=== PATIENT | female | born 1970 | race Caucasian/White ===

== ENCOUNTER 2017-11-18 16:05 | Emergency (ER) | payer OTHER, SELFPAY ==
[2017-11-18 17:55] VITALS: BP 116/63; PULSE 78; RESP 20; TEMP 36.9; O2SAT 97; BMI 33.2
--- NOTE | 2017-11-18 18:03 | HMH.EDUTC ---
[facility] [place] Clinical Impression: CLINIC FOLLOW UP, Dental abscess Disposition: Home, Self-Care Condition on Discharge: Good Instructions: DI for Dental Pain Additional Instructions: Take medication as prescribed Alternate Warm and cold compresses on jaw area to help relieve pain and swelling Continued to take Naproxen for pain Call dental office tomorrow and make appointment If swelling worsens or you have any trouble breathing go straight to ER Prescriptions: Penicillin V Potassium 500 mg PO Q6H #28 tab Referrals: Quincy Johnson APRN [Primary Care Provider] - Time of Disposition: 18:28 Medical Decision Making - Medical Records Medical records reviewed: Yes: I reviewed the patient's medical records. Vital Signs: 11/18/17 17:55 Temperature 98.4 F Temperature Source Temporal Artery Scan Pulse Rate [Right Brachial] 78 Respiratory Rate 20 Blood Pressure [Right Arm] 116/63 Blood Pressure Mean [Right Arm] 80 Blood Pressure Source [Right Arm] Automatic Cuff Blood Pressure Position [Right Arm] Sitting 02 Sat by Pulse Oximetry 97 Oxygen Delivery Method Room Air - Bhavin Inquiry Pt receiving controlled substance: No Bhavin was queried for this patient: No [facility] [place] HPI - General Stated complaint: swelling/pain r jaw Mode of Arrival: Ambulatory Source of Information: Patient Description of Symptoms (Recalled from Triage Doc. by RN): PT IS C/O SWELLING IN THE RIGHT SIDE OF HER FACE. PT STATES SHE DOESN'T HAVE ANY PAIN IN HER GUMS OR TEETH THAT WOULD INDICATE AN ABSCESS. PT STATES SHE HAS STARTED A NEW MEDICATION (NAPROXEN), BUT SHE HAS TAKEN IT BEFORE IN THE PAST. HEENT Symptoms (Recalled from RN notes): Yes (RIGHT SIDE OF FACE SWOLLEN) Resp Symptoms (Recalled from RN notes): No Skin Symptoms (Recalled from RN notes): No MS Symptoms (Recalled from RN notes): No Functional Status (Recalled from RN notes): NA - History of Present Illness Provider Complaint: Patient state that she noticed swelling in her right jaw area this morning State that she has several bad teeth and state that they bother her all the time so not sure if that is what is wrong State that as the day went on it looked like the area was getting bigger so she came in to get checked out - Related Data Previous Rx's Medication Instructions Recorded Penicillin V Potassium 500 mg PO Q6H #28 tab 11/18/17 Allergies Allergy/AdvReac Type Severity Reaction Status Date / Time morphine [MORPHINE] Allergy Mild Verified 11/18/17 16:57 - Worker's Comp Is this a Worker's Comp case?: No [facility] History I have reviewed the patient's past medical history: Yes Medical History: Reports:: Cancer (FACE) - *Social History Smoking Status: Current every day smoker Tobacco Type: cigarettes Alcohol Intake: never - Psychiatric History Expresses thoughts of harming self/others: None Suicide Plan Description: No Plan ROS Obtained: Yes All systems reviewed & no additional complaints Physical Exam - General General appearance: alert, in no apparent distress - Expanded ENT Exam Nose exam: Absent: sinus tenderness Teeth exam: Present: dental caries, dental tenderness # (tenderness right back upper gum, multiple caries, multiple old filings) - Respiratory Respiratory exam: Present: normal lung sounds bilaterally. Absent: respiratory distress - Cardiovascular Cardiovascular exam: Present: regular rate, normal rhythm. Absent: JVD - Neurological Exam Neurological exam: Present: alert, oriented X3
== END 2017-11-18 18:43 | disposition home or self-care (01) ==
PROVIDERS: Emergency Provider Nurse Practitioner; PCP Nurse Practitioner Family
DX: K04.7 Periapical abscess without sinus (principal); F17.210 Nicotine dependence, cigarettes, uncomplicated; Z85.828 Personal history of other malignant neoplasm of skin
CPT/HCPCS: 99202

== ENCOUNTER 2017-11-22 19:04 | Emergency (ER) | payer OTHER, SELFPAY ==
--- NOTE | 2017-11-22 19:19 | HMH.EDUTC ---
[facility] [place] Impression: Cellulitis of external cheek, right Disposition: Home, Self-Care Condition on Discharge: Good Additional Instructions: Warm compresses. Discussed with Dr Morales. See dentist Saturday. Return sooner if fever, vomiting, etc. Prescriptions: Sulfamethoxazole/Trimethoprim [Bactrim DS tablet] 1 each PO BID 10 Days #20 tab cephALEXin [Keflex 500mg Cap] 500 mg PO Q6H 10 Days #40 cap Referrals: Won Coronado MD [Primary Care Provider] - Time of Disposition: 19:35 Medical Decision Making - Medical Records Medical records reviewed: Yes: I reviewed the patient's medical records. - Bhavin Inquiry Pt receiving controlled substance: No [facility] [place] - General Stated complaint: right side of face swollen Time Seen by Provider: 11/22/17 19:20 - History of Present Illness Provider Complaint: Right cheek swelling X 4 days. Started on Penicillin 4 days ago but it seems to be getting worse. Has appt with dentist 11/25/17 but doesn't really feel like her teeth are the issue. Has a history of skin cancer on her face and is very worried. No fever. No nausea/vomiting. Onset (ago): day(s) (4) Location: face Relieving factors: none Exacerbating factors: none Associated symptoms: denies other symptoms Treatments prior to arrival: other (Penicillin) - Related Data Home Medications Medication Instructions Recorded Confirmed Penicillin V Potassium 500 mg PO Q6H 11/22/17 11/22/17 Previous Rx's Medication Instructions Recorded Sulfamethoxazole/Trimethoprim 1 each PO BID 10 Days #20 tab 11/22/17 [Bactrim DS tablet] cephALEXin [Keflex 500mg Cap] 500 mg PO Q6H 10 Days #40 cap 11/22/17 Allergies Allergy/AdvReac Type Severity Reaction Status Date / Time morphine [MORPHINE] Allergy Mild Verified 11/18/17 16:57 [facility] History I have reviewed the patient's past medical history: Yes Medical History: Reports:: Cancer (FACE) - *Social History Smoking Status: Current every day smoker Tobacco Type: cigarettes Alcohol Intake: never ROS Obtained: Yes All systems reviewed & no additional complaints - ENT Ears, Nose, Mouth, and Throat: Reports as per HPI Physical Exam - General General appearance: alert, in no apparent distress - Head Head exam: atraumatic, normocephalic, normal inspection - Eye Eye exam: Present: normal appearance, PERRL, EOMI - ENT ENT exam: Present: normal exam, normal oropharynx, mucous membranes moist, TM's normal bilaterally, normal external ear exam - Expanded ENT Exam Nose exam: Present: sinus tenderness, other (induration of right cheek with tenderness; no drainage) - Neck Neck exam: Present: normal inspection, full ROM, trachea midline. Absent: meningismus, lymphadenopathy - Chest Chest inspection: Present: normal inspection, symmetric chest wall rise. Absent: tenderness - Respiratory Respiratory exam: Present: normal lung sounds bilaterally. Absent: respiratory distress - Cardiovascular Cardiovascular exam: Present: regular rate, normal rhythm. Absent: JVD - Abdominal Exam Abdominal exam: Present: soft, normal bowel sounds. Absent: distention, tenderness, guarding - Extremities Exam Extremities exam: Present: normal inspection, full ROM, normal capillary refill. Absent: calf tenderness - Back Exam Back exam: Present: normal inspection. Absent: tenderness - Neurological Exam Neurological exam: Present: alert, oriented X3 - Psychiatric Psychiatric exam: Present: normal affect, normal mood - Skin Skin exam: Present: warm, dry, intact, normal color - Lymphatic Lymphatic Findings: no adenopathy
[2017-11-22 19:20] VITALS: BP 137/68; PULSE 99; RESP 20; TEMP 36.6; O2SAT 99; BMI 33.2
--- NOTE | 2017-11-22 19:34 | ED_ITS ---
[facility] [place] Clinical Impression: Cellulitis of external cheek, right Disposition: Home, Self-Care Condition on Discharge: Good Additional Instructions: Warm compresses. Discussed with Dr Morales. See dentist Saturday. Return sooner if fever, vomiting, etc. Prescriptions: Sulfamethoxazole/Trimethoprim [Bactrim DS tablet] 1 each PO BID 10 Days #20 tab cephALEXin [Keflex 500mg Cap] 500 mg PO Q6H 10 Days #40 cap Referrals: Won Coronado MD [Primary Care Provider] - Time of Disposition: 19:35 Medical Decision Making - Medical Records Medical records reviewed: Yes: I reviewed the patient's medical records. - Bhavin Inquiry Pt receiving controlled substance: No [facility] [place]PI - General Stated complaint: right side of face swollen Time Seen by Provider: 11/22/17 19:20 - History of Present Illness Provider Complaint: Right cheek swelling X 4 days. Started on Penicillin 4 days ago but it seems to be getting worse. Has appt with dentist 11/25/17 but doesn't really feel like her teeth are the issue. Has a history of skin cancer on her face and is very worried. No fever. No nausea/vomiting. Onset (ago): day(s) (4) Location: face Relieving factors: none Exacerbating factors: none Associated symptoms: denies other symptoms Treatments prior to arrival: other (Penicillin) - Related Data Home Medications Medication Instructions Recorded Confirmed Penicillin V Potassium 500 mg PO Q6H 11/22/17 11/22/17 Previous Rx's Medication Instructions Recorded Sulfamethoxazole/Trimethoprim 1 each PO BID 10 Days #20 tab 11/22/17 [Bactrim DS tablet] cephALEXin [Keflex 500mg Cap] 500 mg PO Q6H 10 Days #40 cap 11/22/17 Allergies Allergy/AdvReac Type Severity Reaction Status Date / Time morphine [MORPHINE] Allergy Mild Verified 11/18/17 16:57 [facility] History I have reviewed the patient's past medical history: Yes Medical History: Reports:: Cancer (FACE) - *Social History Smoking Status: Current every day smoker Tobacco Type: cigarettes Alcohol Intake: never ROS Obtained: Yes All systems reviewed & no additional complaints - ENT Ears, Nose, Mouth, and Throat: Reports as per HPI Physical Exam - General General appearance: alert, in no apparent distress - Head Head exam: atraumatic, normocephalic, normal inspection - Eye Eye exam: Present: normal appearance, PERRL, EOMI - ENT ENT exam: Present: normal exam, normal oropharynx, mucous membranes moist, TM's normal bilaterally, normal external ear exam - Expanded ENT Exam Nose exam: Present: sinus tenderness, other (induration of right cheek with tenderness; no drainage) - Neck Neck exam: Present: normal inspection, full ROM, trachea midline. Absent: meningismus, lymphadenopathy - Chest Chest inspection: Present: normal inspection, symmetric chest wall rise. Absent : tenderness - Respiratory Respiratory exam: Present: normal lung sounds bilaterally. Absent: respiratory distress - Cardiovascular Cardiovascular exam: Present: regular rate, normal rhythm. Absent: JVD - Abdominal Exam Abdominal exam: Present: soft, normal bowel sounds. Absent: distention, tenderness, guarding - Extremities Exam Extremities exam: Present: normal inspection, full ROM, normal capillary refill. Absent: calf tenderness - Back Exam Back exam: Present: normal inspection. Absent: tenderness - Neurologic
== END 2017-11-22 19:45 | disposition home or self-care (01) ==
PROVIDERS: Emergency Provider Physician Assistant; PCP Emergency Medicine
DX: L03.211 Cellulitis of face (principal); F17.210 Nicotine dependence, cigarettes, uncomplicated; Z85.828 Personal history of other malignant neoplasm of skin
CPT/HCPCS: 99202

== ENCOUNTER → 2017-12-30 16:05 | Outpatient (REF) | payer OTHER, SELFPAY | LOC: LAB 16:05 | PROVIDERS: Visit Provider Nurse Practitioner Family | DX: R07.89 Other chest pain (principal); M54.5 Low back pain | CPT/HCPCS: 83880; 87086 ==

== ENCOUNTER → 2018-01-09 09:20 | Outpatient (CLI) | payer OTHER, SELFPAY ==
--- NOTE | 2018-01-09 09:20 | MM_ITS ---
MM Dig screening mamm BI w/CAD CAD Screening COMPARISON: Digital mammograms 04/11/2015 and 07/24/2017 INDICATION: There is a history of breast cancer patient's mother diagnosed after menopause and patient's 2 sisters diagnosed before menopause TECHNIQUE: Standard CC and MLO images were obtained. R2 CAD reviewed. FINDINGS: Scattered fibroglandular densities are seen throughout both breasts and the findings are bilateral and symmetrical. There is a mole marker left breast. There is no suspicious lesion and no suspicious microcalcifications. IMPRESSION: Fibrofatty parenchyma with no suspicious lesion seen recommend yearly follow-up BI-RADS Category: 2 Benign Finding(s) RECOMMENDED FOLLOW-UP: 1YR - 1 YEAR FOLLOW-UP (A letter has been sent to the patient regarding results of the study.)
== END ==
PROVIDERS: PCP Nurse Practitioner Family; Visit Provider Nurse Practitioner Family
DX: Z12.31 Encounter for screening mammogram for malignant neoplasm of breast (principal)
CPT/HCPCS: 77067

== ENCOUNTER → 2018-05-28 10:57 | Outpatient (CLI) | payer OTHER, SELFPAY ==
[2018-05-28 11:36] LABS: Blood Urea Nitrogen 14 mg/dL (7-18); Calcium 8.6 mg/dL (8.5-10.1); Carbon Dioxide 30 mmol/L (21.0-32.0); Chloride 105 mmol/L (98-107); Creatinine,Serum 0.76 mg/dL (0.55-1.02); Estimated Glomerular Filt Rate 81 ml/min (>60); GFR (African American) 98 ML/MIN (>60); Glucose 86 mg/dL (74-106); Sodium 143 mmol/L (136-145)
== END ==
PROVIDERS: Visit Provider Internal Medicine
DX: R60.9 Edema, unspecified (principal); I51.9 Heart disease, unspecified
CPT/HCPCS: 36415; 80048

== ENCOUNTER → 2018-07-01 12:45 | Outpatient (CLI) | payer OTHER, SELFPAY ==
[2018-07-01 13:24] LABS: Alanine Aminotransferase 22 U/L (12-78); Alkaline Phosphatase 68 U/L (46-116); Aspartate Amino Transferase 14 U/L (15-37); Bilirubin,Direct 0.1 mg/dL (0.0-0.2); Bilirubin,Indirect 0.4 mg/dL (0.0-0.9); Bilirubin,Total 0.5 mg/dL (0.2-1.0); Chol/HDL Ratio 3.9 (1-3.5); Cholesterol 263 mg/dL (140-200); HDL Cholesterol 68 mg/dL (29-89); LDL Cholesterol 176 mg/dL (0-130); Total Protein,Serum 7.5 gm/dL (6.4-8.2); Triglycerides 95 mg/dL (30-200); VLDL Cholesterol 19 mg/dL (0-40)
== END ==
PROVIDERS: PCP Emergency Medicine; Visit Provider Nurse Practitioner Family
DX: I50.30 Unspecified diastolic (congestive) heart failure (principal); R42 Dizziness and giddiness; R06.02 Shortness of breath; R60.1 Generalized edema
CPT/HCPCS: 36415; 80061; 80076

== ENCOUNTER → 2018-07-31 14:17 | Outpatient (CLI) | payer OTHER, SELFPAY ==
--- NOTE | 2018-07-31 14:18 | US_ITS ---
US thyroid HISTORY: Follow-up thyroid nodules, thyroid enlargement ITS.REASON: thyromegly ORDERING PHYSICIAN: Meir Díaz MD PATIENT AGE: 47 years Comparison: None FINDINGS: The right lobe is 4.3 x 1.6 x 2.4 cm. There is a 4 mm hypoechoic nodule in the upper pole, 2 mm hypoechoic nodule in the midpole. The left lobe is 4.4 x 1.5 x 2.5 cm. A 4 mm hypoechoic nodules present in the mid polar region on the left. There is a 6 mm hypoechoic nodule in the mid polar region posteriorly. This does have some low level echoes and was not readily apparent on the previous exam. A 4 mm cystic nodule present in the lower pole with a small internal septation. An additional 6 mm hypoechoic nodule is present in the lower pole appears solid. This nodule is not readily demonstrated on the previous exam. The isthmus is slightly thickened on the right. IMPRESSION: Bilateral thyroid enlargement with bilateral thyroid nodules which are low level of suspicion for malignancy. At least 2 nodules are new on the left. Consider 6 month follow-up to confirm stability of these nodules.
[2018-07-31 18:28] LABS: Free T4 (Free Thyroxine) 1.15 ng/dl (0.76-1.46); Thyroid Stimulating Hormone 1.35 uIU/ml (0.358-3.740)
== END ==
PROVIDERS: PCP Emergency Medicine; Visit Provider Otolaryngology
DX: E01.0 Iodine-deficiency related diffuse (endemic) goiter (principal); J34.2 Deviated nasal septum
CPT/HCPCS: 36415; 76536; 84439; 84443

== ENCOUNTER → 2018-08-01 09:43 | Outpatient (CLI) | payer OTHER, SELFPAY ==
[2018-08-01 10:54] VITALS: PULSE 62
== END ==
PROVIDERS: PCP Emergency Medicine; Visit Provider Internal Medicine
DX: R06.00 Dyspnea, unspecified (principal); I27.20 Pulmonary hypertension, unspecified; F17.200 Nicotine dependence, unspecified, uncomplicated
CPT/HCPCS: 94060; 94640; 94726; 94729

== ENCOUNTER → 2018-08-04 10:57 | Outpatient (CLI) | payer OTHER, SELFPAY | PROVIDERS: PCP Nurse Practitioner Family; Visit Provider Nurse Practitioner Family | DX: Z12.31 Encounter for screening mammogram for malignant neoplasm of breast (principal) ==

== ENCOUNTER → 2018-08-22 12:16 | Outpatient (CLI) | payer OTHER, SELFPAY | PROVIDERS: Visit Provider Nurse Practitioner Family | DX: N23 Unspecified renal colic (principal); R39.89 Other symptoms and signs involving the genitourinary system | CPT/HCPCS: 87086 ==

== ENCOUNTER → 2018-09-16 12:49 | Outpatient (CLI) | payer OTHER, SELFPAY ==
--- NOTE | 2018-09-16 12:50 | XR_ITS ---
XR chest 2V HISTORY: ITS.REASON: dyspnea ORDERING PHYSICIAN: Kaye Herman PATIENT AGE: 47 years COMPARISON: 08/05/2017 FINDINGS: The cardiomediastinal silhouette and pulmonary vascularity are within normal limits. The lungs are clear without infiltrates, suspicious nodules, or pleural effusions. No acute bony abnormalities. Degenerative changes are present in the thoracic spine. A calcified granulomas present in the right CPA angle IMPRESSION: No change with no acute finding
== END ==
PROVIDERS: PCP Emergency Medicine; Visit Provider Urology
DX: R06.02 Shortness of breath (principal); E66.9 Obesity, unspecified; E78.5 Hyperlipidemia, unspecified; F17.200 Nicotine dependence, unspecified, uncomplicated; G47.33 Obstructive sleep apnea (adult) (pediatric); I27.20 Pulmonary hypertension, unspecified; I50.9 Heart failure, unspecified; I51.9 Heart disease, unspecified; Z72.0 Tobacco use
CPT/HCPCS: 71046

== ENCOUNTER → 2018-11-03 09:02 | Outpatient (CLI) | payer OTHER, SELFPAY ==
[2018-11-03 10:34] LABS: Alanine Aminotransferase 29 U/L (12-78); Albumin Level 3.6 gm/dL (3.4-5.0); Alkaline Phosphatase 81 U/L (46-116); Aspartate Amino Transferase 21 U/L (15-37); Bilirubin,Direct 0.1 mg/dL (0.0-0.2); Bilirubin,Indirect 0.4 mg/dL (0.0-0.9); Bilirubin,Total 0.5 mg/dL (0.2-1.0); Chol/HDL Ratio 2.8 (1-3.5); Cholesterol 142 mg/dL (140-200); HDL Cholesterol 51 mg/dL (29-89); LDL Cholesterol 75 mg/dL (0-130); Total Protein,Serum 6.7 gm/dL (6.4-8.2); Triglycerides 81 mg/dL (30-200); VLDL Cholesterol 16 mg/dL (0-40)
== END ==
PROVIDERS: Visit Provider Urology
DX: R06.02 Shortness of breath (principal); I50.9 Heart failure, unspecified; I27.20 Pulmonary hypertension, unspecified; E66.9 Obesity, unspecified; F17.200 Nicotine dependence, unspecified, uncomplicated; G47.33 Obstructive sleep apnea (adult) (pediatric); I51.9 Heart disease, unspecified; Z72.0 Tobacco use
CPT/HCPCS: 36415; 80061; 80076

== ENCOUNTER → 2018-11-18 12:48 | Outpatient (POV) | payer OTHER, SELFPAY | PROVIDERS: Visit Provider Internal Medicine | DX: Z00.00 Encounter for general adult medical examination without abnormal findings (principal) ==

== ENCOUNTER → 2019-02-20 15:09 | Outpatient (CLI) | payer OTHER, SELFPAY ==
--- NOTE | 2019-02-20 15:13 | MM_ITS ---
MM Dig screening mamm BI w/CAD CAD Screening COMPARISON: Digital mammograms with CAD 01/09/2018 and 07/26/2017 INDICATION: There is a history of breast cancer in patient's mother after menopause and 2 sisters before menopause. TECHNIQUE: Standard CC and MLO images were obtained. R2 CAD reviewed. FINDINGS: The breasts are composed primarily of fat with minimal scattered fibro glandular densities throughout each breast. There is a mole marker right breast. There is no suspicious lesion and there are no suspicious microcalcifications. IMPRESSION: Fibrofatty parenchyma with no suspicious lesion seen BI-RADS Category: 2 Benign Finding(s) RECOMMENDED FOLLOW-UP: 1YR - 1 YEAR FOLLOW-UP (A letter has been sent to the patient regarding results of the study.)
== END ==
PROVIDERS: PCP Nurse Practitioner Family; Visit Provider Nurse Practitioner Family
DX: Z12.31 Encounter for screening mammogram for malignant neoplasm of breast (principal)
CPT/HCPCS: 77067

== ENCOUNTER → 2019-03-06 14:19 | Outpatient (CLI) | payer OTHER, SELFPAY ==
--- NOTE | 2019-03-06 14:21 | US_ITS ---
US thyroid HISTORY: ITS.REASON: thyroid nodule ORDERING PHYSICIAN: Meir Díaz MD PATIENT AGE: 48 years Comparison: None FINDINGS: The right lobe is 4.5 x 2.2 x 1.4 cm. 3 mm hypoechoic nodule upper pole unchanged 2 mm cyst lower pole unchanged. The left lobe is 4.6 x 1.5 x 2.5 cm. 2 mm hypoechoic nodule upper pole, 4 mm cyst mid polar region, 5 mm septated cyst lower pole, 6 mm isoechoic nodule lower pole unchanged. There was a 5 mm hypoechoic nodule in the mid polar region on the previous exam not demonstrated on today's study. No new suspicious nodules evident. IMPRESSION: Mildly enlarged thyroid gland with bilateral stable nodules
== END ==
PROVIDERS: PCP Nurse Practitioner Family; Visit Provider Otolaryngology
DX: E01.0 Iodine-deficiency related diffuse (endemic) goiter (principal); E04.9 Nontoxic goiter, unspecified
CPT/HCPCS: 76536

== ENCOUNTER 2019-03-30 22:32 | Observation (INO) | payer OTHER, SELFPAY ==
[2019-03-30 22:33] VITALS: BP 96/47; PULSE 64; RESP 18; TEMP 36.6; O2SAT 94; BMI 34.3
--- NOTE | 2019-03-30 22:38 | XR_ITS ---
XR chest portable HISTORY: ITS.REASON: near syncope ORDERING PHYSICIAN: Won Coronado MD PATIENT AGE: 48 years COMPARISON: None FINDINGS: The cardiomediastinal silhouette and pulmonary vascularity are within normal limits. The lungs are clear without infiltrates, suspicious nodules, or pleural effusions. No acute bony abnormalities. IMPRESSION: Negative chest, no acute finding
[2019-03-30 22:52] LABS: Basophils # 0.1 K/mm3 (0-0.2); Basophils % 0.6 % (0.1-2.0); Eosinophils # 0.2 K/mm3 (0.0-0.4); Eosinophils % 2.2 % (0.1-12.0); Hematocrit 38.5 % (37.0-47.0); Hemoglobin 13.2 g/dL (12.2-16.2); Lymphocytes # 4.7 K/mm3 (0.7-4.5); Lymphocytes % 43.1 % (10-50); Mean Corpuscular HGB Conc 34.3 g/dL (31.8-35.4); Mean Corpuscular Hemoglobin 30.8 pg (27.0-31.2); Mean Corpuscular Volume 89.8 fl (81-99); Mean Platelet Volume 7.5 fl (7.4-10.4); Monocytes # 0.6 K/mm3 (0.1-1.0); Neutrophils # 5.3 K/mm3 (1.8-7.8); Neutrophils % 49.1 % (37.0-80.0); Platelet Count 228 K/mm3 (142-424); Red Blood Count 4.29 M/mm3 (4.20-5.40); Red Cell Distribution Width 13.9 % (11.5-17.5); White Blood Count 10.9 K/mm3 (4.8-10.8)
[2019-03-30 23:02] VITALS: BP 109/74; BP 114/75; BP 99/62; PULSE 62; PULSE 69; PULSE 71
[2019-03-30 23:02] LABS: Alanine Aminotransferase 30 U/L (12-78); Albumin Level 3.7 gm/dL (3.4-5.0); Albumin/Globulin Ratio 1.1 (1.1-1.8); Alkaline Phosphatase 87 U/L (46-116); Amylase 34 U/L (25-115); Anion Gap 14.1 mEq/L (5-15); Aspartate Amino Transferase 21 U/L (15-37); Bilirubin,Total 0.5 mg/dL (0.2-1.0); Blood Urea Nitrogen 15 mg/dL (7-18); Calcium 8.6 mg/dL (8.5-10.1); Carbon Dioxide 26 mmol/L (21.0-32.0); Chloride 101 mmol/L (98-107); Creatinine Clearance Estimated 104 mL/min (50-200); Creatinine,Serum 0.99 mg/dL (0.55-1.02); Estimated Glomerular Filt Rate 59 ml/min (>60); GFR (African American) 72 ML/MIN (>60); Globulin 3.4 gm/dl (1.3-3.2); Glucose 101 mg/dL (74-106); Potassium 3.1 mmoL/L (3.5-5.1); Sodium 138 mmol/L (136-145); Total Protein,Serum 7.1 gm/dL (6.4-8.2); Troponin I < 0.02 ng/ml (0.00-0.06)
[2019-03-30 23:31] LABS: Lipase 152 u/L (73-393)
--- NOTE | 2019-03-31 00:13 | HMH.EDCP ---
ED Disposition Clinical Impression: Tobacco use, Hypokalemia, JOSE (obstructive sleep apnea), Multiple thyroid nodules Chest pain Qualifiers: Chest pain type: precordial pain Qualified Code(s): R07.2 - Precordial pain Obesity Qualifiers: Obesity type: due to excess calories Obesity classification: adult class 1 (BMI 30 - 34.9) Serious obesity comorbidity presence: with serious comorbidity Body mass index: BMI 34.0-34.9 Qualified Code(s): E66.09 - Other obesity due to excess calories; Z68.34 - Body mass index (BMI) 34.0-34.9, adult HTN (hypertension) Qualifiers: Hypertension type: unspecified Qualified Code(s): I10 - Essential (primary) hypertension HLD (hyperlipidemia) Qualifiers: Hyperlipidemia type: unspecified Qualified Code(s): E78.5 - Hyperlipidemia, unspecified Disposition: Admitted as Observation Condition on Discharge: Good Instructions: DI for Syncope in Adults (Fainting), DI for Syncope in Children (Fainting) Referrals: Provider,Referral, [Primary Care Provider] - - Critical Care Critical Care Time: No Attestation: On 03/30/19, the high probability of a clinically significant, sudden or life threatening deterioration of the following system(s) required my full and direct attention, intervention and personal management. The time I documented below is in addition to time spent performing reported procedures but includes the following listed in this critical care notation. Medical Decision Making - Medical Records Medical records reviewed: Yes: I reviewed the patient's medical records. - Bhavin Inquiry Pt receiving controlled substance: No Vital Signs: 03/30/19 22:33 03/30/19 23:02 Temperature 98 F Temperature Source Oral Pulse Rate [Orthostatic Lying Right Radial] 62 Pulse Rate [Orthostatic Sitting Right Radial] 69 Pulse Rate [Orthostatic Standing Right Radial] 71 Pulse Rate [Right Radial] 64 Respiratory Rate 18 Blood Pressure [Orthostatic Lying Right Arm] 99/62 L Blood Pressure [Orthostatic Sitting Right Arm] 109/74 L Blood Pressure [Orthostatic Standing Right Arm] 114/75 Blood Pressure [Right Arm] 96/47 L Blood Pressure Mean [Right Arm] 63 02 Sat by Pulse Oximetry 94 L - Lab Data Lab results reviewed: Yes: I reviewed the patient's lab results. Lab Results 03/30/19 22:45: WBC 10.9 H, RBC 4.29, Hgb 13.2, Hct 38.5, MCV 89.8, MCH 30.8, MCHC 34.3, RDW 13.9, Plt Count 228, MPV 7.5, Neut % (Auto) 49.1, Lymph % (Auto) 43.1, Kimble % (Auto) 5.0, Eos % (Auto) 2.2, Baso % (Auto) 0.6, Neut # (Auto) 5.3, Lymph # (Auto) 4.7 H, Kimble # (Auto) 0.6, Eos # (Auto) 0.2, Baso # (Auto) 0.1 03/30/19 22:45: Sodium 138, Potassium 3.1 L, Chloride 101, Carbon Dioxide 26, Anion Gap 14.1, BUN 15, Creatinine 0.99, Estimated Creat Clear 104, Estimated GFR 59, Est GFR ( Amer) 72, Glucose 101, Calcium 8.6, Total Bilirubin 0.5, AST 21, ALT 30, Alkaline Phosphatase 87, Troponin I < 0.02, Total Protein 7.1, Albumin 3.7, Globulin 3.4 H, Albumin/Globulin Ratio 1.1, Amylase 34 03/30/19 22:45: Lipase 152 Result diagrams: 03/30/19 22:45 03/30/19 22:45 Orders (Tests/Meds): ED MEDICATIONS Generic Name Dose Route Start Last Admin Trade Name Freq PRN Reason Stop Dose Admin Sodium Chloride 1,000 mls @ 999 mls/hr 03/30/19 22:45 03/30/19 22:53 Sod Chlor 0.9% 1000ml Bag IV 03/30/19 23:45 999 mls/hr .[id number] [place] Administration Discontinued Medications Generic Name Dose Route Start Last Admin Trade Name Freq PRN Reason Stop Dose Admin Aspirin 243 mg 03/30/19 22:39 03/30/19 22:53 Aspirin 325mg Tablet PO 03/30/19 22:40 243 mg ONCE ONE Administration Ondansetron HCl 4 mg 03/30/19 22:53 03/30/19 22:54 Zofran 4mg/2ml Vial IV 03/30/19 22:54 4 mg ONCE ONE Administration ORDERS Category Date Time Status XR chest portable Stat Exams 03/30/19 22:38 Taken - Radiology Data #1 Image(s): Chest Image Reviewed: Yes I reviewed the patient's radiology im
[2019-03-31 00:16] VITALS: BP 101/66; PULSE 69; RESP 18; O2SAT 95
--- NOTE | 2019-03-31 00:16 | ED_ITS ---
ED Disposition Clinical Impression: Tobacco use, Hypokalemia, JOSE (obstructive sleep apnea), Multiple thyroid nodules Chest pain Qualifiers: Chest pain type: precordial pain Qualified Code(s): R07.2 - Precordial pain Obesity Qualifiers: Obesity type: due to excess calories Obesity classification: adult class 1 (BMI 30 - 34.9) Serious obesity comorbidity presence: with serious comorbidity Body mass index: BMI 34.0-34.9 Qualified Code(s): E66.09 - Other obesity due to excess calories; Z68.34 - Body mass index (BMI) 34.0-34.9, adult HTN (hypertension) Qualifiers: Hypertension type: unspecified Qualified Code(s): I10 - Essential (primary) hypertension HLD (hyperlipidemia) Qualifiers: Hyperlipidemia type: unspecified Qualified Code(s): E78.5 - Hyperlipidemia, unspecified Disposition: Admitted as Observation Condition on Discharge: Good Instructions: DI for Syncope in Adults (Fainting), DI for Syncope in Children (Fainting) Referrals: Provider,Referral, [Primary Care Provider] - - Critical Care Critical Care Time: No Attestation: On 03/30/19, the high probability of a clinically significant, sudden or life threatening deterioration of the following system(s) required my full and direct attention, intervention and personal management. The time I documented below is in addition to time spent performing reported procedures but includes the following listed in this critical care notation. Medical Decision Making - Medical Records Medical records reviewed: Yes: I reviewed the patient's medical records. - Bhavin Inquiry Pt receiving controlled substance: No Vital Signs: 03/30/19 22:33 03/30/19 23:02 Temperature 98 F Temperature Source Oral Pulse Rate [Orthostatic Lying Right Radial] 62 Pulse Rate [Orthostatic Sitting Right Radial] 69 Pulse Rate [Orthostatic Standing Right Radial] 71 Pulse Rate [Right Radial] 64 Respiratory Rate 18 Blood Pressure [Orthostatic Lying Right Arm] 99/62 L Blood Pressure [Orthostatic Sitting Right Arm] 109/74 L Blood Pressure [Orthostatic Standing Right Arm] 114/75 Blood Pressure [Right Arm] 96/47 L Blood Pressure Mean [Right Arm] 63 02 Sat by Pulse Oximetry 94 L - Lab Data Lab results reviewed: Yes: I reviewed the patient's lab results. Lab Results 03/30/19 22:45: WBC 10.9 H, RBC 4.29, Hgb 13.2, Hct 38.5, MCV 89.8, MCH 30.8, MCHC 34.3, RDW 13.9, Plt Count 228, MPV 7.5, Neut % (Auto) 49.1, Lymph % (Auto) 43.1, Owen % (Auto) 5.0, Eos % (Auto) 2.2, Baso % (Auto) 0.6, Neut # (Auto) 5.3, Lymph # (Auto) 4.7 H, Owen # (Auto) 0.6, Eos # (Auto) 0.2, Baso # (Auto) 0.1 03/30/19 22:45: Sodium 138, Potassium 3.1 L, Chloride 101, Carbon Dioxide 26, Anion Gap 14.1, BUN 15, Creatinine 0.99, Estimated Creat Clear 104, Estimated GFR 59, Est GFR ( Amer) 72, Glucose 101, Calcium 8.6, Total Bilirubin 0.5, AST 21, ALT 30, Alkaline Phosphatase 87, Troponin I < 0.02, Total Protein 7.1, Albumin 3.7, Globulin 3.4 H, Albumin/Globulin Ratio 1.1, Amylase 34 03/30/19 22:45: Lipase 152 Result diagrams: 03/30/19 22:45 03/30/19 22:45 Orders (Tests/Meds): ED MEDICATIONS Generic Name Dose Route Start Last Admin Trade Name Freq PRN Reason Stop Dose Admin Sodium Chloride 1,000 mls @ 999 m
--- NOTE | 2019-03-31 00:18 | PC.NURSE ---
dr li admitting patient to his service for chest pain observation.
[2019-03-31 00:41] VITALS: BP 101/66; PULSE 64; RESP 15; TEMP 36.7; O2SAT 97
[2019-03-31 00:56] VITALS: BP 139/97; PULSE 61; RESP 18; TEMP 36.6; O2SAT 99; BMI 35.0
[2019-03-31 01:44] VITALS: PULSE 70
[2019-03-31 03:55] LABS: Troponin I < 0.02 ng/ml (0.00-0.06)
[2019-03-31 04:00] VITALS: BP 123/71; PULSE 60; PULSE 66; RESP 18; TEMP 36.6; O2SAT 95
--- NOTE | 2019-03-31 04:36 | PC.NURSE ---
PT NEW ADMIT THIS SHIFT. AT [facility]. NSR ON TELEMETRY. NO COMPLAINTS OF CHEST PAIN OR N/V.
[2019-03-31 06:05] LABS: Basophils % 0.3 % (0.1-2.0); Eosinophils # 0.2 K/mm3 (0.0-0.4); Eosinophils % 1.9 % (0.1-12.0); Hematocrit 38.2 % (37.0-47.0); Hemoglobin 12.9 g/dL (12.2-16.2); Lymphocytes # 3.5 K/mm3 (0.7-4.5); Lymphocytes % 36.4 % (10-50); Mean Corpuscular HGB Conc 33.7 g/dL (31.8-35.4); Mean Corpuscular Hemoglobin 30.8 pg (27.0-31.2); Mean Corpuscular Volume 91.4 fl (81-99); Mean Platelet Volume 7.6 fl (7.4-10.4); Monocytes # 0.4 K/mm3 (0.1-1.0); Monocytes % 4.1 % (1.7-9.3); Neutrophils # 5.6 K/mm3 (1.8-7.8); Neutrophils % 57.3 % (37.0-80.0); Platelet Count 234 K/mm3 (142-424); Red Blood Count 4.18 M/mm3 (4.20-5.40); White Blood Count 9.7 K/mm3 (4.8-10.8)
[2019-03-31 06:21] LABS: Anion Gap 10.9 mEq/L (5-15); Blood Urea Nitrogen 12 mg/dL (7-18); Calcium 8.4 mg/dL (8.5-10.1); Carbon Dioxide 29 mmol/L (21.0-32.0); Chloride 107 mmol/L (98-107); Chol/HDL Ratio 2.9 (1-3.5); Cholesterol 141 mg/dL (140-200); Creatinine Clearance Estimated 128 mL/min (50-200); Creatinine,Serum 0.82 mg/dL (0.55-1.02); Estimated Glomerular Filt Rate 74 ml/min (>60); GFR (African American) 89 ML/MIN (>60); Glucose 94 mg/dL (74-106); HDL Cholesterol 48 mg/dL (29-89); LDL Cholesterol 81 mg/dL (0-130); Magnesium 2.4 mg/dL (1.4-2.2); Potassium 3.9 mmoL/L (3.5-5.1); Sodium 143 mmol/L (136-145); Triglycerides 58 mg/dL (30-200); Troponin I < 0.02 ng/ml (0.00-0.06); VLDL Cholesterol 12 mg/dL (0-40)
--- NOTE | 2019-03-31 07:11 | P.CONPHA_ITS ---
[facility] [place] Pharmacy VTE Monitoring - Patient Demographics Admission date: 03/31/19 Report Date: 03/31/19 Time: 07:11 Allergies/Adverse Reactions: Patient Allergies morphine [MORPHINE] Allergy (Mild, Verified 03/30/19 22:38) Height: 1.68 m Weight: 98.571 kg Patient Problems: Current Active Problems (Updated 03/31/19 @ 00:27 by Won Coronado MD) Obesity (Acute) Chest pain (Acute) Hypokalemia (Acute) Multiple thyroid nodules (Acute) Tobacco use (Chronic) HLD (hyperlipidemia) (Chronic) HTN (hypertension) (Chronic) JOSE (obstructive sleep apnea) (Chronic) - VTE Risk Labs: VTE Related Lab Results Hgb 12.9 g/dL (12.2-16.2) 03/31/19 05:45 Hct 38.2 % (37.0-47.0) 03/31/19 05:45 Plt Count 234 K/mm3 (142-424) 03/31/19 05:45 BUN 12 mg/dL (7-18) 03/31/19 05:45 Creatinine 0.82 mg/dL (0.55-1.02) 03/31/19 05:45 Estimated Creat Clear 128 mL/min (50-200) 03/31/19 05:45 Was VTE Risk Assessment Performed: Yes VTE Score: 5 VTE Risk Level: Low Risk - Prophylaxis VTE Prophylaxis Ordered?: Yes Types of VTE Prophylaxis: TEDS Knee High Location of Applied Device: Bilateral Lower Extremeties - VTE Diagnosis Confirmed Treatment or plan recommended: Continue Current Treatment
[2019-03-31 08:00] VITALS: BP 95/60; PULSE 60; PULSE 62; RESP 18; TEMP 36.5; O2SAT 95
--- NOTE | 2019-03-31 08:00 | CA_ITS ---
PROCEDURE: 2-D M-mode and color Doppler study INDICATIONS FOR THE TEST: Chest pain X COPDX Heart Murmur Tobacco SmokingX Palpitations Fatigue Syncope Edema HypertensionXDiabetes Mellitus Rheumatic Fever SOB JAY ObesityXHyperlipidemiaX Family History HD Additional History CHF PATIENT INFORMATION HEIGHT:66 WEIGHT:213 GENDER: Female B/P:99/62 2-D/M-MODE INTERPRETATION: 2-D MEASUREMENTS OBSERVED VALUES IN CMS Right Ventricular Dimension (RVDd) 2.0 Interventricular Septum (Thickness)(IVsd) .7 Left Ventricular Internal Dimensions(LVIDd) 5.6 Left Ventricular Posterior Wall (Thickness)(LVPWd) .7 Aortic Root 3.3 Aortic Cusp Separation 1.8 Left Atrial Dimensions (LAD) 3.5 2D 1. Left atrium is mildly enlarged, left ventricle is normal size, there is no concentric left ventricular hypertrophy, visually estimated ejection fraction 55% with no regional wall motion abnormality. 2. The right atrium and right ventricle are normal size and contractility. 3. The aortic, mitral and tricuspid valvular grossly normal. 4. The pulmonic valve is poorly visualized. 5. No significant pericardial effusion DOPPLER INTERROGATION: Doppler interrogation of the aortic, mitral and tricuspid valvular presence of mild mitral and tricuspid regurgitation, tricuspid regurgitation jet velocity is inadequate for calculation of the right ventricular systolic pressure, diastolic parameters are within normal range. CONCLUSION: 1. Mildly enlarged left atrium, normal left ventricular size, visually estimated ejection fraction 55% with no regional wall motion abnormality. Diastolic parameters are within normal range. 2. Mild mitral and tricuspid regurgitation 3. No significant pericardial effusion noted.
--- NOTE | 2019-03-31 09:25 | HMH.PHAINT ---
MEDICATION RECONCILIATION COMPLETED ON PATIENT USING EXTERNAL FILL HISTORY FROM PHARMACY. -ABIOLA FLORIAN, KIMBERLYD
--- NOTE | 2019-03-31 09:33 | HMH.CNCARD ---
History of Present Illness Consult date: 03/31/19 Requesting physician: Won Coronado Consult reason: chest pain Chief complaint: chest pain, near syncope Additional Medical History:: 1. Continued tobacco use A. COPD 2. Hypertensive heart disease A. History of diastolic congestive heart failure 3. Normal coronary arteries by cardiac catheterization August 2017 4. Hyperlipidemia History of present illness: 48-year-old white female with history of normal coronary arteries by cardiac catheterization late 2016 with evidence of diastolic dysfunction presented to the emergency department for what sounds to be near syncope. Patient had been out yesterday morning placing flags on [employer] . After being home a couple hours and hydrating she went with her to the hospital for his IV infusion therapy. While her was having his IV inserted, the patient developed discomfort in her head that she describes as proceeding through her body. She began to feel as if she was going to pass out and at the same time noticed that her hearing was diminished. She was taken to the ER for further evaluation. She did vomit in route to the ER. Blood pressure in the ER was noted to be 96/47. Patient was started on IV fluids. She denies any further discomfort or symptoms overnight. She does admit to dietary indiscretion and regulating her diuretics based on her salt intake. Cardiac enzymes are returned normal x3. Echocardiogram this a.m. shows preserved ejection fraction with no significant valvular heart disease. EKG is sinus with no acute changes. Cardiology consulted for evaluation recommendations. [facility] History Medical History: Reports:: Cancer (skin), Congestive Heart Failure, Chronic Obstructive Pulmonary Disease (COPD), Hyperlipidemia, Hypertension, Lung Disease Denies:: Diabetes Mellitus Type 1, Diabetes Mellitus Type 2, Internal Pacemaker, MRSA, Seizures *Have you ever received a pneumonia vaccine?: Yes *Have you received a flu vaccine this season?: Yes Other Medical History: Reports: Thyroid Disease, Other. Denies: Blood Transfusion Reaction Other Surgeries: Yes: Cardiac Catheterization, Colonoscopy (POLYPS REMOVED), Hysterectomy-Total, Skin Cancer Excision, Tubal Ligation. No: Coronary Stent, Pacemaker Amputation: No Fractures: No - *Social History Educational Level: Attended High School Smoking Status: Current every day smoker Tobacco Type: cigarettes # Packs/Day (cigarettes): 1 Alcohol Intake: never Alcohol Intake Frequency:: holidays/special occasions only Substance Use Type: denies use *Occupational Status:: unemployed Housing: house Household Members: spouse *Travel in the last 8 weeks: None - Psychiatric History Expresses thoughts of harming self/others: None Suicide Plan Description: No Plan Family Hx:: Coronary Artery Disease, Diabetes, Kidney Disease, Stroke Meds Home Medications Medication Instructions Recorded Confirmed Type aspirin 81 mg tablet,delayed 81 mg PO DAILY tab 12/31/17 03/30/19 History release furosemide 40 mg tablet 40 mg PO QAM #90 tab 07/17/18 03/30/19 Rx bisoprolol fumarate 5 mg tablet 2.5 mg PO DAILY #90 tab 09/16/18 03/30/19 Rx Montelukast Sodium [Montelukast 10 mg PO HS 10/14/18 03/31/19 History 10mg Tab] albuterol sulfate HFA 90 1 puff INHALATION Q6H PRN #6.7 g 01/04/19 03/30/19 Rx mcg/actuation aerosol inhaler umeclidinium 62.5 mcg-vilanterol 1 puff INHALATION Q24H 02/17/19 03/31/19 History 25 mcg/actuation powdr for inhalation Atorvastatin Calcium [Atorvastatin 20 mg PO DAILY 03/30/19 03/31/19 History 20mg Tab] Cetirizine HCl 10 mg PO DAILY 03/30/19 03/30/19 History Nystatin [Nystatin Susp 500,000 5 ml PO QID 03/30/19 03/30/19 History Units/5mL Udc] Ropinirole HCl 1 - 2 mg PO HS 03/30/19 03/31/19 History Spironolactone 25 mg PO DAILY 03/31/19 03/31/19 History raNITIdine HCl [Ranitidine HCl] 150 mg PO BID 03/31/19 03/31/19 History Allerg
--- NOTE | 2019-03-31 09:37 | P.CONS_ITS ---
History of Present Illness Consult date: 03/31/19 Requesting physician: Won Coronado Consult reason: chest pain Chief complaint: chest pain, near syncope Additional Medical History:: 1. Continued tobacco use A. COPD 2. Hypertensive heart disease A. History of diastolic congestive heart failure 3. Normal coronary arteries by cardiac catheterization August 2017 4. Hyperlipidemia History of present illness: 48-year-old white female with history of normal coronary arteries by cardiac catheterization late 2016 with evidence of diastolic dysfunction presented to the emergency department for what sounds to be near syncope. Patient had been out yesterday morning placing flags on [employer] . After being home a couple hours and hydrating she went with her to the hospital for his IV infusion therapy. While her was having his IV inserted, the patient developed discomfort in her head that she describes as proceeding through her body. She began to feel as if she was going to pass out and at the same time noticed that her hearing was diminished. She was taken to the ER for further evaluation. She did vomit in route to the ER. Blood pressure in the ER was noted to be 96/47. Patient was started on IV fluids. She denies any further discomfort or symptoms overnight. She does admit to dietary indiscretion and regulating her diuretics based on her salt intake. Cardiac enzymes are returned normal x3. Echocardiogram this a.m. shows preserved ejection fraction with no significant valvular heart disease. EKG is sinus with no acute changes. Cardiology consulted for evaluation recommendations. [facility] History Medical History: Reports:: Cancer (skin), Congestive Heart Failure, Chronic Obstructive Pulmonary Disease (COPD), Hyperlipidemia, Hypertension, Lung Disease Denies:: Diabetes Mellitus Type 1, Diabetes Mellitus Type 2, Internal Pacemaker, MRSA, Seizures *Have you ever received a pneumonia vaccine?: Yes *Have you received a flu vaccine this season?: Yes Other Medical History: Reports: Thyroid Disease, Other. Denies: Blood Transfusion Reaction Other Surgeries: Yes: Cardiac Catheterization, Colonoscopy (POLYPS REMOVED), Hysterectomy-Total, Skin Cancer Excision, Tubal Ligation. No: Coronary Stent, Pacemaker Amputation: No Fractures: No - *Social History Educational Level: Attended High School Smoking Status: Current every day smoker Tobacco Type: cigarettes # Packs/Day (cigarettes): 1 Alcohol Intake: never Alcohol Intake Frequency:: holidays/special occasions only Substance Use Type: denies use *Occupational Status:: unemployed Housing: house Household Members: spouse *Travel in the last 8 weeks: None - Psychiatric History Expresses thoughts of harming self/others: None Suicide Plan Description: No Plan Family Hx:: Coronary Artery Disease, Diabetes, Kidney Disease, Stroke Meds Home Medications Medication Instructions Recorded Confirmed Type aspirin 81 mg tablet,delayed 81 mg PO DAILY tab 12/31/17 03/30/19 History release furosemide 40 mg tablet 40 mg PO QAM #90 tab 07/17/18 03/30/19 Rx bisoprolol fumarate 5 mg tablet 2.5 mg PO DAILY #90 tab 09/16/18 03/30/19 Rx Montelukast Sodium [Montelukast 10 mg PO HS 10/14/18 03/31/19 History 10mg Tab] albuterol sulfate HFA 90 1 puff INHALATION Q6H PRN #6.7 g 01/04/19 03/30/19 Rx mcg/actuation aerosol inhaler umeclidinium 62.5 mcg-vilanterol 1 puff INHALATION Q24H 02/17/19 03/31/19 History 25 mcg/actuation powdr for inhalation
--- NOTE | 2019-03-31 10:04 | HMH.HPDC ---
General - General Admission date:: 03/31/19 Discharge date: 03/31/19 *Admission Date: 03/31/19 *Chief complaint: Near Syncope, Chest tightness *History of present illness: 48-year-old white female with history of normal coronary arteries by cardiac catheterization late 2016 with evidence of diastolic dysfunction presented to the emergency department for what sounds to be near syncope. Patient had been out yesterday morning placing flags on . After being home a couple hours and hydrating she went with her to the hospital for his IV infusion therapy. While her was having his IV inserted, the patient developed discomfort in her head that she describes as proceeding through her body. She began to feel as if she was going to pass out and at the same time noticed that her hearing was diminished. She was taken to the ER for further evaluation. She did vomit in route to the ER. Blood pressure in the ER was noted to be 96/47. Patient was started on IV fluids. She denies any further discomfort or symptoms overnight. She does admit to dietary indiscretion and regulating her diuretics based on her salt intake. Cardiac enzymes are returned normal x3. Echocardiogram this a.m. shows preserved ejection fraction with no significant valvular heart disease. EKG is sinus with no acute changes. (Per Fab Massey). [facility] History I have reviewed the patient's past medical history: Yes Medical History: Reports:: Cancer (skin), Congestive Heart Failure, Chronic Obstructive Pulmonary Disease (COPD), Hyperlipidemia, Hypertension, Lung Disease Denies:: Diabetes Mellitus Type 1, Diabetes Mellitus Type 2, Internal Pacemaker, MRSA, Seizures *Have you ever received a pneumonia vaccine?: Yes *Have you received a flu vaccine this season?: Yes Other Medical History: Reports: Thyroid Disease, Other. Denies: Blood Transfusion Reaction Other Surgeries: Yes: Cardiac Catheterization, Colonoscopy (POLYPS REMOVED), Hysterectomy-Total, Skin Cancer Excision, Tubal Ligation. No: Coronary Stent, Pacemaker Amputation: No Fractures: No - *Social History Educational Level: Attended High School Smoking Status: Current every day smoker Tobacco Type: cigarettes # Packs/Day (cigarettes): 1 Alcohol Intake: never Alcohol Intake Frequency:: holidays/special occasions only Substance Use Type: denies use *Occupational Status:: unemployed Housing: house Household Members: spouse *Travel in the last 8 weeks: None - Psychiatric History Expresses thoughts of harming self/others: None Suicide Plan Description: No Plan Family Hx:: Coronary Artery Disease, Diabetes, Kidney Disease, Stroke Review of Systems - Review of Systems Review of systems:: pertinent systems reviewed and negative unless documented below - Constitutional Denies body ache(s) - Eyes Denies blurry vision - *Cardiovascular Reports excessive sweating - *Respiratory Denies chest congestion, Denies cough - *Gastrointestinal Denies abdominal pain - *Musculoskeletal Denies joint pain - *Neurologic Reports fainting, Denies seizure-like activity - Endocrine Denies cold intolerance - Hematologic/Lymphatic Denies easy bleeding, Denies easy bruising - Allergic/Immunologic Denies throat swelling, Denies tongue swelling Exam Vital signs and Labs for Last 24 Hours: Temp Pulse Resp BP Pulse Ox 97.7 F 62 18 95/60 L 95 03/31/19 08:00 03/31/19 08:00 03/31/19 08:00 03/31/19 08:00 03/31/19 08:00 Laboratory Results - last 24 hr 03/30/19 22:45: WBC 10.9 H, RBC 4.29, Hgb 13.2, Hct 38.5, MCV 89.8, MCH 30.8, MCHC 34.3, RDW 13.9, Plt Count 228, MPV 7.5, Neut % (Auto) 49.1, Lymph % (Auto) 43.1, [place] % (Auto) 5.0, Eos % (Auto) 2.2, Baso % (Auto) 0.6, Neut # (Auto) 5.3, Lymph # (Auto) 4.7 H, [place] # (Auto) 0.6, Eos # (Auto) 0.2, Baso # (Auto) 0.1 03/30/19 22:45: Sodium 138, Potassium 3.1 L, Chloride 101, Carbon Dioxide 26, Anion Gap 14.1, BUN 15, Creatinine 0.99,
--- NOTE | 2019-03-31 10:45 | HMH.PHAINT ---
DISCHARGE COUNSELING COMPLETED ON PATIENT. PATIENT IS TO CONTINUE ALL CURRENT HOME MEDICATIONS. NO NEW PRESCRIPTIONS WERE GIVEN. PATIENT HAD NO QUESTIONS AT THIS TIME. -ABIOLA FLORIAN, KIMBERLYD
[2019-06-12 10:23] LABS: POC Glucose,Bedside 112 (70-110)
== END 2019-03-31 11:00 | disposition home or self-care (01) ==
LOC: ER 22:51 → 2ND 03-31 00:26
PROVIDERS: Admitting Provider Emergency Medicine; Emergency Provider Emergency Medicine; Visit Provider Emergency Medicine
DX: I50.31 Acute diastolic (congestive) heart failure (principal); E78.5 Hyperlipidemia, unspecified; I10 Essential (primary) hypertension; F17.200 Nicotine dependence, unspecified, uncomplicated; E78.00 Pure hypercholesterolemia, unspecified; Z82.49 Family history of ischemic heart disease and other diseases of the circulatory system; Z79.82 Long term (current) use of aspirin; Z79.899 Other long term (current) drug therapy; Z88.5 Allergy status to narcotic agent; Z68.35 Body mass index [BMI] 35.0-35.9, adult; R55 Syncope and collapse; R07.2 Precordial pain; R53.1 Weakness; R61 Generalized hyperhidrosis; R11.10 Vomiting, unspecified; E87.6 Hypokalemia; G47.33 Obstructive sleep apnea (adult) (pediatric); E04.2 Nontoxic multinodular goiter
CPT/HCPCS: 36415; 71045; 80048; 80053; 80061; 82150; 82962; 83690; 83735; 84484; 85025; 93005; 93306; 96365; 96375; 99284; G0378; J2405

== ENCOUNTER → 2019-06-17 18:56 | Outpatient (CLI) | payer OTHER, SELFPAY | PROVIDERS: Visit Provider Nurse Practitioner Family | DX: R10.9 Unspecified abdominal pain (principal) | CPT/HCPCS: 87086 ==

== ENCOUNTER → 2019-07-16 16:54 | Outpatient (CLI) | payer OTHER, SELFPAY ==
--- NOTE | 2019-07-16 16:59 | XR_ITS ---
PROCEDURE: XR HIP LT 2-3V W/PELVIS CLINICAL INDICATION: pain Left hip pain COMPARISON: No exams were available for comparison FINDINGS: No fracture or dislocation is evident. No significant degenerative change. No lytic or blastic change. Unremarkable soft tissues. IMPRESSION: No acute findings. Dictated by: Melvin Ac MD 07/16/2019 17:15 Electronically signed by Melvin Ac MD in [place] 07/16/2019 17:15
--- NOTE | 2019-07-16 16:59 | XR_ITS ---
PROCEDURE: XR LUMBAR SPINE 2-3V CLINICAL INDICATION: pain Low back pain COMPARISON: LS5 LUMBAR SPINE 5 VIEWS from 08/05/2017 CT ABDOMEN PELVIS WO CON from 06/24/2019 FINDINGS: Normal alignment. Degenerative disc disease is present at T12-L1 L1-L2 L2-L3 and L3-L4 with anterior osteophytes most prominent at L1-L2. Mild facet arthritic changes are present at L5-S1 and there is generalized vascular calcification. There is a small opacity noted in the right pelvic region measuring 2-3 mm and could be due to phleboliths or distal ureteral stone. Previous CT scan of 06/24/2019 shows a small phleboliths in this region. There is mild sclerosis of the right SI joint inferiorly IMPRESSION: Degenerative changes lumbar spine as described above Dictated by: Melvin Ac MD 07/16/2019 17:17 Electronically signed by Melvin Ac MD in [place] 07/16/2019 17:17
== END ==
PROVIDERS: PCP Nurse Practitioner Family; Visit Provider Nurse Practitioner Family
DX: M54.9 Dorsalgia, unspecified (principal); M25.552 Pain in left hip
CPT/HCPCS: 72100; 73502

== ENCOUNTER → 2019-10-05 14:11 | Outpatient (CLI) | payer OTHER, SELFPAY ==
--- NOTE | 2019-10-05 14:26 | MR_ITS ---
PROCEDURE: MR LUMBAR SPINE WO CON CLINICAL INDICATION: LUMBAR DDD Low back pain with numbness and tingling down left leg, low back pain left hip pain COMPARISON: XR LUMBAR SPINE 2-3V from 07/16/2019 TECHNIQUE: Standard multiplanar multiecho sequences are performed without contrast. 3-D MIP and myelographic images are also rendered and reviewed FINDINGS: The spinal cord ends at the L1 level. There is mild kyphosis of the lower thoracic and upper lumbar spine. There is multilevel degenerative disc disease. T11-T12, T12-L1, L1-L2 shows degenerative disc disease with irregularity of the endplates consistent with Scheuermann's disease. Minimal bulging disc at L1-L2. L2-L3: Mild degenerative disc disease with minimal bulging disc L3-L4: Minimal bulging disc along with mild facet ligamentum hypertrophy with mild left-sided foraminal narrowing. L4-5: Minimal bulging disc with mild facet ligamentum hypertrophy with moderate to severe left-sided foraminal narrowing. L5-S1: Mild facet ligamentum hypertrophy. No disc herniation or canal stenosis. IMPRESSION: 1. There is multilevel degenerative disc disease. T11-T12, T12-L1, L1-L2 shows degenerative disc disease with irregularity of the endplates consistent with Scheuermann's disease. Minimal bulging disc at L1-L2. 2. L2-L3: Mild degenerative disc disease with minimal bulging disc 3. L3-L4: Minimal bulging disc along with mild facet ligamentum hypertrophy with mild left-sided foraminal narrowing. 4. L4-5: Minimal bulging disc with mild facet ligamentum hypertrophy with moderate to severe left-sided foraminal narrowing. 5. L5-S1: Mild facet ligamentum hypertrophy. 6. No disc herniation or canal stenosis. Dictated by: Melvin Ac MD 10/06/2019 14:30 Electronically signed by Melvin Ac MD in [place] 10/06/2019 14:30
== END ==
PROVIDERS: PCP Nurse Practitioner Family; Visit Provider Orthopaedic Surgery Adult Reconstructive Orthopaedic Surgery
DX: M51.36 Other intervertebral disc degeneration, lumbar region (principal)
CPT/HCPCS: 72148; 76376

== ENCOUNTER → 2020-03-29 10:41 | Outpatient (CLI) | payer MEDICAID, SELFPAY ==
--- NOTE | 2020-03-29 10:46 | XR_ITS ---
PROCEDURE: XR CHEST 2V CLINICAL HISTORY: tob abuse COMPARISON: CXR CHEST(2 VIEWS-NOT PORTABLE) from 09/14/2016 CXR CHEST(2 VIEWS-NOT PORTABLE) from 08/05/2017 CXR2V XR chest 2V from 09/16/2018 FINDINGS: The cardiomediastinal silhouette and pulmonary vascularity are within normal limits. The lungs are clear without infiltrates, suspicious nodules, or pleural effusions. No acute bony abnormalities. IMPRESSION: No acute findings. Dictated by: Dr. Jovany Villalobos MD 03/29/2020 11:[address] Jovany Villalobos MD in [place] 03/29/2020 11:01
== END ==
PROVIDERS: PCP Nurse Practitioner Family; Visit Provider Nurse Practitioner Family
DX: R07.9 Chest pain, unspecified (principal); R06.02 Shortness of breath; I10 Essential (primary) hypertension; I27.20 Pulmonary hypertension, unspecified; E78.5 Hyperlipidemia, unspecified; F17.200 Nicotine dependence, unspecified, uncomplicated; G47.33 Obstructive sleep apnea (adult) (pediatric); Z99.89 Dependence on other enabling machines and devices
CPT/HCPCS: 71046

== ENCOUNTER 2020-05-14 11:32 | Emergency (ER) | payer MEDICAID, SELFPAY ==
[2020-05-14 11:35] VITALS: BP 140/85; PULSE 73; RESP 16; TEMP 36.9; O2SAT 98; BMI 33.2
--- NOTE | 2020-05-14 11:41 | HMH.EDGENADL ---
ED Disposition Clinical Impression: Dental infection Disposition: Home, Self-Care Condition on Discharge: Good Instructions: DI for Tooth Abscess Additional Instructions: Additional instructions for DENTAL PROBLEMS: See a dentist as soon as possible for further evaluation. Return immediately if you have an uncontrollable fever greater than 102 degrees, difficulty breathing or shortness of breath, persistent vomiting, or inability to swallow. Prescriptions: cephALEXin [Keflex 500mg Cap] 500 mg PO QID #40 cap Transmission Status: Pending to [id number] Referrals: Quincy Johnson APRN [Primary Care Provider] - - Critical Care Critical Care Time: No Attestation: On , the high probability of a clinically significant, sudden or life threatening deterioration of the following system(s) required my full and direct attention, intervention and personal management. The time I documented below is in addition to time spent performing reported procedures but includes the following listed in this critical care notation. Medical Decision Making - Bhavin Inquiry Pt receiving controlled substance: No Vital Signs: 05/14/20 11:35 Temperature 98.5 F Temperature Source Oral Pulse Rate [Right] 73 Respiratory Rate 16 Blood Pressure [Right Arm] 140/85 Blood Pressure Mean [Right Arm] 103 Blood Pressure Source [Right Arm] Automatic Cuff Blood Pressure Position [Right Arm] Sitting 02 Sat by Pulse Oximetry 98 Oxygen Delivery Method Room Air General Adult HPI - General Stated complaint: SHAIKH on lt, face swollen ,diarrhea Time Seen by Provider: 05/14/20 11:45 - History of Present Illness HPI narrative: States she woke up with swelling of the right side of her face this morning. She has no pain at rest but has tenderness of her right cheek and 1 of her right maxillary teeth. Denies fever. She has had left-sided headaches for about a week, but those went away this morning when her swelling started. Denies sinus symptoms. States that she has had a dental abscess before. She has been treated with Keflex, which worked well and she requests that medication. - Related Data Home Medications Medication Instructions Recorded Confirmed aspirin 81 mg tablet,delayed 81 mg PO DAILY tab 12/31/17 03/29/20 release Montelukast Sodium [Montelukast 10 mg PO HS 10/14/18 03/29/20 10mg Tab] umeclidinium 62.5 mcg-vilanterol 1 puff INHALATION Q24H 02/17/19 03/29/20 25 mcg/actuation powdr for inhalation Previous Rx's Medication Instructions Recorded albuterol sulfate 90 mcg/actuation 1 puff INHALATION Q6H PRN #6.7 g 01/04/19 aerosol inhaler furosemide 40 mg tablet 40 mg PO QAM #90 tab 07/31/19 ropinirole 1 mg tablet 1 - 2 mg PO HS PRN #60 tab 08/13/19 bisoprolol fumarate 5 mg tablet 2.5 mg PO DAILY #90 tab 09/25/19 spironolactone 25 mg tablet 25 mg PO DAILY #90 tab 11/23/19 EQ LORATADINE 10MG TAB See Rx Instructions .ROUTE 02/04/20 .COMPLEX #90 each atorvastatin 20 mg tablet See Rx Instructions .ROUTE 03/08/20 .COMPLEX #90 tablet cephALEXin [Keflex 500mg Cap] 500 mg PO QID #40 cap 05/14/20 Allergies Allergy/AdvReac Type Severity Reaction Status Date / Time morphine [MORPHINE] Allergy Mild Verified 03/29/20 10:[address] [facility] History - Hepatitis A Screen Attestation statement:: This patient has been screened for Hepatitis A risk factors. I have reviewed the patient's past medical history: Yes Medical History: Reports:: Cancer, Congestive Heart Failure, Chronic Obstructive Pulmonary Disease (COPD), Hyperlipidemia, Hypertension, Lung Disease Denies:: Diabetes Mellitus Type 1, Diabetes Mellitus Type 2, Internal Pacemaker, MRSA, Seizures Other Medical History: Reports: Thyroid Disease, Other. Denies: Blood Transfusion Reaction Other Surgeries: Yes: Cardiac Catheterization, Colonoscopy (POLYPS REMOVED), Hysterectomy-Total, Skin Cancer Excision, Tubal Ligation, Other (polyps from colon). No: Coronary Sten
[2020-05-14 12:24] VITALS: BP 142/80; PULSE 74; RESP 16; TEMP 36.9; O2SAT 98
== END 2020-05-14 12:25 | disposition home or self-care (01) ==
PROVIDERS: Emergency Provider Emergency Medicine; PCP Nurse Practitioner Family
DX: K04.7 Periapical abscess without sinus (principal); J44.9 Chronic obstructive pulmonary disease, unspecified; E78.5 Hyperlipidemia, unspecified; I10 Essential (primary) hypertension; F17.210 Nicotine dependence, cigarettes, uncomplicated; Z79.899 Other long term (current) drug therapy
CPT/HCPCS: 96372; 99281

== ENCOUNTER 2020-05-15 22:19 | Emergency (ER) | payer MEDICAID, SELFPAY ==
[2020-05-15 22:19] VITALS: BP 128/67; PULSE 85; RESP 16; TEMP 37.1; O2SAT 99; BMI 33.2
[2020-05-15 22:30] VITALS: BP 132/69; PULSE 88; RESP 17; O2SAT 99
--- NOTE | 2020-05-15 22:53 | ECG_ITS ---
APPROVED REPORT Exam: Resting ECG HR:78 bpm ECG Measurements Heart Rate 78 AXES SC 132 P 67 QRSd 90 QRS 67 QT 376 T -6 QTc 428 <Conclusion> Normal sinus rhythm NDST-T Changes Abnormal ECG Electronically signed by : Arnaldo Taylor, 05/16/2020 12:26:58
--- NOTE | 2020-05-15 22:54 | HMH.EDCP ---
ED Disposition Clinical Impression: Chest pain at rest, Dental infection Disposition: Home, Self-Care Condition on Discharge: Good Instructions: DI for Chest Pain Additional Instructions: return if any problems and see card today Referrals: Quincy Johnson APRN [Primary Care Provider] - - Critical Care Critical Care Time: No Attestation: On 05/15/20, the high probability of a clinically significant, sudden or life threatening deterioration of the following system(s) required my full and direct attention, intervention and personal management. The time I documented below is in addition to time spent performing reported procedures but includes the following listed in this critical care notation. Medical Decision Making - Medical Records Medical records reviewed: Yes: I reviewed the patient's medical records. - Bhavin Inquiry Pt receiving controlled substance: No Vital Signs: 05/15/20 22:19 05/15/20 22:30 05/15/20 23:00 Temperature 98.7 F Temperature Source Oral Pulse Rate [Left Radial] 85 88 88 Respiratory Rate 16 17 17 Blood Pressure [Right Arm] 128/67 132/69 131/70 Blood Pressure Mean [Right Arm] 87 90 90 Blood Pressure Source [Right Arm] Automatic Cuff Automatic Cuff Automatic Cuff Blood Pressure Position [Right Arm] Sitting Supine Supine 02 Sat by Pulse Oximetry 99 99 99 Oxygen Delivery Method Room Air Room Air Room Air 05/15/20 23:30 05/16/20 00:00 05/16/20 00:30 Temperature Temperature Source Pulse Rate [Left Radial] 84 88 80 Respiratory Rate 17 16 18 Blood Pressure [Right Arm] 121/66 125/63 131/64 Blood Pressure Mean [Right Arm] 84 83 86 Blood Pressure Source [Right Arm] Automatic Cuff Automatic Cuff Automatic Cuff Blood Pressure Position [Right Arm] Supine Supine Supine 02 Sat by Pulse Oximetry 99 99 99 Oxygen Delivery Method Room Air Room Air Room Air 05/16/20 01:30 05/16/20 02:00 Temperature Temperature Source Pulse Rate [Left Radial] 64 66 Respiratory Rate 16 16 Blood Pressure [Right Arm] 114/80 128/86 Blood Pressure Mean [Right Arm] 91 100 Blood Pressure Source [Right Arm] Automatic Cuff Automatic Cuff Blood Pressure Position [Right Arm] 02 Sat by Pulse Oximetry 95 96 Oxygen Delivery Method Room Air Room Air - Lab Data Lab results reviewed: Yes: I reviewed the patient's lab results. Lab Results 05/15/20 22:50: WBC 12.3 H, RBC 4.78, Hgb 15.4, Hct 44.0, MCV 91.9, MCH 32.2 H, MCHC 35.0, RDW 13.9, Plt Count 216, MPV 8.6, Neut % (Auto) 57.9, Lymph % (Auto) 35.4, Lynn % (Auto) 4.7, Eos % (Auto) 1.6, Baso % (Auto) 0.4, Neut # (Auto) 7.1, Lymph # (Auto) 4.4, Lynn # (Auto) 0.6, Eos # (Auto) 0.2, Baso # (Auto) 0.1, ESR 20 05/15/20 22:50: Sodium 136, Potassium 3.9, Chloride 99, Carbon Dioxide 30, Anion Gap 10.9, BUN 10, Creatinine 0.70, Estimated Creat Clear 140, Estimated GFR 88, Est GFR ( Amer) 107, Glucose 103 H, Calcium 9.4, Total Bilirubin 0.6, AST 30, ALT 20, Alkaline Phosphatase 95, Troponin I < 0.01, C-Reactive Protein 16.6 H, Total Protein 7.7, Albumin 4.6, Globulin 3.1, Albumin/Globulin Ratio 1.5 05/15/20 22:50: Lactate 1.7 05/16/20 02:05: Troponin I < 0.01 Result diagrams: 05/15/20 22:50 05/15/20 22:50 Orders (Tests/Meds): ED MEDICATIONS Generic Name Dose Route Start Last Admin Trade Name Freq PRN Reason Stop Dose Admin Sodium Chloride 1,000 mls @ 999 mls/hr 05/15/20 23:00 05/15/20 23:08 Sod Chlor 0.9% 1000ml Bag IV 05/16/20 00:00 999 mls/hr .Q1H1M [place] Administration Discontinued Medications Generic Name Dose Route Start Last Admin Trade Name Freq PRN Reason Stop Dose Admin Acetaminophen/Codeine Phosphate 1 ozzy 05/16/20 02:10 05/16/20 02:13 Acetaminophen W/Codeine #3 Take Home Pack (6) PO 05/16/20 02:11 1 ozzy ONCE ONE Administration Aspirin 324 mg 05/15/20 23:00 05/15/20 23:08 Aspirin 81mg Chewable Tablet PO 05/15/20 23:01 324 mg ONCE ONE Administration Ketorolac Tromethamine 30 mg 05/15/20 22:58 0
[2020-05-15 23:00] VITALS: BP 131/70; PULSE 88; RESP 17; O2SAT 99
[2020-05-15 23:02] LABS: Basophils # 0.1 K/mm3 (0-0.2); Basophils % 0.4 % (0.1-2.0); Eosinophils # 0.2 K/mm3 (0.0-0.4); Eosinophils % 1.6 % (0.1-12.0); Hemoglobin 15.4 g/dL (12.2-16.2); Lymphocytes # 4.4 K/mm3 (0.7-4.5); Lymphocytes % 35.4 % (10-50); Mean Corpuscular Hemoglobin 32.2 pg (27.0-31.2); Mean Corpuscular Volume 91.9 fl (81-99); Mean Platelet Volume 8.6 fl (7.4-10.4); Monocytes # 0.6 K/mm3 (0.1-1.0); Monocytes % 4.7 % (1.7-9.3); Neutrophils # 7.1 K/mm3 (1.8-7.8); Neutrophils % 57.9 % (37.0-80.0); Platelet Count 216 K/mm3 (142-424); Red Blood Count 4.78 M/mm3 (4.20-5.40); Red Cell Distribution Width 13.9 % (11.5-17.5); White Blood Count 12.3 K/mm3 (4.8-10.8)
[2020-05-15 23:09] LABS: Chloride 99 mmol/L (98-107)
[2020-05-15 23:10] LABS: Potassium 3.9 mmoL/L (3.5-5.1); Sodium 136 mmol/L (136-145)
[2020-05-15 23:12] LABS: Alanine Aminotransferase 20 U/L (12-78); Alkaline Phosphatase 95 U/L (38-126); Aspartate Amino Transferase 30 U/L (14-36); Bilirubin,Total 0.6 mg/dl (0.2-1.3); Blood Urea Nitrogen 10 mg/dl (7-17); Creatinine Clearance Estimated 140 mL/min (50-200); Estimated Glomerular Filt Rate 88 ml/min (>60); GFR (African American) 107 ML/MIN (>60); Lactic Acid 1.7 mmol/L (0.7-2.1)
[2020-05-15 23:13] LABS: Albumin Level 4.6 g/dl (3.5-5.0); Albumin/Globulin Ratio 1.5 (1.1-1.8); Anion Gap 10.9 mEq/L (5-15); Calcium 9.4 mg/dl (8.4-10.2); Carbon Dioxide 30 mmol/L (22.0-30.0); Globulin 3.1 g/dL (1.3-3.2); Glucose 103 mg/dl (74-100); Total Protein,Serum 7.7 g/dl (6.3-8.2)
[2020-05-15 23:18] LABS: C-Reactive Protein 16.6 mg/L (0-4)
[2020-05-15 23:24] LABS: Erythrocyte Sedimentation Rate 20 mm/hr (0-30)
[2020-05-15 23:27] LABS: Troponin I < 0.01 ng/ml (0.00-0.034)
[2020-05-15 23:30] VITALS: BP 121/66; PULSE 84; RESP 17; O2SAT 99
[2020-05-16] VITALS: BP 125/63; PULSE 88; RESP 16; O2SAT 99
--- NOTE | 2020-05-16 00:20 | CT_ITS ---
PROCEDURE: CT HEAD/BRAIN WO CON CLINICAL INDICATION: headaches COMPARISON: HDWO CT HEAD W/O CONTRAST from 01/25/2014 TECHNIQUE: Axial images obtained. All CT scans at the facility use one or more dose reduction, viz: automated exposure control, ma/kV adjustment per patient size (including targeted exams where dose is matched to indication, i.e. head), or iterative reconstruction technique. FINDINGS: No midline shift, mass effect, intracranial hemorrhage, hydrocephalus, or extra-axial fluid collection is evident. The calvarium has an unremarkable appearance. No mastoid effusion. No sinus air-fluid level. IMPRESSION: No acute intracranial finding Dictated by: Melvin Ac MD 05/16/2020 07:57 Electronically signed by Melvin Ac MD in [place] 05/16/2020 07:57
--- NOTE | 2020-05-16 00:20 | XR_ITS ---
PROCEDURE: XR CHEST 2V CLINICAL HISTORY: chest pain COMPARISON: CXR CHEST(2 VIEWS-NOT PORTABLE) from 08/05/2017 CXR2V XR chest 2V from 09/16/2018 XR CHEST 2V from 03/29/2020 FINDINGS: The cardiomediastinal silhouette and pulmonary vascularity are within normal limits. The lungs are clear without infiltrates, suspicious nodules, or pleural effusions. No acute bony abnormalities. IMPRESSION: No acute findings. Dictated by: Melvin Ac MD 05/16/2020 07:32 Electronically signed by Melvin Ac MD in [facility] 05/16/2020 07:32
[2020-05-16 00:30] VITALS: BP 131/64; PULSE 80; RESP 18; O2SAT 99
--- NOTE | 2020-05-16 00:50 | CT_ITS ---
PROCEDURE: CT CERVICAL SPINE WO CON CLINICAL INDICATION: NECK PAIN Bilateral neck pain COMPARISON: No exams were available for comparison TECHNIQUE: Axial images obtained with sagittal and coronal reformats. All CT scans at the facility use one or more dose reduction, viz: automated exposure control, ma/kV adjustment per patient size (including targeted exams where dose is matched to indication, i.e. head), or iterative reconstruction technique. Axial spiral CT scanning performed of the cervical spine beginning at the base of the skull and continuing to the upper T-spine. 3-D multiplanar reconstruction with 3-D manipulation of volumetric data set in image rendering was completed by the radiologist and/or technologist with the supervision of the radiologist on independent workstation. FINDINGS: There is straightening/reversal of the normal lordosis which may be due to patient positioning or muscle spasm.. No fracture or dislocation. No lytic or blastic change. C5-C6: Degenerative disc disease. There is questionable left paracentral disc protrusion which may be better evaluated with MRI. C6-C7: Mild degenerative disc disease Mildly enlarged thyroid gland with scattered small cervical lymph nodes. IMPRESSION: Cervical spondylosis. Possible left paracentral disc protrusion C5-C6 which may be better evaluated with MRI No acute fracture Dictated by: Melivn Ac MD 05/16/2020 08:00 Electronically signed by Melvin Ac MD in [place] 05/16/2020 08:00
--- NOTE | 2020-05-16 01:19 | PC.NURSE ---
pt back from RAD. RAD stated pt refused facial bone CT
[2020-05-16 01:30] VITALS: BP 114/80; PULSE 64; RESP 16; O2SAT 95
[2020-05-16 02:00] VITALS: BP 128/86; PULSE 66; RESP 16; O2SAT 96
[2020-05-16 02:34] LABS: Troponin I < 0.01 ng/ml (0.00-0.034)
[2020-05-16 02:50] VITALS: BP 122/87; PULSE 66; RESP 16; TEMP 36.7; O2SAT 95
== END 2020-05-16 02:54 | disposition home or self-care (01) ==
PROVIDERS: Emergency Provider Emergency Medicine; PCP Nurse Practitioner Family
DX: R07.9 Chest pain, unspecified (principal); K04.7 Periapical abscess without sinus; J44.9 Chronic obstructive pulmonary disease, unspecified; E78.5 Hyperlipidemia, unspecified; I10 Essential (primary) hypertension; F17.210 Nicotine dependence, cigarettes, uncomplicated; Z88.5 Allergy status to narcotic agent; Z90.79 Acquired absence of other genital organ(s)
CPT/HCPCS: 70450; 71046; 72125; 80053; 83605; 84484; 85025; 85651; 86140; 87040; 93005; 96365; 96375; 99284

== ENCOUNTER → 2020-05-24 07:17 | Outpatient (CLI) | payer MEDICAID, SELFPAY ==
--- NOTE | 2020-05-24 | CA_ITS ---
APPROVED REPORT Exam: Exercise Treadmill Technologist: Alana Forbes Ht: 5 ft 6 in Wt: 208 lbs BSA: 2.03 m2 HR: 77 bpm BP: 124/84 mmHg Indications: Chest pain Medical History Medications: Furosemide (LASIX),,,,, Aspirin,,,,, Cephalexin,,,,, Atorvastatin,,,,, Ropinirole,,,,, BisOPROLOL,,,,, SpirOnolactone,,,,, Stress Test Details Test: Timothy HR Resting HR: 79 bpm Max Heart Rate (APMHR): 169 bpm Max HR Achieved: 129 bpm Target HR (85% APMHR): 143 bpm % of APMHR: 76 Recovery HR: 80 bpm BP Resting BP: 124.0/84.0 mmHg Max BP: 156.0/84.0 mmHg Recovery BP: 131.0/81.0 mmHg ECG Clinical Exercise duration: 06:00 min Highest Stage Achieved: Exercise capacity: 7.0 METs Stress ECG Conclusion Resting ECG: Normal sinus rhythm, ST-T abnormalities inferiorly and laterally, NS IVCD Patient exercised 6:00 on Timothy Protocol. Test stopped due to shortness of air, fatigue. Symptoms: No chest pain. Arrhythmias/Ectopy: None ST-T Changes: Exaggeration of baseline ST-T abnormalities. Conclusion: Non-diagnostic GXT due to baseline EKG abnormalities. Blunted heart rate response, on beta mango. Myoview images reported separately. Test Summary REST . . . . . . . Sitting REST . . . . . . . Standing REST 06:15 0.0 0.0 79 . 124/ 84 . . Stage 1 01:00 10.0 1.7 94 . . . . Stage 1 02:00 10.0 1.7 103 . . . . Stage 1 03:00 10.0 1.7 107 . 156/ 84 . . Stage 2 01:00 12.0 2.5 115 . . . . Stage 2 . . . . . . . Myoview Injected Stage 2 02:00 12.0 2.5 121 . . . . Stage 2 03:00 12.0 2.5 129 . . . Stop exercise at 06:00 RECOVERY 01:00 0.0 0.0 115 . 120/ 70 . . RECOVERY 02:00 0.0 0.0 100 . 120/ 70 . . RECOVERY 03:00 0.0 0.0 87 . 135/ 80 . . RECOVERY 04:00 0.0 0.0 86 . 130/ 80 . . RECOVERY 05:00 0.0 0.0 80 . 130/ 80 . . RECOVERY 05:34 0.0 0.0 82 . 131/ 81 . . Electronically signed by : Levi Henao, 05/24/2020 20:36:28
--- NOTE | 2020-05-24 07:17 | NM_ITS ---
APPROVED REPORT Exam: Nuclear Stress Test Indication: chest pain..short of breath Patient Location: Outpatient Stress Tech: Alana Forbes [place] Tech:RIK Encarnacion RT(R)(N) Ht: 5 ft 6 in Wt: 208 lbs Bra Size: 40 d HR: 77 bpm BP: 124/84 mmHg BSA: 2.03 m2 BMI: 33.5 History: chest pain..short of breath Procedure: Patient exercised on Timothy protocol 6 minutes and sec, resting heart rate 77 bpm, resting blood pressure 124/84 mmHg, with exercise maximum heart rate achived was 129 bpm which is 76 % of the maximum predicted heart rate and blood pressure was 156/84 mmHg. Patient has Adequate exercise capacity, achieved 7.0 METs of workload on treadmill, the blood pressure response to exercise was Adequate. Electrocardiogram Resting electrocardiogram showed sinus rhythm nonspecific ST-T changes, with exercise there is less than 1.[address] segment depression noted from the baseline EKG, patient did not achieve the target heart rate, the EKG portion of the exercise Myoview is nondiagnostic due to baseline abnormal EKG and patient not achieving the target heart rate. Cardiac Stress and Resting SPECT Images: Cardiac Stress and Resting SPECT images were obtained using technetium 99m Myoview 31.5 mCi stress and 10.48 mCi at rest. Gated SPECT with analysis of segmental wall motion and calculation of ejection fraction also done. Cardiac stress and resting SPECT images show mild fixed defect in the anteroseptal area which is likely secondary to soft tissue attenuation, no reversible ischemia seen. Computer derived ejection fraction is over 65% with no regional wall motion abnormality, right ventricle is normal size and contractility. Conclusion: 1. The EKG portion of the exercise Myoview is nondiagnostic due to baseline abnormal EKG and patient not achieving the target heart rate. Patient has adequate exercise capacity achieved 7 mets of workload on treadmill, the blood pressure response to exercise was adequate. 2. No scintigraphic evidence of reversible ischemia seen at this level of exercise, computer derived ejection fraction is over 65% with no regional wall motion abnormality, right ventricle is normal size and contractility. Electronically signed by : Levi Henao, 05/24/2020 20:39:06
--- NOTE | 2020-05-24 07:20 | CA_ITS ---
APPROVED REPORT EXAM: Comprehensive 2D, Doppler, and color-flow Echocardiogram Slitter And Rewinder: Tayrn Galicia RVT Ht: 5 ft 6 in Wt: 208lbs BSA: 2.03 BP: 124/76 mmHg Indications: CP,CHF,COPD,SMOKER,SOA,OBESITY,HLD,HTN,DM 2D Dimensions LVOT 1.88 cm (M/F) 1.5-2.5 M-Mode Dimensions RVDd 3.25 cm (0.9-2.6) LVDd 4.05 cm (3.5-5.7) LVDs 2.68 cm (3.5-5.7) IVSd 1.17 cm (0.6-1.1) PWd 0.57 cm (0.6-1.1) EF (Teich) 63.20% FS 33.80% EDV (Teich) 72.10 mL ESV (Teich) 26.50 mL LV Diastology E/A Ratio 1.37 Mitral Valve MV A Velocity 54.00 (40-130 cm/s) Left Ventricle Left atrium is normal size, left ventricle is normal size, there is no concentric left ventricular hypertrophy, visually estimated ejection fraction 55% with no regional wall motion abnormality, diastolic parameters are within normal range. Right Ventricle Right atrium and right ventricle are normal size and contractility. Aortic Valve Aortic valve is grossly normal, there is no aortic stenosis or aortic insufficiency. Mitral Valve Mitral valve is grossly normal, there is no mitral regurgitation. Tricuspid Valve Tricuspid valve grossly normal, there is no tricuspid regurgitation. Pulmonic Valve Pulmonic valve is minimally thickened and fibrosed. There is no pulmonic stenosis. Great Vessels Aortic root is normal size. Pericardium No significant pericardial effusion noted. Conclusion 1. Normal left ventricular size, preserved left ventricular systolic function, visually estimated ejection fraction 55% with no regional wall motion abnormality, diastolic parameters are within normal range. 2. No significant pericardial effusion noted. Electronically signed by : Levi Henao, 05/24/2020 19:51:43
--- NOTE | 2020-05-24 10:52 | HMH.ITSHM ---
Current Home Medications as stated by this patient Maura Thorne or pharmaceutical sales representative. [] ropinirole bisprolol spironolactone atorvastain asa
== END ==
PROVIDERS: PCP Emergency Medicine; Visit Provider Urology
DX: R07.9 Chest pain, unspecified (principal); R06.00 Dyspnea, unspecified; E78.5 Hyperlipidemia, unspecified; F17.200 Nicotine dependence, unspecified, uncomplicated; G47.33 Obstructive sleep apnea (adult) (pediatric); I10 Essential (primary) hypertension; I27.20 Pulmonary hypertension, unspecified; Z99.89 Dependence on other enabling machines and devices
CPT/HCPCS: 78452; 93017; 93306; A9502

== ENCOUNTER → 2020-07-13 07:49 | Outpatient (CLI) | payer MEDICAID, SELFPAY ==
--- NOTE | 2020-07-13 07:55 | US_ITS ---
PROCEDURE: US ABDOMEN LIMITED CLINICAL INDICATION: ABD PAIN COMPARISON: CT CT ABDOMEN PELVIS WO CON from 06/24/2019 FINDINGS: PANCREAS: Unremarkable. No obvious mass or abnormal fluid collection. No ductal dilatation LIVER: Is a 1 cm cystic area in the left hepatic lobe of the liver. The liver is otherwise unremarkable. This may correspond to a hypodensity that was seen on a previous CT scan of 06/24/2019 RIGHT KIDNEY: Unremarkable. Normal size and echogenicity. No hydronephrosis GALLBLADDER: There is a nonshadowing echogenic focus in the gallbladder posteriorly which could be due to small polyp. No gallbladder wall thickening or pericholecystic fluid is evident. There is some sludge noted in the gallbladder. Common bile duct is normal at 3 mm. IMPRESSION: 1. Small Paddock cyst. 2. Suspect small gallbladder polyp with a small amount of sludge. No shadowing stones apparent Dictated by: Melvin Ac MD 07/13/2020 17:54 Melvin Ac MD in [place] 07/13/2020 17:54
== END ==
PROVIDERS: PCP Emergency Medicine; Visit Provider Nurse Practitioner Family
DX: R10.9 Unspecified abdominal pain (principal)
CPT/HCPCS: 76705

== ENCOUNTER → 2020-07-30 08:50 | Outpatient (CLI) | payer MEDICAID, SELFPAY ==
[2020-07-30 09:04] LABS: Basophils # 0.1 K/mm3 (0-0.2); Basophils % 0.6 % (0.1-2.0); Eosinophils # 0.3 K/mm3 (0.0-0.4); Eosinophils % 2.4 % (0.1-12.0); Hematocrit 44.5 % (37.0-47.0); Lymphocytes # 4.3 K/mm3 (0.7-4.5); Lymphocytes % 35.4 % (10-50); Mean Corpuscular HGB Conc 33.8 g/dL (31.8-35.4); Mean Corpuscular Volume 91.8 fl (81-99); Mean Platelet Volume 8.5 fl (7.4-10.4); Monocytes # 0.5 K/mm3 (0.1-1.0); Monocytes % 3.7 % (1.7-9.3); Neutrophils # 7.1 K/mm3 (1.8-7.8); Platelet Count 207 K/mm3 (142-424); Red Blood Count 4.84 M/mm3 (4.20-5.40); Red Cell Distribution Width 13.7 % (11.5-17.5); White Blood Count 12.3 K/mm3 (4.8-10.8)
[2020-07-30 09:43] LABS: Chloride 101 mmol/L (98-107); Potassium 4.8 mmoL/L (3.5-5.1); Sodium 140 mmol/L (136-145)
[2020-07-30 09:46] LABS: Alanine Aminotransferase 13 U/L (12-78); Albumin Level 4.2 g/dl (3.5-5.0); Albumin/Globulin Ratio 1.6 (1.1-1.8); Alkaline Phosphatase 77 U/L (38-126); Anion Gap 10.8 mEq/L (5-15); Aspartate Amino Transferase 23 U/L (14-36); Bilirubin,Total 0.7 mg/dl (0.2-1.3); Blood Urea Nitrogen 16 mg/dl (7-17); Carbon Dioxide 33 mmol/L (22.0-30.0); Estimated Glomerular Filt Rate 76 ml/min (>60); GFR (African American) 92 ML/MIN (>60); Globulin 2.6 g/dL (1.3-3.2); Total Protein,Serum 6.8 g/dl (6.3-8.2)
[2020-07-30 09:47] LABS: Calcium 9.8 mg/dl (8.4-10.2); Glucose 91 mg/dl (74-100)
[2020-07-30 10:24] LABS: Coronavirus 19 IgG Antibody Negative (Negative); Coronavirus 19 IgM Antibody Negative (Negative)
== END ==
PROVIDERS: Visit Provider Surgery
DX: Z01.89 Encounter for other specified special examinations (principal); K82.9 Disease of gallbladder, unspecified
CPT/HCPCS: 36415; 80053; 85025; 86328

== ENCOUNTER 2020-08-01 06:07 | Day surgery (SDC) | payer MEDICAID, SELFPAY ==
[2020-07-28 10:19] VITALS: BMI 33.2
[2020-08-01] VITALS (12 sets, daily range): BP systolic 94–124; BP diastolic 59–87; PULSE 51–63; RESP 14–20; TEMP 36.2–43; O2SAT 94–97
--- NOTE | 2020-08-01 08:12 | HMH.OPNOTE ---
Date of procedure: 08/01/20 Pre-op Diagnosis:: Gallbladder disease Post-op Diagnosis:: Same Procedure performed:: Laparoscopic cholecystectomy Surgeon:: Jose Elias Max MD MEDICAL DELIVERY TECHNICIAN:: Marvin Chowdhury Anesthesia: GETA Estimated blood loss (mL): 15 Clinical Note:: Patient is a 49-year-old female from [facility] whom I have seen in the past for colonoscopy. She is referred by Quincy Johnson for gallbladder. She has been having some atypical chest pain and has been evaluated by cardiology without cardiac etiology noted. She states that this is been ongoing for quite a while . Apparently she has had symptoms for at least 1 year. Due to the severity of the attacks she had been seen in the emergency department on more than one occasion. She describes severe sharp epigastric and chest pain. She also has had some pains and discomfort in the right upper quadrant that she describes like something busted . She does describe some GI symptoms with bloating belching and pain. This seems to be worse after certain foods such as tacos and spicy foods. She underwent gallbladder ultrasound which reveals biliary sludge and findings consistent with polyp. Operative findings:: She has some omental adhesions. Gallbladder was somewhat distended and thickened. There were no obvious gallstones. Operative note:: Patient was taken to the operating room. She was given preoperative intravenous antibiotics. In the operating room she was placed in a supine position. General anesthesia was induced via endotracheal tube. Abdomen was prepped and draped in the standard surgical fashion. Subumbilical skin incision was made and while performing abdominal wall lift Veress needle was inserted. CO2 pneumoperitoneum was achieved to 15 mmHg. 11 mm optical trocar was inserted at the umbilicus. She was positioned in reverse Trendelenburg left side down. 11 mm trocar was inserted in the epigastrium. There were some omental adhesions to the anterior abdominal wall in the right upper quadrant and these were taken down using SUSAN ultrasonic harmonic lotus. A couple 5 mm trochars were inserted in the right upper abdomen. Gallbladder was identified and grasped retracted anteriorly and superiorly over the dome of the liver. There were some omental adhesions to the liver which were taken down using SUSAN ultrasonic robotic lotus. Infundibulum/Wise's pouch of the gallbladder was retracted anterior laterally. Blunt dissection was carried out at the neck of the gallbladder bluntly incising the visceral peritoneum. Dissection was carried out isolating the cystic duct and cystic artery. Cystic duct was multiply clipped and sharply divided. Cystic artery was coagulated with SUSAN ultrasonic harmonic lotus and divided. Gallbladder was dissected free from the liver in a retrograde fashion using SUSAN ultrasonic harmonic lotus. Gallbladder was placed within an Endo Catch retrieval device and removed from the peritoneal cavity via the umbilical trocar site. Limited spot use of electrocautery was used on the liver and gallbladder fossa for assurance of hemostasis. Limited irrigation was performed. There appeared to be good hemostasis. Trochars were removed and CO2 pneumoperitoneum was evacuated. Fascia at the umbilicus was closed with a 0 Vicryl suture. Local anesthetic was infiltrated into all trocar sites. Skin incisions were closed with 4-0 Monocryl in a subcuticular fashion. Steri-Strips and dressings were applied. Condition: stable Disposition: PACU Specimens:: Gallbladder and contents Complications:: None immediately apparent
--- NOTE | 2020-08-01 08:25 | HMH.ANESCL ---
[facility] Anesthesia Checklist - Patient Identification Patient Identification: Arm Band, Verbal (Name & ) - Structural Data Admitted From: Home Planned Operative Procedure/s: Laparoscopic cholecystectomy Consent for Planned Operative Procedure(s) Verified: Yes Verified Documents: Surgical Consent, History and Physical - NPO Status Verified Time NPO: 23:30 - Chart Verification Results Verified: CBC, BMP - Additional verifications Anesthesia Reactions: No Hx Blood Transfusions: No Blood Transfusion Reaction: No - Airway Assessment C-Spine Mobility Assessed: Yes TMJ Mobility Assessed: Yes Dentition: Partials (Poor dentition noted) - Neurological Assessment Level of Consciousness: Awake, Alert, Appropriate, Follows Commands Hx Seizures: No Numbness or tingling in extremities: No - Anesthesia Plan Anesthesia Risk discussed: Yes Anesthesia Plan: Verified ASA Class: III Anesthesia Type: General [facility] History I have reviewed the patient's past medical history: Yes Medical History: Reports:: Congestive Heart Failure, Chronic Obstructive Pulmonary Disease (COPD), Hyperlipidemia, Hypertension, Lung Disease Denies:: Cancer, Diabetes Mellitus Type 1, Diabetes Mellitus Type 2, Internal Pacemaker, MRSA, Seizures *Have you ever received a pneumonia vaccine?: Yes *Have you received a flu vaccine this season?: Yes Other Medical History: Reports: Thyroid Disease (Goiter), Other. Denies: Blood Transfusion Reaction Comment:: obesity Anesthesia experience/problems:: No prior complications Other Surgeries: Yes: Cardiac Catheterization, Colonoscopy, Hysterectomy-Total, Skin Cancer Excision, Tubal Ligation, Other (polyps from colon). No: Coronary Stent, Pacemaker Amputation: No Fractures: No - *Social History Last grade of school completed: High school graduate Smoking Status: Current every day smoker Tobacco Type: cigarettes # Packs/Day (cigarettes): 2 Alcohol Intake: never Alcohol Intake Frequency:: holidays/special occasions only Substance Use Type: denies use *Occupational Status:: disabled Housing: house Household Members: spouse *Travel in the last 8 weeks: None Family Hx:: Coronary Artery Disease, Diabetes, Kidney Disease, Stroke
--- NOTE | 2020-08-01 08:27 | HMH.ANESI ---
[facility] Anesthesia Record Part I Intake, IV Amount: 900 Estimated blood loss (mL): 20 Urine output (mL): 0 (NM) Blood Products used (#): none Blood Pressure: 123/87 SaO2: 97 Pulse Rate: 61 Respiratory Rate: 14 Temperature: 97.8 F Patient is:: Awake, Drowsy, Nasal O2, Stable Stable to PACU at:: 08:20
--- NOTE | 2020-08-01 08:56 | PC.NURSE ---
0848-detailed report called to Ruddy,RN 0850-pt transported to post op via stretcher, vss, pt stable
--- NOTE | 2020-08-02 07:19 | HMH.ANESII ---
[facility] Anesthesia Record Part II Discharge Time: 08:50 Destination: Surgical Day Care (OP Surgery) PACU nurse assessment reviewed?: Yes Patient Condition:: Good Anesthesia Complications:: None Swallowing reflex intact?: Yes Cyanosis?: No Blood Pressure: 107/68 Pulse Rate: 58 Temperature: 97.7 F Mental Status: Alert & Oriented Pain level:: 0 Nausea and/or vomitting:: None Intake, IV Amount: 0 (Normovolemic)
[2020-08-02 07:21] VITALS: BP 107/68; PULSE 58; TEMP 36.5
== END 2020-08-01 10:00 | disposition home or self-care (01) ==
LOC: OR 06:08
PROVIDERS: PCP Nurse Practitioner Family; Visit Provider Surgery
PROC: 0FT44ZZ Resection of Gallbladder, Percutaneous Endoscopic Approach (ICD-10-PCS; CPT 47562; principal; 2020-08-01 07:30)
DX: K81.1 Chronic cholecystitis; K82.8 Other specified diseases of gallbladder; Z79.82 Long term (current) use of aspirin; Z79.899 Other long term (current) drug therapy; J44.9 Chronic obstructive pulmonary disease, unspecified; I11.0 Hypertensive heart disease with heart failure; I50.9 Heart failure, unspecified; E78.5 Hyperlipidemia, unspecified; E07.9 Disorder of thyroid, unspecified; Z72.0 Tobacco use; Z82.3 Family history of stroke; Z84.1 Family history of disorders of kidney and ureter
CPT/HCPCS: 47562; 96374; J2405

== ENCOUNTER 2020-08-02 22:35 | Emergency (ER) | payer MEDICAID, SELFPAY ==
[2020-08-02 22:37] VITALS: BP 143/89; PULSE 80; RESP 16; TEMP 36.9; O2SAT 98; BMI 32.8
--- NOTE | 2020-08-02 22:50 | CT_ITS ---
PROCEDURE: CT ABDOMEN PELVIS W CON CLINICAL INDICATION: abd pain after surgery Periumbilical pain following gallbladder surgery. COMPARISON: CT CT ABDOMEN PELVIS WO CON from 06/24/2019 TECHNIQUE: IV Contrast: 75ML OPTIRAY 350 Oral Contrast None Axial images obtained with sagittal and coronal reformats. All CT scans at the facility use one or more dose reduction, viz: automated exposure control, ma/kV adjustment per patient size (including targeted exams where dose is matched to indication, i.e. head), or iterative reconstruction technique. FINDINGS: LOWER THORAX: There are mild atelectatic changes in the lung bases. ABDOMEN & PELVIS: There are scattered multiple hypodense lesions of the liver the largest in the left hepatic lobe segment 4 measuring 10 mm. These may be due to cyst. There are post cholecystectomy changes with some minimal stranding of the fat in the gallbladder fossa. No evidence of biloma. Postsurgical changes anterior abdominal wall. There is some stranding of the fat at the umbilical region within the anterior abdominal wall consistent with postsurgical change small amount of subcutaneous gas noted in the right upper quadrant extending to the rectus.. The spleen, adrenal glands, pancreas, and kidneys have an unremarkable appearance. Unremarkable appendix. Post cholecystectomy changes. No intestinal obstruction or free air. No acute bony findings. There are degenerative changes in the lumbar spine. No abdominal wall abscess or hematoma. IMPRESSION: Postsurgical changes. No acute finding. Dictated by: Melvin Ac MD 08/03/2020 06:24 Melvin Ac MD in [place] 08/03/2020 06:24
[2020-08-02 23:01] LABS: Basophils # 0.1 K/mm3 (0-0.2); Basophils % 0.7 % (0.1-2.0); Eosinophils # 0.2 K/mm3 (0.0-0.4); Eosinophils % 1.6 % (0.1-12.0); Hematocrit 45.1 % (37.0-47.0); Hemoglobin 14.8 g/dL (12.2-16.2); Lymphocytes # 4.7 K/mm3 (0.7-4.5); Lymphocytes % 39.2 % (10-50); Mean Corpuscular HGB Conc 32.7 g/dL (31.8-35.4); Mean Corpuscular Hemoglobin 30.5 pg (27.0-31.2); Mean Corpuscular Volume 93.3 fl (81-99); Mean Platelet Volume 8.2 fl (7.4-10.4); Monocytes # 0.5 K/mm3 (0.1-1.0); Monocytes % 3.7 % (1.7-9.3); Neutrophils # 6.6 K/mm3 (1.8-7.8); Neutrophils % 54.7 % (37.0-80.0); Platelet Count 231 K/mm3 (142-424); Red Blood Count 4.84 M/mm3 (4.20-5.40); Red Cell Distribution Width 13.4 % (11.5-17.5); White Blood Count 12.1 K/mm3 (4.8-10.8)
[2020-08-02 23:05] LABS: Chloride 99 mmol/L (98-107); Potassium 3.6 mmoL/L (3.5-5.1); Sodium 140 mmol/L (136-145)
[2020-08-02 23:07] LABS: Amylase 58 U/L (30-110)
[2020-08-02 23:08] LABS: Alanine Aminotransferase 22 U/L (12-78); Albumin Level 4.4 g/dl (3.5-5.0); Albumin/Globulin Ratio 1.5 (1.1-1.8); Alkaline Phosphatase 79 U/L (38-126); Anion Gap 12.6 mEq/L (5-15); Aspartate Amino Transferase 32 U/L (14-36); Bilirubin,Total 0.5 mg/dl (0.2-1.3); Blood Urea Nitrogen 12 mg/dl (7-17); Calcium 9.4 mg/dl (8.4-10.2); Carbon Dioxide 32 mmol/L (22.0-30.0); Creatinine Clearance Estimated 121 mL/min (50-200); Estimated Glomerular Filt Rate 76 ml/min (>60); GFR (African American) 92 ML/MIN (>60); Globulin 2.9 g/dL (1.3-3.2); Glucose 126 mg/dl (74-100); Lipase 86 U/L (23-300); Total Protein,Serum 7.3 g/dl (6.3-8.2)
--- NOTE | 2020-08-03 00:21 | HMH.EDNVD ---
ED Disposition Clinical Impression: Vasovagal near syncope Disposition: Home, Self-Care Condition on Discharge: Good Instructions: DI for Abdominal Pain-Adult Additional Instructions: fluids and see surg for follow up Referrals: Quincy Johnson APRN [Primary Care Provider] - - Critical Care Critical Care Time: No Attestation: On 08/02/20, the high probability of a clinically significant, sudden or life threatening deterioration of the following system(s) required my full and direct attention, intervention and personal management. The time I documented below is in addition to time spent performing reported procedures but includes the following listed in this critical care notation. Medical Decision Making - Medical Records Medical records reviewed: Yes: I reviewed the patient's medical records. - Bhavin Inquiry Pt receiving controlled substance: No Vital Signs: 08/02/20 22:37 Temperature 98.5 F Temperature Source Oral Pulse Rate [Left] 80 Respiratory Rate 16 Blood Pressure [Right Arm] 143/89 H Blood Pressure Mean [Right Arm] 107 Blood Pressure Source [Right Arm] Automatic Cuff Blood Pressure Position [Right Arm] Sitting 02 Sat by Pulse Oximetry 98 Oxygen Delivery Method Room Air - Lab Data Lab results reviewed: Yes: I reviewed the patient's lab results. Lab Results 08/02/20 22:50: WBC 12.1 H, RBC 4.84, Hgb 14.8, Hct 45.1, MCV 93.3, MCH 30.5, MCHC 32.7, RDW 13.4, Plt Count 231, MPV 8.2, Neut % (Auto) 54.7, Lymph % (Auto) 39.2, [place] % (Auto) 3.7, Eos % (Auto) 1.6, Baso % (Auto) 0.7, Neut # (Auto) 6.6, Lymph # (Auto) 4.7 H, [place] # (Auto) 0.5, Eos # (Auto) 0.2, Baso # (Auto) 0.1 08/02/20 22:50: Sodium 140, Potassium 3.6, Chloride 99, Carbon Dioxide 32 H, Anion Gap 12.6, BUN 12, Creatinine 0.80, Estimated Creat Clear 121, Estimated GFR 76, Est GFR ( Amer) 92, Glucose 126 H, Calcium 9.4, Total Bilirubin 0.5, AST 32, ALT 22, Alkaline Phosphatase 79, Total Protein 7.3, Albumin 4.4, Globulin 2.9, Albumin/Globulin Ratio 1.5, Amylase 58, Lipase 86 Result diagrams: 08/02/20 22:50 08/02/20 22:50 Orders (Tests/Meds): ED MEDICATIONS Generic Name Dose Route Start Last Admin Trade Name Freq PRN Reason Stop Dose Admin Sodium Chloride 1,000 mls @ 999 mls/hr 08/02/20 23:00 08/02/20 22:53 Sod Chlor 0.9% 1000ml Bag IV 08/03/20 00:00 999 mls/hr .Q1H1M [place] Administration Discontinued Medications Generic Name Dose Route Start Last Admin Trade Name Freq PRN Reason Stop Dose Admin Ioversol 75 ml 08/02/20 23:45 08/02/20 23:46 Rad-Optiray 350 100ml Vial IV 08/02/20 23:46 75 ml ONCE ONE Administration Protocol Ketorolac Tromethamine 30 mg 08/02/20 23:40 08/02/20 23:42 Toradol 30mg/Ml Vial IV 08/02/20 23:41 30 mg ONCE ONE Administration Sodium Chloride 10 ml 08/02/20 23:45 08/02/20 23:46 Rad-Saline Flush 10ml Syringe IV 08/02/20 23:46 10 ml ONCE ONE Administration ORDERS Category Date Time Status CT abdomen pelvis w con Stat Cat Scan 08/02/20 22:50 Taken Nausea/Vomiting/Diarrhea HPI - General Chief complaint: Weakness Stated complaint: Gallbladdle surg 927 feels like she is going top Time Seen by Provider: 08/02/20 23:10 Mode of Arrival: Ambulatory Source of Information: Patient, Spouse, Medical Record Limitations: No Limitations Description of Symptoms (Recalled from ER Triage Doc. by RN): Pt had her GB removed yesterday by Dr. Max, no issues with the surgery and felt ok. This evening she started feeling weak and described feeling like she was going to pass out and pain in her lower abd. Umbilical area is covered with bandage and is soaked with bloody drainge, - History of Present Illness HPI Narrative: recent gb surg and feels faint but no palpitations or chest pain MD complaint: nausea, abdominal pain Onset (ago): hour(s) Associated Abdominal Pain: Yes Location of pain: periumbilical Severity: moderate Quality: sharp
[2020-08-03 00:28] VITALS: BP 100/69; PULSE 87; RESP 16; TEMP 36.6; O2SAT 98
== END 2020-08-03 00:30 | disposition home or self-care (01) ==
PROVIDERS: Emergency Provider Emergency Medicine; PCP Nurse Practitioner Family
DX: R55 Syncope and collapse (principal); K91.5 Postcholecystectomy syndrome; I10 Essential (primary) hypertension; E78.5 Hyperlipidemia, unspecified; E03.9 Hypothyroidism, unspecified; J44.9 Chronic obstructive pulmonary disease, unspecified; Z88.5 Allergy status to narcotic agent; F17.210 Nicotine dependence, cigarettes, uncomplicated; Z90.49 Acquired absence of other specified parts of digestive tract
CPT/HCPCS: 74177; 80053; 82150; 83690; 85025; 96365; 96375; 99282; Q9967

== ENCOUNTER 2020-10-25 22:39 | Emergency (ER) | payer SELFPAY ==
[2020-10-25 22:41] VITALS: BP 141/78; PULSE 83; RESP 17; TEMP 36.4; O2SAT 99; BMI 30.7
[2020-10-25 23:02] LABS: Microscopic, Urine URINE MICROSCOPIC (MICROSCOPIC)
[2020-10-25 23:05] LABS: Basophils # 0.1 K/mm3 (0-0.2); Basophils % 0.8 % (0.1-2.0); Eosinophils # 0.2 K/mm3 (0.0-0.4); Eosinophils % 1.6 % (0.1-12.0); Hematocrit 45.7 % (37.0-47.0); Hemoglobin 15.3 g/dL (12.2-16.2); Lymphocytes # 3.9 K/mm3 (0.7-4.5); Lymphocytes % 31.7 % (10-50); Mean Corpuscular HGB Conc 33.6 g/dL (31.8-35.4); Mean Corpuscular Hemoglobin 31.2 pg (27.0-31.2); Mean Platelet Volume 8.6 fl (7.4-10.4); Monocytes # 0.4 K/mm3 (0.1-1.0); Monocytes % 3.4 % (1.7-9.3); Neutrophils # 7.8 K/mm3 (1.8-7.8); Neutrophils % 62.6 % (37.0-80.0); Platelet Count 218 K/mm3 (142-424); Red Blood Count 4.91 M/mm3 (4.20-5.40); Red Cell Distribution Width 14.1 % (11.5-17.5); White Blood Count 12.5 K/mm3 (4.8-10.8)
[2020-10-25 23:06] LABS: Appearance,Urine CLEAR (Clear); Bilirubin,Urine Negative (Negative); Blood, Urine 1+ (Negative); Color,Urine YELLOW (Yellow); Glucose,Urine (UA) Negative (Negative); Ketones,Urine Negative (Negative); Leukocyte Esterase,Urine Negative (Negative); Nitrate,Urine Negative (Negative); PH,Urine 5.5 (5.0-8.5); Protein,Urine Negative (Negative); Urobilinogen,Urine 0.2 EU/dl (0.2)
[2020-10-25 23:07] LABS: Chloride 98 mmol/L (98-107); Potassium 3.7 mmoL/L (3.5-5.1); Sodium 139 mmol/L (136-145)
[2020-10-25 23:09] LABS: Amylase 56 U/L (30-110); Blood Urea Nitrogen 13 mg/dl (7-17); Creatinine Clearance Estimated 99 mL/min (50-200); Estimated Glomerular Filt Rate 66 ml/min (>60); GFR (African American) 80 ML/MIN (>60)
[2020-10-25 23:10] VITALS: BP 127/78; PULSE 66; RESP 15; O2SAT 98
[2020-10-25 23:10] LABS: Alanine Aminotransferase 23 U/L (12-78); Albumin Level 4.6 g/dl (3.5-5.0); Alkaline Phosphatase 95 U/L (38-126); Anion Gap 12.7 mEq/L (5-15); Aspartate Amino Transferase 35 U/L (14-36); Bilirubin,Direct 0.1 mg/dl (0.0-0.4); Bilirubin,Indirect 0.4 mg/dL (0.0-0.9); Bilirubin,Total 0.5 mg/dl (0.2-1.3); Bilirubin,Unconjugated 0.4 mg/dL (0.0-1.1); Calcium 9.9 mg/dl (8.4-10.2); Carbon Dioxide 32 mmol/L (22.0-30.0); Glucose 125 mg/dl (74-100); Lipase 112 U/L (23-300)
[2020-10-25 23:24] LABS: Bacteria,Urine 1+ /lpf; WBC,Urine Occasional #/hpf (0-3)
--- NOTE | 2020-10-25 23:46 | HMH.EDNVD ---
ED Disposition Clinical Impression: Renal colic on right side Disposition: Home, Self-Care Condition on Discharge: Good Instructions: DI for Kidney Stones Additional Instructions: fluids and see pcp if needed Referrals: Quincy Johnson APRN [Primary Care Provider] - - Critical Care Critical Care Time: No Attestation: On 10/25/20, the high probability of a clinically significant, sudden or life threatening deterioration of the following system(s) required my full and direct attention, intervention and personal management. The time I documented below is in addition to time spent performing reported procedures but includes the following listed in this critical care notation. Medical Decision Making - Medical Records Medical records reviewed: Yes: I reviewed the patient's medical records. - Bhavin Inquiry Pt receiving controlled substance: No Vital Signs: 10/25/20 22:41 10/25/20 23:10 10/26/20 00:00 Temperature 97.5 F L Temperature Source Oral Pulse Rate [Right Brachial] 83 66 62 Respiratory Rate 17 15 16 Blood Pressure [Right Arm] 141/78 H 127/78 124/73 Blood Pressure Mean [Right Arm] 99 94 90 Blood Pressure Source [Right Arm] Automatic Cuff Automatic Cuff Automatic Cuff Blood Pressure Position [Right Arm] Sitting Sitting Sitting 02 Sat by Pulse Oximetry 99 98 99 Oxygen Delivery Method Room Air Room Air Room Air - Lab Data Lab results reviewed: Yes: I reviewed the patient's lab results. Lab Results 10/25/20 22:45: WBC 12.5 H, RBC 4.91, Hgb 15.3, Hct 45.7, MCV 93.0, MCH 31.2, MCHC 33.6, RDW 14.1, Plt Count 218, MPV 8.6, Neut % (Auto) 62.6, Lymph % (Auto) 31.7, [place] % (Auto) 3.4, Eos % (Auto) 1.6, Baso % (Auto) 0.8, Neut # (Auto) 7.8, Lymph # (Auto) 3.9, [place] # (Auto) 0.4, Eos # (Auto) 0.2, Baso # (Auto) 0.1 10/25/20 22:45: Sodium 139, Potassium 3.7, Chloride 98, Carbon Dioxide 32 H, Anion Gap 12.7, BUN 13, Creatinine 0.90, Estimated Creat Clear 99, Estimated GFR 66, Est GFR ( Amer) 80, Glucose 125 H, Calcium 9.9, Total Bilirubin 0.5, Direct Bilirubin 0.1, Conjugated Bilirubin 0.0, Indirect Bilirubin 0.4, Unconjugated Bilirubin 0.4, AST 35, ALT 23, Alkaline Phosphatase 95, Total Protein 8.0, Albumin 4.6, Amylase 56, Lipase 112 10/25/20 22:50: Urine Color Yellow, Urine Appearance Clear, Urine pH 5.5, Ur Specific Ava 1.010, Urine Protein Negative, Urine Glucose (UA) Negative, Urine Ketones Negative, Urine Blood 1+, Urine Nitrate Negative, Urine Bilirubin Negative, Urine Urobilinogen 0.2, Ur Leukocyte Esterase Negative, Urine RBC 3-5, Urine WBC Occasional, Ur Squamous Epith Cells 5-10, Urine Bacteria 1+ Result diagrams: 10/25/20 22:45 10/25/20 22:45 Orders (Tests/Meds): ED MEDICATIONS Generic Name Dose Route Start Last Admin Trade Name Freq PRN Reason Stop Dose Admin Sodium Chloride 1,000 mls @ 999 mls/hr 10/25/20 23:00 10/25/20 23:14 Sod Chlor 0.9% 1000ml Bag IV 10/26/20 00:00 999 mls/hr .Q1H1M [place] Administration Discontinued Medications Generic Name Dose Route Start Last Admin Trade Name Freq PRN Reason Stop Dose Admin Iopamidol 75 ml 10/26/20 01:39 10/26/20 01:41 Iopamidol-370 (76%);100ml Bottle IV 10/26/20 01:40 75 ml ONCE ONE Administration Ketorolac Tromethamine 30 mg 10/25/20 22:51 10/25/20 23:13 Ketorolac 30mg/Ml Vial IV 10/25/20 22:52 30 mg ONCE ONE Administration Sodium Chloride 10 ml 10/26/20 01:39 10/26/20 01:41 Sodium Chloride 0.9% 10ml Syr (Rad Only) IV 10/26/20 01:40 10 ml ONCE ONE Administration ORDERS Category Date Time Status CT abdomen pelvis w con Stat Cat Scan 10/26/20 00:01 Taken - CT Data CT Scan: Abdomen, Pelvis Time Received: 01:[address] Reviewed: Yes: I have viewed the radiologist's interpretation Preliminary Findings: Abnormal (small stone) Nausea/Vomiting/Diarrhea HPI - General Chief complaint: Abdominal Pain Stated complaint: right sided abdominal pain Time Seen by Provider: 10/25/20 2
[2020-10-26] VITALS: BP 124/73; PULSE 62; RESP 16; O2SAT 99
--- NOTE | 2020-10-26 00:01 | CT_ITS ---
PROCEDURE: CT ABDOMEN PELVIS W CON CLINICAL INDICATION: rlq pain Right lower quadrant pain COMPARISON: CT CT ABDOMEN PELVIS W CON from 08/02/2020 TECHNIQUE: IV Contrast: 75ML Isovue 370 Oral Contrast None Axial images obtained with sagittal and coronal reformats. All CT scans at the facility use one or more dose reduction, viz: automated exposure control, ma/kV adjustment per patient size (including targeted exams where dose is matched to indication, i.e. head), or iterative reconstruction technique. FINDINGS: LOWER THORAX: No acute finding ABDOMEN & PELVIS: There are multiple hepatic hypodensities not significantly changed.. There has been a prior cholecystectomy. The spleen, adrenal glands, and pancreas have an unremarkable appearance. There is a punctate 2 mm stone in the upper pole of the right kidney.. Ache calcific density is present near the right UVJ. However, this is felt to be due to phleboliths and was present on 08/02/2020exam exam.. There is however an additional 3 mm hyperattenuating focus at the UVJ suspicious for a small stone . There is minimal dilatation of the right renal collecting system and ureter. No evidence of appendicitis. There has been a prior hysterectomy. No intestinal obstruction or free air. Degenerative changes are present in the lower thoracic and lumbar spine. There is mild sclerosis of the SI joints on both sides. IMPRESSION: 1. Mild prominence of the right renal collecting system and ureter with suspected 3 mm stone at the UVJ. 2 mm stone upper pole right kidney 2. Other nonacute findings as described above. Dictated by: Melvin Ac MD 10/26/2020 06:42 Melvin Ac MD in [facility] 10/26/2020 06:42
--- NOTE | 2020-10-26 00:27 | PC.NURSE ---
pt to RAD
--- NOTE | 2020-10-26 00:54 | PC.NURSE ---
pt back from CT
[2020-10-26 01:00] VITALS: BP 149/83; PULSE 60; RESP 16; O2SAT 99
[2020-10-26 01:30] VITALS: BP 146/91; PULSE 60; RESP 15; O2SAT 96
[2020-10-26 01:55] VITALS: BP 156/96; PULSE 59; RESP 15; TEMP 36.6; O2SAT 97
== END 2020-10-26 02:19 | disposition home or self-care (01) ==
PROVIDERS: Emergency Provider Emergency Medicine; PCP Nurse Practitioner Family
DX: N23 Unspecified renal colic (principal); E78.5 Hyperlipidemia, unspecified; J44.9 Chronic obstructive pulmonary disease, unspecified; I10 Essential (primary) hypertension; Z88.5 Allergy status to narcotic agent; Z79.899 Other long term (current) drug therapy; F17.210 Nicotine dependence, cigarettes, uncomplicated
CPT/HCPCS: 74177; 80048; 80076; 81001; 82150; 83690; 85025; 96365; 96375; 99284; Q9967

== ENCOUNTER → 2021-01-18 15:38 | Outpatient (CLI) | payer SELFPAY | PROVIDERS: PCP Nurse Practitioner Family; Visit Provider Nurse Practitioner Family | DX: Z20.822 Contact with and (suspected) exposure to COVID-19 (principal) | CPT/HCPCS: U0003 ==

== ENCOUNTER 2021-02-05 20:03 | Observation (INO) | payer SELFPAY ==
[2021-02-05] VITALS (8 sets, daily range): BP systolic 99–125; BP diastolic 62–74; PULSE 65–75; RESP 14–18; TEMP 36.7; O2SAT 95–98; BMI 31.3; BMI 31.0
--- NOTE | 2021-02-05 20:17 | XR_ITS ---
PROCEDURE: XR CHEST 2V CLINICAL HISTORY: chest pain COMPARISON: CR CXR2V XR chest 2V from 09/16/2018 CR XR CHEST 2V from 03/29/2020 CR XR CHEST 2V from 05/16/2020 FINDINGS: The cardiomediastinal silhouette and pulmonary vascularity are within normal limits. The lungs are clear without infiltrates, suspicious nodules, or pleural effusions. Degenerative changes thoracolumbar junction IMPRESSION: No acute findings. Dictated by: Melvin Ac MD 02/06/2021 04:53 Melvin Ac MD in [facility] 02/06/2021 04:53
--- NOTE | 2021-02-05 20:17 | CT_ITS ---
PROCEDURE: CT ABDOMEN PELVIS W CON CLINICAL INDICATION: Epigastric pain Epigastric pain with nausea COMPARISON: CT CT ABDOMEN PELVIS W CON from 10/26/2020 TECHNIQUE: IV Contrast: 75ML Isovue 370 Oral Contrast None Axial images obtained with sagittal and coronal reformats. All CT scans at the facility use one or more dose reduction, viz: automated exposure control, ma/kV adjustment per patient size (including targeted exams where dose is matched to indication, i.e. head), or iterative reconstruction technique. FINDINGS: LOWER THORAX: No acute finding ABDOMEN & PELVIS: There are numerous small hypodense hepatic lesions which may be due to hepatic cysts. Some are too small to categorize. There has been a prior cholecystectomy. There is mild biliary ectasia which may be due to the prior cholecystectomy. The spleen, adrenal glands, pancreas, and kidneys have an unremarkable appearance. No intestinal obstruction or free air. Mild wall thickening of the distal duodenum and proximal jejunal loops. Scattered colonic diverticula without evidence of diverticulitis. Mild thickening noted of the descending colon. No evidence of appendicitis. Prior hysterectomy. Mild degenerative changes lumbar spine. There is a small calcific density in the right pelvic region which appears to be medial to the ureterovesical junction consistent with a phleboliths similar compared to 10/26/2020. IMPRESSION: 1. Multiple hypodensities of the liver which may be due to hepatic cysts. Some are too small to categorize. 2. Mild wall thickening of the distal duodenum and jejunum which could be due to nondistention or enteritis. 3. Colonic diverticulosis but no evidence of diverticulitis. Dictated by: Melvin Ac MD 02/06/2021 06:20 Melvin Ac MD in [facility] 02/06/2021 06:20
--- NOTE | 2021-02-05 20:17 | ECG_ITS ---
APPROVED REPORT Exam: Resting ECG HR:74 bpm ECG Measurements Heart Rate 74 AXES RI 130 P 60 QRSd 90 QRS 48 QT 412 T 32 QTc 457 Conclusion Normal sinus rhythm Nonspecific ST abnormality Abnormal ECG Electronically signed by : Kehinde Garcia, 02/07/2021 15:12:53
[2021-02-05 20:31] LABS: Basophils # 0.1 K/mm3 (0-0.2); Basophils % 0.4 % (0.1-2.0); Eosinophils # 0.1 K/mm3 (0.0-0.4); Hematocrit 41.7 % (37.0-47.0); Hemoglobin 13.6 g/dL (12.2-16.2); Lymphocytes # 4.2 K/mm3 (0.7-4.5); Mean Corpuscular HGB Conc 32.6 g/dL (31.8-35.4); Mean Corpuscular Hemoglobin 30.1 pg (27.0-31.2); Mean Corpuscular Volume 92.3 fl (81-99); Mean Platelet Volume 7.7 fl (7.4-10.4); Monocytes # 0.5 K/mm3 (0.1-1.0); Monocytes % 3.5 % (1.7-9.3); Neutrophils % 62.2 % (37.0-80.0); Platelet Count 230 K/mm3 (142-424); Red Blood Count 4.52 M/mm3 (4.20-5.40); Red Cell Distribution Width 13.2 % (11.5-17.5); White Blood Count 12.8 K/mm3 (4.8-10.8)
[2021-02-05 20:40] LABS: Alanine Aminotransferase 24 U/L (12-78); Albumin Level 4.2 g/dl (3.5-5.0); Alkaline Phosphatase 86 U/L (38-126); Amylase 41 U/L (30-110); Anion Gap 9.4 mEq/L (5-15); Aspartate Amino Transferase 31 U/L (14-36); Bilirubin,Indirect 0.6 mg/dL (0.0-0.9); Bilirubin,Total 0.6 mg/dl (0.2-1.3); Bilirubin,Unconjugated 0.6 mg/dL (0.0-1.1); Blood Urea Nitrogen 16 mg/dl (7-17); Calcium 8.8 mg/dl (8.4-10.2); Carbon Dioxide 28 mmol/L (22.0-30.0); Chloride 103 mmol/L (98-107); Creatinine Clearance Estimated 108 mL/min (50-200); Estimated Glomerular Filt Rate 66 ml/min (>60); GFR (African American) 80 ML/MIN (>60); Glucose 134 mg/dl (74-100); Lipase 67 U/L (23-300); Potassium 3.4 mmoL/L (3.5-5.1); Sodium 137 mmol/L (136-145); Total Protein,Serum 6.8 g/dl (6.3-8.2)
[2021-02-05 20:52] LABS: C-Reactive Protein 4.6 mg/L (0-4)
[2021-02-05 20:57] LABS: Procalcitonin 0.035 ng/mL (0.0-2.0)
[2021-02-05 21:01] LABS: Erythrocyte Sedimentation Rate 19 mm/hr (0-30)
[2021-02-05 21:01] LABS: Adenovirus,PCR Not Detected (NotDetected); Bordetella Pertussis Not Detected (NotDetected); Chlamydophila Pneumoniae, PCR Not Detected (NotDetected); Coronavirus 19, PCR Not Detected (NotDetected); Coronavirus 229E Not Detected (NotDetected); Coronavirus NL63 Not Detected (NotDetected); Coronavirus OC43 Not Detected (NotDetected); Coronovirus HKU1,PCR Not Detected (NotDetected); Human Metapneumovirus Not Detected (NotDetected); Influenza A, PCR Not Detected (NotDetected); Influenza AH1, 2009 Not Detected (NotDetected); Influenza AH1, PCR Not Detected (NotDetected); Influenza AH3,PCR Not Detected (NotDetected); Influenza B, PCR Not Detected (NotDetected); Mycoplasma Pneumoniae, PCR Not Detected (NotDetected); Parainfluenza 1, PCR Not Detected (NotDetected); Parainfluenza 2, PCR Not Detected (NotDetected); Parainfluenza 3, PCR Not Detected (NotDetected); Parainfluenza 4, PCR Not Detected (NotDetected); Respiratory Syncytial Virus Not Detected (NotDetected); Rhinovirus/Enterovirus Not Detected (NotDetected)
[2021-02-05 21:04] LABS: Troponin I < 0.01 ng/ml (0.00-0.034)
--- NOTE | 2021-02-05 21:08 | HMH.EDCP ---
ED Disposition Clinical Impression: Chest pain at rest, Tobacco dependence Obesity Qualifiers: Obesity type: due to excess calories Obesity classification: adult class 1 (BMI 30 - 34.9) Serious obesity comorbidity presence: with serious comorbidity Body mass index: BMI 30.0-30.9 Qualified Code(s): E66.09 - Other obesity due to excess calories; Z68.30 - Body mass index [BMI]30.0-30.9, adult Disposition: Admitted as Observation Condition on Discharge: Good - Critical Care Critical Care Time: No Attestation: On 02/05/21, the high probability of a clinically significant, sudden or life threatening deterioration of the following system(s) required my full and direct attention, intervention and personal management. The time I documented below is in addition to time spent performing reported procedures but includes the following listed in this critical care notation. Medical Decision Making - Medical Records Medical records reviewed: Yes: I reviewed the patient's medical records. - Bhavin Inquiry Pt receiving controlled substance: No Vital Signs: 02/05/21 20:05 Temperature 98.1 F Temperature Source Oral Pulse Rate [Right] 70 Respiratory Rate 18 Blood Pressure [Right Arm] 124/74 Blood Pressure Mean [Right Arm] 90 Blood Pressure Source [Right Arm] Automatic Cuff Blood Pressure Position [Right Arm] Supine 02 Sat by Pulse Oximetry 98 Oxygen Delivery Method Room Air - Lab Data Lab results reviewed: Yes: I reviewed the patient's lab results. Lab Results 02/05/21 20:00: WBC 12.8 H, RBC 4.52, Hgb 13.6, Hct 41.7, MCV 92.3, MCH 30.1, MCHC 32.6, RDW 13.2, Plt Count 230, MPV 7.7, Neut % (Auto) 62.2, Lymph % (Auto) 33.0, [place] % (Auto) 3.5, Eos % (Auto) 1.0, Baso % (Auto) 0.4, Neut # (Auto) 8.0 H, Lymph # (Auto) 4.2, [place] # (Auto) 0.5, Eos # (Auto) 0.1, Baso # (Auto) 0.1, ESR 19 02/05/21 20:00: Sodium 137, Potassium 3.4 L, Chloride 103, Carbon Dioxide 28, Anion Gap 9.4, BUN 16, Creatinine 0.90, Estimated Creat Clear 108, Estimated GFR 66, Est GFR ( Amer) 80, Glucose 134 H, Calcium 8.8, Total Bilirubin 0.6, Direct Bilirubin 0.0, Conjugated Bilirubin 0.0, Indirect Bilirubin 0.6, Unconjugated Bilirubin 0.6, AST 31, ALT 24, Alkaline Phosphatase 86, Troponin I < 0.01, C-Reactive Protein 4.6 H, Total Protein 6.8, Albumin 4.2, Amylase 41, Lipase 67, Procalcitonin 0.035 02/05/21 20:55: Chlamy pneumoniae PCR Not detected, Adenovirus (PCR) Not detected, B. pertussis DNA (PCR) Not detected, Coronavirus OC43 (PCR) Not detected, Coronavirus HKU1 (PCR) Not detected, Coronavirus 229E (PCR) Not detected, SARS-CoV-2 (PCR) Not detected, Coronavirus NL63 (PCR) Not detected, Human Metapneumovir PCR Not detected, Influenza A (H1) PCR Not detected, Influ A (H1N1/09) PCR Not detected, Influenza A (H3) PCR Not detected, Influenza Type A (PCR) Not detected, Influenza Type B (PCR) Not detected, M. pneumoniae (PCR) Not detected, Parainfluenza 1 (PCR) Not detected, Parainfluenza 2 (PCR) Not detected, Parainfluenza 3 (PCR) Not detected, Parainfluenza 4 (PCR) Not detected, RSV (PCR) Not detected, Entero/Rhino (PCR) Not detected Result diagrams: 02/05/21 20:00 02/05/21 20:00 Orders (Tests/Meds): ED MEDICATIONS Generic Name Dose Route Start Last Admin Trade Name Freq PRN Reason Stop Dose Admin Sodium Chloride 1,000 mls @ 999 mls/hr 02/05/21 20:30 02/05/21 20:32 Sod Chlor 0.9% 1000ml Bag IV 02/05/21 21:30 999 mls/hr .Q1H1M [place] Administration Iopamidol 75 ml 02/05/21 21:47 02/05/21 21:48 Iopamidol-370 (76%);100ml Bottle IV 02/05/21 21:48 75 ml ONCE ONE Administration Sodium Chloride 8 ml 02/05/21 20:33 Sodium Chloride 0.9% 10ml Vial IV 03/07/21 20:32 NEEDED PRN dilute pepcid Sodium Chloride 10 ml 02/05/21 21:47 02/05/21 21:47 Sodium Chloride 0.9% 10ml Syr (Rad Only) IV 02/05/21 21:48 10 ml ONCE ONE Administration Discontinued Medications Generic Name Dose Route Start Last Admin Trade Name
[2021-02-05 23:07] LABS: NT Pro Brain Natriuretic Pep. 235 pg/mL (0-125)
[2021-02-05 23:14] LABS: T4 (Thyroxine) 9.6 ug/dl (5.53-11.0)
--- NOTE | 2021-02-05 23:21 | PC.NURSE ---
patient up to floor via wheelchair.
[2021-02-05 23:28] LABS: Thyroid Stimulating Hormone 1.73 uIU/mL (0.465-4.68)
[2021-02-05 23:52] LABS: Troponin I < 0.01 ng/ml (0.00-0.034)
[2021-02-06] VITALS: BP 107/68; PULSE 61; RESP 20; TEMP 36.6; O2SAT 99
[2021-02-06 03:09] LABS: Troponin I < 0.01 ng/ml (0.00-0.034)
[2021-02-06 04:00] VITALS: BP 103/62; PULSE 61; RESP 16; TEMP 36.5; O2SAT 93; BMI 31.0
--- NOTE | 2021-02-06 05:32 | PC.NURSE ---
pt is AxOx4, has not had any complaints of SOA or chest pain, remains on room air, lungs CTA, telemetry has shown SB to NSR, has ambulated to independently,
--- NOTE | 2021-02-06 07:18 | HMH.PHAVTE ---
[facility] Pharmacy VTE Monitoring - Patient Demographics Admission date: 02/05/21 Report Date: 02/06/21 Time: 07:18 Allergies/Adverse Reactions: Patient Allergies morphine [MORPHINE] Adverse Reaction (Mild, Verified 02/05/21 23:27) Height: 1.73 m Weight: 92.986 kg Patient Problems: Current Active Problems Chest pain at rest (Acute) Obesity (Acute) Tobacco dependence (Chronic) - VTE Risk Labs: VTE Related Lab Results Hgb 13.6 g/dL (12.2-16.2) 02/05/21 20:00 Hct 41.7 % (37.0-47.0) 02/05/21 20:00 Plt Count 230 K/mm3 (142-424) 02/05/21 20:00 BUN 16 mg/dl (7-17) 02/05/21 20:00 Creatinine 0.90 mg/dl (0.52-1.04) 02/05/21 20:00 Estimated Creat Clear 108 mL/min (50-200) 02/05/21 20:00 VTE Score: 7 VTE Risk Level: Moderate Risk - Prophylaxis VTE Prophylaxis Ordered?: Yes Types of VTE Prophylaxis: TEDS Knee High Location of Applied Device: Bilateral Lower Extremeties
[2021-02-06 07:58] VITALS: BP 102/56; PULSE 53; RESP 18; TEMP 36.6; O2SAT 99
[2021-02-06 08:00] VITALS: PULSE 53; PULSE 60; RESP 18; O2SAT 99
[2021-02-06 08:20] LABS: Basophils # 0.1 K/mm3 (0-0.2); Basophils % 0.6 % (0.1-2.0); Eosinophils # 0.2 K/mm3 (0.0-0.4); Eosinophils % 1.8 % (0.1-12.0); Hematocrit 36.9 % (37.0-47.0); Lymphocytes # 4.4 K/mm3 (0.7-4.5); Lymphocytes % 48.3 % (10-50); Mean Corpuscular HGB Conc 32.6 g/dL (31.8-35.4); Mean Corpuscular Hemoglobin 30.5 pg (27.0-31.2); Mean Corpuscular Volume 93.5 fl (81-99); Mean Platelet Volume 7.9 fl (7.4-10.4); Monocytes # 0.4 K/mm3 (0.1-1.0); Monocytes % 4.1 % (1.7-9.3); Neutrophils # 4.1 K/mm3 (1.8-7.8); Neutrophils % 45.2 % (37.0-80.0); Platelet Count 211 K/mm3 (142-424); Red Blood Count 3.95 M/mm3 (4.20-5.40); Red Cell Distribution Width 13.3 % (11.5-17.5); White Blood Count 9.2 K/mm3 (4.8-10.8)
[2021-02-06 08:23] LABS: Chloride 108 mmol/L (98-107); Potassium 3.6 mmoL/L (3.5-5.1); Sodium 140 mmol/L (136-145)
[2021-02-06 08:26] LABS: Anion Gap 3.6 mEq/L (5-15); Blood Urea Nitrogen 17 mg/dl (7-17); Calcium 8.4 mg/dl (8.4-10.2); Carbon Dioxide 32 mmol/L (22.0-30.0); Creatinine Clearance Estimated 138 mL/min (50-200); Estimated Glomerular Filt Rate 88 ml/min (>60); GFR (African American) 106 ML/MIN (>60); Glucose 86 mg/dl (74-100)
--- NOTE | 2021-02-06 09:16 | HMH.PHAINT ---
MEDICATION RECONCILIATION COMPLETED USING EXTERNAL FILL HISTORY, HOME PHARMACY, AND PATIENT
--- NOTE | 2021-02-06 09:24 | SW/DCPLANNER ---
Addendum entered by Eden Kelly 02/06/21 10:35: Lakia Priest has stated that patient is a self pay and not a candidate for Medicaid. Original Note: I have spoke with Alexia Priest regarding Self Pay status at this time.
--- NOTE | 2021-02-06 10:38 | HMH.CNCARD ---
History of Present Illness Consult date: 02/06/21 Requesting physician: Won Coronado Consult reason: chest pain Chief complaint: chest pain History of present illness: This is a 50-year-old white female who presented to the emergency department with complaints of chest pain. The patient states that she has been having epigastric burning and pressure in her chest. She states that this radiated to her neck and jaw. The patient states that the pain was a 5 out of 10 in intensity. She states that this was occurring intermittently. She states that her chest pain and pressure has now resolved. She states that this is associated with shortness of breath and nausea. The patient states that she had been doing well and had her gallbladder out about 2 months ago. She denies any fever, chills, vomiting, diarrhea, PND or orthopnea. She has ruled out for an [place]. She has a history of normal coronary arteries in 2017 with a recent stress test in 2019 which showed no ischemia. [facility] History I have reviewed the patient's past medical history: Yes Medical History: Reports:: Cancer, Congestive Heart Failure, Chronic Obstructive Pulmonary Disease (COPD), Hyperlipidemia, Hypertension, Lung Disease Denies:: Diabetes Mellitus Type 1, Diabetes Mellitus Type 2, Internal Pacemaker, MRSA, Seizures *Have you ever received a pneumonia vaccine?: Yes *Have you received a flu vaccine this season?: No Other Medical History: Reports: Arthritis, Sinus Problems, Thyroid Disease, Other. Denies: Blood Transfusion Reaction Other Surgeries: Yes: Cardiac Catheterization, Cholecystectomy, Colonoscopy, Hysterectomy-Total, Skin Cancer Excision, Tubal Ligation, Other (polyps from colon). No: Coronary Stent, Pacemaker Amputation: No Fractures: No - *Social History Smoking Status: Current every day smoker Tobacco Type: cigarettes # Packs/Day (cigarettes): 1 Alcohol Intake: never Alcohol Intake Frequency:: holidays/special occasions only Substance Use Type: denies use *Occupational Status:: unemployed Housing: house Household Members: spouse *Travel in the last 8 weeks: None Family Hx:: Cancer, Coronary Artery Disease, Heart Attack, Hypertension Meds Home Medications Medication Instructions Recorded Confirmed Type aspirin 81 mg tablet,delayed 81 mg PO DAILY tab 12/31/17 02/06/21 History release furosemide 40 mg tablet 40 mg PO BID #180 tab 08/02/20 02/05/21 Rx bisoprolol fumarate 5 mg tablet 2.5 mg PO DAILY #90 tab 10/05/20 02/05/21 Rx spironolactone 25 mg tablet 25 mg PO DAILY #90 tab 12/05/20 02/05/21 Rx Atorvastatin Calcium [Lipitor 20mg 20 mg PO HS 02/06/21 02/06/21 History Tab] Montelukast Sodium 10 mg PO DAILY 02/06/21 02/06/21 History Ropinirole HCl 1 - 2 tab PO HS PRN 02/06/21 02/06/21 History Allergies Allergy/AdvReac Type Severity Reaction Status Date / Time morphine [MORPHINE] AdvReac Mild Verified 02/05/21 23:27 Exam Vital signs and Labs for Last 24 Hours: Temp Pulse Resp BP Pulse Ox 97.8 F 53 L 18 102/56 L 99 02/06/21 07:58 02/06/21 08:00 02/06/21 08:00 02/06/21 07:58 02/06/21 08:00 Laboratory Results - last 24 hr 02/05/21 20:00: WBC 12.8 H, RBC 4.52, Hgb 13.6, Hct 41.7, MCV 92.3, MCH 30.1, MCHC 32.6, RDW 13.2, Plt Count 230, MPV 7.7, Neut % (Auto) 62.2, Lymph % (Auto) 33.0, [place] % (Auto) 3.5, Eos % (Auto) 1.0, Baso % (Auto) 0.4, Neut # (Auto) 8.0 H, Lymph # (Auto) 4.2, [place] # (Auto) 0.5, Eos # (Auto) 0.1, Baso # (Auto) 0.1, ESR 19 02/05/21 20:00: Sodium 137, Potassium 3.4 L, Chloride 103, Carbon Dioxide 28, Anion Gap 9.4, BUN 16, Creatinine 0.90, Estimated Creat Clear 108, Estimated GFR 66, Est GFR ( Amer) 80, Glucose 134 H, Calcium 8.8, Total Bilirubin 0.6, Direct Bilirubin 0.0, Conjugated Bilirubin 0.0, Indirect Bilirubin 0.6, Unconjugated Bilirubin 0.6, AST 31, ALT 24, Alkaline Phosphatase 86, Troponin I < 0.01, C-Reactive Protein 4.6 H, Total Protein 6.8, Albumin 4.2, Amylase 41, Lipase 67, Procalcitonin 0.03
[2021-02-06 12:00] VITALS: PULSE 70
--- NOTE | 2021-02-06 12:25 | HMH.HPDC ---
General - General Admission date:: 02/05/21 Discharge date: 02/06/21 *Admission Date: 02/05/21 *Chief complaint: chest pain *History of present illness: this patient presented to the ed with chest pain- states she started having epigastric pain last night with burning in her throat, continues to hurt tonight progressive chest pain with rad to neck over the last week with hx of tob use and prev heart dis MD complaint: chest pain indicative of cardiac Onset (ago): day(s) Duration: intermittent Activity at onset: during rest Pain location: substernal, epigastric Severity: moderate Quality: aching Pain radiation: jaw/teeth Risk Factors for CAD: Hypertension, Family Hx of CAD, Smoking Treatments prior to or on arrival for Cardiac Chest Pain: none pt was admitted for cardiac eval at this time [facility] History I have reviewed the patient's past medical history: Yes Medical History: Reports:: Cancer, Congestive Heart Failure, Chronic Obstructive Pulmonary Disease (COPD), Hyperlipidemia, Hypertension, Lung Disease Denies:: Diabetes Mellitus Type 1, Diabetes Mellitus Type 2, Internal Pacemaker, MRSA, Seizures *Have you ever received a pneumonia vaccine?: Yes *Have you received a flu vaccine this season?: No Other Medical History: Reports: Arthritis, Sinus Problems, Thyroid Disease, Other. Denies: Blood Transfusion Reaction Other Surgeries: Yes: Cardiac Catheterization, Cholecystectomy, Colonoscopy, Hysterectomy-Total, Skin Cancer Excision, Tubal Ligation, Other (polyps from colon). No: Coronary Stent, Pacemaker Amputation: No Fractures: No - *Social History Smoking Status: Current every day smoker Tobacco Type: cigarettes # Packs/Day (cigarettes): 1 Alcohol Intake: never Alcohol Intake Frequency:: holidays/special occasions only Substance Use Type: denies use *Occupational Status:: unemployed Housing: house Household Members: spouse *Travel in the last 8 weeks: None Family Hx:: Cancer, Coronary Artery Disease, Heart Attack, Hypertension Review of Systems - Review of Systems Review of systems:: pertinent systems reviewed and negative unless documented below - Constitutional Denies fever(s) - Eyes Denies change in vision - ENT Denies sore throat - *Cardiovascular Reports chest pain, Reports radiating jaw, neck or arm pain, Denies shortness of breath - *Respiratory Denies cough - *Gastrointestinal Denies abdominal pain, Denies heartburn - *Genitourinary Denies blood in urine - *Musculoskeletal Denies joint pain - Integumentary/Breasts Denies rash - *Neurologic Denies seizure-like activity, Denies localized weakness, Denies seizure-like activity - Psychiatric Denies confusion, Denies depression Exam Vital signs and Labs for Last 24 Hours: Temp Pulse Resp BP Pulse Ox 97.8 F 53 L 18 102/56 L 99 02/06/21 07:58 02/06/21 08:00 02/06/21 08:00 02/06/21 07:58 02/06/21 08:00 Laboratory Results - last 24 hr 02/05/21 20:00: WBC 12.8 H, RBC 4.52, Hgb 13.6, Hct 41.7, MCV 92.3, MCH 30.1, MCHC 32.6, RDW 13.2, Plt Count 230, MPV 7.7, Neut % (Auto) 62.2, Lymph % (Auto) 33.0, [place] % (Auto) 3.5, Eos % (Auto) 1.0, Baso % (Auto) 0.4, Neut # (Auto) 8.0 H, Lymph # (Auto) 4.2, [place] # (Auto) 0.5, Eos # (Auto) 0.1, Baso # (Auto) 0.1, ESR 19 02/05/21 20:00: Sodium 137, Potassium 3.4 L, Chloride 103, Carbon Dioxide 28, Anion Gap 9.4, BUN 16, Creatinine 0.90, Estimated Creat Clear 108, Estimated GFR 66, Est GFR ( Amer) 80, Glucose 134 H, Calcium 8.8, Total Bilirubin 0.6, Direct Bilirubin 0.0, Conjugated Bilirubin 0.0, Indirect Bilirubin 0.6, Unconjugated Bilirubin 0.6, AST 31, ALT 24, Alkaline Phosphatase 86, Troponin I < 0.01, C-Reactive Protein 4.6 H, Total Protein 6.8, Albumin 4.2, Amylase 41, Lipase 67, Procalcitonin 0.035 02/05/21 20:00: NT-Pro-B Natriuret Pep 235 H, TSH 1.73, Thyroxine (T4) 9.6 02/05/21 20:55: Chlamy pneumoniae PCR Not detected, Adenovirus (PCR) Not detected, B. pertussis DNA (PCR) Not dete
== END 2021-02-06 13:10 | disposition home or self-care (01) ==
LOC: ER 20:44 → 2ND 22:15
PROVIDERS: Admitting Provider Emergency Medicine; Emergency Provider Emergency Medicine; PCP Nurse Practitioner Family; Visit Provider Emergency Medicine
DX: R07.9 Chest pain, unspecified (principal); F17.210 Nicotine dependence, cigarettes, uncomplicated; M19.90 Unspecified osteoarthritis, unspecified site; Z85.828 Personal history of other malignant neoplasm of skin; Z90.49 Acquired absence of other specified parts of digestive tract; Z71.6 Tobacco abuse counseling; K21.9 Gastro-esophageal reflux disease without esophagitis; G47.33 Obstructive sleep apnea (adult) (pediatric); E66.9 Obesity, unspecified; Z68.31 Body mass index [BMI] 31.0-31.9, adult; Z79.82 Long term (current) use of aspirin; E78.2 Mixed hyperlipidemia; Z88.5 Allergy status to narcotic agent; Z86.010 Personal history of colon polyps; Z79.899 Other long term (current) drug therapy; I50.9 Heart failure, unspecified; J44.9 Chronic obstructive pulmonary disease, unspecified; I11.0 Hypertensive heart disease with heart failure; Z82.49 Family history of ischemic heart disease and other diseases of the circulatory system
CPT/HCPCS: 36415; 71046; 74177; 80048; 80076; 82150; 83690; 83880; 84145; 84436; 84443; 84484; 85025; 85651; 86140; 87581; 87633; 87798; 93005; 93306; 96375; 99284; G0378; J2405; Q9967

== ENCOUNTER → 2021-03-16 16:30 | Outpatient (CLI) | payer OTHER, SELFPAY ==
[2021-03-16 17:09] LABS: Hemoglobin A1C 5.5 % (4.0-6.0)
== END ==
PROVIDERS: Visit Provider Nurse Practitioner Family
DX: R73.09 Other abnormal glucose (principal)
CPT/HCPCS: 83036

== ENCOUNTER → 2021-04-26 11:02 | Outpatient (CLI) | payer OTHER, SELFPAY ==
--- NOTE | 2021-04-26 11:06 | XR_ITS ---
PROCEDURE: XR CHEST 2V CLINICAL HISTORY: rib pain COMPARISON: CR XR CHEST 2V from 03/29/2020 CR XR CHEST 2V from 05/16/2020 CR XR CHEST 2V from 02/05/2021 FINDINGS: The cardiomediastinal silhouette and pulmonary vascularity are within normal limits. The lungs are clear without infiltrates, suspicious nodules, or pleural effusions. No acute bony abnormalities. IMPRESSION: No acute findings. Dictated by: Dr. Jovany Villalobos MD 04/26/2021 11:53 Dr. Jovany Villalobos MD in [facility] 04/26/2021 11:53
== END ==
PROVIDERS: PCP Nurse Practitioner Family; Visit Provider Nurse Practitioner Family
DX: R07.9 Chest pain, unspecified (principal)
CPT/HCPCS: 71046

== ENCOUNTER → 2021-05-02 15:14 | Outpatient (CLI) | payer OTHER, SELFPAY ==
--- NOTE | 2021-05-02 15:14 | MM_ITS ---
PROCEDURE INFORMATION: Exam: MG Screening 3D Mammography Exam date and time: 05/02/2021 3:14 PM Age: 50 years old Clinical indication: Encounter for screening mammogram for malignant neoplasm of breast TECHNIQUE: Imaging protocol: Screening tomosynthesis and 2D mammography including computer-aided detection (CAD) when performed. COMPARISON: 1. MG SCBI MM Dig screening mamm BI w/CAD 02/20/2019 3:29 PM 2. MG SCBI MM Dig screening mamm BI w/CAD 01/09/2018 9:30 AM FINDINGS: MAMMOGRAPHY: Breast composition: The breast tissue is composed of scattered areas of fibroglandular density. Mass: None. Architectural distortion: None. Calcifications: No suspicious calcifications. Asymmetric density: None. Skin thickening: None. Axillary adenopathy: None. IMPRESSION: No mammographic evidence of malignancy. Annual screening is recommended unless otherwise clinically indicated. ASSESSMENT: BI-RADS Category 1: Negative
== END ==
PROVIDERS: PCP Nurse Practitioner Family; Visit Provider Nurse Practitioner Family
DX: Z12.31 Encounter for screening mammogram for malignant neoplasm of breast (principal)
CPT/HCPCS: 77063; 77067

== ENCOUNTER → 2021-05-08 13:35 | Outpatient (CLI) | payer OTHER, SELFPAY ==
[2021-05-08 14:26] LABS: Blood Urea Nitrogen 17 mg/dl (7-17); Estimated Glomerular Filt Rate 75 ml/min (>60); GFR (African American) 91 ML/MIN (>60)
== END ==
PROVIDERS: Visit Provider Surgery
DX: Z01.818 Encounter for other preprocedural examination (principal)
CPT/HCPCS: 36415; 82565; 84520

== ENCOUNTER → 2021-06-07 09:32 | Outpatient (CLI) | payer OTHER, SELFPAY ==
--- NOTE | 2021-06-07 09:32 | FL_ITS ---
PROCEDURE: FL BARIUM SWALLOW CLINICAL INDICATION: dysphagia COMPARISON: No exams were available for comparison FINDINGS: Fluoroscopy time: 1.05 minutes. No mass, polypoid filling defect, or mucosal abnormality is evident. There is a small sliding hiatal hernia with Valsalva maneuver. No reflux was demonstrated. IMPRESSION: Small sliding hiatal hernia otherwise negative barium swallow Dictated by: Melvin Ac MD 06/07/2021 10:39 Melvin Ac MD in [facility] 06/07/2021 10:39
== END ==
PROVIDERS: PCP Nurse Practitioner Family; Visit Provider Otolaryngology
DX: R13.10 Dysphagia, unspecified (principal)
CPT/HCPCS: 74220

== ENCOUNTER → 2021-06-13 10:19 | Outpatient (CLI) | payer OTHER, SELFPAY ==
--- NOTE | 2021-06-13 10:19 | CT_ITS ---
PROCEDURE: CT ABDOMEN PELVIS WO/W CON CLINICAL INDICATION: Left lower quad Right lower quadrant pain COMPARISON: CT CT ABDOMEN PELVIS W CON from 02/05/2021 TECHNIQUE: IV Contrast: 75ML Isovue 370 Oral Contrast 450ml Redicat Axial images obtained with sagittal and coronal reformats. All CT scans at the facility use one or more dose reduction, viz: automated exposure control, ma/kV adjustment per patient size (including targeted exams where dose is matched to indication, i.e. head), or iterative reconstruction technique. FINDINGS: LOWER THORAX: No acute finding ABDOMEN & PELVIS: There are numerous hypodensities of the liver consistent with hepatic cysts. These do not appear significantly changed. There has been a prior cholecystectomy with minimal ectasia of the biliary tree not significantly changed. The adrenal glands, spleen, pancreas, and kidneys have an unremarkable appearance. Unremarkable appearing appendix. There are few colonic diverticula some of which are filled with hyperdense material possibly from prior imaging study. No evidence of diverticulitis. There has been a prior hysterectomy. No pelvic mass or abnormal fluid collection. Urinary bladder wall is mildly thickened but may be due to nondistention. Mild degenerative changes lumbar spine. IMPRESSION: No change with no acute finding. Dictated by: Melvin Ac MD 06/14/2021 10:05 Melvin cA MD in [facility] 06/14/2021 10:05
== END ==
PROVIDERS: PCP Nurse Practitioner Family; Visit Provider Surgery
DX: R10.32 Left lower quadrant pain (principal)
CPT/HCPCS: 74178; Q9967

== ENCOUNTER → 2021-06-16 14:12 | Outpatient (CLI) | payer OTHER, SELFPAY | PROVIDERS: Visit Provider Nurse Practitioner Family | DX: S71.101A Unspecified open wound, right thigh, initial encounter (principal); A49.02 Methicillin resistant Staphylococcus aureus infection, unspecified site | CPT/HCPCS: 87070; 87077; 87186; 87205 ==

== ENCOUNTER → 2021-06-19 14:24 | Outpatient (CLI) | payer OTHER, SELFPAY ==
[2021-06-19 16:59] LABS: Coronavirus 19 IgG Antibody Positive (Negative); Coronavirus 19 IgM Antibody Negative (Negative)
== END ==
PROVIDERS: Visit Provider Surgery
DX: Z01.812 Encounter for preprocedural laboratory examination (principal); Z20.822 Contact with and (suspected) exposure to COVID-19; U07.1 COVID-19
CPT/HCPCS: 86328

== ENCOUNTER → 2021-06-20 15:24 | Outpatient (CLI) | payer OTHER, SELFPAY ==
[2021-06-20 15:27] LABS: Coronavirus 19, PCR Not Detected (NotDetected); Influenza A, PCR Not Detected (NotDetected); Influenza B, PCR Not Detected (NotDetected)
== END ==
PROVIDERS: Visit Provider Surgery
DX: Z20.822 Contact with and (suspected) exposure to COVID-19 (principal)
CPT/HCPCS: U0003

== ENCOUNTER 2021-06-21 08:30 | Day surgery (SDC) | payer OTHER, SELFPAY ==
[2021-06-20 08:40] VITALS: BMI 31.1
[2021-06-21 09:00] VITALS: BP 106/64; PULSE 55; RESP 16; TEMP 36.2; O2SAT 95
[2021-06-21 09:29] VITALS: O2SAT 95
--- NOTE | 2021-06-21 10:07 | P.PCN_ITS ---
- Procedure: Date: 06/21/21 Patient Date of :: 1970 Procedure Performed:: Total colonoscopy with polypectomy by biopsy Indications:: Patient presents for follow-up colonoscopy. She is a 50-year-old female from [place]. Primary care provider is Quincy Johnson. I had performed colonoscopy on her on 02/25/2018 to investigate left lower quadrant pain. At that time she had had a CT scan done through the emergency department which revealed possible diverticulitis. She was found to have 3 tubular adenomas and a sessile serrated adenoma at the splenic flexure which was removed and marked with Donna ink. Given this polypoid lesion at the splenic flexure I did a follow-up colonoscopy on 10/14/2018 which revealed multiple hyperplastic polyps but she had a tubular adenoma and I recommended a 3-year follow-up colonoscopy. She did have chronic diverticulosis with angulation of the rectosigmoid and floppiness and tortuosity of the sigmoid colon. She did have a cholecystectomy which I performed on 08/01/2020. I had first seen her in the office for this about 1 month ago and she described pain for the last several months in the left lower quadrant mostly and the left flank. She described discharge from the rectum. Due to the symptomatology of flank pain and discharge from the rectum I had obtained a CT scan to evaluate for potential colitis and diverticulitis as well as to assess the kidneys. This was quite difficult to obtain from her insurance company. Ultimately she underwent CT scan. This reveals no kidney pathology. She does have multiple hepatic cysts which are unchanged. There is no acute colonic pathology such as diverticulitis or colitis. Patient does describe at this time bilateral flank pain. It does seem to be somewhat improved with bowel movement. Performing Provider:: Jose Elias Max MD Referring Provider:: Quincy Johnson Sedation:: MAC sedation Procedure:: Patient was taken to endoscopy procedure room. She was positioned in lateral decubitus position. Adequate intravenous sedation was achieved. Variable stiffness Olympus colonoscope was inserted via the anus. Was advanced to the cecum. Colonic preparation was good. Ileocecal valve and appendiceal orifice were clearly identified. Colonoscope was withdrawn through the colon with careful surveillance. The area of previous Donna ink tattooing was noted at the splenic flexure. There was no evidence of any polyp. She did have some left- sided diverticulosis. There were rectosigmoid region there were several hyperplastic appearing polyps. Majority of these were biopsied with cold biopsy forceps. Retroflexion within the rectum revealed no evidence of any pathologic internal hemorrhoids. Colonoscope was withdrawn. Findings:: Diverticulosis Diminutive hyperplastic appearing rectosigmoid polyps Recommendations:: Likely would recommend repeat colonoscopy 3 years given the prior history of numerous adenomatous polyps. However, likely no adenomatous polyps on this colonoscopy. Potentially some of her symptomatology may be due to chronic diverticulosis. May benefit from fiber supplementation. Complications:: None immediately apparent Estimated blood obtained (mL): 1
[2021-06-21 10:08] VITALS: BP 85/51; PULSE 67; RESP 16; TEMP 36.5; O2SAT 94
[2021-06-21 10:18] VITALS: BP 111/72; PULSE 62; RESP 16; TEMP 36.5; O2SAT 99
--- NOTE | 2021-06-21 10:25 | P.PN_ITS ---
[facility] Anesthesia Checklist - Patient Identification Patient Identification: Arm Band - Structural Data Admitted From: Home Planned Operative Procedure/s: colonoscopy Consent for Planned Operative Procedure(s) Verified: Yes Verified Documents: History and Physical - Chart Verification Results Verified: CBC, BMP - Additional verifications Patient : No Anesthesia Reactions: No Hx Blood Transfusions: No Blood Transfusion Reaction: No Cephalosporin Allergy: No Previous Colonoscopy: Yes - Cardiovascular Assessment Heart Sounds: S1 & S2 Pulse Strength: Baseline Pulse Rhythm: Regular Peripheral Edema: No - Airway Assessment C-Spine Mobility Assessed: Yes TMJ Mobility Assessed: Yes Dentition: Partials - Neurological Assessment Level of Consciousness: Awake, Alert, Appropriate Hx Seizures: No Numbness or tingling in extremities: No - Anesthesia Plan Anesthesia Risk discussed: Yes Anesthesia Plan: Verified ASA Class: III Anesthesia Type: MAC [facility] History I have reviewed the patient's past medical history: Yes Medical History: Reports:: Cancer (skin), Congestive Heart Failure, Chronic Obstructive Pulmonary Disease (COPD), Hyperlipidemia, Hypertension, Lung Disease Denies:: Diabetes Mellitus Type 1, Diabetes Mellitus Type 2, Internal Pacemaker, MRSA, Seizures *Have you ever received a pneumonia vaccine?: No *Have you received a flu vaccine this season?: No Other Medical History: Reports: Arthritis, Sinus Problems, Thyroid Disease, Other. Denies: Blood Transfusion Reaction Anesthesia experience/problems:: none Other Surgeries: Yes: Cardiac Catheterization, Cholecystectomy, Colonoscopy, Hy sterectomy-Total, Skin Cancer Excision, Tubal Ligation, Other. No: Coronary Stent, Pacemaker Amputation: No Fractures: No - *Social History Last grade of school completed: 9th or 10th Smoking Status: Current every day smoker Tobacco Type: cigarettes # Packs/Day (cigarettes): 1 Alcohol Intake: never Alcohol Intake Frequency:: holidays/special occasions only Substance Use Type: denies use *Occupational Status:: unemployed Housing: house Household Members: spouse *Travel in the last 8 weeks: None Family Hx:: Cancer, Coronary Artery Disease, Heart Attack, Hypertension
[2021-06-21 10:38] VITALS: BP 115/78; PULSE 63; RESP 18; TEMP 36.5; O2SAT 96
== END 2021-06-21 10:38 | disposition home or self-care (01) ==
LOC: OUTP 08:32
PROVIDERS: PCP Nurse Practitioner Family; Visit Provider Surgery
PROC: 0DJD8ZZ Inspection of Lower Intestinal Tract, Via Natural or Artificial Opening Endoscopic (ICD-10-PCS; CPT 45380; principal; 2021-06-21 09:30)
DX: Z12.11 Encounter for screening for malignant neoplasm of colon (principal); Z86.010 Personal history of colon polyps; Z87.19 Personal history of other diseases of the digestive system; K63.5 Polyp of colon; K57.30 Diverticulosis of large intestine without perforation or abscess without bleeding; E78.5 Hyperlipidemia, unspecified; J44.9 Chronic obstructive pulmonary disease, unspecified; J98.4 Other disorders of lung; I11.0 Hypertensive heart disease with heart failure; I50.9 Heart failure, unspecified; Z85.828 Personal history of other malignant neoplasm of skin; M19.90 Unspecified osteoarthritis, unspecified site
CPT/HCPCS: 45380; J2704

== ENCOUNTER 2021-08-30 13:40 | Emergency (ER) | payer OTHER, SELFPAY ==
[2021-08-30 13:42] VITALS: BP 114/86; PULSE 92; RESP 18; TEMP 36.8; O2SAT 98; BMI 29.9
--- NOTE | 2021-08-30 13:45 | HMH.EDGENADL ---
ED Disposition Clinical Impression: Colitis Disposition: Home, Self-Care Condition on Discharge: Good Additional Instructions: Medications as directed. [place], soft diet. Maintain follow-up with PCP. Return to emergency part for fever, blood in your stool, severe pain, abdominal bloating. Referrals: Quincy Johnson APRN [Primary Care Provider] - 3 days Time of Disposition: 17:44 - Critical Care Critical Care Time: No Attestation: On , the high probability of a clinically significant, sudden or life threatening deterioration of the following system(s) required my full and direct attention, intervention and personal management. The time I documented below is in addition to time spent performing reported procedures but includes the following listed in this critical care notation. Medical Decision Making - Medical Records Medical records reviewed: Yes: I reviewed the patient's medical records. - Bhavin Inquiry Pt receiving controlled substance: No Vital Signs: 08/30/21 13:42 08/30/21 16:35 08/30/21 17:00 Temperature 98.2 F Temperature Source Oral Pulse Rate 71 69 Pulse Rate [Right Radial] 92 H Respiratory Rate 18 20 18 Blood Pressure 124/66 108/72 L Blood Pressure [Right Arm] 114/86 Blood Pressure Mean 101 84 Blood Pressure Mean [Right Arm] 95 Blood Pressure Source [Right Arm] Automatic Cuff Blood Pressure Position [Right Arm] Sitting 02 Sat by Pulse Oximetry 98 98 97 Oxygen Delivery Method Room Air - Lab Data Lab results reviewed: Yes: I reviewed the patient's lab results. Lab Results 08/30/21 13:55: Urine Color Yellow, Urine Appearance Sl cloudy, Urine pH 6.0, Ur Specific [place] 1.020, Urine Protein Negative, Urine Glucose (UA) Negative, Urine Ketones Negative, Urine Blood Trace-i, Urine Nitrate Negative, Urine Bilirubin Negative, Urine Urobilinogen 0.2, Ur Leukocyte Esterase Negative, Urine RBC Occasional, Urine WBC None, Ur Squamous Epith Cells Occasional, Urine Bacteria None 08/30/21 14:25: WBC 14.5 H, RBC 4.89, Hgb 15.2, Hct 46.5, MCV 95.1, MCH 31.2, MCHC 32.8, RDW 13.7, Plt Count 245, MPV 8.6, Neut % (Auto) 74.7, Lymph % (Auto) 20.2, [place] % (Auto) 3.3, Eos % (Auto) 1.0, Baso % (Auto) 0.8, Neut # (Auto) 10.8 H, Lymph # (Auto) 2.9, [place] # (Auto) 0.5, Eos # (Auto) 0.1, Baso # (Auto) 0.1 08/30/21 14:25: Sodium 143, Potassium 3.6, Chloride 99, Carbon Dioxide 31 H, Anion Gap 16.6 H, BUN 15, Creatinine 0.70, Estimated Creat Clear 137, Estimated GFR 88, Est GFR ( Amer) 106, Glucose 117 H, Calcium 9.3, Total Bilirubin 0.7, AST 32, ALT 22, Alkaline Phosphatase 85, Total Protein 7.6, Albumin 4.4, Globulin 3.2, Albumin/Globulin Ratio 1.4, Lipase 73 Result diagrams: 08/30/21 14:25 08/30/21 14:25 Orders (Tests/Meds): ED MEDICATIONS Discontinued Medications Generic Name Dose Route Start Last Admin Trade Name Freq PRN Reason Stop Dose Admin Iopamidol 75 ml 08/30/21 16:33 08/30/21 16:34 Iopamidol-370 (76%);100ml Bottle IV 08/30/21 16:34 75 ml ONCE ONE Administration Sodium Chloride 10 ml 08/30/21 16:33 08/30/21 16:34 Sodium Chloride 0.9% 10ml Syr (Rad Only) IV 08/30/21 16:34 10 ml ONCE ONE Administration - CT Data CT Scan: Abdomen, Pelvis Time Received: 17:30 Preliminary Findings: Abnormal Findings Narrative: Colitis through the descending colon and into the transverse. No other acute findings appreciated. Medical Decision Narrative: 50yo F evaluated for abdominal pain. Patient no acute distress on initial evaluation. She has some abdominal tenderness with no distention appreciated. Patient's vital signs are unremarkable. Her physical exam is unremarkable otherwise. Laboratory studies reveal a white count of 14.5. Otherwise her laboratory studies are nonactionable. Patient sent for CT of the abdomen and pelvis. Imaging concerning for possible colitis. Given her white count is only 14 and she otherwise appears well, I doubt this is bacterial
[2021-08-30 14:48] LABS: Microscopic, Urine URINE MICROSCOPIC (MICROSCOPIC)
[2021-08-30 14:50] LABS: Appearance,Urine SL CLOUDY (Clear); Bilirubin,Urine Negative (Negative); Blood, Urine TRACE-I (Negative); Color,Urine YELLOW (Yellow); Glucose,Urine (UA) Negative (Negative); Ketones,Urine Negative (Negative); Leukocyte Esterase,Urine Negative (Negative); Nitrate,Urine Negative (Negative); Protein,Urine Negative (Negative); Urobilinogen,Urine 0.2 EU/dl (0.2)
[2021-08-30 14:54] LABS: Basophils # 0.1 K/mm3 (0-0.2); Basophils % 0.8 % (0.1-2.0); Eosinophils # 0.1 K/mm3 (0.0-0.4); Hematocrit 46.5 % (37.0-47.0); Hemoglobin 15.2 g/dL (12.2-16.2); Lymphocytes # 2.9 K/mm3 (0.7-4.5); Lymphocytes % 20.2 % (10-50); Mean Corpuscular HGB Conc 32.8 g/dL (31.8-35.4); Mean Corpuscular Hemoglobin 31.2 pg (27.0-31.2); Mean Corpuscular Volume 95.1 fl (81-99); Mean Platelet Volume 8.6 fl (7.4-10.4); Monocytes # 0.5 K/mm3 (0.1-1.0); Monocytes % 3.3 % (1.7-9.3); Neutrophils # 10.8 K/mm3 (1.8-7.8); Neutrophils % 74.7 % (37.0-80.0); Platelet Count 245 K/mm3 (142-424); Red Blood Count 4.89 M/mm3 (4.20-5.40); Red Cell Distribution Width 13.7 % (11.5-17.5); White Blood Count 14.5 K/mm3 (4.8-10.8)
[2021-08-30 14:55] LABS: Alanine Aminotransferase 22 U/L (12-78); Albumin Level 4.4 g/dl (3.5-5.0); Albumin/Globulin Ratio 1.4 (1.1-1.8); Alkaline Phosphatase 85 U/L (38-126); Anion Gap 16.6 mEq/L (5-15); Aspartate Amino Transferase 32 U/L (14-36); Bilirubin,Total 0.7 mg/dl (0.2-1.3); Blood Urea Nitrogen 15 mg/dl (7-17); Calcium 9.3 mg/dl (8.4-10.2); Carbon Dioxide 31 mmol/L (22.0-30.0); Chloride 99 mmol/L (98-107); Creatinine Clearance Estimated 137 mL/min (50-200); Estimated Glomerular Filt Rate 88 ml/min (>60); GFR (African American) 106 ML/MIN (>60); Globulin 3.2 g/dL (1.3-3.2); Glucose 117 mg/dl (74-100); Lipase 73 U/L (23-300); Potassium 3.6 mmoL/L (3.5-5.1); Sodium 143 mmol/L (136-145); Total Protein,Serum 7.6 g/dl (6.3-8.2)
[2021-08-30 15:18] LABS: RBC,Urine Occasional #/hpf (0-3); Squamous Epithelial Cell,Urine Occasional #/hpf (0-5)
--- NOTE | 2021-08-30 15:48 | CT_ITS ---
PROCEDURE INFORMATION: Exam: CT Abdomen And Pelvis With Contrast Exam date and time: 08/30/2021 3:48 PM Age: 50 years old Clinical indication: Generalized; Patient HX: PT C/O diffuse abdominal pain; Additional info: Diffuse pain TECHNIQUE: Imaging protocol: Computed tomography of the abdomen and pelvis with contrast. Radiation optimization: All CT scans at this facility use at least one of these dose optimization techniques: automated exposure control; mA and/or kV adjustment per patient size (includes targeted exams where dose is matched to clinical indication); or iterative reconstruction. Contrast material: ISOVUE; Contrast volume: 75 ml; Contrast route: IV; COMPARISON: CT ABDOMEN PELVIS WO/W CON 06/13/2021 10:35 AM FINDINGS: Lungs: Ground-glass opacity in the posterior lower lungs has the appearance of dependent atelectasis, unchanged compared with the prior exam. No focal consolidation. No acute pulmonary findings as visualized. Liver: No hepatomegaly. Large number of tiny hepatic cystic appearing lesions again noted, largest in the medial segment of the left lobe of approximately 1.4 cm with HU density of 8 series 3, image 26. Multiple subcentimeter lesions are too small to accurately characterize. No suspicious appearing lesions. Gallbladder and bile ducts: Cholecystectomy clips. Biliary tree remains within normal limits post cholecystectomy. No calcified stones. Pancreas: The pancreas is normal. Spleen: The spleen is normal. Adrenal glands: The adrenal glands are normal. Kidneys and ureters: The kidneys are normal. The ureters are normal. Stomach and bowel: The descending and upper sigmoid colon are empty and contracted with a diffusely mildly thickened appearance, a change compared with 06/13/2021, raising the possibility of colitis. No pericolic fluid is seen. Minimal diverticulosis coli, with no focal findings of acute diverticulitis.There is no evidence of intestinal perforation or obstruction. Minimally thickened appearance of the gastric antrum is chronic compared with the prior exam and likely due to gastric contraction. No acute findings in the stomach. Appendix: A normal appendix is identified. Intraperitoneal space: There is no free intraperitoneal air. There is no significant free intraperitoneal fluid. Vasculature: There is no aortic aneurysm.The vasculature demonstrates scattered mild atherosclerotic calcification. No portal venous gas. Lymph nodes: No significantly enlarged lymph nodes by short axis criteria. Urinary bladder: Thickened appearance of the urinary bladder wall is likely artifact from hypo distension, bladder is nearly empty. No calcified stones. Reproductive: Post hysterectomy. No acute findings, as visualized. Bones/joints: Multiple chronic anterior wedge compression deformities in the lower thoracic and upper lumbar spine, unchanged. Prominent multilevel degenerative disc disease and spondylosis. No acute appearing fractures. Bilateral sacroiliitis. Soft tissues: There are no soft tissue masses or fluid collections. IMPRESSION: 1. Findings suspicious for colitis involving the descending and upper sigmoid colon. 2. Minimal diverticulosis coli, no focal findings of acute diverticulitis. 3. Additional nonemergency and chronic findings as above, including chronic hepatic cystic lesions, cholecystectomy, prominent spinal degenerative changes, atherosclerotic disease, hysterectomy.
[2021-08-30 16:35] VITALS: BP 124/66; PULSE 71; RESP 20; O2SAT 98
[2021-08-30 17:00] VITALS: BP 108/72; PULSE 69; RESP 18; O2SAT 97
[2021-08-30 18:00] VITALS: BP 118/76; PULSE 70; RESP 16; TEMP 36.8; O2SAT 98
== END 2021-08-30 18:00 | disposition home or self-care (01) ==
PROVIDERS: Emergency Provider Family Medicine; PCP Nurse Practitioner Family
DX: K52.9 Noninfective gastroenteritis and colitis, unspecified (principal); E78.5 Hyperlipidemia, unspecified; I10 Essential (primary) hypertension; J44.9 Chronic obstructive pulmonary disease, unspecified; F17.210 Nicotine dependence, cigarettes, uncomplicated; Z88.5 Allergy status to narcotic agent; Z79.899 Other long term (current) drug therapy
CPT/HCPCS: 74177; 80053; 81001; 83690; 85025; 99283; Q9967

== ENCOUNTER 2021-09-23 14:41 | Emergency (ER) | payer OTHER, SELFPAY ==
[2021-09-23 14:43] VITALS: BP 111/69; PULSE 78; RESP 20; TEMP 38.8; O2SAT 98; BMI 29.5
--- NOTE | 2021-09-23 15:09 | XR_ITS ---
PROCEDURE INFORMATION: Exam: XR Chest Exam date and time: 09/23/2021 3:09 PM Age: 51 years old Clinical indication: Chest pressure and chest wall pain; Additional info: Chest pain TECHNIQUE: Imaging protocol: XR of the chest. Views: 1 view. COMPARISON: CR XR CHEST 2V 04/26/2021 11:15 AM FINDINGS: Lungs: Unremarkable. No consolidation. Pleural spaces: Unremarkable. No pleural effusion. No pneumothorax. Heart/Mediastinum: Unremarkable. No cardiomegaly. Bones/joints: Unremarkable. IMPRESSION: No acute findings.
--- NOTE | 2021-09-23 15:11 | ECG_ITS ---
APPROVED REPORT Exam: Resting ECG HR:87 bpm ECG Measurements Heart Rate 87 AXES HI 134 P 52 QRSd 86 QRS 46 QT 346 T -7 QTc 416 Conclusion Normal sinus rhythm Nonspecific ST and T wave abnormality Abnormal ECG Electronically signed by : Kehinde Garcia MD 09/24/2021 15:35:53
[2021-09-23 15:30] VITALS: BP 114/72; PULSE 87; RESP 18; O2SAT 94
--- NOTE | 2021-09-23 15:40 | HMH.EDGENADL ---
ED Disposition Clinical Impression: Colitis Abdominal pain Qualifiers: Abdominal location: left lower quadrant Qualified Code(s): R10.32 - Left lower quadrant pain Disposition: Home, Self-Care Condition on Discharge: Good Referrals: Quincy Johnson APRN [Primary Care Provider] - - Critical Care Critical Care Time: No Attestation: On 09/23/21, the high probability of a clinically significant, sudden or life threatening deterioration of the following system(s) required my full and direct attention, intervention and personal management. The time I documented below is in addition to time spent performing reported procedures but includes the following listed in this critical care notation. Medical Decision Making - Medical Records Medical records reviewed: Yes: I reviewed the patient's medical records. - Bhavin Inquiry Pt receiving controlled substance: No Vital Signs: 09/23/21 14:43 09/23/21 15:30 09/23/21 16:00 Temperature 101.9 F H Temperature Source Oral Pulse Rate 87 87 Pulse Rate [Radial] 78 Respiratory Rate 20 18 18 Blood Pressure 114/72 99/67 L Blood Pressure [Right Arm] 111/69 Blood Pressure Mean [Right Arm] 83 Blood Pressure Position [Right Arm] Sitting 02 Sat by Pulse Oximetry 98 94 L 98 Oxygen Delivery Method Room Air 09/23/21 16:30 09/23/21 17:00 Temperature Temperature Source Pulse Rate 81 81 Pulse Rate [Radial] Respiratory Rate 18 18 Blood Pressure 95/64 L 107/72 L Blood Pressure [Right Arm] Blood Pressure Mean [Right Arm] Blood Pressure Position [Right Arm] 02 Sat by Pulse Oximetry 98 94 L Oxygen Delivery Method - Lab Data Lab Results 09/23/21 15:35: SARS-CoV-2 (PCR) Not detected, Influenza A Untype (PCR) Not detected, Influenza Type B (PCR) Not detected 09/23/21 15:55: WBC 20.5 H*, RBC 4.73, Hgb 15.0, Hct 43.1, MCV 91.1, MCH 31.6 H, MCHC 34.7, RDW 13.9, Plt Count 229, MPV 8.8, Neut % (Auto) 89.6 H, Lymph % (Auto) 5.8 L, Sebastian % (Auto) 3.7, Eos % (Auto) 0.5, Baso % (Auto) 0.4, Neut # (Auto) 18.4 H, Lymph # (Auto) 1.2, Sebastian # (Auto) 0.8, Eos # (Auto) 0.1, Baso # (Auto) 0.1, Total Counted 100, Neutrophils % (Manual) 83 H, Band Neutrophils % 6.0, Lymphocytes % (Manual) 7 L, Monocytes % (Manual) 2, Eosinophils % (Manual) 2, Platelet Estimate Normal, RBC Morphology Normal 09/23/21 15:55: Sodium 134 L, Potassium 3.4 L, Chloride 98, Carbon Dioxide 32 H, Anion Gap 7.4, BUN 13, Creatinine 0.70, Estimated Creat Clear 133, Estimated GFR 88, Est GFR ( Amer) 106, Glucose 97, Calcium 8.8, Total Bilirubin 0.8, Direct Bilirubin 0.1, Conjugated Bilirubin 0.0, Indirect Bilirubin 0.7, Unconjugated Bilirubin 0.6, AST 37 H, ALT 28, Alkaline Phosphatase 65, Troponin I < 0.01, Total Protein 6.8, Albumin 4.1 09/23/21 15:55: Lactate 0.8 09/23/21 17:30: Urine Color Yellow, Urine Appearance Clear, Urine pH 7.0, Ur Specific [place] 1.010, Urine Protein Negative, Urine Glucose (UA) Negative, Urine Ketones Trace, Urine Blood 2+, Urine Nitrate Negative, Urine Bilirubin Negative, Urine Urobilinogen 0.2, Ur Leukocyte Esterase Negative, Urine RBC 3-5, Urine WBC 5-10, Ur Squamous Epith Cells 3-5, Urine Bacteria 1+ 09/23/21 18:25: Troponin I < 0.01 Result diagrams: 09/23/21 15:55 09/23/21 15:55 Orders (Tests/Meds): ED MEDICATIONS Discontinued Medications Generic Name Dose Route Start Last Admin Trade Name Freq PRN Reason Stop Dose Admin Acetaminophen 650 mg 09/23/21 16:16 09/23/21 16:35 Acetaminophen 325mg Tab PO 09/23/21 16:17 650 mg ONCE ONE Administration Iopamidol 70 ml 09/23/21 18:21 09/23/21 18:22 Iopamidol-370 (76%);100ml Bottle IV 09/23/21 18:22 70 ml ONCE ONE Administration Sodium Chloride 10 ml 09/23/21 18:21 09/23/21 18:22 Sodium Chloride 0.9% 10ml Syr (Rad Only) IV 09/23/21 18:22 10 ml ONCE ONE Administration ORDERS Category Date Time Status Troponin I Q3H Lab 09/23/21 21:15 Ordered Blood Culture Stat Micro 09/23
[2021-09-23 16:00] VITALS: BP 99/67; PULSE 87; RESP 18; O2SAT 98
[2021-09-23 16:07] LABS: Coronavirus 19, PCR Not Detected (NotDetected); Influenza A, PCR Not Detected (NotDetected); Influenza B, PCR Not Detected (NotDetected)
[2021-09-23 16:10] LABS: Basophils # 0.1 K/mm3 (0-0.2); Basophils % 0.4 % (0.1-2.0); Eosinophils # 0.1 K/mm3 (0.0-0.4); Eosinophils % 0.5 % (0.1-12.0); Hematocrit 43.1 % (37.0-47.0); Lymphocytes # 1.2 K/mm3 (0.7-4.5); Lymphocytes % 5.8 % (10-50); Mean Corpuscular HGB Conc 34.7 g/dL (31.8-35.4); Mean Corpuscular Hemoglobin 31.6 pg (27.0-31.2); Mean Corpuscular Volume 91.1 fl (81-99); Mean Platelet Volume 8.8 fl (7.4-10.4); Monocytes # 0.8 K/mm3 (0.1-1.0); Monocytes % 3.7 % (1.7-9.3); Neutrophils # 18.4 K/mm3 (1.8-7.8); Neutrophils % 89.6 % (37.0-80.0); Platelet Count 229 K/mm3 (142-424); Red Blood Count 4.73 M/mm3 (4.20-5.40); Red Cell Distribution Width 13.9 % (11.5-17.5); White Blood Count 20.5 K/mm3 (4.8-10.8)
[2021-09-23 16:30] VITALS: BP 95/64; PULSE 81; RESP 18; O2SAT 98
[2021-09-23 17:00] VITALS: BP 107/72; PULSE 81; RESP 18; O2SAT 94
[2021-09-23 17:05] LABS: Alanine Aminotransferase 28 U/L (12-78); Albumin Level 4.1 g/dl (3.5-5.0); Alkaline Phosphatase 65 U/L (38-126); Anion Gap 7.4 mEq/L (5-15); Aspartate Amino Transferase 37 U/L (14-36); Bilirubin,Direct 0.1 mg/dl (0.0-0.4); Bilirubin,Indirect 0.7 mg/dL (0.0-0.9); Bilirubin,Total 0.8 mg/dl (0.2-1.3); Bilirubin,Unconjugated 0.6 mg/dL (0.0-1.1); Blood Urea Nitrogen 13 mg/dl (7-17); Calcium 8.8 mg/dl (8.4-10.2); Carbon Dioxide 32 mmol/L (22.0-30.0); Chloride 98 mmol/L (98-107); Creatinine Clearance Estimated 133 mL/min (50-200); Estimated Glomerular Filt Rate 88 ml/min (>60); GFR (African American) 106 ML/MIN (>60); Glucose 97 mg/dl (74-100); Lactic Acid 0.8 mmol/L (0.7-2.1); Potassium 3.4 mmoL/L (3.5-5.1); Sodium 134 mmol/L (136-145); Total Protein,Serum 6.8 g/dl (6.3-8.2)
[2021-09-23 17:08] LABS: MANUAL DIFFERENTIAL MANUAL DIFFERENTIAL (MANUAL DIFF)
[2021-09-23 17:20] LABS: Troponin I < 0.01 ng/ml (0.00-0.034)
--- NOTE | 2021-09-23 17:45 | CT_ITS ---
PROCEDURE INFORMATION: Exam: CT Abdomen And Pelvis With Contrast Exam date and time: 09/23/2021 5:45 PM Age: 51 years old Clinical indication: Abdominal pain; Generalized; Prior surgery; Surgery date: 6+ months; Surgery type: Gb, tubal, hysterectomy; Additional info: Abdominal pain, recent colitis, fever, llq pain TECHNIQUE: Imaging protocol: Computed tomography of the abdomen and pelvis with contrast. Radiation optimization: All CT scans at this facility use at least one of these dose optimization techniques: automated exposure control; mA and/or kV adjustment per patient size (includes targeted exams where dose is matched to clinical indication); or iterative reconstruction. Contrast material: ISOVUE; Contrast volume: 70 ml; Contrast route: IV; COMPARISON: CT ABDOMEN PELVIS W CON 08/30/2021 4:27 PM FINDINGS: Liver: Small liver cysts. Gallbladder and bile ducts: Cholecystectomy. Pancreas: Normal. No ductal dilation. Spleen: Normal. No splenomegaly. Adrenal glands: Normal. No mass. Kidneys and ureters: Normal. No hydronephrosis. Stomach and bowel: Mild wall thickening seen in the distal descending colon and throughout the sigmoid colon there is very faint inflammatory fat stranding adjacent to the proximal sigmoid colon. Diverticulosis. Appendix: No evidence of appendicitis. Intraperitoneal space: Unremarkable. No free air. No significant fluid collection. Vasculature: Unremarkable. No abdominal aortic aneurysm. Lymph nodes: Unremarkable. No enlarged lymph nodes. Urinary bladder: Unremarkable as visualized. Reproductive: Hysterectomy. Bones/joints: Unremarkable. No acute fracture. Soft tissues: Unremarkable. IMPRESSION: 1. Findings consistent with mild colitis involving the distal descending colon and sigmoid colon. 2. Diverticulosis. 3. Other incidental/nonacute findings as described.
[2021-09-23 17:47] LABS: Microscopic, Urine URINE MICROSCOPIC (MICROSCOPIC)
[2021-09-23 17:50] LABS: Appearance,Urine CLEAR (Clear); Bilirubin,Urine Negative (Negative); Blood, Urine 2+ (Negative); Color,Urine YELLOW (Yellow); Glucose,Urine (UA) Negative (Negative); Ketones,Urine TRACE (Negative); Leukocyte Esterase,Urine Negative (Negative); Nitrate,Urine Negative (Negative); Protein,Urine Negative (Negative); Urobilinogen,Urine 0.2 EU/dl (0.2)
[2021-09-23 17:54] LABS: Eosinophils % 2 % (0-3); Lymphocytes % 7 % (10-50); Monocytes % 2 % (2-9); Neutrophils % 83 % (42-76); Platelet Estimate Normal; RBC Morphology Normal; Total Cells Counted 100
[2021-09-23 17:59] LABS: Bacteria,Urine 1+ /lpf
[2021-09-23 18:52] LABS: Troponin I < 0.01 ng/ml (0.00-0.034)
[2021-09-23 19:04] VITALS: BP 109/76; PULSE 85; RESP 18; TEMP 36.9; O2SAT 99
== END 2021-09-23 19:23 | disposition home or self-care (01) ==
PROVIDERS: Emergency Provider Student in an Organized Health Care Education/Training Program; PCP Nurse Practitioner Family
DX: K52.9 Noninfective gastroenteritis and colitis, unspecified (principal); R10.32 Left lower quadrant pain; F17.210 Nicotine dependence, cigarettes, uncomplicated
CPT/HCPCS: 36415; 71045; 74177; 80048; 80076; 81001; 83605; 84484; 85007; 85025; 87040; 93005; 99283; C9803; Q9967; U0003; U0005

== ENCOUNTER → 2021-09-27 08:00 | Outpatient (CLI) | payer OTHER, SELFPAY ==
[2021-09-27 08:14] LABS: Basophils # 0.1 K/mm3 (0-0.2); Basophils % 0.8 % (0.1-2.0); Eosinophils # 0.2 K/mm3 (0.0-0.4); Eosinophils % 2.4 % (0.1-12.0); Hemoglobin 14.2 g/dL (12.2-16.2); Lymphocytes # 3.7 K/mm3 (0.7-4.5); Lymphocytes % 38.1 % (10-50); Mean Corpuscular HGB Conc 34.6 g/dL (31.8-35.4); Mean Corpuscular Hemoglobin 31.5 pg (27.0-31.2); Mean Platelet Volume 8.4 fl (7.4-10.4); Monocytes # 0.3 K/mm3 (0.1-1.0); Monocytes % 3.5 % (1.7-9.3); Neutrophils # 5.3 K/mm3 (1.8-7.8); Neutrophils % 55.1 % (37.0-80.0); Platelet Count 265 K/mm3 (142-424); Red Cell Distribution Width 13.7 % (11.5-17.5); White Blood Count 9.6 K/mm3 (4.8-10.8)
[2021-09-27 08:25] LABS: C-Reactive Protein 26.2 mg/L (0-4)
[2021-09-27 08:57] LABS: Erythrocyte Sedimentation Rate 46 mm/hr (0-30)
== END ==
PROVIDERS: Visit Provider Emergency Medicine
DX: D72.829 Elevated white blood cell count, unspecified (principal); K52.9 Noninfective gastroenteritis and colitis, unspecified; R10.9 Unspecified abdominal pain
CPT/HCPCS: 36415; 85025; 85651; 86140

== ENCOUNTER 2022-07-15 10:06 | Emergency (ER) | payer OTHER, SELFPAY ==
[2022-07-15 10:17] VITALS: BP 128/84; PULSE 74; RESP 18; TEMP 36.5; O2SAT 99; BMI 28.5
[2022-07-15 10:30] VITALS: BP 113/76; PULSE 71; O2SAT 99
--- NOTE | 2022-07-15 10:41 | HMH.EDGENADL ---
Discharge Plan Disposition Patient Disposition: Home, Self-Care Condition: Good Prescriptions Prescriptions: New penicillin V potassium 500 mg tablet 500 mg PO Q12H Qty: 20 0RF ibuprofen 600 mg tablet 600 mg PO Q8H PRN (Reason: pain) Qty: 14 0RF Orajel 3X Mouth Sores 20-0.1-0.15 % gel 1 ea mucous membrane TID Qty: 5.1 0RF No Action aspirin 81 mg tablet,delayed release (DR/EC) 81 mg PO DAILY metronidazole 500 mg tablet 500 mg PO Q8H 10 Days Qty: 30 0RF levofloxacin 500 mg tablet 500 mg PO DAILY 10 Days Qty: 10 0RF clindamycin HCl 300 mg capsule 300 mg PO TID 7 Days Qty: 21 0RF spironolactone 25 mg tablet 25 mg PO DAILY Qty: 90 3RF furosemide 40 mg tablet 40 mg PO DAILY Qty: 60 5RF bisoprolol fumarate 5 mg tablet 2.5 mg PO DAILY Qty: 90 5RF montelukast 10 mg tablet See Rx Instructions .ROUTE .COMPLEX Qty: 30 0RF Dose Instruction: TAKE 1 TABLET BY MOUTH ONCE DAILY FOR ALLERGIES Rx Instructions: TAKE 1 TABLET BY MOUTH ONCE DAILY FOR ALLERGIES patient needs an appt before anymore refills atorvastatin 20 mg tablet See Rx Instructions .ROUTE .COMPLEX Qty: 90 0RF Dose Instruction: TAKE 1 TABLET BY MOUTH ONCE DAILY FOR CHOLESTEROL Rx Instructions: TAKE 1 TABLET BY MOUTH ONCE DAILY FOR CHOLESTEROL pantoprazole 40 MG tablet,delayed release (DR/EC) See Rx Instructions .Route .COMPLEX Rx Instructions: Take 1 tablet by mouth once daily Referrals Follow up/Referrals: Won Coronado MD [Primary Care Provider] - See instructions Activity Restrictions/Add. Instructions Additional Instructions/Restrictions: You have been evaluated for face swelling, likely due to a dental infection. Please take penicillin twice daily as prescribed. Take ibuprofen for pain. Orajel topical. It is very important that you follow-up with a dentist, one option is Dr. Manzanares.Scooby Jay D.M.D. today at . Return to the emergency department at once for any new or worsening symptoms, pain, fever, difficulty swallowing, difficulty breathing or other concerns. Clinical Impressions Clinical Impression: Dental abscess, Dental caries Instructions Patient Instructions: Tooth Decay, Tooth Abscess, DI for Dental Pain Discharge ED Provider: Lucretia Aranda Adult HPI General Chief complaint: Skin/Abscess/Foreign Body Stated complaint: facial swelling Time Seen by Provider: 07/15/22 10:25 Mode of Arrival: Ambulatory Source of Information: Patient Limitations: No Limitations Description of Symptoms (Recalled from ER Triage Doc. by RN): pt to ed c/o right facial swelling. pt states she had an ear ache x2 nights ago and it developed into right facial pain and swelling today. pt denies any recent facial trauma. pt denies fever. pt reports it is tender to the touch. History of Present Illness HPI narrative: 51-year-old female presenting to the emergency department with face swelling, dental pain. Symptom started yesterday morning when she woke up. She had a dull, aching pain located in the upper gumline on the right. Noticed pain near the angle of the jaw. Today when she woke up there was significant swelling of the right cheek. Has pain with opening her mouth. No signs of illness like fevers, chills, nausea, vomiting. No recent antibiotic use. She has tried Orajel. No other medications. She has had partial dental extractions, but still has remaining teeth. Unfortunately, does not have dental insurance and does not follow with a dentist Related Data Home Medications Medication Instructions Recorded Confirmed aspirin 81 mg tablet,delayed 81 mg PO DAILY [facility] 12/31/17 09/27/21 release pantoprazole 40 mg tablet,delayed See Rx Instructions .Route 06/20/21 09/27/21 release .COMPLEX GERD Previous Rx's Medication Instructions Recorded clindamycin HCl 300 mg capsule 300 mg PO TID 7 days #21 caps
[2022-07-15 11:00] VITALS: BP 109/70; PULSE 71; RESP 18; O2SAT 98
[2022-07-15 11:16] VITALS: BP 112/74; PULSE 89; RESP 18; TEMP 36.5; O2SAT 97
== END 2022-07-15 11:18 | disposition home or self-care (01) ==
PROVIDERS: Emergency Provider Emergency Medicine; PCP Emergency Medicine
DX: K04.7 Periapical abscess without sinus (principal); K02.9 Dental caries, unspecified
CPT/HCPCS: 99283

== ENCOUNTER 2022-07-24 21:23 | Emergency (ER) | payer OTHER, SELFPAY ==
[2022-07-24 23:13] VITALS: BP 00/0; PULSE 0; RESP 0; TEMP -17.7; TEMP 0
== END 2022-07-24 23:15 | disposition left against medical advice (07) ==
PROVIDERS: Emergency Provider Emergency Medicine; PCP Nurse Practitioner Family
DX: Z53.21 Procedure and treatment not carried out due to patient leaving prior to being seen by health care provider (principal)

== ENCOUNTER → 2022-08-20 08:37 | Outpatient (CLI) | payer OTHER, SELFPAY ==
--- NOTE | 2022-08-20 08:45 | US_ITS ---
FINAL REPORT CLINICAL HISTORY: RIGHT UPPER QUADRANT PAIN FINDINGS: Sonographic images of the abdomen were obtained. There are several less than 1 cm hepatic cysts. The gallbladder has been removed. There is no evidence of biliary ductal dilatation. The common hepatic duct measures 5 mm, which is within normal limits. Limited images of the pancreas are unremarkable. The spleen size is normal. The right kidney measures 9.9 cm in length. The left kidney measures 9.9 cm in length. There is normal renal echogenicity. There is no evidence of hydronephrosis. The aorta has an unremarkable appearance. Limited images of the inferior vena cava are unremarkable. IMPRESSION: Several subcentimeter hepatic cysts. Absent gallbladder. Reviewed, Interpreted and Dictated by Jose Elias Jimenez III, MD Transcribed by Jayson Kingsley Authenticated and [facility]
--- NOTE | 2022-08-20 09:42 | MM_ITS ---
PROCEDURE INFORMATION: Exam: MG Bilateral Screening 3D Mammography Exam date and time: 08/20/2022 9:56 AM Age: 51 years old Clinical indication: Screening examination. Her mother had breast cancer at age 70, 3 sisters in their 50s and 60s, and a maternal aunt. TECHNIQUE: Imaging protocol: Bilateral Screening tomosynthesis and 2D mammography including computer-aided detection (CAD) when performed. COMPARISON: 1. MG MM DIG SCREENING MAMM BI W/CAD 05/02/2021 3:18 PM 2. MG SCBI MM Dig screening mamm BI w/CAD 02/20/2019 3:29 PM 3. MG SCBI MM Dig screening mamm BI w/CAD 01/09/2018 9:30 AM 4. MG DMSB DIG MAMM-SCREEN REFUGIO W/CAD 07/26/2017 8:26 AM FINDINGS: MAMMOGRAPHY: Breast composition: There are scattered areas of fibroglandular density. Mass: None. Architectural distortion: None. Calcifications: No suspicious calcifications. Asymmetric density: None. Skin thickening: None. Axillary adenopathy: None. IMPRESSION: No mammographic evidence of malignancy. Annual screening is recommended unless otherwise clinically indicated. ASSESSMENT: BI-RADS Category 1: Negative
== END ==
PROVIDERS: PCP Nurse Practitioner Family; Visit Provider Nurse Practitioner Family
DX: R10.11 Right upper quadrant pain (principal); Z12.31 Encounter for screening mammogram for malignant neoplasm of breast
CPT/HCPCS: 76700; 77063; 77067

== ENCOUNTER → 2022-11-19 08:40 | Outpatient (CLI) | payer OTHER, SELFPAY ==
--- NOTE | 2022-11-19 08:44 | FL_ITS ---
FINAL REPORT CLINICAL HISTORY: reflux, ft 50s FINDINGS: ESOPHAGRAM HISTORY: Dysphagia, reflux, possible hiatal hernia. TECHNIQUE: Patient ingested thick and thin barium contrast. Effervescent crystals were also administered. Spot films were obtained. FINDINGS: The esophagus demonstrates a very small hiatal hernia. There is no gastroesophageal reflux demonstrated. No mucosal defects are seen. There is mild esophageal dysmotility. No changes of esophagitis are evident. 13 mm Barium tablet passes easily through the esophagus and into the stomach. A total of 25 images were saved. Fluoroscopy time: 50 seconds IMPRESSION: Very small hiatal hernia. No gastroesophageal reflux demonstrated. Mild esophageal dysmotility. Reviewed, Interpreted and Dictated by Luz Keller MD Transcribed by Monica Cornejo PA-C Authenticated and [facility]
== END ==
PROVIDERS: PCP Nurse Practitioner Family; Visit Provider Nurse Practitioner Family
DX: K21.9 Gastro-esophageal reflux disease without esophagitis (principal)
CPT/HCPCS: 74220

== ENCOUNTER → 2022-11-26 15:12 | Outpatient (CLI) | payer OTHER, SELFPAY ==
--- NOTE | 2022-11-26 | CA_ITS ---
APPROVED REPORT EXAM: Comprehensive 2D, Doppler, and color-flow Echocardiogram [employer]: Lexy Caldwell CRT Ht: 5 ft 6 in Wt: 174lbs BSA: 1.88 BP: 117/69 mmHg Indications: Shortness of Breath, Palpitations, Hyperlipidemia, Hypertension/HDD 2D Dimensions LVOT 1.90 cm (M/F) 1.5-2.5 LA Volume 40.50 mL LA Volume Index 21.00 mL/m2 (M/F) 16-34 M-Mode Dimensions RVDd 2.35 cm (0.9-2.6) LA Diam 3.49 cm (1.9-4.0) LVDd 4.46 cm (3.5-5.7) Ao Diam 3.26 cm (2.0-3.7) LVDs 3.14 cm (3.5-5.7) IVSd 1.04 cm (0.6-1.1) PWd 0.63 cm (0.6-1.1) EF (Teich) 56.80% FS 29.60% EDV (Teich) 90.50 mL TAPSE 2.22 (<1.7) ESV (Teich) 39.10 mL LV Diastology MED E' 11.10 (< 7 cm/sec) MED A' 13.70 cm/s LAT E' 7.30 (<10 cm/sec) LAT A' 12.90 cm/s Aortic Valve AI PHT 405.00 ms AO Peak GR. 5.10 mmHg Pulmonary Valve PV Peak Velocity 103.00 (50-150 cm/s) Tricuspid Valve TR P. Velocity 272.00 cm/s RAP Estimate 10.00 mmHg RVSP 39.50 mmHg Left Ventricle Left atrium normal size left ventricle is normal size, estimated ejection fraction 55% with no regional wall motion abnormality. Diastolic parameters are within normal range. Right Ventricle Right atrium and right ventricle are normal size and contractility. Aortic Valve Aortic valve is grossly normal there is no aortic stenosis or aortic insufficiency. Mitral Valve Mitral valve grossly normal, there is trace mitral regurgitation. Tricuspid Valve Tricuspid grossly normal, there is trace tricuspid regurgitation, tricuspid regurgitation jet velocity is inadequate for calculation of the right ventricular systolic pressure. Pulmonic Valve Pulmonic valve is poorly visualized. Great Vessels Aortic root is normal size. Inferior vena cava is normal size with normal inspiratory collapse. Pericardium No significant pericardial effusion noted. Conclusion 1. Normal left ventricular size preserved left ventricular systolic function, estimated ejection fraction 55% with no regional wall motion abnormality, diastolic parameters are within normal range. 2. Trace mitral and tricuspid regurgitation. 3. No significant pericardial effusion. 4. Inferior vena cava is normal size with normal inspiratory collapse. Electronically signed by : Levi Henao MD 11/27/2022 05:36:34
== END ==
LOC: RT 15:13
PROVIDERS: PCP Nurse Practitioner Family; Visit Provider Physician Assistant
DX: R06.09 Other forms of dyspnea (principal); I27.20 Pulmonary hypertension, unspecified; I51.9 Heart disease, unspecified; I10 Essential (primary) hypertension; E78.2 Mixed hyperlipidemia; Z72.0 Tobacco use
CPT/HCPCS: 93306

== ENCOUNTER → 2022-12-27 14:23 | Outpatient (CLI) | payer OTHER, SELFPAY ==
[2022-12-27 15:44] LABS: Chloride 104 mmol/L (98-107)
[2022-12-27 15:45] LABS: Sodium 141 mmol/L (136-145)
[2022-12-27 15:47] LABS: Alanine Aminotransferase 17 U/L (12-78); Aspartate Amino Transferase 28 U/L (14-36); Bilirubin,Total 0.6 mg/dl (0.2-1.3); Blood Urea Nitrogen 16 mg/dl (7-17); Estimated Glomerular Filt Rate 75 ml/min (>60); GFR (African American) 90 ML/MIN (>60)
[2022-12-27 15:48] LABS: Albumin Level 4.4 g/dl (3.5-5.0); Albumin/Globulin Ratio 1.6 (1.1-1.8); Alkaline Phosphatase 93 U/L (38-126); Calcium 9.1 mg/dl (8.4-10.2); Carbon Dioxide 31 mmol/L (22.0-30.0); Globulin 2.8 g/dL (1.3-3.2); Glucose 91 mg/dl (74-100); Total Protein,Serum 7.2 g/dl (6.3-8.2)
[2022-12-29 11:18] LABS: AFP, Tumor Marker <1.8 ng/mL (0.0-9.2)
== END ==
LOC: LAB 14:23
PROVIDERS: PCP Nurse Practitioner Family; Visit Provider Nurse Practitioner Family
DX: K76.89 Other specified diseases of liver (principal); D49.0 Neoplasm of unspecified behavior of digestive system; E78.5 Hyperlipidemia, unspecified
CPT/HCPCS: 36415; 80053; 82105

== ENCOUNTER → 2023-03-26 07:59 | Outpatient (CLI) | payer OTHER, SELFPAY ==
--- NOTE | 2023-03-26 08:04 | US_ITS ---
FINAL REPORT CLINICAL HISTORY: LIVER CYST ABDOMINAL PAIN FINDINGS: RIGHT UPPER QUADRANT ULTRASOUND Sonographic images of the right upper quadrant were obtained. The pancreas is partially obscured. There are several small hepatic cysts measuring up to 10 mm. The gallbladder is surgically absent. The common duct is normal measuring 4 mm. Limited images of the right kidney are normal. IMPRESSION: Hepatic cysts. Reviewed, Interpreted and Dictated by Jose Elias Jimenez III, MD Transcribed by Peggy Murrell Authenticated and [facility]
== END ==
LOC: RAD 08:00
PROVIDERS: PCP Nurse Practitioner Family; Visit Provider Nurse Practitioner Family
DX: R10.13 Epigastric pain (principal); K76.89 Other specified diseases of liver; K30 Functional dyspepsia; R14.2 Eructation
CPT/HCPCS: 76705

== ENCOUNTER → 2023-06-06 14:06 | Outpatient (CLI) | payer OTHER, SELFPAY | LOC: RT 14:08 | PROVIDERS: PCP Nurse Practitioner Family; Visit Provider Nurse Practitioner | DX: R00.2 Palpitations (principal) | CPT/HCPCS: 93270 ==

== ENCOUNTER → 2023-06-21 15:06 | Outpatient (CLI) | payer OTHER, SELFPAY ==
[2023-06-21 16:08] LABS: Basophils % 0.4 % (0.1-2.0); Eosinophils # 0.1 K/mm3 (0.0-0.4); Eosinophils % 1.4 % (0.1-12.0); Hematocrit 43.8 % (37.0-47.0); Hemoglobin 14.3 g/dL (12.2-16.2); Lymphocytes # 3.9 K/mm3 (0.7-4.5); Lymphocytes % 38.6 % (10-50); Mean Corpuscular HGB Conc 32.6 g/dL (31.8-35.4); Mean Corpuscular Hemoglobin 30.9 pg (27.0-31.2); Mean Corpuscular Volume 94.7 fl (81-99); Mean Platelet Volume 8.1 fl (7.4-10.4); Monocytes # 0.3 K/mm3 (0.1-1.0); Monocytes % 2.6 % (1.7-9.3); Neutrophils # 5.7 K/mm3 (1.8-7.8); Neutrophils % 57.1 % (37.0-80.0); Platelet Count 211 K/mm3 (142-424); Red Blood Count 4.63 M/mm3 (4.20-5.40); Red Cell Distribution Width 13.4 % (11.5-17.5)
[2023-06-21 16:55] LABS: Alanine Aminotransferase 30 U/L (12-78); Albumin Level 4.4 g/dl (3.5-5.0); Albumin/Globulin Ratio 1.7 (1.1-1.8); Alkaline Phosphatase 85 U/L (38-126); Anion Gap 10.8 mEq/L (5-15); Aspartate Amino Transferase 30 U/L (14-36); Bilirubin,Total 0.5 mg/dl (0.2-1.3); Blood Urea Nitrogen 22 mg/dl (7-17); Carbon Dioxide 31 mmol/L (22.0-30.0); Chloride 99 mmol/L (98-107); Estimated Glomerular Filt Rate 65 ml/min (>60); GFR (African American) 79 ML/MIN (>60); Globulin 2.6 g/dL (1.3-3.2); Glucose 82 mg/dl (74-100); Potassium 3.8 mmoL/L (3.5-5.1); Sodium 137 mmol/L (136-145)
== END ==
LOC: LAB 15:06
PROVIDERS: PCP Nurse Practitioner Family; Visit Provider Nurse Practitioner Family
DX: R10.9 Unspecified abdominal pain (principal)
CPT/HCPCS: 36415; 80053; 85025

== ENCOUNTER 2024-08-27 13:33 | Outpatient (CLI) | payer MEDICAID, SELFPAY ==
[2024-08-27 14:12] LABS: Basophils # 0.1 K/mm3 (0-0.2); Basophils % 0.9 % (0.1-2.0); Eosinophils # 0.2 K/mm3 (0.0-0.4); Eosinophils % 1.6 % (0.1-12.0); Hematocrit 43.8 % (37.0-47.0); Hemoglobin 14.8 g/dL (12.2-16.2); Lymphocytes # 4.1 K/mm3 (0.7-4.5); Lymphocytes % 41.4 % (10-50); Mean Corpuscular HGB Conc 33.9 g/dL (31.8-35.4); Mean Corpuscular Hemoglobin 30.9 pg (27.0-31.2); Mean Corpuscular Volume 91.3 fl (81-99); Monocytes # 0.4 K/mm3 (0.1-1.0); Monocytes % 4.1 % (1.7-9.3); Neutrophils # 5.2 K/mm3 (1.8-7.8); Platelet Count 248 K/mm3 (142-424); Red Cell Distribution Width 14.2 % (11.5-17.5)
[2024-08-27 14:34] LABS: Alanine Aminotransferase 16 U/L (12-78); Albumin Level 4.3 g/dl (3.5-5.0); Albumin/Globulin Ratio 1.7 (1.1-1.8); Alkaline Phosphatase 67 U/L (38-126); Anion Gap 7.9 mEq/L (5-15); Aspartate Amino Transferase 25 U/L (14-36); Bilirubin,Total 0.7 mg/dl (0.2-1.3); Blood Urea Nitrogen 19 mg/dl (7-17); Calcium 9.4 mg/dl (8.4-10.2); Carbon Dioxide 30 mmol/L (22.0-30.0); Chloride 105 mmol/L (98-107); Cholesterol 221 mg/dl (140-200); Estimated Glomerular Filt Rate 87 ml/min (>60); GFR (African American) 105 ML/MIN (>60); Globulin 2.6 g/dL (1.3-3.2); Glucose 83 mg/dl (74-100); HDL Cholesterol 74 mg/dl (40-60); Potassium 3.9 mmoL/L (3.5-5.1); Sodium 139 mmol/L (136-145); Total Protein,Serum 6.9 g/dl (6.3-8.2); Triglycerides 87 mg/dl (30-150); VLDL Cholesterol 17 mg/dL (0-40)
--- NOTE | 2024-08-27 14:38 | US_ITS ---
PROCEDURE INFORMATION: Exam: US Soft Tissue Head and Neck, TI-RADS Exam date and time: 08/27/2024 2:34 PM Age: 53 years old Clinical indication: Condition or disease; Other: Nodules; Additional info: Disorder of thyroid TECHNIQUE: Imaging protocol: Real-time ultrasound scan of the neck with image documentation. Exam focused on the thyroid. Total images: 57 COMPARISON: THY US thyroid 03/06/2019 2:12 PM FINDINGS: Right thyroid lobe: Right lobe measures 4.8 x 1.7 x 2.5 cm. Left thyroid lobe: Left lobe measures 5.1 x 1.5 x 2.4 cm. Cystic lesions present within the left lobe. Isthmus: Isthmus measures 3 mm. Thyroid nodule 1 Size: 1.2 x 0.9 x 1.0 cm Thyroid nodule 1 Location: Lower pole left lobe Thyroid nodule 1 Composition: Mixed solid and cystic Thyroid nodule 1 Echogenicity: Hypoechoic Thyroid nodule 1 Shape: Wider than tall Thyroid nodule 1 Margins: Smoothly marginated. Thyroid nodule 1 Echogenic foci: No echogenic foci Thyroid nodule 1 Points: 3 Thyroid nodule 2 Size: 4 x 2 x 4 mm Thyroid nodule 2 Location: Lower pole right lobe Thyroid nodule 2 Composition: Mixed solid and cystic Thyroid nodule 2 Echogenicity: Hypoechoic Thyroid nodule 2 Shape: Wider than tall Thyroid nodule 2 Margins: Smoothly marginated. Thyroid nodule 2 Echogenic foci: No echogenic foci Thyroid nodule 2 Points: 3 Thyroid nodule 3 Size: 3 x 3 x 4 mm Thyroid nodule 3 Location: Upper pole right lobe Thyroid nodule 3 Composition: Mixed solid and cystic Thyroid nodule 3 Echogenicity: Hypoechoic Thyroid nodule 3 Shape: Wider than tall Thyroid nodule 3 Margins: Smoothly marginated. Thyroid nodule 3 Echogenic foci: No echogenic foci Thyroid nodule 3 Points: 3 Lymph nodes: No enlarged nodes. IMPRESSION: 1. Nodule 1: TI-RADS category TR3, Mildly Suspicious. No fine needle aspiration or follow-up ultrasound is recommended. (Reference: Audreysler) 2. Nodule 2: TI-RADS category TR3, Mildly Suspicious. No fine needle aspiration or follow-up ultrasound is recommended. (Reference: Tessler) 3. Nodule 3: TI-RADS category TR3, Mildly Suspicious. No fine needle aspiration or follow-up ultrasound is recommended. (Reference: Aurdeysler) REFERENCES: Shun FN, Jyoti MOORE, Nick EG et al. ACR Thyroid Imaging, Reporting and Data System (TI-RADS): White Paper of the ACR TI-RADS Committee. J Am Rigo Radiol. 2017; 14: 587-595.
[2024-08-27 14:45] LABS: Direct LDL Cholesterol 126.06 mg/dL (100-129)
[2024-08-27 14:52] LABS: Free T4 (Free Thyroxine) 1.23 ng/dl (0.78-2.19)
== END 2024-08-27 23:59 | disposition home or self-care (01) ==
LOC: RAD 13:34
PROVIDERS: PCP Nurse Practitioner Family; Visit Provider Nurse Practitioner Family
DX: E07.9 Disorder of thyroid, unspecified (principal); E78.00 Pure hypercholesterolemia, unspecified; I11.9 Hypertensive heart disease without heart failure
CPT/HCPCS: 36415; 76536; 80050; 80053; 80061; 84439; 84443; 85025

== ENCOUNTER 2025-01-08 21:53 | Emergency (ER) | payer MEDICAID, SELFPAY ==
[2025-01-08 23:50] VITALS: BP 138/89; PULSE 81; RESP 20; TEMP 37.1; O2SAT 95; BMI 70.4
--- NOTE | 2025-01-08 23:51 | XR_ITS ---
PROCEDURE INFORMATION: Exam: XR Chest Exam date and time: 01/08/2025 11:47 PM Age: 54 years old Clinical indication: Cough; Additional info: Productive cough TECHNIQUE: Imaging protocol: Radiologic exam of the chest. Views: 2 views. COMPARISON: CR XR CHEST PORTABLE 09/23/2021 3:20 PM FINDINGS: Lungs: Unremarkable. No consolidation. Pleural spaces: Unremarkable. No pleural effusion. No pneumothorax. Heart/Mediastinum: Unremarkable. No cardiomegaly. Bones/joints: Unremarkable. IMPRESSION: No acute findings.
--- NOTE | 2025-01-08 23:51 | HMH.EDGENADL ---
Discharge Plan Disposition Patient Disposition: Home, Self-Care Prescriptions Prescriptions: New azithromycin 250 mg tablet See Rx Instructions .ROUTE .COMPLEX Qty: 4 0RF Rx Instructions: For 250 mg dose pack: take 500 mg today (day 1), then 250 mg for 4 days (days 2-5) amoxicillin-pot clavulanate 875-125 mg tablet 1 tab PO BID 7 Days Qty: 14 0RF No Action aspirin 81 mg tablet,delayed release (DR/EC) 81 mg PO DAILY escitalopram oxalate 10 mg tablet 10 mg PO DAILY Patient Comments: TAKE 1 TABLET BY MOUTH ONCE DAILY omeprazole 40 mg capsule,delayed release(DR/EC) 40 mg PO DAILY Qty: 30 2RF famotidine 20 mg tablet 40 mg PO DAILY Qty: 30 2RF atorvastatin 20 mg tablet See Rx Instructions .ROUTE .COMPLEX Qty: 90 0RF Dose Instruction: TAKE 1 TABLET BY MOUTH ONCE DAILY FOR CHOLESTEROL Rx Instructions: TAKE 1 TABLET BY MOUTH ONCE DAILY FOR CHOLESTEROL spironolactone 25 mg tablet 25 mg PO DAILY Qty: 90 3RF bisoprolol fumarate 5 mg tablet See Rx Instructions .ROUTE .COMPLEX Qty: 90 3RF Dose Instruction: Take 1 tablet by mouth once daily Rx Instructions: Take 1 tablet by mouth once daily furosemide 40 mg tablet See Rx Instructions .ROUTE .COMPLEX Qty: 90 3RF Dose Instruction: Take 1 tablet by mouth once daily Rx Instructions: Take 1 tablet by mouth once daily Referrals Follow up/Referrals: Quincy Johnson APRN [Primary Care Provider] - See instructions Activity Restrictions/Add. Instructions Additional Instructions/Restrictions: Please follow-up with your primary care provider. Please return to the emergency department if you develop any new or worsening symptoms or become concerned for your health. Please take antibiotics as prescribed for treatment of pneumonia. Clinical Impressions Clinical Impression: Pneumonia Print Language Print Language: Bhutanese Discharge ED Provider: Michael Bradley General Adult HPI General Chief complaint: Upper Respiratory Infection Stated complaint: cough, weak Time Seen by Provider: 01/08/25 23:45 History of Present Illness HPI narrative: 54-year-old female, history of smoking, GERD, hypertension hyperlipidemia presents for productive cough. She reports she is little bit more short of breath than normal as well. Denies chest pain. Productive cough is been present for the last 2 days. Denies fever at home. Related Data Home Medications ?Medication ?Instructions ?Recorded ?Confirmed aspirin 81 mg tablet,delayed 81 mg PO DAILY [facility] 12/31/17 01/08/25 release escitalopram oxalate 10 mg tablet 10 mg PO DAILY 09/02/24 01/08/25 Previous Rx's ?Medication ?Instructions ?Recorded atorvastatin 20 mg tablet See Rx Instructions .Route 06/13/22 .COMPLEX #90 tabs spironolactone 25 mg tablet 25 mg PO DAILY Fluid #90 tabs 07/10/23 bisoprolol fumarate 5 mg tablet See Rx Instructions .Route 06/25/24 .COMPLEX #90 tabs famotidine 20 mg tablet 40 mg (2 x 20 mg) PO DAILY #30 tabs 09/02/24 omeprazole 40 mg capsule,delayed 40 mg PO DAILY #30 caps 09/02/24 release furosemide 40 mg tablet See Rx Instructions .Route 09/28/24 .COMPLEX #90 tabs amoxicillin 875 mg-potassium 1 tab PO BID 7 days #14 tabs 01/09/25 clavulanate 125 mg tablet azithromycin 250 mg tablet See Rx Instructions PO .COMPLEX #4 01/09/25 tabs Allergies Allergy/AdvReac Type Severity Reaction Status Date / Time morphine (MORPHINE) AdvReac Mild Verified 09/23/24 11:05 [facility] Disclaimer: The information contained in this section may have been updated after the patient was seen, as this information can be updated by other users. Medical History (Updated 01/09/25 @ 00:49 by Michael Bradley MD) Skin lesion of face Multiple thyroid nodules Dysphagia HLD (hyperlipidemia) HTN (hypertension) RLS (restless legs syndrome) Edema Social History Smoking Status: Current every day smoker tobacco type: cigarettes packs per day: 1 second hand exposure: Yes alcohol intake: never counseling provided: none substance use type: denies use current occupational status: unemployed Travel in the last 8 weeks: None household members: spouse housing: house current occupational exposures/hazards: No caffeine: Yes Do you have a cough?: Yes Do you have any weakness?: Yes Other Medical History Have you received the Flu Vaccine for this season: No Have you received the Pneumonia Vaccine: No ROS Obtained: Yes All systems reviewed & no additional complaints except as documented Physical Exam General General appearance: alert and in no apparent distress Head Head exam: atraumatic and normocephalic Eye Eye exam: Present normal appearance, PERRL and EOMI ENT ENT exam: Present normal oropharynx and normal external ear exam Neck Neck exam: Present normal inspection and full ROM Chest Chest inspection: Present normal inspection and symmetric chest wall rise; Absent tenderness Respiratory Respiratory exam: Absent normal lung sounds bilaterally (Subtle crackles in the right lower lobe) or respiratory distress Cardiovascular Cardiovascular exam: Present regular rate and normal rhythm Abdominal Exam Abdominal exam: Present soft; Absent distention, tenderness or guarding Extremities Exam Extremities exam: Present normal inspection; Absent edema or joint swelling Back Exam Back exam: Present normal inspection; Absent tenderness Neurological Exam Neurological exam: Present alert and oriented X3; Absent motor sensory deficit Psychiatric Psychiatric exam: Present normal affect and normal mood Skin Skin exam: Present warm, dry and normal color Lymphatic Lymphatic Findings: no adenopathy Medical Decision Making Medical Records Medical records reviewed: Yes I reviewed the patient's medical records. Screening: Per USPSTF and CDC recommendations, given the prevalence of disease in our region, it is our hospital?s policy to screen for HIV and viral Hepatitis for all patients aged 18 and over and those with ongoing risk factors. Bhavin Inquiry Pt receiving controlled substance: No Bhavin was queried for this patient: No Vital Signs: 01/08/25 23:50 01/09/25 00:00 01/09/25 00:30 Temperature 98.8 F Temperature Source Oral Pulse Rate 83 74 Pulse Rate [Right Brachial] 81 Respiratory Rate 20 Blood Pressure 143/95 H 138/88 Blood Pressure [Right Arm] 138/89 Blood Pressure Mean [Right Arm] 105 Blood Pressure Source Blood Pressure Source [Right Arm] Automatic Cuff Blood Pressure Position Blood Pressure Position [Right Arm] Sitting 02 Sat by Pulse Oximetry 95 95 96 Oxygen Delivery Method Room Air 01/09/25 01:17 Temperature 98.2 F Temperature Source Oral Pulse Rate 74 Pulse Rate [Right Brachial] Respiratory Rate 20 Blood Pressure 122/90 Blood Pressure [Right Arm] Blood Pressure Mean [Right Arm] Blood Pressure Source Automatic Cuff Blood Pressure Source [Right Arm] Blood Pressure Position Sitting Blood Pressure Position [Right Arm] 02 Sat by Pulse Oximetry Oxygen Delivery Method Room Air Lab Data Lab results reviewed: Yes I reviewed the patient's lab results. Lab Results 01/08/25 23:51: SARS-CoV-2 (PCR) Not detected, Influenza A Untype (PCR) Not detected, Influenza Type B (PCR) Not detected Orders (Tests/Meds): ED MEDICATIONS Discontinued Medications Generic Name Dose Route Start Last Admin Trade Name Marilee PRN Reason Stop Dose Admin Amoxicillin/Clavulanate Potassium 1 each 01/09/25 01:09 01/09/25 01:15 Amoxicillin/Clavulanate Potassium 875/125mg Tablet PO 01/09/25 01:10 1 each ONCE ONE Administration Azithromycin 500 mg 01/09/25 01:09 01/09/25 01:15 Azithromycin 250mg Tablet PO 01/09/25 01:10 500 mg ONCE ONE Administration ORDERS Category Date Time Status CXR 2 view (NOT portable) [XR chest 2V] Stat Exams 01/08/25 23:51 Completed Rapid PCR Covid and Flu A/B Stat Lab 01/08/25 23:51 Completed Medical Decision Narrative: 54-year-old female with history of smoking hypertension hyperlipidemia sleep apnea tobacco use presents for productive cough for the last couple of days. History was obtained via interactive discussion with patient. On arrival, patient is [afebrile, hemodynamically stable, satting appropriately, alert, oriented x4, GCS 15], moving all extremities spontaneously. Full physical exam performed and significant for subtle crackles in the right lower lobe Differential includes but is not limited to viral/bacterial pneumonia, URI. Workup initiated including chest x-ray COVID flu swab. On re-evaluation, patient [remains afebrile, HD stable.] Laboratory workup independently interpreted by me and significant for negative COVID flu swab. Imaging independently interpreted by me and significant for subtle opacity in the right middle lobe. This coincides with the crackles noted on auscultation. See radiology read for full review of final results. Blood work and CT imaging was considered, but deemed unnecessary due to history and exam. Given patient history, exam and workup, patient's presentation most likely represents pneumonia. Augmentin and azithromycin were given for empiric coverage of community-acquired pneumonia. Patient was discharged in stable condition with return precautions and prescription. Procedures Risk/Benefits of Procedure(s) Were Explained: Yes Critical Care Critical Care Time Critical Care Time: No
--- NOTE | 2025-01-08 23:53 | PC.NURSE ---
Pt awake alert and oriented skin pink warm and dry Resp full and easy Speech clear and appropriate. Family at bedside
[2025-01-08 23:56] LABS: Coronavirus 19, PCR Not Detected (NotDetected); Influenza A, PCR Not Detected (NotDetected); Influenza B, PCR Not Detected (NotDetected)
[2025-01-09] VITALS: BP 143/95; PULSE 83; O2SAT 95
[2025-01-09 00:30] VITALS: BP 138/88; PULSE 74; O2SAT 96
[2025-01-09] MEDS: AZITHROMYCIN 250MG TABLET 500 MG PO (01:15)
[2025-01-09] MEDS: AMOXICILLIN/CLAVULANATE POTASSIUM 875/125MG TABLET 1 EACH PO (01:15)
[2025-01-09 01:17] VITALS: BP 122/90; PULSE 74; RESP 20; TEMP 36.8; O2SAT 96
== END 2025-01-09 01:21 | disposition home or self-care (01) ==
PROVIDERS: Emergency Provider Emergency Medicine; PCP Nurse Practitioner Family
DX: J18.9 Pneumonia, unspecified organism (principal)
CPT/HCPCS: 71046; 87636; 99284

== ENCOUNTER 2025-03-30 15:19 | Emergency (ER) | payer MEDICAID, SELFPAY ==
--- NOTE | 2025-03-30 16:26 | ED_ITS ---
Discharge Plan Disposition Patient Disposition: Home, Self-Care Condition: Good Prescriptions Prescriptions: New sulfamethoxazole-trimethoprim [Bactrim DS] 800-160 mg tablet 1 tab PO BID 14 Days Qty: 28 0RF No Action aspirin 81 mg tablet,delayed release (DR/EC) 81 mg PO DAILY escitalopram oxalate 10 mg tablet 10 mg PO DAILY Patient Comments: TAKE 1 TABLET BY MOUTH ONCE DAILY omeprazole 40 mg capsule,delayed release(DR/EC) 40 mg PO DAILY Qty: 30 2RF famotidine 20 mg tablet 40 mg PO DAILY Qty: 30 2RF atorvastatin 20 mg tablet See Rx Instructions .ROUTE .COMPLEX Qty: 90 0RF Dose Instruction: TAKE 1 TABLET BY MOUTH ONCE DAILY FOR CHOLESTEROL Rx Instructions: TAKE 1 TABLET BY MOUTH ONCE DAILY FOR CHOLESTEROL spironolactone 25 mg tablet 25 mg PO DAILY Qty: 90 3RF bisoprolol fumarate 5 mg tablet See Rx Instructions .ROUTE .COMPLEX Qty: 90 3RF Dose Instruction: Take 1 tablet by mouth once daily Rx Instructions: Take 1 tablet by mouth once daily furosemide 40 mg tablet See Rx Instructions .ROUTE .COMPLEX Qty: 90 3RF Dose Instruction: Take 1 tablet by mouth once daily Rx Instructions: Take 1 tablet by mouth once daily azithromycin 250 mg tablet See Rx Instructions .ROUTE .COMPLEX Qty: 4 0RF Rx Instructions: For 250 mg dose pack: take 500 mg today (day 1), then 250 mg for 4 days (days 2-5) amoxicillin-pot clavulanate 875-125 mg tablet 1 tab PO BID 7 Days Qty: 14 0RF Referrals Follow up/Referrals: Quincy Johnson APRN [Primary Care Provider] - See instructions Activity Restrictions/Add. Instructions Additional Instructions/Restrictions: You were evaluated in the emergency department today. Please pickling solution maker your prescription for Bactrim and take as prescribed. Follow-up close with your primary care provider over the next 48 hours for reassessment. You do not have an abscess currently, be you could develop once it is important to keep close follow-up to monitor this. Return to the emergency department for new or worsening symptoms, such as high fevers despite antibiotics, nausea and vomiting, or other concerns. Take Tylenol and ibuprofen as needed for pain. Clinical Impressions Clinical Impression: Cellulitis of groin, right, UTI (urinary tract infection) Stand Alone Forms Stand Alone Forms: Work/School Release Instructions Patient Instructions: DI for Cellulitis -- Adult Print Language Print Language: Mosotho Discharge ED Provider: Dacia Ceja General Adult HPI General Chief complaint: Skin/Abscess/Foreign Body Stated complaint: Has rash/something on upper legs, tb walking Time Seen by Provider: 03/30/25 16:11 History of Present Illness HPI narrative: This patient is a 54-year-old female with a history of hypertension, hyperlipidemia, tobacco dependence, JOSE, GERD, and diastolic dysfunction presenting to the emergency department for evaluation with concern for right groin/labial pain and swelling. She notes it started out about a week ago as a pimple but has progressively worsened since then. She notes that she now has a much larger area of redness, pain, and swelling and feels like the pain is radiating up into her abdomen and down her right leg. She notes it hurts when she walks. She also notes subjective fevers and chills as well as nausea. No vomiting, changes in bowel movements, or other concerns. She denies ever experiencing anything like this in the past. Related Data Home Medications ?Medication ?Instructions ?Recorded ?Confirmed aspirin 81 mg tablet,delayed 81 mg PO DAILY [facility] 12/31/17 01/08/25 release escitalopram oxalate 10 mg tablet 10 mg PO DAILY 09/02/24 01/08/25 Previous Rx's ?Medication ?Instructions ?Recorded atorvastatin 20 mg tablet See Rx Instructions .Route 06/13/22 .COMPLEX #90 tabs spironolactone 25 mg tablet 25 mg PO DAILY Fluid #90 tabs 07/10/23 bisoprolol fumarate 5 mg tablet See Rx Instructions .Route 06/25/24 .COMPLEX #90 tabs famotidine 20 mg tablet 40 mg (2 x 20 mg) PO DAILY #30 tabs 09/02/24 omeprazole 40 mg capsule,delayed 40 mg PO DAILY #30 caps 09/02/24 release furosemide 40 mg tablet See Rx Instructions .Route 09/28/24 .COMPLEX #90 tabs amoxicillin 875 mg-potassium 1 tab PO BID 7 days #14 tabs 01/09/25 clavulanate 125 mg tablet azithromycin 250 mg tablet See Rx Instructions PO .COMPLEX #4 01/09/25 tabs sulfamethoxazole 800 1 tab PO BID 14 days #28 tabs 03/30/25 mg-trimethoprim 160 mg tablet (Bactrim DS) Allergies Allergy/AdvReac Type Severity Reaction Status Date / Time morphine (MORPHINE) AdvReac Mild Verified 09/23/24 11:05 [facility] Disclaimer: The information contained in this section may have been updated after the patient was seen, as this information can be updated by other users. Medical History Skin lesion of face Multiple thyroid nodules Dysphagia HLD (hyperlipidemia) HTN (hypertension) RLS (restless legs syndrome) Edema Social History Smoking Status: Never smoker second hand exposure: Yes alcohol intake: never counseling provided: none substance use type: denies use current occupational status: unemployed Travel in the last 8 weeks?: None household members: spouse housing: house current occupational exposures/hazards: No caffeine: Yes Have you lived/traveled outside [place] in past 30 days?: No Contact w/someone who lives/traveled outside [place] past 30 days?: No Exposure to someone with infectious disease in past 14 days?: No Do you have a fever (greater than 100.4 F or 38 C)?: No Have you tested positive for COVID-19?: No Exposed to someone with COVID-19 in past 14 days?: No Do you have a sore throat?: No Do you have a cough?: No Do you have any weakness?: No Do you have any diarrhea?: No Are you experiencing any unusual bleeding?: No Do you have any muscle aches/pain?: No Do you have any abdominal pain?: No Are you experiencing loss of taste or smell?: No Other Medical History Have you received the Flu Vaccine for this season: No Have you received the Pneumonia Vaccine: No ROS Obtained: Yes All systems reviewed & no additional complaints except as documented Physical Exam General General appearance: alert and in no apparent distress Head Head exam: atraumatic and normocephalic Eye Eye exam: Present normal appearance, PERRL and EOMI ENT ENT exam: Present normal exam, normal oropharynx, mucous membranes moist and normal external ear exam Neck Neck exam: Present normal inspection, full ROM and trachea midline; Absent tenderness Chest Chest inspection: Present normal inspection and symmetric chest wall rise; Absent tenderness Respiratory Respiratory exam: Present normal lung sounds bilaterally; Absent respiratory distress, wheezes, stridor or accessory muscle use Cardiovascular Cardiovascular exam: Present regular rate and normal rhythm Abdominal Exam Abdominal exam: Present soft; Absent distention, tenderness or guarding Expanded Exam Female Image: 2 1. Redness, warmth, induration, tenderness to palpation that extends up into the lower abdomen Extremities Exam Extremities exam: Present normal inspection, full ROM and normal capillary refill; Absent tenderness or edema Back Exam Back exam: Present normal inspection and full ROM; Absent tenderness Neurological Exam Neurological exam: Present alert, oriented X3, CN II-XII intact and normal gait; Absent motor sensory deficit Psychiatric Psychiatric exam: Present normal affect and normal mood Skin Skin exam: Present warm and dry Medical Decision Making Medical Records Medical records reviewed: Yes I reviewed the patient's medical records. Screening: Per USPSTF and CDC recommendations, given the prevalence of disease in our region, it is our hospital?s policy to screen for HIV and viral Hepatitis for all patients aged 18 and over and those with ongoing risk factors. Bhavin Inquiry Pt receiving controlled substance: No Vital Signs: 03/30/25 16:30 03/30/25 16:30 03/30/25 18:44 Temperature 98.6 F Temperature Source Oral Pulse Rate 95 H 93 H Pulse Rate [Left Radial] 88 Respiratory Rate 17 Blood Pressure 129/86 136/88 Blood Pressure [Right Arm] 129/86 Blood Pressure Mean [Right Arm] 100 Blood Pressure Source [Right Arm] Automatic Cuff Blood Pressure Position [Right Arm] Sitting 02 Sat by Pulse Oximetry 95 98 97 Oxygen Delivery Method Room Air Nasal Cannula Room Air Oxygen Flow Rate (LPM) 2 03/30/25 18:55 Temperature 98.2 F Temperature Source Pulse Rate 80 Pulse Rate [Left Radial] Respiratory Rate 20 Blood Pressure 150/79 H Blood Pressure [Right Arm] Blood Pressure Mean [Right Arm] Blood Pressure Source [Right Arm] Blood Pressure Position [Right Arm] 02 Sat by Pulse Oximetry Oxygen Delivery Method Room Air Oxygen Flow Rate (LPM) Lab Data Lab results reviewed: Yes I reviewed the patient's lab results. Lab Results 03/30/25 16:45: WBC 15.5 H, RBC 4.45, Hgb 13.4, Hct 39.9, MCV 89.7, MCH 30.1, MCHC 33.6, RDW 13.7, Plt Count 185, MPV 10.1, Neut % (Auto) 79.4, Lymph % (Auto) 14.6, [place] % (Auto) 5.1, Eos % (Auto) 0.3, Baso % (Auto) 0.2, Neut # (Auto) 12.4 H, Lymph # (Auto) 2.3, [place] # (Auto) 0.8, Eos # (Auto) 0.0, Baso # (Auto) 0.0, E SR 32 H, Sodium 137, Potassium 3.4 L, Chloride 102, Carbon Dioxide 30, Anion Gap 8.4, BUN 9, Creatinine 0.80, Estimated Creat Clear 118, Estimated GFR 74, Est GFR ( Amer) 90, Glucose 94, Calcium 8.7, Total Bilirubin 0.8, AST 25, ALT 16, Alkaline Phosphatase 64, C-Reactive Protein 105.3 H, Total Protein 6.9, Albumin 4.0, Globulin 2.9, Albumin/Globulin Ratio 1.4 03/30/25 17:38: Urine Color Yellow, Urine Appearance Clear, Urine pH 6.0, Ur Specific [place] <= 1.005, Urine Protein Negative, Urine Glucose (UA) Negative, Urine Ketones Trace, Urine Blood 1+ A, Urine Nitrate Negative, Urine Bilirubin Negative, Urine Urobilinogen 0.2, Ur Leukocyte Esterase Negative, Urine RBC Occasional, Urine WBC 3-5, Ur Squamous Epith Cells 3-5, Urine Bacteria 3+, Urine Mucus 1+ 03/30/25 17:41: Lactate 1.1 03/30/25 16:45 03/30/25 16:45 Orders (Tests/Meds): ED MEDICATIONS Discontinued Medications Generic Name Dose Route Start Last Admin Trade Name Freq PRN Reason Stop Dose Admin Acetaminophen 1,000 mg 03/30/25 16:25 03/30/25 16:47 Acetaminophen 500mg Tab PO 03/30/25 16:26 1,000 mg ONCE ONE Administration Lactated Ringer's 1,000 mls @ 999 mls/hr 03/30/25 16:25 03/30/25 16:47 Lactated Ringer's 1000 Ml Bag IV 03/30/25 17:25 999 mls/hr .Q1H1M ONE Administration Iopamidol 75 ml 03/30/25 17:30 03/30/25 17:31 Iopamidol-370 (76%);100ml Bottle IV 03/30/25 17:31 75 ml ONCE ONE Administration Ketorolac Tromethamine 15 mg 03/30/25 16:25 03/30/25 16:47 Ketorolac 30mg/Ml Vial IV 03/30/25 16:26 15 mg ONCE ONE Administration Ondansetron HCl 4 mg 03/30/25 16:25 03/30/25 16:47 Ondansetron 4mg/2ml Vial IV 03/30/25 16:26 4 mg ONCE ONE Administration Sodium Chloride 10 ml 03/30/25 17:30 03/30/25 17:31 Sodium Chloride 0.9% 10ml Syr (Rad Only) IV 04/29/25 17:29 10 ml NEEDED PRN Administration Maintain IV Site Trimethoprim/Sulfamethoxazole 1 each 03/30/25 18:35 03/30/25 18:42 Sulfa/Trimethoprim 1 Tablet PO 03/30/25 18:36 1 each ONCE ONE Administration ORDERS Category Date Time Status CT abdomen pelvis w con Routine Cat Scan 03/30/25 17:09 Completed CRP [C-Reactive Protein] Stat Lab 03/30/25 16:45 Completed Complete Blood Count Auto Diff Stat Lab 03/30/25 16:45 Completed Comprehensive Metabolic Panel Stat Lab 03/30/25 16:45 Completed ESR [Erythrocyte Sedimentation Rate] Stat Lab 03/30/25 16:45 Completed Lactic Acid Stat Lab 03/30/25 17:41 Completed UA [Urinalysis and Microscopic] Stat Lab 03/30/25 17:38 Completed Blood Culture Stat Micro 03/30/25 16:50 Received Urine Culture Stat Micro 03/30/25 17:38 Received Medical Decision Narrative: In summary, this patient is a 54-year-old female presenting to the Emergency Department for evaluation of right groin pain, redness, swelling. Differential diagnoses considered include but are not limited to Mario's gangrene, cellulitis, abscess, sepsis. Ruling out the most morbid conditions drove assessment. It should be noted patient's history includes hypertension, hyperlipidemia, tobacco dependence which may or may not be at goal therapy. This complicates all aspects of care by increasing patient's risk for morbidity. On exam, the patient is lying in bed in no acute distress. She is nontoxic- appearing with reassuring vitals, afebrile. She has redness, warmth, tenderness to palpation and induration to the right groin that extends up into her abdomen. I do not feel any palpable crepitus. Workup included CBC, CMP, ESR, CRP, lactic acid, blood cultures, urinalysis, urine culture, and CT abdomen pelvis with IV contrast. She was given a bolus of IV fluids as well as IV Toradol, oral Tylenol, IV Zofran for symptomatic improvement. I independently interpreted CT scan prior to the radiologist read and noted cellulitis of the right groin with lymphadenopathy.. I do not see any large abscess or deep extension. Please see their read for final interpretation. Labs were obtained that demonstrated leukocytosis and elevated inflammatory markers. She also states she may have a urinary tract infection.. Labs are otherwise reassuring. Patient is afebrile, nontachycardic, nontachypneic, nontoxic-appearing. I doubt sepsis at this time, blood cultures were sent and are pending to be on the safe side. Given that there is no abscess to drain on CT scan, I feel that we can trial discharge home with oral antibiotics to treat cellulitis. After shared decision-making with the patient, she is in agreement with this. She was given dose of Bactrim here and discharged with prescription for Bactrim Patient was given very strict return precautions and instructions for very close outpatient follow-up to make sure that she does not develop an abscess or worsening of clinical condition. She expressed understanding and agreement. Critical Care Critical Care Time Critical Care Time: No
[2025-03-30 16:30] VITALS: BP 129/86; PULSE 88; PULSE 95; RESP 17; TEMP 37; O2SAT 95; O2SAT 98; BMI 33.9
[2025-03-30] MEDS: LACTATED RINGERS 1000ML 1,000 ML 999 ML IV (16:47)
[2025-03-30] MEDS: KETOROLAC 30MG/ML VIAL 15 MG IV (16:47)
[2025-03-30] MEDS: ONDANSETRON 4MG/2ML VIAL 4 MG IV (16:47)
[2025-03-30] MEDS: ACETAMINOPHEN 500MG TAB 1000 MG PO (16:47)
[2025-03-30 17:01] LABS: Basophils % 0.2 % (0.1-2.0); Eosinophils % 0.3 % (0.1-12.0); Hematocrit 39.9 % (37.0-47.0); Hemoglobin 13.4 g/dL (12.2-16.2); Immature Granulocytes # 0.06 10^3uL; Immature Granulocytes % 0.4 %; Lymphocytes # 2.3 K/mm3 (0.7-4.5); Lymphocytes % 14.6 % (10-50); Mean Corpuscular HGB Conc 33.6 g/dL (31.8-35.4); Mean Corpuscular Hemoglobin 30.1 pg (27.0-31.2); Mean Corpuscular Volume 89.7 fl (81-99); Mean Platelet Volume 10.1 fl (7.4-10.4); Monocytes # 0.8 K/mm3 (0.1-1.0); Monocytes % 5.1 % (1.7-9.3); Neutrophils # 12.4 K/mm3 (1.8-7.8); Neutrophils % 79.4 % (37.0-80.0); Nucleated Red Blood Cells # 0 10^3/uL; Nucleated Red Blood Cells % 0 %; Platelet Count 185 K/mm3 (142-424); Red Blood Count 4.45 M/mm3 (4.20-5.40); Red Cell Distribution Width 13.7 % (11.5-17.5); White Blood Count 15.5 K/mm3 (4.8-10.8)
--- NOTE | 2025-03-30 17:09 | CT_ITS ---
PROCEDURE INFORMATION: Exam: CT Abdomen And Pelvis With Contrast Exam date and time: 03/30/2025 5:29 PM Age: 54 years old Clinical indication: Mass, lump, or swelling; Other: RT groin, labia pain and swelling; Additional info: R groin/labial pain/swelling/induration, infxn TECHNIQUE: Imaging protocol: Computed tomography of the abdomen and pelvis with contrast. Radiation optimization: All CT scans at this facility use at least one of these dose optimization techniques: automated exposure control; mA and/or kV adjustment per patient size (includes targeted exams where dose is matched to clinical indication); or iterative reconstruction. Contrast material: ISOVUE; Contrast volume: 75 ml; Contrast route: IV; COMPARISON: CT ABDOMEN PELVIS W CON 23/09/2021 18:08 FINDINGS: Lungs: Mild scarring and atelectasis in the lower lungs. Liver: Low attenuation hepatic lesions measuring up to 1.9 cm in diameter are incompletely characterized, but are likely cysts. No followup imaging is recommended. Gallbladder and biliary ducts: Gallbladder is absent. Pancreas: Normal. No ductal dilation. Spleen: Normal. No splenomegaly. Adrenal glands: Normal. No mass. Kidneys and ureters: Normal. No hydronephrosis. Stomach and bowel: Mild sigmoid diverticulosis without diverticulitis. Appendix: Unremarkable appendix. Intraperitoneal space: Unremarkable. No free air. No significant fluid collection. Vasculature: The arteries demonstrate moderate atherosclerotic disease. Lymph nodes: Unremarkable. No enlarged lymph nodes. Urinary bladder: Unremarkable as visualized. Reproductive: There is a 10 mm cystic structure in the left ovary, unchanged. No follow-up imaging is warranted. Bones/joints: Unremarkable. No acute fracture. Soft tissues: Edema in the right side of mons pubis and in the right inguinal soft tissues with mildly enlarged lymph nodes. Other findings: Stigmata of old granulomatous disease. IMPRESSION: Edema in the right side of mons pubis and in the right inguinal soft tissues with mildly enlarged lymph nodes. Cellulitis would be most likely. There is no abscess or intraperitoneal component.
[2025-03-30 17:11] LABS: Alanine Aminotransferase 16 U/L (12-78); Albumin/Globulin Ratio 1.4 (1.1-1.8); Alkaline Phosphatase 64 U/L (38-126); Anion Gap 8.4 mEq/L (5-15); Aspartate Amino Transferase 25 U/L (14-36); Bilirubin,Total 0.8 mg/dl (0.2-1.3); Blood Urea Nitrogen 9 mg/dl (7-17); Calcium 8.7 mg/dl (8.4-10.2); Carbon Dioxide 30 mmol/L (22.0-30.0); Chloride 102 mmol/L (98-107); Creatinine Clearance Estimated 118 mL/min (50-200); Estimated Glomerular Filt Rate 74 ml/min (>60); GFR (African American) 90 ML/MIN (>60); Globulin 2.9 g/dL (1.3-3.2); Glucose 94 mg/dl (74-100); Potassium 3.4 mmoL/L (3.5-5.1); Sodium 137 mmol/L (136-145); Total Protein,Serum 6.9 g/dl (6.3-8.2)
[2025-03-30 17:16] LABS: C-Reactive Protein 105.3 mg/L (0-4)
[2025-03-30] MEDS: SODIUM CHLORIDE 0.9% 10ML SYR (RAD ONLY) 10 ML IV (17:31)
[2025-03-30] MEDS: IOPAMIDOL-370 (76%);100ML BOTTLE 75 ML IV (17:31)
[2025-03-30 17:44] LABS: Microscopic, Urine URINE MICROSCOPIC (MICROSCOPIC)
[2025-03-30 17:47] LABS: Appearance,Urine CLEAR (Clear); Bilirubin,Urine Negative (Negative); Blood, Urine 1+ (Negative); Color,Urine YELLOW (Yellow); Glucose,Urine (UA) Negative (Negative); Ketones,Urine TRACE (Negative); Leukocyte Esterase,Urine Negative (Negative); Nitrate,Urine Negative (Negative); Protein,Urine Negative (Negative); Specific Gravity, Urine <= 1.005 (1.005-1.030); Urobilinogen,Urine 0.2 EU/dl (0.2)
[2025-03-30 18:12] LABS: Lactic Acid 1.1 mmol/L (0.7-2.1)
--- NOTE | 2025-03-30 18:25 | PC.NURSE ---
pt to ct scan with radiology interventional physician
[2025-03-30 18:33] LABS: Bacteria,Urine 3+ /lpf; Mucus,Urine 1+ /lpf; RBC,Urine Occasional #/hpf (0-3)
[2025-03-30] MEDS: SULFA/TRIMETHOPRIM 1 TABLET 1 EACH PO (18:42)
[2025-03-30 18:44] VITALS: BP 136/88; PULSE 93; O2SAT 97
[2025-03-30 18:55] VITALS: BP 150/79; PULSE 80; RESP 20; TEMP 36.8; O2SAT 98
[2025-03-30 19:04] LABS: Erythrocyte Sedimentation Rate 32 mm/hr (0-30)
--- NOTE | 2025-04-17 08:58 | PC.NURSE ---
Wound culture results reviwed by Dr. Ramirez. No new results received.
== END 2025-03-30 18:57 | disposition home or self-care (01) ==
PROVIDERS: Emergency Provider Emergency Medicine; PCP Nurse Practitioner Family
DX: L03.314 Cellulitis of groin (principal); N39.0 Urinary tract infection, site not specified
CPT/HCPCS: 74177; 80053; 81001; 83605; 85025; 85651; 86140; 87040; 87086; 96361; 96374; 96375; 99284; J1885; J2405; J7120; Q9967

== ENCOUNTER 2025-04-02 21:29 | Inpatient (IN) | payer MEDICAID, SELFPAY ==
[2025-04-02 21:38] VITALS: BP 132/102; PULSE 109; RESP 16; TEMP 37.3; O2SAT 100; BMI 34.3
--- NOTE | 2025-04-02 21:48 | CT_ITS ---
PROCEDURE INFORMATION: Exam: CT Abdomen And Pelvis With Contrast Exam date and time: 04/02/2025 10:04 PM Age: 54 years old Clinical indication: Other: Mons/r labial cellulitis, R/O abscess, worsened TECHNIQUE: Imaging protocol: Computed tomography of the abdomen and pelvis with contrast. Radiation optimization: All CT scans at this facility use at least one of these dose optimization techniques: automated exposure control; mA and/or kV adjustment per patient size (includes targeted exams where dose is matched to clinical indication); or iterative reconstruction. Contrast material: ISOVUE; Contrast volume: 75 ml; Contrast route: IV; COMPARISON: CT ABDOMEN PELVIS W CON 03/30/2025 5:29 PM FINDINGS: Lungs: Lung bases are clear. Liver: Multiple hepatic cysts redemonstrated.Fatty liver changes. Liver otherwise unremarkable. Gallbladder and biliary ducts: Status post cholecystectomy. No evident bile duct dilatation allowing for prior cholecystectomy. Pancreas: Normal. No ductal dilation. Spleen: Normal. No splenomegaly. Adrenal glands: Normal. No mass. Kidneys and ureters: Normal. No hydronephrosis. Stomach and bowel: Unremarkable. No obstruction. No mucosal thickening. Appendix: Appendix is normal. No evidence of appendicitis. Intraperitoneal space: Unremarkable. No free air. No significant fluid collection. Vasculature: Unremarkable. No abdominal aortic aneurysm. Lymph nodes: Enlarged right inguinal lymph nodes are noted with interval worsening. Urinary bladder: Unremarkable as visualized. Reproductive: Hysterectomy. Bones/joints: Unremarkable. No acute fracture. Soft tissues: Severe soft tissue edema and stranding in the right mons pubis extending into the right inguinal region compatible with cellulitis with interval worsening. Interval development of an elongated loculated fluid collection also extending from the mons pubis towards the right inguinal region. This collection measures 8.5 cm in length as measured on coronal image 22 and 2.5 x 2.5 cm in AP and transverse dimension measured on axial image 113 and may reflect developing abscess. IMPRESSION: 1. Right mons pubis and inguinal region cellulitis. Associated developing loculated fluid collection measuring 8.5 x 2.5 x 2.5 cm which may reflect developing abscess. 2. Right inguinal adenopathy with interval worsening.
--- NOTE | 2025-04-02 21:55 | ED_ITS ---
Discharge Plan Disposition Patient Disposition: Admitted Condition: Fair Clinical Impressions Clinical Impression: Abscess or cellulitis of groin, Sepsis Discharge ED Provider: Dacia Ceja General Adult HPI General Chief complaint: Skin/Abscess/Foreign Body Stated complaint: swollen absess spreading to back Time Seen by Provider: 04/02/25 21:42 Mode of Arrival: Ambulatory Source of Information: Patient Description of Symptoms (Recalled from ER Triage Doc. by RN): Patient here previously; states spot on vagina looks worse. It is not draining, but feels like redness is spreading and that it feels hard under it. On bactrim. History of Present Illness HPI narrative: This patient is a 54-year-old female with a history of hypertension, hyperlipidemia, pulmonary hypertension, tobacco dependence, diastolic dysfunction, JOSE, tobacco use presenting to the emergency department for evaluation of concern for worsening redness, warmth, pain, and swelling to her right groin. Patient was seen here 03/30/2025 by myself, and on medical record review we obtained labs and CT scan that were concerning for cellulitis of the right groin but no obvious abscess and no concern for necrotizing soft tissue infection. She was discharged home on Bactrim, which she states she has been taking, but the swelling has continued to worsen. She also notes subjective fevers at home as well as chills. No other concerns or complaints noted, such as chest pain, shortness of breath, or other concerns. Related Data Home Medications ?Medication ?Instructions ?Recorded ?Confirmed aspirin 81 mg tablet,delayed 81 mg PO DAILY HEART HEAL TH 12/31/17 01/08/25 release escitalopram oxalate 10 mg tablet 10 mg PO DAILY 09/0201/08/25 Previous Rx's ?Medication ?Instructions ?Recorded atorvastatin 20 mg tablet See Rx Instructions .Route 0 06/13/22 .COMPLEX #90 tabs spironolactone 25 mg tablet 25 mg PO DAILY Fluid #90 t abs 07/10/23 bisoprolol fumarate 5 mg tablet See Rx Instructions .R oute 06/25/24 .COMPLEX #90 tabs famotidine 20 mg tablet 40 mg (2 x 20 mg) PO DAILY # 30 tabs 09/02/24 omeprazole 40 mg capsule,delayed 40 mg PO DAILY #30 ca ps 09/02/24 release furosemide 40 mg tablet See Rx Instructions .Route 1 1/25/24 .COMPLEX #90 tabs amoxicillin 875 mg-potassium 1 tab PO BID 7 days #14 t abs 01/09/25 clavulanate 125 mg tablet azithromycin 250 mg tablet See Rx Instructions PO .COM PLEX #4 01/09/25 tabs sulfamethoxazole 800 1 tab PO BID 14 days #28 tab s 03/30/25 mg-trimethoprim 160 mg tablet (Bactrim DS) Allergies Allergy/AdvReac Type Severity Reaction Status Date / Time morphine (MORPHINE) AdvReac Mild Verified 09/23/24 11:05 [facility] Disclaimer: The information contained in this section may have been updated after the patient was seen, as this information can be updated by other users. Medical History Skin lesion of face Multiple thyroid nodules Dysphagia HLD (hyperlipidemia) HTN (hypertension) RLS (restless legs syndrome) Edema Social History Smoking Status: Current some day smoker tobacco type: cigarettes packs per day: 1 second hand exposure: Yes alcohol intake: never counseling provided: none substance use type: denies use current occupational status: unemployed Travel in the last 8 weeks?: None household members: spouse housing: house current occupational exposures/hazards: No caffeine: Yes Have you lived/traveled outside [place] in past 30 days?: No Contact w/someone who lives/traveled outside [place] past 30 days?: No Exposure to someone with infectious disease in past 14 days?: No Do you have a fever (greater than 100.4 F or 38 C)?: No Have you tested positive for COVID-19?: No Exposed to someone with COVID-19 in past 14 days?: No Do you have a sore throat?: No Do you have a cough?: No Do you have any weakness?: No Do you have any diarrhea?: No Are you experiencing any unusual bleeding?: No Do you have any muscle aches/pain?: No Do you have any abdominal pain?: No Are you experiencing loss of taste or smell?: No Other Medical History Have you received the Flu Vaccine for this season: No Have you received the Pneumonia Vaccine: No ROS Obtained: Yes All systems reviewed & no additional complaints except as documented Physical Exam General General appearance: alert and in no apparent distress Head Head exam: atraumatic and normocephalic Eye Eye exam: Present normal appearance, PERRL and EOMI ENT ENT exam: Present normal exam, normal oropharynx, mucous membranes moist and normal external ear exam Neck Neck exam: Present normal inspection, full ROM and trachea midline; Absent tenderness Chest Chest inspection: Present normal inspection and symmetric chest wall rise; Absent tenderness Respiratory Respiratory exam: Present normal lung sounds bilaterally; Absent respiratory distress, wheezes, stridor or accessory muscle use Cardiovascular Cardiovascular exam: Present regular rate and normal rhythm Abdominal Exam Abdominal exam: Present soft; Absent distention, tenderness or guarding Expanded Exam Female Image: 2 1. Significantly worsened redness, warmth, swelling, tenderness, and induration 2. Central area of purulence that is not open or draining Extremities Exam Extremities exam: Present normal inspection, full ROM and normal capillary refill; Absent tenderness or edema Back Exam Back exam: Present normal inspection and full ROM; Absent tenderness Neurological Exam Neurological exam: Present alert, oriented X3, CN II-XII intact and normal gait; Absent motor sensory deficit Psychiatric Psychiatric exam: Present normal affect and normal mood Skin Skin exam: Present warm and dry Medical Decision Making Medical Records Medical records reviewed: Yes I reviewed the patient's medical records. Screening: Per USPSTF and CDC recommendations, given the prevalence of disease in our region, it is our hospital?s policy to screen for HIV and viral Hepatitis for all patients aged 18 and over and those with ongoing risk factors. Bhavin Inquiry Pt receiving controlled substance: No Vital Signs: 04/02/25 21:38 04/02/25 22:30 04/02/25 23:00 Temperature 99.2 F Temperature Source Oral Pulse Rate 91 H 87 Pulse Rate [Right Radial] 109 H Respiratory Rate 16 Blood Pressure 110/73 120/69 Blood Pressure [Right Arm] 132/102 H Blood Pressure Mean [Right Arm] 112 Blood Pressure Source [Right Arm] Automatic Cuff Blood Pressure Position [Right Arm] Supine 02 Sat by Pulse Oximetry 100 96 98 Oxygen Delivery Method Room Air 04/02/25 23:15 04/02/25 23:30 04/03/25 00:00 Temperature Temperature Source Pulse Rate 86 79 75 Pulse Rate [Right Radial] Respiratory Rate Blood Pressure 112/73 110/65 Blood Pressure [Right Arm] Blood Pressure Mean [Right Arm] Blood Pressure Source [Right Arm] Blood Pressure Position [Right Arm] 02 Sat by Pulse Oximetry 97 97 97 Oxygen Delivery Method Lab Data Lab results reviewed: Yes I reviewed the patient's lab results. Lab Results 04/02/25 20:56: WBC 13.8 H, RBC 4.16 L, Hgb 12.5, Hct 36.5 L, MCV 87.7, MCH 30.0, MCHC 34.2, RDW 13.4, Plt Count 235 D, MPV 10.0, Neut % (Auto) 75.8, Lymph % (Auto) 15.5, [place] % (Auto) 7.3, Eos % (Auto) 0.7, Baso % (Auto) 0.2, Neut # (Auto) 10.4 H, Lymph # (Auto) 2.1, [place] # (Auto) 1.0, Eos # (Auto) 0.1, Baso # (Auto) 0.0, ESR 65 H, PT 10.6, INR 0.95, Sodium 131 L, Potassium 3.5, Chloride 102, Carbon Dioxide 25, Anion Gap 7.5, BUN 10, Creatinine 0.80, Estimated Creat Clear 120, Estimated GFR 74, Est GFR ( Amer) 90, Glucose 110 H, Lactate 1.0, Calcium 8.5, Total Bilirubin 0.4, AST 29, ALT 19, Alkaline Phosphatase 79, C-Reactive Protein 96.8 H, Total Protein 6.7, Albumin 3.7, Globulin 3.0, Albumin/Globulin Ratio 1.2 04/02/25 20:56 04/02/25 20:56 Orders (Tests/Meds): ED MEDICATIONS Generic Name Dose Route Start Last Admin Trade Name Freq PRN Reason Stop Dose Admin Vancomycin HCl 2,000 mg/ 250 mls @ 125 mls/hr 04/02/25 22:45 04/02/25 23:18 Sodium Chloride IV 04/03/25 00:44 125 mls/hr ONCE ONE Administration Miscellaneous 1 each 04/02/25 22:45 04/02/25 22:48 Vancomycin Consult Request NOTAPPLIC 05/02/25 22:44 1 each [facility] Administration Discontinued Medications Generic Name Dose Route Start Last Admin Trade Name Freq PRN Reason Stop Dose Admin Acetaminophen 1,000 mg 04/02/25 21:50 04/02/25 22:04 Acetaminophen 500mg Tab PO 04/02/25 21:51 1,000 mg ONCE ONE Administration Lactated Ringer's 1,000 mls @ 999 mls/hr 04/02/25 21:52 04/02/25 22:04 Lactated Ringer's 1000 Ml Bag IV 04/02/25 22:52 999 mls/hr .Q1H1M ONE Administration Ceftriaxone Sodium 2 gm/ 100 mls @ 200 mls/hr 04/02/25 22:37 04/02/25 22:43 Sodium Chloride IV 04/02/25 23:06 200 mls/hr ONCE ONE Administration Iopamidol 75 ml 04/02/25 22:07 04/02/25 22:08 Iopamidol-370 (76%);100ml Bottle IV 04/02/25 22:08 75 ml ONCE ONE Administration Ketorolac Tromethamine 15 mg 04/02/25 23:28 04/02/25 23:30 Ketorolac 30mg/Ml Vial IV 04/02/25 23:29 15 mg ONCE ONE Administration Lidocaine/Epinephrine 20 ml 04/02/25 22:36 04/02/25 22:43 Lidocaine 1% W/Epi 1:100,000 20ml Vial IJ 04/02/25 22:37 20 ml ONCE ONE Administration Lidocaine/Prilocaine 5 gm 04/02/25 22:12 04/02/25 22:31 Lidocaine/Prilocaine 5gm Tube TP 04/02/25 22:13 5 gm ONCE ONE Administration Morphine Sulfate 4 mg 04/02/25 22:36 04/02/25 22:48 Morphine 4mg/Ml Syringe IV 04/02/25 22:37 4 mg ONCE ONE Administration Ondansetron HCl 4 mg 04/02/25 22:36 04/02/25 22:43 Ondansetron 4mg/2ml Vial IV 04/02/25 22:37 4 mg ONCE ONE Administration Sodium Chloride 10 ml 04/02/25 22:07 04/02/25 22:08 Sodium Chloride 0.9% 10ml Syr (Rad Only) IV 04/02/25 22:08 10 ml ONCE ONE Administration ORDERS Category Date Time Status CT abdomen pelvis w con Stat Cat Scan 04/02/25 21:48 Completed POCUS Point of Care (ER Only) Stat Exams 04/02/25 22:38 Completed CRP [C-Reactive Protein] Stat Lab 04/02/25 20:56 Completed Complete Blood Count Auto Diff Stat Lab 04/02/25 20:56 Completed Comprehensive Metabolic Panel Stat Lab 04/02/25 20:56 Completed ESR [Erythrocyte Sedimentation Rate] Stat Lab 04/02/25 20:56 Completed INR [Prothrombin Time INR] Stat Lab 04/02/25 20:56 Completed Lactic Acid Stat Lab 04/02/25 20:56 Completed Blood Culture Stat Micro 04/02/25 21:00 Received Wound Culture and Gram Stain Stat Micro 04/02/25 22:36 Ordered Medical Decision Narrative: In summary, this patient is a 54-year-old female presenting to the Emergency Department for evaluation of redness, warmth, swelling, and tenderness of the right groin that has worsened since being evaluated here 03/30/2025 and discharged on oral antibiotics.. Differential diagnoses considered include but are not limited to cellulitis, abscess, necrotizing soft tissue infection, sepsis. Ruling out the most morbid conditions drove assessment. It should be noted patient's history includes hypertension, hyperlipidemia, CHF, tobacco abuse, pulmonary hypertension which may or may not be at goal therapy. This complicates all aspects of care by increasing patient's risk for morbidity. I reviewed patient's past medical records and noted evaluation here 03/30/2025 as detailed in HPI and CT scan that was concerning for cellulitis within the adenopathy but no obvious abscess or concerns for NSTI at that time. She was discharged home on oral Bactrim. On exam, the patient has significant worsening in her redness, warmth, swelling, and induration to the right labia/mons. It looks much worse than when I saw her 3 days ago despite her taking antibiotics at home. She also has tachycardia and tachypnea with a temp of 99.2. Workup included CBC, CMP, ESR, CRP, lactic acid, blood cultures, CT abdomen and pelvis with IV contrast. She was given a bolus of IV fluids as well as oral Tylenol for symptomatic improvement. I independently interpreted CT scan prior to the radiologist read and noted developing abscess in the right groin, I do not see gas concerning for NSTI. Please see their read for final interpretation. Labs were obtained that demonstrated leukocytosis, slightly improved from prior but nonetheless present. She also has elevated inflammatory markers, mild hyponatremia. I considered development of a necrotizing soft tissue infection, but currently she does not have any black, dusky, necrotic looking areas and does not have any gas on CT scan. Risk versus benefit was explained to the patient, and after informed consent was obtained, she was agreeable to bedside incision and drainage of developing abscess. She tolerated this well with no immediate complication. She was given IV morphine for the purposes of procedure as well as topical Emla, and she had chest pain after receiving the morphine. EKG was obtained at that time which demonstrated normal sinus rhythm with a ventricular rate of [address] changes concerning for ischemia. Normal intervals. This was at 2345 independently interpreted by myself. Wound culture was collected and was sent and pending. Copious amounts of cloudy, purulent, foul-smelling material were drained from the abscess, so I elected to add clindamycin in addition to previously ordered vancomycin and Rocephin to treat her soft tissue infection. Incision and drainage was performed with ultrasound guidance, and images were saved. I confirmed on ultrasound afterward that there was no longer any fluid collection. At this time, I feel patient is stable and appropriate for admission for IV antibiotics in the setting of groin cellulitis/abscess. I had an interactive discussion with the hospitalist who admitted the patient in stable condition. Procedures Risk/Benefits of Procedure(s) Were Explained: Yes Abscess I/D Site: other (right groin) Side (if applicable): right Sedation/analgesia: other (IV morphine) Local Anesthetic: lidocaine 1% and with epi Amount of anesthesia used (mL): 7 Technique: incised with #11 blade Amount of fluid expressed (mL): 30 Irrigation: Yes Packing used?: none Limited Ultrasound Findings:: Limited soft tissue ultrasound Indication: Soft tissue swelling, redness, pain Identified structures: Location: Right groin Findings: Cellulitis and abscess of the soft tissues without subcutaneous air or foreign body Impression: Cellulitis and abscess of soft tissue as above Images were saved to permanent archive The study was technically adequate Soft Tissue CPT Codes: CPT Neck: 77862-40 CPT Upper extremity: 18883-51 CPT Axilla: 75088-96 CPT Chest wall: 43637-71 CPT Breast: 97298-63-TG/LT (complete), 80350-71-AY/LT (limited), CPT Upper Back: 99579-13 CPT Lower Back: 35597-63 CPT Abdominal Wall: 64922-26 CPT Pelvic Wall: 17943-45 CPT Lower Extremity: 40223-49 CPT Other Soft Tissue: 91985-86 This study was performed by me, and I personally interpreted all images/videos. Based on my clinical judgement, these images were adequate and did not necessitate further imaging. Critical Care Critical Care Time Critical Care Time: No
[2025-04-02] MEDS: ACETAMINOPHEN 500MG TAB 1000 MG PO (22:04)
[2025-04-02] MEDS: LACTATED RINGERS 1000ML 1,000 ML 999 ML IV (22:04)
[2025-04-02] MEDS: IOPAMIDOL-370 (76%);100ML BOTTLE 75 ML IV (22:08)
[2025-04-02] MEDS: SODIUM CHLORIDE 0.9% 10ML SYR (RAD ONLY) 10 ML IV (22:08)
[2025-04-02 22:25] LABS: Basophils % 0.2 % (0.1-2.0); Eosinophils # 0.1 Kmm3 (0.0-0.4); Eosinophils % 0.7 % (0.1-12.0); Hematocrit 36.5 % (37.0-47.0); Hemoglobin 12.5 g/dL (12.2-16.2); Immature Granulocytes # 0.07 10^3uL; Immature Granulocytes % 0.5 %; Lymphocytes # 2.1 K/mm3 (0.7-4.5); Lymphocytes % 15.5 % (10-50); Mean Corpuscular HGB Conc 34.2 g/dL (31.8-35.4); Mean Corpuscular Volume 87.7 fl (81-99); Monocytes % 7.3 % (1.7-9.3); Neutrophils # 10.4 K/mm3 (1.8-7.8); Neutrophils % 75.8 % (37.0-80.0); Nucleated Red Blood Cells # 0 10^3/uL; Nucleated Red Blood Cells % 0 %; Platelet Count 235 K/mm3 (142-424); Red Blood Count 4.16 M/mm3 (4.20-5.40); Red Cell Distribution Width 13.4 % (11.5-17.5); Red Cell Distribution Width-SD 43.2 fL; White Blood Count 13.8 K/mm3 (4.8-10.8)
[2025-04-02 22:30] VITALS: BP 110/73; PULSE 91; O2SAT 96
[2025-04-02] MEDS: LIDOCAINE/PRILOCAINE 5GM TUBE 5 GM TP (22:31)
[2025-04-02] MEDS: LIDOCAINE 1% W/EPI 1:100,000 20ML VIAL 20 ML IJ (22:43)
[2025-04-02] MEDS: CEFTRIAXONE SODIUM 2 GM in 0.9 % SODIUM CHLORIDE 100 ML IV (22:43)
[2025-04-02] MEDS: ONDANSETRON 4MG/2ML VIAL 4 MG IV (22:43)
[2025-04-02] MEDS: MORPHINE 4MG/ML SYRINGE 4 MG IV (22:48)
[2025-04-02] MEDS: VANCOMYCIN CONSULT REQUEST 1 EACH NOTAPPLIC (22:48)
[2025-04-02 22:50] LABS: Albumin Level 3.7 g/dl (3.5-5.0); Chloride 102 mmol/L (98-107); Potassium 3.5 mmoL/L (3.5-5.1); Sodium 131 mmol/L (136-145)
[2025-04-02 22:52] LABS: Blood Urea Nitrogen 10 mg/dl (7-17); Creatinine Clearance Estimated 120 mL/min (50-200); Estimated Glomerular Filt Rate 74 ml/min (>60); GFR (African American) 90 ML/MIN (>60)
[2025-04-02 22:53] LABS: Alanine Aminotransferase 19 U/L (12-78); Albumin/Globulin Ratio 1.2 (1.1-1.8); Alkaline Phosphatase 79 U/L (38-126); Anion Gap 7.5 mEq/L (5-15); Aspartate Amino Transferase 29 U/L (14-36); Bilirubin,Total 0.4 mg/dl (0.2-1.3); Calcium 8.5 mg/dl (8.4-10.2); Carbon Dioxide 25 mmol/L (22.0-30.0); Glucose 110 mg/dl (74-100); INR 0.95 (0.9-1.1); Prothrombin Time 10.6 seconds (10.1-12.5); Total Protein,Serum 6.7 g/dl (6.3-8.2)
[2025-04-02 22:59] LABS: C-Reactive Protein 96.8 mg/L (0-4)
[2025-04-02 23:00] VITALS: BP 120/69; PULSE 87; O2SAT 98
[2025-04-02 23:15] VITALS: PULSE 86; O2SAT 97
[2025-04-02] MEDS: VANCOMYCIN HCL 2,000 MG in 0.9 % SODIUM CHLORIDE 250 ML 125 MG IV (23:18)
[2025-04-02 23:23] LABS: Erythrocyte Sedimentation Rate 65 mm/hr (0-30)
[2025-04-02 23:30] VITALS: BP 112/73; PULSE 79; O2SAT 97
[2025-04-02] MEDS: KETOROLAC 30MG/ML VIAL 15 MG IV (23:30)
--- NOTE | 2025-04-02 23:43 | ECG_ITS ---
APPROVED REPORT Exam: Resting ECG HR:80 bpm ECG Measurements Heart Rate 80 AXES MI 140 P 66 QRSd 93 QRS 58 QT 364 T 46 QTc 399 Conclusion SINUS RHYTHM NORMAL ECG Electronically signed by : JACQUI VELASQUEZ, 04/03/2025 04:51:21
[2025-04-03] VITALS (8 sets, daily range): BP systolic 92–111; BP diastolic 56–68; PULSE 65–80; RESP 16–19; TEMP 36.5–36.9; O2SAT 90–98; BMI 33.7; BMI 34.1
[2025-04-03] MEDS: CLINDAMYCIN PHOSPHATE/D5W 900 MG/50 ML PIGGYBACK 100 MG IV (00:22)
--- NOTE | 2025-04-03 00:29 | PC.NURSE ---
Report called to abad blanco on med/surg
--- NOTE | 2025-04-03 03:08 | EXP.HP ---
History of Present Illness *Admission Date: 04/02/25 *Reason for visit:: Right groin abscess *History of present illness: This patient who was seen in the ER approximately 3 days ago. Was started on antibiotic. This was because of a groin infection to the right side. Started on azithromycin and Augmentin. The area has become worse now swelling more painful more red and now spreading from the middle of the abdomen towards the right flank. The patient was seen by the ER physician started on vancomycin also then had a CT scan that showed a probable abscess also ultrasound done. Approximately 30 to 40 cc of material was removed and sent for wound culture. Evaluation of her past history found that in 2020 that she had an abscess in the similar area of Staphylococcus capitis. Also noting that this was shortly after a dental infection. Also noting late last year she also had a cyst on her left cheek of her face. Patient is quite uncomfortable the area is quite raised red approximately 8 to 10 inches long anywhere from a half an inch to 3 inches wide mainly on the right side of the pubic mound running towards the right hip. Patient will be need to be admitted. Planning on starting Ancef and vancomycin at this time [facility] Disclaimer: The information contained in this section may have been updated after the patient was seen, as this information can be updated by other users. Medical History (Updated 04/03/25 @ 03:17 by Adolfo Dodd APRN) Groin abscess Skin lesion of face Multiple thyroid nodules Dysphagia HLD (hyperlipidemia) HTN (hypertension) RLS (restless legs syndrome) Edema Social History Smoking Status: Current some day smoker tobacco type: cigarettes packs per day: 1 second hand exposure: Yes alcohol intake: current alcohol intake frequency: holidays/special occasions only counseling provided: none substance use type: denies use current occupational status: unemployed Travel in the last 8 weeks?: None household members: spouse housing: house current occupational exposures/hazards: No caffeine: Yes Have you lived/traveled outside US in past 30 days?: No Contact w/someone who lives/traveled outside US past 30 days?: No Exposure to someone with infectious disease in past 14 days?: No Do you have a fever (greater than 100.4 F or 38 C)?: No Have you tested positive for COVID-19?: No Exposed to someone with COVID-19 in past 14 days?: No Do you have a sore throat?: No Do you have a cough?: No Do you have any weakness?: No Do you have any diarrhea?: No Are you experiencing any unusual bleeding?: No Do you have any muscle aches/pain?: No Do you have any abdominal pain?: No Are you experiencing loss of taste or smell?: No Other Medical History Have you received the Flu Vaccine for this season: No Have you received the Pneumonia Vaccine: No Review of Systems Review of Systems Review of systems:: pertinent systems reviewed and negative unless documented below Constitutional Constitutional: Reports as per HPI Eyes Eyes: Reports as per HPI ENT Ears, Nose, Mouth, and Throat: Reports as per HPI *Cardiovascular Cardiovascular: Reports as per HPI *Respiratory Respiratory: Reports as per HPI *Gastrointestinal Gastrointestinal: Reports as per HPI *Genitourinary Genitourinary: Reports as per HPI *Musculoskeletal Musculoskeletal: Reports as per HPI Integumentary/Breasts Skin/Breast: Reports as per HPI and Reports lesions (Right groin lesion abscess post I&D) *Neurologic Neurologic: Reports as per HPI Psychiatric Psychiatric: Reports as per HPI Endocrine Endocrine: Reports as per HPI Hematologic/Lymphatic Hematologic/Lymphatic: Reports as per HPI Meds Home Medications and Allergies Home Medications ?Medication ?Instructions ?Recorded ?Confirmed ?Type No Known Home Medications 04/03/25 04/03/25 History New Prescriptions to Start Prescriptions: Allergies Allergy/AdvReac Type Severity Reaction Status Date / Time morphine (MORPHINE) AdvReac Mild Verified 09/23/24 11:05 Exam Data for Last 24 hours Vital signs and Labs for Last 24 Hours: Temp Pulse Resp BP Pulse Ox O2 Del Method 97.9 F 79 16 110/65 97 Room Air 04/03/25 00:27 04/03/25 00:27 04/03/25 00:27 04/03/25 00:27 04/03/25 00:18 04/03/25 01:08 Laboratory Results - last 24 hr 04/02/25 20:56: WBC 13.8 H, RBC 4.16 L, Hgb 12.5, Hct 36.5 L, MCV 87.7, MCH 30.0, MCHC 34.2, RDW 13.4, Plt Count 235 D, MPV 10.0, Neut % (Auto) 75.8, Lymph % (Auto) 15.5, [place] % (Auto) 7.3, Eos % (Auto) 0.7, Baso % (Auto) 0.2, Neut # (Auto) 10.4 H, Lymph # (Auto) 2.1, [place] # (Auto) 1.0, Eos # (Auto) 0.1, Baso # (Auto) 0.0, ESR 65 H, PT 10.6, INR 0.95, Sodium 131 L, Potassium 3.5, Chloride 102, Carbon Dioxide 25, Anion Gap 7.5, BUN 10, Creatinine 0.80, Estimated Creat Clear 120, Estimated GFR 74, Est GFR ( Amer) 90, Glucose 110 H, Lactate 1.0, Calcium 8.5, Total Bilirubin 0.4, AST 29, ALT 19, Alkaline Phosphatase 79, C-Reactive Protein 96.8 H, Total Protein 6.7, Albumin 3.7, Globulin 3.0, Albumin/Globulin Ratio 1.2 I & O for Last 24 hours: Intake & Output 03/31/25 04/01/25 04/02/25 04/03/25 05:59 05:59 05:59 05:59 Intake Total 1400 / 1400 Balance 1400 / 1400 Weight 210 lb Radiology Reports for the Last 24 Hours: CT scan of the pelvis area shows abscess developing with cellulitis in the mons pubis Constitutional Constitutional: mild distress *Routine HEENT Exam Head: Present normocephalic and atraumatic Eye: Present EOMI and PERRL ENT: Present mucous membranes moist *Routine Neck Exam Neck: Present supple and full ROM *Routine Respiratory Exam Respiratory: Present CTA bilaterally and symmetric chest movement *Routine Cardiovascular Exam Cardiovascular: Present RRR, Normal S1, Normal S2 and tachycardia *Routine Abdominal Exam Abdominal: Present soft and normoactive bowel sounds *Routine Rectal Exam Rectal:: deferred *Routine Genitalia Exam Genitalia:: normal female and other Comment:: Area of skin abscess from center of mons pubis to right hip along the abdominal crease. Fiery red tender to touch. There was no drainage but area was then I&D 8 and 30 cc to 40 cc of material was removed *Routine Extremities Exam Extremities: Present full ROM and pulses intact *Routine Skin Exam Skin: Present intact, dry, warm and lesions (Lesion as noted above, no other sign of skin infection found at this time no complaint of any dental pain) *Routine Neurological Exam Neurological: Present alert, oriented X3 and CN II-XII intact Routine Psychiatric Exam Psychiatric: Present normal affect, normal thought process, cooperative, good insight and good judgment H&P: Result Impressions Groin abscess, worsening nonresponsive to azithromycin and Augmentin Imaging and Cardiology CT scan - abdomen: Additional comments: Shows abscess noted in the right side of mouth pubis probable fluid collection in 2-3 areas Assessment and Plan *Assessment and plan (1) Abscess or cellulitis of groin: Status: Acute Category: Medical (2) Right groin pain: Status: Acute Category: Medical Code(s): R10.31 - Right lower quadrant pain Plan 54-year-old who presented with worsening right lower abdominal wall abscess and pain. I&D performed in the ED with improvement in pain but still draining purulent material. Discussed case with ER physician, request admission for further management and surgical debridement. Medicine agreed to admit. Continuing broad-spectrum antibiotics. Problems addressed as follows: Abscess and cellulitis of right groin Failure of outpatient therapy - Cultures obtained in the ER with bedside I&D. Continue broad-spectrum antibiotics with vancomycin IV and cefepime 2 g every 8 hours - Discussed case with surgery this morning, plan for I&D in the morning tomorrow. Will let infection cooldown with antibiotics. Will likely need extensive debridement. - N.p.o. at midnight - Continue Tylenol 650 mg as needed every 4 hours for pain or fever, continue morphine 4 mg IV as needed every 4 hours for severe breakthrough pain. Monitor for toxicity. - White count elevated at 13.5, hemoglobin 11.8. Kidney function normal with BUN 8, creatinine 0.8. Repeat CBC, CMP, magnesium and inflammatory markers ordered for the morning - A1c obtained to evaluate for possible diabetes as underlying etiology for infection risk; normal at 5.2 - CT per my review with large 8 cm abscess in right mons pubic region/abdominal wall region Regular diet, n.p.o. midnight Full code Lovenox once after admission. Will hold on further anticoagulation pending surgery/debride
[2025-04-03] MEDS: CEFAZOLIN SODIUM 1 GM in 0.9 % SODIUM CHLORIDE 50 ML IV (03:28)
[2025-04-03 06:22] LABS: Basophils % 0.3 % (0.1-2.0); Eosinophils # 0.1 Kmm3 (0.0-0.4); Eosinophils % 0.6 % (0.1-12.0); Hematocrit 36.1 % (37.0-47.0); Hemoglobin 11.8 g/dL (12.2-16.2); Immature Granulocytes # 0.06 10^3uL; Immature Granulocytes % 0.4 %; Mean Corpuscular HGB Conc 32.7 g/dL (31.8-35.4); Mean Corpuscular Hemoglobin 29.2 pg (27.0-31.2); Mean Corpuscular Volume 89.4 fl (81-99); Mean Platelet Volume 9.8 fl (7.4-10.4); Monocytes % 7.3 % (1.7-9.3); Neutrophils # 9.4 K/mm3 (1.8-7.8); Neutrophils % 69.4 % (37.0-80.0); Nucleated Red Blood Cells # 0 10^3/uL; Nucleated Red Blood Cells % 0 %; Platelet Count 210 K/mm3 (142-424); Red Blood Count 4.04 M/mm3 (4.20-5.40); Red Cell Distribution Width 13.5 % (11.5-17.5); Red Cell Distribution Width-SD 44.7 fL; White Blood Count 13.5 K/mm3 (4.8-10.8)
[2025-04-03 06:34] LABS: Lactic Acid 0.9 mmol/L (0.7-2.1)
[2025-04-03 06:35] LABS: Alanine Aminotransferase 23 U/L (12-78); Albumin Level 3.5 g/dl (3.5-5.0); Albumin/Globulin Ratio 1.3 (1.1-1.8); Alkaline Phosphatase 69 U/L (38-126); Anion Gap 7.8 mEq/L (5-15); Aspartate Amino Transferase 40 U/L (14-36); Bilirubin,Total 0.5 mg/dl (0.2-1.3); Blood Urea Nitrogen 8 mg/dl (7-17); Calcium 8.2 mg/dl (8.4-10.2); Carbon Dioxide 29 mmol/L (22.0-30.0); Chloride 103 mmol/L (98-107); Creatinine Clearance Estimated 119 mL/min (50-200); Estimated Glomerular Filt Rate 74 ml/min (>60); GFR (African American) 90 ML/MIN (>60); Globulin 2.8 g/dL (1.3-3.2); Glucose 89 mg/dl (74-100); Potassium 3.8 mmoL/L (3.5-5.1); Sodium 136 mmol/L (136-145); Total Protein,Serum 6.3 g/dl (6.3-8.2)
--- NOTE | 2025-04-03 07:45 | PC.NURSE ---
Dr. aMx notified of surgery consult @ 1759 on 04/03
[2025-04-03] MEDS: FAMOTIDINE 20MG TABLET 20 MG PO ×2 (08:47→20:27)
[2025-04-03] MEDS: DOCUSATE SODIUM 100 MG CAPSULE PO (08:47)
--- NOTE | 2025-04-03 09:05 | P.CONPHA_ITS ---
Pharmacy Consult Date: 04/03/25 Time: 09:05 Referring provider: DR. GARCIA Reason for Consult:: VANCOMYCIN DOSING Allergies Allergy/AdvReac Type Severity Reaction Status Date / Time morphine (MORPHINE) AdvReac Mild Verified 09/23/24 11:05 Home Medications ?Medication ?Instructions ?Recorded ?Confirmed ?Type No Known Home Medications 04/03/25 0511/28 History New Prescriptions to Start Prescriptions: Height: 1.68 m Weight: 96.343 kg Laboratory Results:: Laboratory Results - last 24 hr 04/02/25 20:56: WBC 13.8 H, RBC 4.16 L, Hgb 12.5, Hct 36.5 L, MCV 87.7, MCH 30.0, MCHC 34.2, RDW 13.4, Plt Count 235 D, MPV 10.0, Neut % (Auto) 75.8, Lymph % (Auto) 15.5, [place] % (Auto) 7.3, Eos % (Auto) 0.7, Baso % (Auto) 0.2, Neut # (Auto) 10.4 H, Lymph # (Auto) 2.1, [place] # (Auto) 1.0, Eos # (Auto) 0.1, Baso # (Auto) 0.0, ESR 65 H, PT 10.6, INR 0.95, Sodium 131 L, Potassium 3.5, Chloride 102, Carbon Dioxide 25, Anion Gap 7.5, BUN 10, Creatinine 0.80, Estimated Creat Clear 120, Estimated GFR 74, Est GFR ( Amer) 90, Glucose 110 H, Lactate 1.0, Calcium 8.5, Total Bilirubin 0.4, AST 29, ALT 19, Alkaline Phosphatase 79, C-Reactive Protein 96.8 H, Total Protein 6.7, Albumin 3.7, Globulin 3.0, Albumin/Globulin Ratio 1.2 04/03/25 05:59: WBC 13.5 H, RBC 4.04 L, Hgb 11.8 L, Hct 36.1 L, MCV 89.4, MCH 29.2, MCHC 32.7, RDW 13.5, Plt Count 210, MPV 9.8, Neut % (Auto) 69.4, Lymph % (Auto) 22.0, [place] % (Auto) 7.3, Eos % (Auto) 0.6, Baso % (Auto) 0.3, Neut # (Auto) 9.4 H, Lymph # (Auto) 3.0, [place] # (Auto) 1.0, Eos # (Auto) 0.1, Baso # (Auto) 0.0, Sodium 136, Potassium 3.8, Chloride 103, Carbon Dioxide 29, Anion Gap 7.8, BUN 8, Creatinine 0.80, Estimated Creat Clear 119, Estimated GFR 74, Est GFR ( Amer) 90, Glucose 89, Lactate 0.9, Calcium 8.2 L, Total Bilirubin 0.5, AST 40 H D, ALT 23, Alkaline Phosphatase 69, Total Protein 6.3, Albumin 3.5, Globulin 2.8, Albumin/Globulin Ratio 1.3 Medical History: Medical History (Updated 04/03/25 @ 03:17 by Adolfo Dodd APRN) Groin abscess Skin lesion of face Multiple thyroid nodules Dysphagia HLD (hyperlipidemia) HTN (hypertension) RLS (restless legs syndrome) Edema Assessment and Plan Assessment and plan all Dx Assessment and Plan for all problems:: Pharmacokinetic dosing service Objective: Patient: Floor: Age: 54 yo Serum creatinine: 0.8 mg/dL Height: 66.1 Inches Weight (kg): 96.3 Assessment: IBW (kg): 59.53 Dosing wt(kg): 96.3 Estimated Creatinine clearance (ml/min): 73.8 CRCL method: Cockcroft and Gault using ibw(default). Drug selected: Vancomycin Loading dose (mg): 0 Vd (liters): 77.0 (factor used: 0.8 L/kg) Mitchel (hr-1): 0.066 Half life (hrs): 10.50 Recommended dose: 1500 mg Interval: 12 hrs Infusion time (hrs): 2.0 Predicted peak (mcg/mL): 33.4 Predicted trough (mcg/mL): 17.26 Total body weight is being used for vancomycin dosing. Recommendations: Give Vancomycin 1500 mg q 12 hrs with an expected Cpeak of 33.4 mcg/ml and an expected Ctrough of 17.26 mcg/ml ----Vanco only - ignore for aminoglycosides----- CLvanco= 5.08 L/hr AUC 0-24 /JIN Data: JIN 0.5 mcg/mL: AUC/JIN: 1181.1 JIN 1.0 mcg/mL: AUC/JIN: 590.6 --------- JIN 1.5 mcg/mL: AUC/JIN: 393.7 JIN 2.0 mcg/mL: AUC/JIN: 295.3
--- NOTE | 2025-04-03 09:33 | P.CONS_ITS ---
History of Present Illness *Admission Date: 04/02/25 *Reason for visit:: Groin abscess *History of present illness: Patient is a 54-year-old female who had been seen in the emergency department on 03/30/2025 with cellulitis of the groin area. She states the area had been showing signs of progressive infection over about 2 weeks. After her initial evaluation in the emergency department she was managed as an outpatient and started on azithromycin and Augmentin. She presented back to the emergency department overnight due to worsening tenderness, redness, and spreading. She was found to have tachycardia, tachypnea, and temperature elevation. She was found to have leukocytosis with elevation of inflammatory markers. CT scan was performed which revealed findings consistent with cellulitis of the right mons pubis and inguinal region with associated developing loculated fluid collection measuring up to 8.5 cm. She underwent incision and drainage in the emergency department under ultrasound guidance and copious amounts of cloudy purulent foul-smelling material was evacuated from the wound. Postprocedure ultrasound revealed absence of fluid collection. She was admitted for inpatient management. She was started on intravenous vancomycin and cefepime. Surgical consultation was obtained. [facility] Disclaimer: The information contained in this section may have been updated after the patient was seen, as this information can be updated by other users. Medical History (Updated 04/03/25 @ 03:17 by Adolfo Dodd APRN) Groin abscess Skin lesion of face Multiple thyroid nodules Dysphagia HLD (hyperlipidemia) HTN (hypertension) RLS (restless legs syndrome) Edema Social History Smoking Status: Current some day smoker tobacco type: cigarettes packs per day: 1 second hand exposure: Yes alcohol intake: current alcohol intake frequency: holidays/special occasions only counseling provided: none substance use type: denies use current occupational status: unemployed Travel in the last 8 weeks?: None household members: spouse housing: house current occupational exposures/hazards: No caffeine: Yes Have you lived/traveled outside US in past 30 days?: No Contact w/someone who lives/traveled outside US past 30 days?: No Exposure to someone with infectious disease in past 14 days?: No Do you have a fever (greater than 100.4 F or 38 C)?: No Have you tested positive for COVID-19?: No Exposed to someone with COVID-19 in past 14 days?: No Do you have a sore throat?: No Do you have a cough?: No Do you have any weakness?: No Do you have any diarrhea?: No Are you experiencing any unusual bleeding?: No Do you have any muscle aches/pain?: No Do you have any abdominal pain?: No Are you experiencing loss of taste or smell?: No Review of Systems *Neurologic Neurologic: Reports as per [facility] Meds Home Medications and Allergies Home Medications ?Medication ?Instructions ?Recorded ?Confirmed ?Type No Known Home Medications 04/03/2503/06 History New Prescriptions to Start Prescriptions: Allergies Allergy/AdvReac Type Severity Reaction Status Date / Time morphine (MORPHINE) AdvReac Mild Verified 09/23/24 11:05 Exam (Inpt) Vital signs and Labs for Last 24 Hours: Temp Pulse Resp BP Pulse Ox O2 Del Method 98 F 76 16 95/56 L 94 L Room Air 04/03/25 08:00 04/03/25 08:00 04/03/25 08:00 04/03/25 08:00 04/03/25 08:00 04/03/25 08:00 Laboratory Results - last 24 hr 04/02/25 20:56: WBC 13.8 H, RBC 4.16 L, Hgb 12.5, Hct 36.5 L, MCV 87.7, MCH 30.0, MCHC 34.2, RDW 13.4, Plt Count 235 D, MPV 10.0, Neut % (Auto) 75.8, Lymph % (Auto) 15.5, [place] % (Auto) 7.3, Eos % (Auto) 0.7, Baso % (Auto) 0.2, Neut # (Auto) 10.4 H, Lymph # (Auto) 2.1, [place] # (Auto) 1.0, Eos # (Auto) 0.1, Baso # (Auto) 0.0, ESR 65 H, PT 10.6, INR 0.95, Sodium 131 L, Potassium 3.5, Chloride 102, Carbon Dioxide 25, Anion Gap 7.5, BUN 10, Creatinine 0.80, Estimated Creat Clear 120, Estimated GFR 74, Est GFR ( Amer) 90, Glucose 110 H, Lactate 1.0, Calcium 8.5, Total Bilirubin 0.4, AST 29, ALT 19, Alkaline Phosphatase 79, C-Reactive Protein 96.8 H, Total Protein 6.7, Albumin 3.7, Globulin 3.0, Albumin/Globulin Ratio 1.2 04/03/25 05:59: WBC 13.5 H, RBC 4.04 L, Hgb 11.8 L, Hct 36.1 L, MCV 89.4, MCH 29.2, MCHC 32.7, RDW 13.5, Plt Count 210, MPV 9.8, Neut % (Auto) 69.4, Lymph % (Auto) 22.0, [place] % (Auto) 7.3, Eos % (Auto) 0.6, Baso % (Auto) 0.3, Neut # (Auto) 9.4 H, Lymph # (Auto) 3.0, [place] # (Auto) 1.0, Eos # (Auto) 0.1, Baso # (Auto) 0.0, Sodium 136, Potassium 3.8, Chloride 103, Carbon Dioxide 29, Anion Gap 7.8, BUN 8, Creatinine 0.80, Estimated Creat Clear 119, Estimated GFR 74, Est GFR ( Amer) 90, Glucose 89, Lactate 0.9, Calcium 8.2 L, Total Bilirubin 0.5, AST 40 H D, ALT 23, Alkaline Phosphatase 69, Total Protein 6.3, Albumin 3.5, Globulin 2.8, Albumin/Globulin Ratio 1.3 I & O for Labs for Last 24 Hours: Intake & Output 03/31/25 04/01/25 04/02/25 04/03/25 11:59 11:59 11:59 11:59 Intake Total 1400 / 1400 Output Total 0 / 0 Balance 1400 / 1400 Weight 212 lb 6.4 oz Microbiology Reports for the Last 24 Hours: Microbiology 04/03/25 00:09 Groin Gram Stain - Final Comment:: She has an area of significant erythema with some edema and mild induration in the right groin area with some fluctuance. There is some drainage from limited incision and drainage site of thick purulent drainage. Results Labs 04/03/25 05:59 04/03/25 05:59 Labs: Laboratory Results - last 24 hr 04/02/25 20:56: WBC 13.8 H, RBC 4.16 L, Hgb 12.5, Hct 36.5 L, MCV 87.7, MCH 30.0, MCHC 34.2, RDW 13.4, Plt Count 235 D, MPV 10.0, Neut % (Auto) 75.8, Lymph % (Auto) 15.5, [place] % (Auto) 7.3, Eos % (Auto) 0.7, Baso % (Auto) 0.2, Neut # (Auto) 10.4 H, Lymph # (Auto) 2.1, [place] # (Auto) 1.0, Eos # (Auto) 0.1, Baso # (Auto) 0.0, ESR 65 H, PT 10.6, INR 0.95, Sodium 131 L, Potassium 3.5, Chloride 102, Carbon Dioxide 25, Anion Gap 7.5, BUN 10, Creatinine 0.80, Estimated Creat Clear 120, Estimated GFR 74, Est GFR ( Amer) 90, Glucose 110 H, Lactate 1.0, Calcium 8.5, Total Bilirubin 0.4, AST 29, ALT 19, Alkaline Phosphatase 79, C-Reactive Protein 96.8 H, Total Protein 6.7, Albumin 3.7, Globulin 3.0, Albumin/Globulin Ratio 1.2 04/03/25 05:59: WBC 13.5 H, RBC 4.04 L, Hgb 11.8 L, Hct 36.1 L, MCV 89.4, MCH 29.2, MCHC 32.7, RDW 13.5, Plt Count 210, MPV 9.8, Neut % (Auto) 69.4, Lymph % (Auto) 22.0, [place] % (Auto) 7.3, Eos % (Auto) 0.6, Baso % (Auto) 0.3, Neut # (Auto) 9.4 H, Lymph # (Auto) 3.0, [place] # (Auto) 1.0, Eos # (Auto) 0.1, Baso # (Auto) 0.0, Sodium 136, Potassium 3.8, Chloride 103, Carbon Dioxide 29, Anion Gap 7.8, BUN 8, Creatinine 0.80, Estimated Creat Clear 119, Estimated GFR 74, Est GFR ( Amer) 90, Glucose 89, Lactate 0.9, Calcium 8.2 L, Total Bilirubin 0.5, AST 40 H D, ALT 23, Alkaline Phosphatase 69, Total Protein 6.3, Albumin 3.5, Globulin 2.8, Albumin/Globulin Ratio 1.3 Assessment and Plan *Assessment and plan (1) Groin abscess: Status: Acute Category: Medical Code(s): L02.214 - Cutaneous abscess of groin Plan Patient has significant soft tissue infection of the right groin area. She has had limited incision or drainage which has likely helped somewhat with source control. Patient had just eaten a regular diet. Likely does need additional incision and drainage and potential debridement. Given recent intake of regular food likely hold off until tomorrow morning particularly due to the fact that she has some degree of source control with limited incision and drainage.
[2025-04-03 12:07] LABS: Hemoglobin A1C 5.2 % (4.0-6.0)
[2025-04-03] MEDS: VANCOMYCIN/WATER FOR INJ (PEG) 1.5 GM/300 ML PIGGYBACK IV ×2 (12:26→22:18)
--- NOTE | 2025-04-03 12:43 | EXP.ACUTE.PN ---
Subjective *Date: 04/03/25 *Time: 12:43 Medical Exam Vital signs and Labs for Last 24 Hours: Vital Signs Temp Pulse Pulse Resp BP BP Pulse Ox 04/03/25 12:00 97.9 F 65 16 104/60 L 04/03/25 11:00 04/03/25 09:00 04/03/25 08:00 94 L 04/03/25 08:00 98 F 76 16 95/56 L 94 L 04/03/25 06:51 04/03/25 05:00 04/03/25 04:00 97.7 F 72 17 92/68 L 90 L 04/03/25 03:00 04/03/25 01:08 04/03/25 01:00 04/03/25 00:27 97.9 F 79 16 110/65 04/03/25 00:18 97.8 F 79 19 111/67 97 04/03/25 00:00 75 110/65 97 04/02/25 23:30 79 112/73 97 04/02/25 23:15 86 97 04/02/25 23:00 87 120/69 98 04/02/25 22:30 91 H 110/73 96 04/02/25 21:38 99.2 F 109 H 16 132/102 H 100 O2 Del Method 04/03/25 12:00 04/03/25 11:00 Room Air 04/03/25 09:00 Room Air 04/03/25 08:00 Room Air 04/03/25 08:00 Room Air 04/03/25 06:51 Room Air 04/03/25 05:00 Room Air 04/03/25 04:00 Room Air 04/03/25 03:00 Room Air 04/03/25 01:08 Room Air 04/03/25 01:00 Room Air 04/03/25 00:27 Room Air 04/03/25 00:18 Room Air 04/03/25 00:00 04/02/25 23:30 04/02/25 23:15 04/02/25 23:00 04/02/25 22:30 04/02/25 21:38 Room Air Intake and Output 04/02/25 04/03/25 04/03/25 23:59 07:59 15:59 Intake Total 1400 / 1760 360 / 1760 Output Total 0 / 0 Balance 1400 / 1760 360 / 1760 Intake: Intake, Oral Amount 360 / 360 Infusion Intake 1400 / 1400 Ceftriaxone Sodium 2 gm In 0.9 100 / 100 % Sodium Chloride 100 ml @ 200 mls/hr IV ONCE ONE Rx#:[id number] Clindamycin Phosphate/D5w 900 50 / 50 mg In 50 ml @ 100 mls/hr IV ONCE ONE Rx#:[id number] Lactated Ringers 1000ML 1,000 1000 / 1000 ml @ 999 mls/hr IV .Q1H1M ONE Rx#:[id number] Vancomycin HCl 2,000 mg In 0.9 250 / 250 % Sodium Chloride 250 ml @ 125 mls/hr IV ONCE ONE Rx#:[id number] Output: Output, Urine Amount 0 / 0 Other: Number of Unmeasured Voids 1 Weight 96.615 kg 96.343 kg 96.343 kg Patient Weight 04/03/25 23:59 Weight 96.343 kg Laboratory Results - last 24 hr 04/02/25 20:56: WBC 13.8 H, RBC 4.16 L, Hgb 12.5, Hct 36.5 L, MCV 87.7, MCH 30.0, MCHC 34.2, RDW 13.4, Plt Count 235 D, MPV 10.0, Neut % (Auto) 75.8, Lymph % (Auto) 15.5, [place] % (Auto) 7.3, Eos % (Auto) 0.7, Baso % (Auto) 0.2, Neut # (Auto) 10.4 H, Lymph # (Auto) 2.1, [place] # (Auto) 1.0, Eos # (Auto) 0.1, Baso # (Auto) 0.0, ESR 65 H, PT 10.6, INR 0.95, Sodium 131 L, Potassium 3.5, Chloride 102, Carbon Dioxide 25, Anion Gap 7.5, BUN 10, Creatinine 0.80, Estimated Creat Clear 120, Estimated GFR 74, Est GFR ( Amer) 90, Glucose 110 H, Lactate 1.0, Calcium 8.5, Total Bilirubin 0.4, AST 29, ALT 19, Alkaline Phosphatase 79, C-Reactive Protein 96.8 H, Total Protein 6.7, Albumin 3.7, Globulin 3.0, Albumin/Globulin Ratio 1.2 04/03/25 05:59: WBC 13.5 H, RBC 4.04 L, Hgb 11.8 L, Hct 36.1 L, MCV 89.4, MCH 29.2, MCHC 32.7, RDW 13.5, Plt Count 210, MPV 9.8, Neut % (Auto) 69.4, Lymph % (Auto) 22.0, [place] % (Auto) 7.3, Eos % (Auto) 0.6, Baso % (Auto) 0.3, Neut # (Auto) 9.4 H, Lymph # (Auto) 3.0, [place] # (Auto) 1.0, Eos # (Auto) 0.1, Baso # (Auto) 0.0, Sodium 136, Potassium 3.8, Chloride 103, Carbon Dioxide 29, Anion Gap 7.8, BUN 8, Creatinine 0.80, Estimated Creat Clear 119, Estimated GFR 74, Est GFR ( Amer) 90, Glucose 89, Hemoglobin A1c 5.2, Lactate 0.9, Calcium 8.2 L, Total Bilirubin 0.5, AST 40 H D, ALT 23, Alkaline Phosphatase 69, Total Protein 6.3, Albumin 3.5, Globulin 2.8, Albumin/Globulin Ratio 1.3 I & O for Labs for Last 24 Hours: Intake & Output 03/31/25 04/01/25 04/02/25 04/03/25 23:59 23:59 23:59 23:59 Intake Total 1759 Output Total 0 / 0 Balance 1759 Weight 96.615 kg 96.343 kg Microbiology Reports for the Last 24 Hours: Microbiology 04/03/25 00:09 Groin Gram Stain - Final
[2025-04-03] MEDS: CEFEPIME HCL 2 GM in 0.9 % SODIUM CHLORIDE 100 ML IV (20:28)
[2025-04-04] VITALS (14 sets, daily range): BP systolic 109–132; BP diastolic 53–86; PULSE 53–82; RESP 16–20; TEMP 36.2–36.8; O2SAT 90–98; BMI 34.1
[2025-04-04] MEDS: CEFEPIME HCL 2 GM in 0.9 % SODIUM CHLORIDE 100 ML IV ×3 (05:59→20:06)
--- NOTE | 2025-04-04 06:40 | PC.NURSE ---
Pt A&OX4 and has tolerated room air. Lung sounds clear and bowel sounds active. Abscess noted to right groin area. Dressing changed this shift. Pt scheduled for I&D this Am and has remained NPO since midnight. Recieving IV ABX. No complaints at this time, call light within reach.
[2025-04-04 07:20] LABS: Basophils # 0.1 K/mm3 (0-0.2); Basophils % 0.5 % (0.1-2.0); Eosinophils # 0.3 Kmm3 (0.0-0.4); Eosinophils % 2.9 % (0.1-12.0); Hematocrit 33.2 % (37.0-47.0); Hemoglobin 11.1 g/dL (12.2-16.2); Immature Granulocytes # 0.07 10^3uL; Immature Granulocytes % 0.7 %; Lymphocytes # 3.7 K/mm3 (0.7-4.5); Lymphocytes % 36.9 % (10-50); Mean Corpuscular HGB Conc 33.4 g/dL (31.8-35.4); Mean Corpuscular Hemoglobin 30.1 pg (27.0-31.2); Monocytes # 0.6 K/mm3 (0.1-1.0); Monocytes % 6.2 % (1.7-9.3); Neutrophils # 5.4 K/mm3 (1.8-7.8); Neutrophils % 52.8 % (37.0-80.0); Nucleated Red Blood Cells # 0 10^3/uL; Nucleated Red Blood Cells % 0 %; Platelet Count 239 K/mm3 (142-424); Red Blood Count 3.69 M/mm3 (4.20-5.40); Red Cell Distribution Width 13.7 % (11.5-17.5); Red Cell Distribution Width-SD 44.9 fL; White Blood Count 10.1 K/mm3 (4.8-10.8)
[2025-04-04 07:28] LABS: Albumin Level 3.3 g/dl (3.5-5.0); Chloride 108 mmol/L (98-107); Sodium 139 mmol/L (136-145)
[2025-04-04 07:31] LABS: Alanine Aminotransferase 21 U/L (12-78); Albumin/Globulin Ratio 1.2 (1.1-1.8); Alkaline Phosphatase 83 U/L (38-126); Aspartate Amino Transferase 28 U/L (14-36); Bilirubin,Total 0.2 mg/dl (0.2-1.3); Blood Urea Nitrogen 8 mg/dl (7-17); Carbon Dioxide 28 mmol/L (22.0-30.0); Creatinine Clearance Estimated 136 mL/min (50-200); Estimated Glomerular Filt Rate 87 ml/min (>60); GFR (African American) 105 ML/MIN (>60); Globulin 2.8 g/dL (1.3-3.2); Total Protein,Serum 6.1 g/dl (6.3-8.2)
[2025-04-04 07:32] LABS: Calcium 8.1 mg/dl (8.4-10.2); Glucose 95 mg/dl (74-100); Magnesium 2.1 mg/dl (1.6-2.3)
[2025-04-04 07:37] LABS: C-Reactive Protein 103.6 mg/L (0-4)
--- NOTE | 2025-04-04 08:06 | PC.NURSE ---
Pt off floor to surgery
[2025-04-04 08:23] LABS: Erythrocyte Sedimentation Rate 88 mm/hr (0-30)
[2025-04-04] MEDS: ROPIVACAINE 0.5% 30ML VIAL 150 MG (08:35)
[2025-04-04] MEDS: LIDOCAINE 1% 20ML MDV 20 ML (08:35)
--- NOTE | 2025-04-04 08:41 | EXP.ANES.CKL ---
[facility] Disclaimer: The information contained in this section may have been updated after the patient was seen, as this information can be updated by other users. Medical History (Updated 04/03/25 @ 03:17 by Adolfo Dodd APRN) Groin abscess Skin lesion of face Multiple thyroid nodules Dysphagia HLD (hyperlipidemia) HTN (hypertension) RLS (restless legs syndrome) Edema Social History Smoking Status: Current some day smoker tobacco type: cigarettes packs per day: 1 second hand exposure: Yes alcohol intake: current alcohol intake frequency: holidays/special occasions only counseling provided: none substance use type: denies use current occupational status: unemployed Travel in the last 8 weeks?: None household members: spouse housing: house current occupational exposures/hazards: No caffeine: Yes Have you lived/traveled outside US in past 30 days?: No Contact w/someone who lives/traveled outside US past 30 days?: No Exposure to someone with infectious disease in past 14 days?: No Do you have a fever (greater than 100.4 F or 38 C)?: No Have you tested positive for COVID-19?: No Exposed to someone with COVID-19 in past 14 days?: No Do you have a sore throat?: No Do you have a cough?: No Do you have any weakness?: No Do you have any diarrhea?: No Are you experiencing any unusual bleeding?: No Do you have any muscle aches/pain?: No Do you have any abdominal pain?: No Are you experiencing loss of taste or smell?: No [facility] Anesthesia Checklist Patient Identification Patient Identification: Arm Band Structural Data Admitted From: Inpatient Planned Operative Procedure/s: I&D Right Groin Consent for Planned Operative Procedure(s) Verified: Yes Verified Documents: Surgical Consent and History and Physical NPO Status Verified Time NPO: 00:00 Additional verifications Anesthesia Reactions: No Hx Blood Transfusions: No Blood Transfusion Reaction: No Airway Assessment Mallampati Score:: Class II C-Spine Mobility Assessed: Yes TMJ Mobility Assessed: Yes Dentition: Poor Dentition Anesthesia Plan Anesthesia Risk discussed: Yes Anesthesia Plan: Verified ASA Class: II Anesthesia Type: General
[2025-04-04] MEDS: CLINDAMYCIN PHOSPHATE/D5W 900 MG/50 ML PIGGYBACK 25 MG (08:52)
--- NOTE | 2025-04-04 08:54 | EXP.OP.NOTE ---
Date of procedure: 04/04/25 Pre-op Diagnosis:: Soft tissue infection with abscess right groin Post-op Diagnosis:: Same Procedure performed:: Incision and drainage complex right groin abscess Surgeon:: Jose Elias Max MD CL[employer] HEL[employer] PULLER:: Dario Harrell Anesthesia: LMA Estimated blood loss (mL): 15 Operative findings:: Significant amount of induration with a large abscess pocket. Minimal residual pus. Operative note:: Consent was obtained and patient was taken the operating room. She was given preoperative intravenous antibiotics. The operating room she was placed in a supine position. General anesthesia was induced via LMA. She was positioned in somewhat of a frog-leg type position to allow exposure of the area. The area was prepped and draped in the standard surgical fashion. At the area of some skin necrosis and fluctuance incision was made with electrocautery. The abscess pocket was encountered. There was edema but there was not a significant amount of residual pus present. There was tunneling down towards the labia and laterally towards the inguinal area. Overlying tissues were opened with electrocautery to allow for exposure of the pocket. There was indurated subcutaneous tissues and any loculations were broken free digitally. It appeared as though subcutaneous tissues were viable however and not in need of debridement. Hemostasis was achieved with electrocautery. Wound was irrigated with 3 L of pulsatile saline irrigation using the InterPulse device. Local anesthetic was infiltrated into the surrounding tissues and in the region of inguinal nerve for inguinal nerve block. Wound was packed with dry Kerlix gauze and covered with clean dry sterile dressing Condition: stable Disposition: PACU Complications:: None immediately apparent
--- NOTE | 2025-04-04 09:04 | EXP.ANES.I ---
[facility] Anesthesia Record Part I Anesthesia Record I Intake, IV Amount: 600 Hydration: Adequate Estimated blood loss (mL): 5 Urine output (mL): 0 Blood Products used (#): none Blood Pressure: 122/68 SaO2: 96 Pulse Rate: 79 Airway Patency: Patent Respiratory Rate: 16 Temperature: 97.9 F Patient is:: Drowsy and Stable Stable to PACU at:: 08:55
--- NOTE | 2025-04-04 09:33 | SUR.PHASEI ---
09- detailed report given to abad monk on medsur floor. 09- pt left in stable condition with abad monk in pt room. Family at BS, VSS, dressings CDI
[2025-04-04] MEDS: DOCUSATE SODIUM 100 MG CAPSULE PO (10:26)
[2025-04-04] MEDS: FAMOTIDINE 20MG TABLET 20 MG PO ×2 (10:26→20:06)
[2025-04-04] MEDS: ACETAMINOPHEN 325MG TAB 650 MG PO (10:28)
[2025-04-04] MEDS: VANCOMYCIN/WATER FOR INJ (PEG) 1.5 GM/300 ML PIGGYBACK IV ×2 (11:09→22:45)
--- NOTE | 2025-04-04 15:08 | EXP.ACUTE.PN ---
Subjective *Date: 04/04/25 *Time: 15:08 Interval history: Taken for surgery this morning. Stable on room air. Feeling better after procedure. Afebrile. Denies chest pain, shortness of breath, nausea or vomiting. Medical Exam Vital signs and Labs for Last 24 Hours: Vital Signs Temp Pulse Pulse Resp BP BP BP 04/04/25 13:00 04/04/25 12:15 77 18 115/69 04/04/25 11:15 82 18 130/53 L 04/04/25 11:15 78 17 116/74 04/04/25 11:00 04/04/25 10:45 98.0 F 76 18 119/78 04/04/25 10:15 73 19 116/70 04/04/25 10:00 69 20 113/66 04/04/25 09:45 72 20 114/73 04/04/25 09:30 97.8 F 74 20 109/73 L 04/04/25 09:25 97.2 F L 71 16 118/78 04/04/25 09:15 97.2 F L 74 16 132/77 04/04/25 09:05 97.2 F L 72 16 119/77 04/04/25 09:04 97.9 F 79 16 122/68 04/04/25 08:55 97.2 F L 78 16 118/86 04/04/25 07:59 04/04/25 06:36 04/04/25 05:00 04/04/25 03:00 04/04/25 01:00 04/03/25 23:00 04/03/25 21:00 04/03/25 20:00 04/03/25 19:57 98.4 F 80 18 99/63 L 04/03/25 18:45 04/03/25 17:00 04/03/25 16:00 98 F 73 16 99/63 L Pulse Ox O2 Del Method 04/04/25 13:00 Room Air 04/04/25 12:15 96 Room Air 04/04/25 11:15 95 Room Air 04/04/25 11:15 96 Room Air 04/04/25 11:00 Room Air 04/04/25 10:45 95 Room Air 04/04/25 10:15 95 Room Air 04/04/25 10:00 93 L Room Air 04/04/25 09:45 90 L Room Air 04/04/25 09:30 93 L Room Air 04/04/25 09:25 98 Room Air 04/04/25 09:15 98 Room Air 04/04/25 09:05 98 Room Air 04/04/25 09:04 04/04/25 08:55 96 Room Air 04/04/25 07:59 Room Air 04/04/25 06:36 Room Air 04/04/25 05:00 Room Air 04/04/25 03:00 Room Air 04/04/25 01:00 Room Air 04/03/25 23:00 Room Air 04/03/25 21:00 Room Air 04/03/25 20:00 Room Air 04/03/25 19:57 94 L 04/03/25 18:45 Room Air 04/03/25 17:00 Room Air 04/03/25 16:00 97 Room Air Intake and Output 04/03/25 04/04/25 04/04/25 23:59 07:59 15:59 Intake Total 780 / 3300 400 / 1000 600 / 1000 Output Total 0 / 0 0 / 0 Balance 780 / 3300 400 / 1000 600 / 1000 Intake: Intake, Oral Amount 480 / 1200 Intake, Total IV Amount 300 / 700 400 / 1000 600 / 1000 Cefepime HCl 2 gm In 0.9 % 100 / 100 Sodium Chloride 100 ml @ 200 mls/hr IV Q8H [facility] Rx#:[id number] Clindamycin Phosphate/D5w 900 300 / 300 mg In 50 ml @ 100 mls/hr IV ONCE ONE Rx#:[id number] Vancomycin/Water For Inj (Peg) 300 / 300 1.5 gm In 300 ml @ 150 mls/hr IV Q12H [facility] Rx#:[id number] Output: Output, Urine Amount 0 / 0 0 / 0 Other: Number of Unmeasured Voids 0 0 Number of Bowel Movements 1 Weight 96.343 kg Patient Weight 04/04/25 23:59 Weight 96.343 kg Laboratory Results - last 24 hr 04/04/25 05:55: WBC 10.1 D, RBC 3.69 L, Hgb 11.1 L, Hct 33.2 L, MCV 90.0, MCH 30.1, MCHC 33.4, RDW 13.7, Plt Count 239, MPV 10.0, Neut % (Auto) 52.8, Lymph % (Auto) 36.9, [place] % (Auto) 6.2, Eos % (Auto) 2.9, Baso % (Auto) 0.5, Neut # (Auto) 5.4, Lymph # (Auto) 3.7, [place] # (Auto) 0.6, Eos # (Auto) 0.3, Baso # (Auto) 0.1, ESR 88 H, Sodium 139, Potassium 4.0, Chloride 108 H, Carbon Dioxide 28, Anion Gap 7.0, BUN 8, Creatinine 0.70, Estimated Creat Clear 136, Estimated GFR 87, Est GFR ( Amer) 105, Glucose 95, Calcium 8.1 L, Magnesium 2.1, Total Bilirubin 0.2, AST 28 D, ALT 21, Alkaline Phosphatase 83, C-Reactive Protein 103.6 H, Total Protein 6.1 L, Albumin 3.3 L, Globulin 2.8, Albumin/Globulin Ratio 1.2 I & O for Labs for Last 24 Hours: Intake & Output 04/01/25 04/02/25 04/03/25 04/04/25 23:59 23:59 23:59 23:59 Intake Total 2900 / 3300 1000 / 1000 Output Total 0 / 0 0 / 0 Balance 2900 / 3300 1000 / 1000 Weight 96.615 kg 96.343 kg 96.343 kg Microbiology Reports for the Last 24 Hours: Microbiology 04/04/25 08:30 Groin - Abscess Gram Stain - Final 04/03/25 00:09 Groin Gram Stain - Final 04/03/25 00:09 Groin Wound Culture - Preliminary 04/02/25 21:00 Blood Blood Culture - Preliminary NO GROWTH AFTER 24 HOURS 04/02/25 20:56 Blood Blood Culture - Preliminary NO GROWTH AFTER 24 HOURS Constitutional: Present no acute distress, obese, chronically ill appearing and cooperative Head: Present atraumatic and normocephalic ENT: Present normal exam Respiratory: Present normal respiratory effort; Absent rhonchi, wheezes or crackles Cardiac: Present Reg Rate and Rhythm GI: Present soft and normal bowel sounds; Absent distention or tenderness Comment:: Surgical bandage region of mons pubis. Tenderness palpation Extremities: Present normal inspection and full ROM Skin: Present intact; Absent erythema Neuro: Present Grossly Intact, alert, awake, oriented x 3 and moves all extremities Assessment and Plan *Assessment and plan (1) Abscess or cellulitis of groin: Status: Acute Category: Medical (2) Right groin pain: Status: Acute Category: Medical Code(s): R10.31 - Right lower quadrant pain (3) Obesity (BMI 30.0-34.9): Status: Acute Category: Medical Code(s): E66.811 - Obesity, class 1 Plan 54-year-old who presented with worsening right lower abdominal wall abscess and pain. I&D performed in the ED with improvement in pain but still draining purulent material. Discussed case with ER physician, request admission for further management and surgical debridement. Medicine agreed to admit. Debrided this morning in the OR. Continuing broad-spectrum antibiotics. Reevaluate wound care needs in the morning. Problems addressed as follows: Abscess and cellulitis of right groin Failure of outpatient therapy - Cultures obtained in the ER with bedside I&D. Continue broad-spectrum antibiotics with vancomycin IV and cefepime 2 g every 8 hours - Discussed case with surgery this morning, taken for I&D, wound cleaned out. Had large indurated region that was removed. Packing in place. Reevaluate wound care needs in the morning. - Continue Tylenol 650 mg as needed every 4 hours for pain or fever, continue morphine 4 mg IV as needed every 4 hours for severe breakthrough pain. Monitor for toxicity. - White count improved today to 10.0. ESR 88, CRP 103. Kidney function normal with BUN 8, creatinine 0.7. Repeat CBC, CMP, magnesium and inflammatory markers ordered for the morning - A1c 5.2, no diabetes. Obesity complicates all aspects of her care Tobacco use disorder: Declined nicotine patch. Has not smoked since the . Interested in quitting. Regular diet Full code Lovenox once after admission. Will hold on further anticoagulation pending surgery/debride
--- NOTE | 2025-04-04 17:03 | PC.NURSE ---
Pt is post surgical I&D. DSG to (R) groin is C/D/I. Pt has tolerated ambulating to bathroom with small discomfort during ambulation. IV ABX administered. Pt has inquired about going outside to smoke. She was educated on smoking policy and offered a nicotine patch. Call light within reach.
[2025-04-04 22:29] LABS: Vancomycin,Trough 11.7 ug/mL (5.0-10.0)
[2025-04-05] VITALS: BP 134/73; PULSE 64; RESP 16; TEMP 37; O2SAT 99
[2025-04-05 04:00] VITALS: BMI 34.1
[2025-04-05 05:23] LABS: Vancomycin,Peak 22.2 ug/ml (11-39)
[2025-04-05] MEDS: CEFEPIME HCL 2 GM in 0.9 % SODIUM CHLORIDE 100 ML IV ×3 (05:58→21:05)
--- NOTE | 2025-04-05 06:43 | PC.NURSE ---
Pt A&OX4 and has tolerated room air. Lung sounds clear and bowel sounds active. Dressing to right groin has remained c/d/i. She has not complained on any pain throughout the shift. She has received IV ABX. She has ambulated with standby assist. No complaints at this time, call light within reach.
[2025-04-05 06:47] LABS: Basophils % 0.2 % (0.1-2.0); Eosinophils # 0.1 Kmm3 (0.0-0.4); Eosinophils % 0.5 % (0.1-12.0); Hematocrit 32.1 % (37.0-47.0); Hemoglobin 10.8 g/dL (12.2-16.2); Immature Granulocytes # 0.16 10^3uL; Immature Granulocytes % 1.1 %; Lymphocytes # 4.2 K/mm3 (0.7-4.5); Lymphocytes % 30.2 % (10-50); Mean Corpuscular HGB Conc 33.6 g/dL (31.8-35.4); Mean Corpuscular Hemoglobin 30.5 pg (27.0-31.2); Mean Corpuscular Volume 90.7 fl (81-99); Mean Platelet Volume 9.9 fl (7.4-10.4); Monocytes # 0.6 K/mm3 (0.1-1.0); Monocytes % 4.1 % (1.7-9.3); Neutrophils % 63.9 % (37.0-80.0); Nucleated Red Blood Cells # 0 10^3/uL; Nucleated Red Blood Cells % 0 %; Platelet Count 257 K/mm3 (142-424); Red Blood Count 3.54 M/mm3 (4.20-5.40); Red Cell Distribution Width 13.6 % (11.5-17.5); Red Cell Distribution Width-SD 46.2 fL; White Blood Count 14.1 K/mm3 (4.8-10.8)
--- NOTE | 2025-04-05 06:53 | EXP.SURG.PN ---
Subjective Narrative: No complaints of pain overnight per nursing. Patient resting comfortably. Exam Data for Last 24 hours Vital signs and Labs for Last 24 Hours: Temp Pulse Resp BP Pulse Ox O2 Del Method 98.6 F 64 16 134/73 99 Room Air 04/05/25 00:00 04/05/25 00:00 04/05/25 00:00 04/05/25 00:00 04/05/25 00:00 04/05/25 06:43 Laboratory Results - last 24 hr 04/04/25 05:55: WBC 10.1 D, RBC 3.69 L, Hgb 11.1 L, Hct 33.2 L, MCV 90.0, MCH 30.1, MCHC 33.4, RDW 13.7, Plt Count 239, MPV 10.0, Neut % (Auto) 52.8, Lymph % (Auto) 36.9, [place] % (Auto) 6.2, Eos % (Auto) 2.9, Baso % (Auto) 0.5, Neut # (Auto) 5.4, Lymph # (Auto) 3.7, [place] # (Auto) 0.6, Eos # (Auto) 0.3, Baso # (Auto) 0.1, ESR 88 H, Sodium 139, Potassium 4.0, Chloride 108 H, Carbon Dioxide 28, Anion Gap 7.0, BUN 8, Creatinine 0.70, Estimated Creat Clear 136, Estimated GFR 87, Est GFR ( Amer) 105, Glucose 95, Calcium 8.1 L, Magnesium 2.1, Total Bilirubin 0.2, AST 28 D, ALT 21, Alkaline Phosphatase 83, C-Reactive Protein 103.6 H, Total Protein 6.1 L, Albumin 3.3 L, Globulin 2.8, Albumin/Globulin Ratio 1.2 04/04/25 21:55: Vancomycin Trough 11.7 H 04/05/25 03:24: Vancomycin Peak 22.2 I & O for Last 24 hours: Intake & Output 04/02/25 04/03/25 04/04/25 04/05/25 11:59 11:59 11:59 11:59 Intake Total 1760 / 1760 2140 / 2140 1000 / 1000 Output Total 0 / 0 0 / 0 0 / 0 Balance 0 / 176 2140 / 2140 1000 / 1000 Weight 212 lb 6.4 oz 212 lb 6.399 oz 212 lb 6.399 oz Microbiology Reports for the Last 24 Hours: Microbiology 04/02/25 21:00 Blood Blood Culture - Preliminary NO GROWTH AFTER 48 HOURS 04/02/25 20:56 Blood Blood Culture - Preliminary NO GROWTH AFTER 48 HOURS 04/04/25 08:30 Groin - Abscess Gram Stain - Final 04/03/25 00:09 Groin Gram Stain - Final 04/03/25 00:09 Groin Wound Culture - Preliminary Progress Note: A&P Assessment and plan (1) Abscess or cellulitis of groin: Status: Acute (2) Right groin pain: Status: Acute (3) Obesity (BMI 30.0-34.9): Status: Acute Assessment and Plan Assessment and Plan for All Diagnoses:: Begin dressing changes Today.
[2025-04-05 07:05] LABS: Chloride 106 mmol/L (98-107)
[2025-04-05 07:06] LABS: Albumin Level 3.3 g/dl (3.5-5.0); Potassium 3.7 mmoL/L (3.5-5.1); Sodium 137 mmol/L (136-145)
[2025-04-05 07:08] LABS: Blood Urea Nitrogen 8 mg/dl (7-17); Creatinine Clearance Estimated 159 mL/min (50-200); Estimated Glomerular Filt Rate 103 ml/min (>60); GFR (African American) 125 ML/MIN (>60)
[2025-04-05 07:09] LABS: Alanine Aminotransferase 20 U/L (12-78); Albumin/Globulin Ratio 1.2 (1.1-1.8); Alkaline Phosphatase 82 U/L (38-126); Anion Gap 4.7 mEq/L (5-15); Aspartate Amino Transferase 31 U/L (14-36); Bilirubin,Total 0.2 mg/dl (0.2-1.3); Calcium 8.5 mg/dl (8.4-10.2); Carbon Dioxide 30 mmol/L (22.0-30.0); Globulin 2.8 g/dL (1.3-3.2); Glucose 88 mg/dl (74-100); Total Protein,Serum 6.1 g/dl (6.3-8.2)
[2025-04-05 07:15] LABS: C-Reactive Protein 62.6 mg/L (0-4)
--- NOTE | 2025-04-05 07:40 | EXP.ANES.II ---
[facility] Anesthesia Record Part II Anesthesia Record Part II Discharge Time: 09:25 Destination: Surgical Day Care (OP Surgery) PACU nurse assessment reviewed?: Yes Patient Condition:: Good Anesthesia Complications:: None Swallowing reflex intact?: Yes Airway Patency: Patent Cyanosis?: No Blood Pressure: 118/78 SaO2: 98 Respiratory Rate: 16 Pulse Rate: 71 Temperature: 97.2 F Mental Status: Alert & Oriented Pain level:: 0 Nausea and/or vomitting:: None Intake, IV Amount: 0 Hydration: Adequate
[2025-04-05 07:41] VITALS: BP 118/78; PULSE 71; RESP 16; TEMP 36.2; O2SAT 98
[2025-04-05 07:43] LABS: Magnesium 2.2 mg/dl (1.6-2.3)
[2025-04-05 07:46] LABS: Erythrocyte Sedimentation Rate 103 mm/hr (0-30)
[2025-04-05 08:00] VITALS: BP 121/69; PULSE 74; RESP 19; TEMP 36.5; O2SAT 97
[2025-04-05] MEDS: HYDROMORPHONE 2MG/ML SYRINGE 1 MG IV (09:08)
--- NOTE | 2025-04-05 10:08 | EXP.PHA.CONS ---
Pharmacy Consult Date: 04/05/25 Time: 10:08 Referring provider: DR. GARCIA Reason for Consult:: VANCOMYCIN LEVELS/DOSE CHANGE Allergies Allergy/AdvReac Type Severity Reaction Status Date / Time morphine (MORPHINE) AdvReac Mild Verified 09/23/24 11:05 Home Medications ?Medication ?Instructions ?Recorded ?Confirmed ?Type No Known Home Medications 04/03/25 04/03/25 History New Prescriptions to Start Prescriptions: Height: 1.68 m Weight: 96.343 kg Laboratory Results:: Laboratory Results - last 24 hr 04/04/25 21:55: Vancomycin Trough 11.7 H 04/05/25 03:24: Vancomycin Peak 22.2 04/05/25 05:18: WBC 14.1 H D, RBC 3.54 L, Hgb 10.8 L, Hct 32.1 L, MCV 90.7, MCH 30.5, MCHC 33.6, RDW 13.6, Plt Count 257, MPV 9.9, Neut % (Auto) 63.9, Lymph % (Auto) 30.2, [place] % (Auto) 4.1, Eos % (Auto) 0.5, Baso % (Auto) 0.2, Neut # (Auto) 9.0 H, Lymph # (Auto) 4.2, [place] # (Auto) 0.6, Eos # (Auto) 0.1, Baso # (Auto) 0.0, ESR 103 H, Sodium 137, Potassium 3.7, Chloride 106, Carbon Dioxide 30, Anion Gap 4.7 L, BUN 8, Creatinine 0.60, Estimated Creat Clear 159, Estimated GFR 103, Est GFR ( Amer) 125, Glucose 88, Calcium 8.5, Magnesium 2.2, Total Bilirubin 0.2, AST 31, ALT 20, Alkaline Phosphatase 82, C-Reactive Protein 62.6 H D, Total Protein 6.1 L, Albumin 3.3 L, Globulin 2.8, Albumin/Globulin Ratio 1.2 Medical History: Medical History (Updated 04/04/25 @ 15:09 by Guzman Garcia MD) Groin abscess Skin lesion of face Multiple thyroid nodules Dysphagia HLD (hyperlipidemia) HTN (hypertension) RLS (restless legs syndrome) Edema Assessment and Plan Assessment and plan all Dx Assessment and Plan for all problems:: BASED ON PATIENT FACTORS AND VANCOMYCIN TROUGH LEVEL OF 11.7/PEAK LEVEL OF 22.2, RECOMMEND SLIGHTLY INCREASING DOSE TO 1,750MG EVERY 12 HOURS. PHARMACY WILL CONTINUE TO MONITOR AND WILL ADJUST DOSE APPROPRIATE. -ABIOLA FLORIAN, KIMBERLYD
[2025-04-05] MEDS: FAMOTIDINE 20MG TABLET 20 MG PO ×2 (10:13→21:05)
[2025-04-05] MEDS: DOCUSATE SODIUM 100 MG CAPSULE PO (10:13)
--- NOTE | 2025-04-05 11:16 | HMH.PTWOUND ---
Rehab Inpt Wound Evaluation Rehab IP Wound Evaluation Start: 04/03/25 03:04 Freq: ONCE Status: Active Protocol: Document 04/05/25 10:56 ELAINE (Rec: 04/05/25 11:15 PHORMARBELLA [id number]) Rehab PT Wound Assessment Patient Status Premedicated Prior No to Dressing Change Subjective Subjective 54 yowf patient who was seen in the ER approximately 3 days ago. Was started on antibiotic. This was because of a groin infection to the right side. Started on azithromycin and Augmentin. The area has become worse now swelling more painful more red and now spreading from the middle of the abdomen towards the right flank. The patient was seen by the ER physician started on vancomycin also then had a CT scan that showed a probable abscess also ultrasound done. Approximately 30 to 40 cc of material was removed and sent for wound culture. Pt now S/P I&D. Evaluation of her past history found that in 2020 that she had an abscess in the similar area of Staphylococcus capitis. Also noting that this was shortly after a dental infection Wound right groin Wound Type Incision Is This a Chronic No Wound Wound Length (cm) 6.0 Wound Width (cm) 7.5 Wound Depth (cm) 2.6 Wound Bed Appearance Beefy Red,Undermining Percentage 100 Granulated (%) Wound Margins Well Defined Description Undermining Position 10 o'clock Undermining Length ( 2.0 cm) Tunneling Position 5 o'clock Tunneling Depth (cm) 6.0 Surrounding Tissue Doffing,Indurated,Undermined Appearance Wound Drainage Sanguineous,Serosanguineous Description Drainage Amount Small Drainage Odor No Odor Dressing Status Changed Wound Topical Saline Irrigant Solution/Irrigant Packing Type Alginate Primary Dressing Absorbant Pad Wound Debridement Gauze,Mechanical Method Wound Debridement Healthy Tissue Revealed Result Dressing Change Date 04/05/25 Dressing Change Tolerated Poorly Patient Tolerance Plan/Recommendation Comment Continue dressing changes every day to every other day as needed based on amounts of wound drainage. No further bedside debridement necessary at this time, but will follow to assist nsg with dressing changes as needed. Eval Complexity Eval Charge Codes 41440 - High Complexity [place] Wound Assessment Tool Assessment Wound size 4=Length x Width 36.1--<80 sq cm Wound depth 3=Full thickness skin loss involving damage or necrosis of Wound edges 3=Well-defined, not attached to wound base Wound undermining 5=Undermining >4 cm or tunneling in any area Necrotic tissue type 1=Non visible Necrotic tissue 1=None visible amount Exudate type 2=Bloody Exudate amount 4=Moderate Skin color 2=Bright red &/or blanches to touch surrounding wound Peripheral tissue 2=Non-pitting edema extends <4 cm around wound edema Peripheral tissue 3=Induration 2-4 cm extending < 50% around wound induration Granulation tissue 2=Bright, beefy red;75% to 100% of wound filled &/or tissue overgrowth Epithelialization 5= < 25% wound covered Wound assessment 37 total score PHYSICIAN CERTIFICATION: I certify the specified therapy services for Maura Thorne are required, authorized, and reviewed every 30 days.
[2025-04-05 12:00] VITALS: BP 96/60; PULSE 69; RESP 16; TEMP 36.8; O2SAT 93
[2025-04-05] MEDS: VANCOMYCIN/WATER FOR INJ (PEG) 1.75 GM/350 ML PIGGYBACK IV (12:07)
--- NOTE | 2025-04-05 13:35 | SW/DCPLANNER ---
I spoke w/ this patient regarding dressing changes. Patient stated that she prefers to return to [facility] outpatient services for dressing changes. Patient confirmed she will have transportation. I will update MD regarding discharge plans.
[2025-04-05 16:00] VITALS: BP 115/63; PULSE 76; RESP 18; TEMP 36.6; O2SAT 96
--- NOTE | 2025-04-05 19:34 | P.PN_ITS ---
Subjective *Date: 04/05/25 *Time: 21:55 Interval history: Status postdebridement yesterday. Feeling better. Pain with dressing change today but otherwise afebrile and stable on room air. Tolerating p.o. intake. Medical Exam Vital signs and Labs for Last 24 Hours: Vital Signs Temp Pulse Resp BP Pulse Ox O2 Del Method 04/05/25 18:28 Room Air 04/05/25 17:00 Room Air 04/05/25 16:00 97.9 F 76 18 115/63 96 Room Air 04/05/25 15:00 Room Air 04/05/25 13:00 Room Air 04/05/25 12:00 98.3 F 69 16 96/60 L 93 L Room Air 04/05/25 11:00 Room Air 04/05/25 09:00 Room Air 04/05/25 08:00 97.7 F 74 19 121/69 97 Room Air 04/05/25 08:00 Room Air 04/05/25 07:41 16 04/05/25 06:43 Room Air 04/05/25 05:00 Room Air 04/05/25 03:00 Room Air 04/05/25 01:00 Room Air 04/05/25 00:00 98.6 F 64 16 134/73 99 04/04/25 23:00 Room Air 04/04/25 21:00 Room Air 04/04/25 20:00 Room Air 04/04/25 20:00 98.2 F 53 L 16 131/72 96 Intake and Output 04/05/25 04/05/25 04/05/25 07:59 15:59 23:59 Intake Total 400 / 1570 900 / 1570 270 / 1570 Output Total 0 / 0 0 / 0 0 / 0 Balance 400 / 1570 900 / 1570 270 / 1570 Intake: Intake, Oral Amount 900 / 1170 270 / 1170 Intake, Total IV Amount 400 / 400 Cefepime HCl 2 gm In 0.9 % 100 / 100 Sodium Chloride 100 ml @ 200 mls/hr IV Q8H [facility] Rx#:[id number] Vancomycin/Water For Inj (Peg) 300 / 300 1.5 gm In 300 ml @ 150 mls/hr IV Q12H [facility] Rx#:[id number] Output: Output, Urine Amount 0 / 0 0 / 0 0 / 0 Other: Number of Voids 0 0 Number of Unmeasured Voids 0 3 Weight 96.343 kg 96.343 kg Patient Weight 04/05/25 23:59 Weight 96.343 kg Laboratory Results - last 24 hr 04/04/25 21:55: Vancomycin Trough 11.7 H 04/05/25 03:24: Vancomycin Peak 22.2 04/05/25 05:18: WBC 14.1 H D, RBC 3.54 L, Hgb 10.8 L, Hct 32.1 L, MCV 90.7, MCH 30.5, MCHC 33.6, RDW 13.6, Plt Count 257, MPV 9.9, Neut % (Auto) 63.9, Lymph % (Auto) 30.2, [place] % (Auto) 4.1, Eos % (Auto) 0.5, Baso % (Auto) 0.2, Neut # (Auto) 9.0 H, Lymph # (Auto) 4.2, [place] # (Auto) 0.6, Eos # (Auto) 0.1, Baso # (Auto) 0.0, ESR 103 H, Sodium 137, Potassium 3.7, Chloride 106, Carbon Dioxide 30, Anion Gap 4.7 L, BUN 8, Creatinine 0.60, Estimated Creat Clear 159, Estimated GFR 103, Est GFR ( Amer) 125, Glucose 88, Calcium 8.5, Magnesium 2.2, Total Bilirubin 0.2, AST 31, ALT 20, Alkaline Phosphatase 82, C- Reactive Protein 62.6 H D, Total Protein 6.1 L, Albumin 3.3 L, Globulin 2.8, Albumin/Globulin Ratio 1.2 I & O for Labs for Last 24 Hours: Intake & Output 04/02/25 04/03/25 04/04/25 04/05/25 23:59 23:59 23:59 23:59 Intake Total 2900 / 3300 1600 / 1999 1570 / 1570 Output Total 0 / 0 0 / 0 0 / 0 Balance 2900 / 3300 1600 / 1999 1570 / 1570 Weight 96.615 kg 96.343 kg 96.343 kg 96.343 kg Microbiology Reports for the Last 24 Hours: Microbiology 04/04/25 08:30 Groin - Abscess Gram Stain - Final 04/04/25 08:30 Groin - Abscess Abscess Culture - Preliminary NO GROWTH AFTER 24 HOURS 04/03/25 00:09 Groin Gram Stain - Final 04/03/25 00:09 Groin Wound Culture - Preliminary 04/02/25 21:00 Blood Blood Culture - Preliminary NO GROWTH AFTER 48 HOURS 04/02/25 20:56 Blood Blood Culture - Preliminary NO GROWTH AFTER 48 HOURS Constitutional: Present no acute distress, obese, chronically ill appearing and cooperative Head: Present atraumatic and normocephalic ENT: Present normal exam Respiratory: Present normal respiratory effort; Absent rhonchi, wheezes or crackles Cardiac: Present Reg Rate and Rhythm GI: Present soft and normal bowel sounds; Absent distention or tenderness Comment:: Surgical bandage on mons pubis. Tenderness to palpation Extremities: Present normal inspection and full ROM Skin: Present intact; Absent erythema Neuro: Present Grossly Intact, alert, awake, oriented x 3 and moves all extremities Assessment and Plan *Assessment and plan (1) Abscess or cellulitis of groin: Status: Acute Category: Medical (2) Right groin pain: Status: Acute Category: Medical Code(s): R10.31 - Right lower quadrant pain (3) Obesity (BMI 30.0-34.9): Status: Acute Category: Medical Code(s): E66.811 - Obesity, class 1 Plan 54-year-old who presented with worsening right lower abdominal wall abscess and pain. I&D performed in the ED with improvement in pain but still draining purulent material. Discussed case with ER physician, request admission for further management and surgical debridement. Medicine agreed to admit. Debrided morning of 04/04. Tolerated well. Transition to oral Zyvox today. Anticipate discharge tomorrow. Problems addressed as follows: Abscess and cellulitis of right groin Failure of outpatient therapy -Wound cultures with gram-positive cocci. Discontinue vancomycin; continue cefepime. Transition to Zyvox 600 mg twice daily to monitor for tolerance prior to discharge home. -Wound dressed today, surgical packing changed. Tolerated well but had significant pain. Will monitor for 24 hours. -Discussed case with surgery, will need dressing changed every other day. Recommend 10 days of antibiotics. - Continue Tylenol 650 mg as needed every 4 hours for pain or fever, continue morphine 4 mg IV as needed every 4 hours for severe breakthrough pain. Monitor for toxicity. - White count slightly increased to 14. Inflammatory markers improved with CRP 62, ESR 103. Kidney function normal with BUN 8, creatinine 0.6. Repeat CBC, CMP, magnesium and inflammatory markers ordered for the morning - A1c 5.2, no diabetes. Obesity complicates all aspects of her care Tobacco use disorder: Declined nicotine patch. Has not smoked since the . Interested in quitting. Regular diet Full code
[2025-04-05 20:00] VITALS: BP 121/77; PULSE 75; RESP 16; TEMP 36.7; O2SAT 97
[2025-04-06] VITALS: BP 114/70; PULSE 73; RESP 16; TEMP 36.8; O2SAT 96
[2025-04-06 04:00] VITALS: BP 110/73; PULSE 62; RESP 18; TEMP 36.4; O2SAT 99; BMI 35.3
[2025-04-06] MEDS: CEFEPIME HCL 2 GM in 0.9 % SODIUM CHLORIDE 100 ML IV ×3 (05:53→20:07)
--- NOTE | 2025-04-06 06:03 | PC.NURSE ---
Pt has done well throughout the night. She has rested with no complaints of pain. Receiving IV ABX. She has ambulated room independent. Dressing has remained c/d/i. No complaints at this time, call light within reach.
[2025-04-06 06:50] LABS: Basophils # 0.1 K/mm3 (0-0.2); Basophils % 0.7 % (0.1-2.0); Eosinophils # 0.4 Kmm3 (0.0-0.4); Eosinophils % 2.9 % (0.1-12.0); Hematocrit 36.9 % (37.0-47.0); Hemoglobin 11.9 g/dL (12.2-16.2); Immature Granulocytes # 0.25 10^3uL; Lymphocytes # 5.5 K/mm3 (0.7-4.5); Lymphocytes % 43.8 % (10-50); Mean Corpuscular HGB Conc 32.2 g/dL (31.8-35.4); Mean Corpuscular Hemoglobin 29.8 pg (27.0-31.2); Mean Corpuscular Volume 92.5 fl (81-99); Mean Platelet Volume 9.3 fl (7.4-10.4); Monocytes # 0.6 K/mm3 (0.1-1.0); Monocytes % 4.5 % (1.7-9.3); Neutrophils # 5.8 K/mm3 (1.8-7.8); Neutrophils % 46.1 % (37.0-80.0); Nucleated Red Blood Cells # 0 10^3/uL; Nucleated Red Blood Cells % 0 %; Platelet Count 305 K/mm3 (142-424); Red Blood Count 3.99 M/mm3 (4.20-5.40); Red Cell Distribution Width 14.1 % (11.5-17.5); Red Cell Distribution Width-SD 47.8 fL; White Blood Count 12.5 K/mm3 (4.8-10.8)
[2025-04-06 06:53] LABS: MANUAL DIFFERENTIAL MANUAL DIFFERENTIAL (MANUAL DIFF)
[2025-04-06 07:11] LABS: Albumin Level 3.5 g/dl (3.5-5.0); Chloride 105 mmol/L (98-107); Potassium 4.1 mmoL/L (3.5-5.1); Sodium 141 mmol/L (136-145)
[2025-04-06 07:13] LABS: Blood Urea Nitrogen 14 mg/dl (7-17); Creatinine Clearance Estimated 124 mL/min (50-200); Estimated Glomerular Filt Rate 74 ml/min (>60); GFR (African American) 90 ML/MIN (>60)
[2025-04-06 07:14] LABS: Alanine Aminotransferase 22 U/L (12-78); Albumin/Globulin Ratio 1.2 (1.1-1.8); Alkaline Phosphatase 71 U/L (38-126); Anion Gap 9.1 mEq/L (5-15); Aspartate Amino Transferase 27 U/L (14-36); Bilirubin,Total 0.4 mg/dl (0.2-1.3); Calcium 8.5 mg/dl (8.4-10.2); Carbon Dioxide 31 mmol/L (22.0-30.0); Glucose 85 mg/dl (74-100); Total Protein,Serum 6.5 g/dl (6.3-8.2)
[2025-04-06 07:20] LABS: C-Reactive Protein 60.4 mg/L (0-4); Erythrocyte Sedimentation Rate 82 mm/hr (0-30)
--- NOTE | 2025-04-06 07:40 | EXP.SURG.PN ---
Subjective Narrative: Patient had a dressing change and had significant pain with this. No other complaints. Exam Data for Last 24 hours Vital signs and Labs for Last 24 Hours: Temp Pulse Resp BP Pulse Ox O2 Del Method 97.6 F 62 18 110/73 99 Room Air 04/06/25 04:00 04/06/25 04:00 04/06/25 04:00 04/06/25 04:00 04/06/25 04:00 04/06/25 06:48 Laboratory Results - last 24 hr 04/05/25 05:18: ESR 103 H, Carbon Dioxide 30, Anion Gap 4.7 L, BUN 8, Creatinine 0.60, Estimated Creat Clear 159, Estimated GFR 103, Est GFR ( Amer) 125, Glucose 88, Calcium 8.5, Magnesium 2.2, Total Bilirubin 0.2, AST 31, ALT 20, Alkaline Phosphatase 82, C-Reactive Protein 62.6 H D, Total Protein 6.1 L, Globulin 2.8, Albumin/Globulin Ratio 1.2 04/06/25 06:30: WBC 12.5 H, RBC 3.99 L, Hgb 11.9 L, Hct 36.9 L, MCV 92.5, MCH 29.8, MCHC 32.2, RDW 14.1, Plt Count 305, MPV 9.3, Neut % (Auto) 46.1, Lymph % (Auto) 43.8, [place] % (Auto) 4.5, Eos % (Auto) 2.9, Baso % (Auto) 0.7, Neut # (Auto) 5.8, Lymph # (Auto) 5.5 H, [place] # (Auto) 0.6, Eos # (Auto) 0.4, Baso # (Auto) 0.1, ESR 82 H, Sodium 141, Potassium 4.1, Chloride 105, Carbon Dioxide 31 H, Anion Gap 9.1, BUN 14 D, Creatinine 0.80 D, Estimated Creat Clear 124, Estimated GFR 74, Est GFR ( Amer) 90 D, Glucose 85, Calcium 8.5, Total Bilirubin 0.4, AST 27, ALT 22, Alkaline Phosphatase 71, C-Reactive Protein 60.4 H, Total Protein 6.5, Albumin 3.5, Globulin 3.0, Albumin/Globulin Ratio 1.2 I & O for Last 24 hours: Intake & Output 04/03/25 04/04/25 04/05/25 04/06/25 11:59 11:59 11:59 11:59 Intake Total 1760 / 1760 2140 / 2140 1540 / 1540 730 / 730 Output Total 0 / 0 0 / 0 0 / 0 0 / 0 Balance 1760 / 1760 2140 / 2140 1540 / 1540 730 / 730 Weight 212 lb 6.4 oz 212 lb 6.399 oz 212 lb 6.399 oz 219 lb 14.4 oz Microbiology Reports for the Last 24 Hours: Microbiology 04/04/25 08:30 Groin - Abscess Gram Stain - Final 04/04/25 08:30 Groin - Abscess Abscess Culture - Preliminary NO GROWTH AFTER 24 HOURS 04/03/25 00:09 Groin Gram Stain - Final 04/03/25 00:09 Groin Wound Culture - Preliminary *Routine Skin Exam Comments: Wound with less induration and erythema but still quite inflamed. Has alginate dressing. Progress Note: A&P Assessment and plan (1) Abscess or cellulitis of groin: Status: Acute Assessment and plan: Removed the alginate dressing. There are already some loculations of fluid and thin purulence forming. Attempted to pack with Kerlix however patient has significant pain. Will have nursing administer pain medication and complete the dressing change. Patient may require continued inpatient management for now due to pain with dressing changes. I would expect her pain to improve with each dressing change. Would recommend not using alginate. Likely not amenable to VAC dressing at this time. (2) Right groin pain: Status: Acute (3) Obesity (BMI 30.0-34.9): Status: Acute
[2025-04-06] MEDS: HYDROMORPHONE 2MG/ML SYRINGE 1 MG IV (07:42)
[2025-04-06 07:43] LABS: Magnesium 2.3 mg/dl (1.6-2.3)
[2025-04-06 07:45] LABS: Eosinophils % 3 % (0-3); Lymphocytes % 41 % (10-50); Monocytes % 7 % (2-9); Neutrophils % 48 % (42-76); Total Cells Counted 100
[2025-04-06 07:46] LABS: Platelet Estimate Normal; RBC Morphology Normal
[2025-04-06 08:00] VITALS: BP 111/76; PULSE 63; RESP 17; TEMP 36.6; O2SAT 94
--- NOTE | 2025-04-06 08:08 | P.PN_ITS ---
Subjective *Date: 04/06/25 *Time: 08:08 Medical Exam Vital signs and Labs for Last 24 Hours: Vital Signs Temp Pulse Resp BP Pulse Ox O2 Del Method 04/06/25 06:48 Room Air 04/06/25 05:00 Room Air 04/06/25 04:00 97.6 F 62 18 110/73 99 Room Air 04/06/25 03:00 Room Air 04/06/25 01:00 Room Air 04/06/25 00:00 98.2 F 73 16 114/70 96 Room Air 04/05/25 23:00 Room Air 04/05/25 21:00 Room Air 04/05/25 20:00 Room Air 04/05/25 20:00 98.1 F 75 16 121/77 97 Room Air 04/05/25 18:28 Room Air 04/05/25 17:00 Room Air 04/05/25 16:00 97.9 F 76 18 115/63 96 Room Air 04/05/25 15:00 Room Air 04/05/25 13:00 Room Air 04/05/25 12:00 98.3 F 69 16 96/60 L 93 L Room Air 04/05/25 11:00 Room Air 04/05/25 09:00 Room Air Intake and Output 04/05/25 04/06/25 04/06/25 23:59 07:59 15:59 Intake Total 370 / 1670 Output Total 0 / 0 0 / 0 Balance 370 / 1670 0 / 0 Intake: Intake, Oral Amount 270 / 1170 Intake, Total IV Amount 100 / 500 Cefepime HCl 2 gm In 0.9 % 100 / 200 Sodium Chloride 100 ml @ 200 mls/hr IV Q8H [facility] Rx#:[id number] Output: Output, Urine Amount 0 / 0 0 / 0 Other: Number of Voids 0 Number of Unmeasured Voids 1 1 Weight 99.745 kg Patient Weight 04/06/25 23:59 Weight 99.745 kg Laboratory Results - last 24 hr 04/05/25 05:18: Carbon Dioxide 30, Anion Gap 4.7 L, BUN 8, Creatinine 0.60, Estimated Creat Clear 159, Estimated GFR 103, Est GFR ( Amer) 125, Glucose 88, Calcium 8.5, Magnesium 2.2, Total Bilirubin 0.2, AST 31, ALT 20, Alkaline Phosphatase 82, C-Reactive Protein 62.6 H D, Total Protein 6.1 L, Globulin 2.8, Albumin/Globulin Ratio 1.2 04/06/25 06:30: WBC 12.5 H, RBC 3.99 L, Hgb 11.9 L, Hct 36.9 L, MCV 92.5, MCH 29.8, MCHC 32.2, RDW 14.1, Plt Count 305, MPV 9.3, Neut % (Auto) 46.1, Lymph % (Auto) 43.8, [place] % (Auto) 4.5, Eos % (Auto) 2.9, Baso % (Auto) 0.7, Neut # (Auto) 5.8, Lymph # (Auto) 5.5 H, [place] # (Auto) 0.6, Eos # (Auto) 0.4, Baso # (Auto) 0.1, Total Counted 100, Neutrophils % (Manual) 48, Lymphocytes % (Manual) 41, Atypical Lymphs % 1.0, Monocytes % (Manual) 7, Eosinophils % (Manual) 3, Platelet Estimate Normal, RBC Morphology Normal, ESR 82 H, Sodium 141, Potassium 4.1, Chloride 105, Carbon Dioxide 31 H, Anion Gap 9.1, BUN 14 D, Creatinine 0.80 D, Estimated Creat Clear 124, Estimated GFR 74, Est GFR ( Amer) 90 D, Glucose 85, Calcium 8.5, Magnesium 2.3, Total Bilirubin 0.4, AST 27, ALT 22, Alkaline Phosphatase 71, C-Reactive Protein 60.4 H, Total Protein 6.5, Albumin 3.5, Globulin 3.0, Albumin/Globulin Ratio 1.2 I & O for Labs for Last 24 Hours: Intake & Output 04/03/25 04/04/25 04/05/25 04/06/25 23:59 23:59 23:59 23:59 Intake Total 2900 / 3300 1599 / 1999 1670 / 1670 Output Total 0 / 0 0 / 0 0 / 0 0 / 0 Balance 2900 / 3300 1599 / 1999 1670 / 1670 0 / 0 Weight 96.343 kg 96.343 kg 96.343 kg 99.745 kg Microbiology Reports for the Last 24 Hours: Microbiology 04/04/25 08:30 Groin - Abscess Gram Stain - Final 04/04/25 08:30 Groin - Abscess Abscess Culture - Preliminary NO GROWTH AFTER 24 HOURS 04/03/25 00:09 Groin Gram Stain - Final 04/03/25 00:09 Groin Wound Culture - Preliminary The patient's infection will respond to the chosen ABx?: Yes (AFEBRILE OVER 24 HR, BLOOD CX NO GROWTH AT 48 HR, GROIN WOUND CX PEND X2) Is the patient receiving the right drug, dose, and route?: Yes Could a more targeted ABx be ordered?: No How long ABx needed (days)?: 7
[2025-04-06] MEDS: FAMOTIDINE 20MG TABLET 20 MG PO ×2 (09:15→20:07)
[2025-04-06] MEDS: DOCUSATE SODIUM 100 MG CAPSULE PO (09:15)
[2025-04-06] MEDS: LINEZOLID 600 MG TABLET PO ×2 (09:15→20:07)
[2025-04-06 11:24] VITALS: BP 124/65; PULSE 66; RESP 18; TEMP 36.7; O2SAT 95
[2025-04-06 16:00] VITALS: BP 115/71; PULSE 70; RESP 17; TEMP 36.8; O2SAT 97
--- NOTE | 2025-04-06 18:22 | PC.NURSE ---
PT HAS DONE WELL THIS SHIFT. SHE DID HAVE SEVERE PAIN WITH DRESSING CHANGE THIS AM. PRN MEDS GIVEN PER JAN. THIS RN ASKED FOR A MILDER PAIN MEDICATION AT THE PATIENTS REQUEST. MEDS ORDERED BY . SMITA. DRESSING IN GROIN SITE IS KERLEX PACKING WITH 4X4, ABD PAD, AND TAPE PER MD GRIMALDO
[2025-04-06 20:00] VITALS: BP 117/82; PULSE 76; RESP 17; TEMP 36.8; O2SAT 97
[2025-04-06] MEDS: HYDROCODONE/APAP 5/325 MG TABLET 1 TAB PO (20:07)
--- NOTE | 2025-04-06 22:17 | EXP.PN ---
Subjective *Date: 04/06/25 *Time: 22:17 Exam Data for Last 24 hours Vital signs and Labs for Last 24 Hours: Temp Pulse Resp BP Pulse Ox O2 Del Method 98.3 F 76 17 117/82 97 Room Air 04/06/25 20:00 04/06/25 20:00 04/06/25 20:00 04/06/25 20:00 04/06/25 20:00 04/06/25 21:00 Laboratory Results - last 24 hr 04/06/25 06:30: WBC 12.5 H, RBC 3.99 L, Hgb 11.9 L, Hct 36.9 L, MCV 92.5, MCH 29.8, MCHC 32.2, RDW 14.1, Plt Count 305, MPV 9.3, Neut % (Auto) 46.1, Lymph % (Auto) 43.8, [place] % (Auto) 4.5, Eos % (Auto) 2.9, Baso % (Auto) 0.7, Neut # (Auto) 5.8, Lymph # (Auto) 5.5 H, [place] # (Auto) 0.6, Eos # (Auto) 0.4, Baso # (Auto) 0.1, Total Counted 100, Neutrophils % (Manual) 48, Lymphocytes % (Manual) 41, Atypical Lymphs % 1.0, Monocytes % (Manual) 7, Eosinophils % (Manual) 3, Platelet Estimate Normal, RBC Morphology Normal, ESR 82 H, Sodium 141, Potassium 4.1, Chloride 105, Carbon Dioxide 31 H, Anion Gap 9.1, BUN 14 D, Creatinine 0.80 D, Estimated Creat Clear 124, Estimated GFR 74, Est GFR ( Amer) 90 D, Glucose 85, Calcium 8.5, Magnesium 2.3, Total Bilirubin 0.4, AST 27, ALT 22, Alkaline Phosphatase 71, C-Reactive Protein 60.4 H, Total Protein 6.5, Albumin 3.5, Globulin 3.0, Albumin/Globulin Ratio 1.2 I & O for Last 24 hours: Intake & Output 04/03/25 04/04/25 04/05/25 04/06/25 23:59 23:59 23:59 23:59 Intake Total 2900 / 3300 1600 / 2000 1670 / 1670 810 / 810 Output Total 0 / 0 0 / 0 0 / 0 0 / 0 Balance 2900 / 3300 1600 / 2000 1670 / 1670 810 / 810 Weight 96.343 kg 96.343 kg 96.343 kg 99.745 kg Microbiology Reports for the Last 24 Hours: Microbiology 04/02/25 21:00 Blood Blood Culture - Preliminary NO GROWTH AFTER 4 DAYS 04/02/25 20:56 Blood Blood Culture - Preliminary NO GROWTH AFTER 4 DAYS 04/04/25 08:30 Groin - Abscess Gram Stain - Final 04/04/25 08:30 Groin - Abscess Abscess Culture - Preliminary NO GROWTH AFTER 48 HOURS 04/03/25 00:09 Groin Gram Stain - Final 04/03/25 00:09 Groin Wound Culture - Preliminary *Routine Skin Exam Comments: Wound with less induration and erythema but still quite inflamed. Has alginate dressing. Assessment and Plan *Assessment and plan (1) Abscess or cellulitis of groin: Status: Acute Category: Medical (2) Right groin pain: Status: Acute Category: Medical Code(s): R10.31 - Right lower quadrant pain (3) Obesity (BMI 30.0-34.9): Status: Acute Category: Medical Code(s): E66.811 - Obesity, class 1 Plan 54-year-old who presented with worsening right lower abdominal wall abscess and pain. I&D performed in the ED with improvement in pain but still draining purulent material. Discussed case with ER physician, request admission for further management and surgical debridement. Medicine agreed to admit. Debrided morning of 04/04. Tolerated well. Transition to oral Zyvox today. Anticipate discharge tomorrow. Problems addressed as follows: Abscess and cellulitis of right groin Failure of outpatient therapy -Wound cultures with gram-positive cocci. Discontinue vancomycin; cefepime. Transition to Zyvox 600 mg twice daily to monitor for tolerance prior to discharge home. -Wound dressed today, surgical packing changed. Tolerated well but had significant pain. Will monitor for 24 hours. -Discussed case with surgery, will need dressing changed every other day. Recommend 10 days of antibiotics. - Continue Tylenol 650 mg as needed every 4 hours for pain or fever, continue morphine 4 mg IV as needed every 4 hours for severe breakthrough pain. Monitor for toxicity. - White count improving to 12.5 today. ? Patient has significant pain with dressing changes this morning, discussed with general surgery who recommended 1 more day of monitoring to allow inflammation to subside before anticipated discharge tomorrow. - A1c 5.2, no diabetes. Obesity complicates all aspects of her care Tobacco use disorder: Declined nicotine patch. Has not smoked since the . Interested in quitting. Regular diet Full code
[2025-04-07] VITALS: BP 101/63; PULSE 68; RESP 24; TEMP 36.7; O2SAT 95
[2025-04-07 04:00] VITALS: BP 108/63; PULSE 60; RESP 18; TEMP 36.3; O2SAT 94; BMI 34.9
[2025-04-07] MEDS: CEFEPIME HCL 2 GM in 0.9 % SODIUM CHLORIDE 100 ML IV (05:56)
[2025-04-07 08:00] VITALS: BP 119/69; PULSE 72; RESP 16; TEMP 36.3; O2SAT 96
--- NOTE | 2025-04-07 08:50 | EXP.SURG.PN ---
Subjective Patient reports: no new complaints Narrative: Still having fairly significant pain with dressing changes. She states that she feels okay when not moving . Exam Data for Last 24 hours Vital signs and Labs for Last 24 Hours: Temp Pulse Resp BP Pulse Ox O2 Del Method 97.4 F L 60 18 108/63 L 94 L Room Air 04/07/25 04:00 04/07/25 04:00 04/07/25 04:00 04/07/25 04:00 04/07/25 04:00 04/07/25 06:51 I & O for Last 24 hours: Intake & Output 04/04/25 04/05/25 04/06/25 04/07/25 11:59 11:59 11:59 11:59 Intake Total 2140 / 2140 1540 / 1540 950 / 950 930 / 930 Output Total 0 / 0 0 / 0 0 / 0 Balance 2140 / 2140 1540 / 1540 950 / 950 930 / 930 Weight 212 lb 6.399 oz 212 lb 6.399 oz 219 lb 14.4 oz 217 lb 12.8 oz Microbiology Reports for the Last 24 Hours: Microbiology 04/02/25 21:00 Blood Blood Culture - Preliminary NO GROWTH AFTER 4 DAYS 04/02/25 20:56 Blood Blood Culture - Preliminary NO GROWTH AFTER 4 DAYS 04/04/25 08:30 Groin - Abscess Gram Stain - Final 04/04/25 08:30 Groin - Abscess Abscess Culture - Preliminary NO GROWTH AFTER 48 HOURS 04/03/25 00:09 Groin Gram Stain - Final 04/03/25 00:09 Groin Wound Culture - Preliminary Constitutional Constitutional: no acute distress *Routine Respiratory Exam Respiratory: Absent respiratory distress *Routine Cardiovascular Exam Cardiovascular: Absent tachycardia *Routine Skin Exam Comments: Dressing in place. Progress Note: A&P Assessment and plan (1) Abscess or cellulitis of groin: Status: Acute (2) Right groin pain: Status: Acute Assessment and Plan Assessment and Plan for All Diagnoses:: Complete course of antibiotics Continue dressing changes at least daily Short-term outpatient follow-up
[2025-04-07] MEDS: FAMOTIDINE 20MG TABLET 20 MG PO (09:43)
[2025-04-07] MEDS: DOCUSATE SODIUM 100 MG CAPSULE PO (09:43)
[2025-04-07] MEDS: LINEZOLID 600 MG TABLET PO (09:43)
[2025-04-07] MEDS: HYDROCODONE/APAP 5/325 MG TABLET 2 TAB PO ×2 (09:45→13:48)
--- NOTE | 2025-04-07 11:39 | PC.NURSE ---
room air saturation 96% after ambulating in the [place]
[2025-04-07 12:00] VITALS: BP 113/69; PULSE 66; RESP 18; TEMP 36.4; O2SAT 97
--- NOTE | 2025-04-07 12:50 | P.DS_ITS ---
General Admission date:: 04/02/25 HPI HPI HPI: Patient is a 54-year-old female who had been seen in the emergency department on 03/30/2025 with cellulitis of the groin area. She states the area had been showing signs of progressive infection over about 2 weeks. After her initial evaluation in the emergency department she was managed as an outpatient and started on azithromycin and Augmentin. She presented back to the emergency depa rtment overnight due to worsening tenderness, redness, and spreading. She was found to have tachycardia, tachypnea, and temperature elevation. She was found to have leukocytosis with elevation of inflammatory markers. CT scan was performed which revealed findings consistent with cellulitis of the right mons pubis and inguinal region with associated developing loculated fluid collection measuring up to 8.5 cm. She underwent incision and drainage in the emergency department under ultrasound guidance and copious amounts of cloudy purulent foul-smelling material was evacuated from the wound. Postprocedure ultrasound revealed absence of fluid collection. She was admitted for inpatient management. She was started on intravenous vancomycin and cefepime. Surgical consultation was obtained. Hospital Course Hospital Course Hospital Course: Maura Thorne is a 54-year-old who presented with worsening right lower abdominal wall abscess and pain. I&D performed in the ED with improvement in pain but still draining purulent material. Discussed case with ER physician, request admission for further management and surgical debridement. Medicine agreed to admit. General surgery debrided morning of 04/04. Tolerated well. #Abscess and cellulitis of right groin #Possible hidradenitis suppurativa #Failure of outpatient therapy ?Presented with worsening right groin pain, found to have an abscess that failed outpatient antibiotic therapy. Does not shave in the area, no trauma. Possible hidradenitis suppurativa. ? General Surgery consulted, s/p I&D on 04/04/2025. Patient tolerated procedure well. ? Wound cultures growing gram-positive cocci, has been treated with vancomycin and cefepime. Transition to Zyvox and levofloxacin. ? General Surgery recommends daily dry dressing/packing changes. We have arranged for patient to come to our infusion clinic to get those daily dressing changes at patient's preference. ? Discharged with Zyvox 600 mg twice daily, levofloxacin 750 mg for 5 more days, [place] for pain control. ? Will follow-up with general surgery within 1 week. Obesity complicates all aspects of her care Tobacco use disorder: Declined nicotine patch. Has not smoked since the . Interested in quitting. Total time spent on discharge: 32 minutes on chart review, counseling, documentation, and direct care with patient. Exam Data for Last 24 hours Vital signs and Labs for Last 24 Hours: Temp Pulse Resp BP Pulse Ox O2 Del Method 97.6 F 66 18 113/69 97 Room Air 04/07/25 12:00 04/07/25 12:00 04/07/25 12:00 04/07/25 12:00 04/07/25 12:00 04/07/25 12:00 I & O for Last 24 hours: Intake & Output 04/04/25 04/05/25 04/06/25 04/07/25 23:59 23:59 23:59 23:59 Intake Total 1600 / 1999 1670 / 1670 810 / 1150 610 / 610 Output Total 0 / 0 0 / 0 0 / 0 0 / 0 Balance 1600 / 1999 1670 / 1670 810 / 1150 610 / 610 Weight 96.343 kg 96.343 kg 99.745 kg 98.792 kg Microbiology Reports for the Last 24 Hours: Microbiology 04/04/25 08:30 Groin - Abscess Gram Stain - Final 04/04/25 08:30 Groin - Abscess Abscess Culture - Preliminary NO GROWTH AFTER 72 HOURS 04/03/25 00:09 Groin Gram Stain - Final 04/03/25 00:09 Groin Wound Culture - Preliminary 04/02/25 21:00 Blood Blood Culture - Preliminary NO GROWTH AFTER 4 DAYS 04/02/25 20:56 Blood Blood Culture - Preliminary NO GROWTH AFTER 4 DAYS Constitutional Constitutional: no acute distress and obese *Routine HEENT Exam Head: Present normocephalic Eye: Present EOMI and PERRL ENT: Present mucous membranes moist *Routine Neck Exam Neck: Present supple; Absent lymphadenopathy *Routine Respiratory Exam Respiratory: Present CTA bilaterally *Routine Cardiovascular Exam Cardiovascular: Present RRR *Routine Abdominal Exam Abdominal: Present soft and normoactive bowel sounds; Absent tenderness *Routine Extremities Exam Extremities: Absent cyanosis, clubbing or edema *Routine Skin Exam Skin: Present warm; Absent rash *Routine Neurological Exam Neurological: Present alert and oriented X3 Results Data Completed and Pending Labs on day of discharge: Preliminary micro results at discharge 04/04/25 08:30 Abscess Culture - Preliminary Groin - Abscess NO GROWTH AFTER 72 HOURS 04/03/25 00:09 Wound Culture - Preliminary Groin 04/02/25 21:00 Blood Culture - Preliminary Blood NO GROWTH AFTER 4 DAYS 04/02/25 20:56 Blood Culture - Preliminary Blood NO GROWTH AFTER 4 DAYS DS: Diagnosis Discharge Diagnosis (1) Abscess or cellulitis of groin: Status: Acute (2) Right groin pain: Status: Acute Code(s): R10.31 - Right lower quadrant pain Meds Home Medications and Allergies Home Medications ?Medication ?Instructions ?Recorded ?Confirmed ?Type hydrocodone 5 mg-acetaminophen 325 1 tab PO Q6HP PRN M oderate Pain 04/07/25 Rx mg tablet (4-6) 3 days #12 tabs levofloxacin 750 mg tablet 750 mg PO DAILY 5 days #5 t abs 04/07/25 Rx linezolid 600 mg tablet 600 mg PO BID 5 days #10 tab s 04/07/25 Rx New Prescriptions to Start Prescriptions: hydrocodone-acetaminophen Jn Levin levofloxacin [place],Jn linezolid Jn Levin Allergies Allergy/AdvReac Type Severity Reaction Status Date / Time morphine (MORPHINE) AdvReac Mild Verified 09/23/24 11:05 Discharge Plan Disposition Patient Disposition: Home, Self-Care Condition: Fair Discharge Order Discharge Orders: Discharge Order (Routine); Ordered 04/07/25 Ordered By: Jn Levin Follow up Plan Follow up with: Jose Elias Max MD [Staff Physician, General Surgery] - 04/15/25 9:45 am Prescriptions/Medication Reconciliation: New linezolid 600 mg Tablet 600 mg PO BID 5 Days Qty: 10 0RF levofloxacin 750 mg tablet 750 mg PO DAILY 5 Days Qty: 5 0RF hydrocodone-acetaminophen 5-325 mg Tablet 1 tab PO Q6HP PRN (Reason: Moderate Pain (4-6)) 3 Days Qty: 12 0RF Problem Reconciliation Problems Reviewed?: Yes Patient Discharge Instructions Patient Instructions: DI for Incision and Drainage of a Skin Abscess, DI for Surgical Site Infection, DI for Sepsis -- Adult, DI for Skin Abscess Print Language: Malagasy Providers Primary Care Provider: Quincy Johnson Admit Provider: Guzman Pineda Attending Provider: Guzman Pineda
--- NOTE | 2025-04-07 14:49 | PC.NURSE ---
PT WAS PRE-MEDICATED PER [facility] FOR DRESSING CHANGE. TOLERATED DRESSING WELL BEFORE DISCHARGE.
--- NOTE | 2025-04-08 10:36 | SW/DCPLANNER ---
Spoke with patient on the phone. Patient stated that she is doing well just nauseous. 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 Patient stated that she is aware of her upcoming appointment. Patient stated that she has no concerns or questions at this time. Ryan Vázquez
== END 2025-04-07 14:50 | disposition home or self-care (01) | DRG 603 ==
LOC: ER 23:19 → 2ND 04-03 05:31
PROVIDERS: Nurse Practitioner Family; Surgery; Admitting Provider Internal Medicine Adolescent Medicine; Emergency Provider Emergency Medicine; PCP Nurse Practitioner Family; Visit Provider Internal Medicine Adolescent Medicine
PROC: 0J980ZZ Drainage of Abdomen Subcutaneous Tissue and Fascia, Open Approach (ICD-10-PCS; principal; 2025-04-04 07:30)
DX: L02.214 Cutaneous abscess of groin (principal); L03.314 Cellulitis of groin; E78.5 Hyperlipidemia, unspecified; E66.811 Obesity, class 1; G47.33 Obstructive sleep apnea (adult) (pediatric); L73.2 Hidradenitis suppurativa; Z68.34 Body mass index [BMI] 34.0-34.9, adult
CPT/HCPCS: 36415; 74177; 80053; 80202; 83036; 83605; 83735; 85007; 85025; 85610; 85651; 86140; 87040; 87070; 87077; 87205; 93005; J0690; J0696; J0736; J1100; J1171; J1885; J2250; J2270; J2405; J3010; J3370; J3372; J7120; Q9967

== ENCOUNTER 2025-04-08 13:12 | Outpatient (CLI) | payer MEDICAID, SELFPAY | END 2025-04-08 13:30 | disposition home or self-care (01) | LOC: INF 13:13 | PROVIDERS: PCP Nurse Practitioner Family; Visit Provider Surgery | DX: L02.214 Cutaneous abscess of groin (principal) | CPT/HCPCS: 99211; G0463 ==

== ENCOUNTER 2025-04-09 11:53 | Outpatient (CLI) | payer MEDICAID, SELFPAY ==
--- OUTSIDE RECORDS SUMMARY | 2025-04-09 12:01 | XMS_ITS | Data Portability ---
Author Organization [facility] Address [address] [place] [address] Care Team Providers Care Cardiovascular Rn Name Role Phone TERRENCE ESCAMILLA Primary Care Provider PAULINA GUZMAN Credentialing Specialist DONNA GRIMALDO JR Forest Fire Officer Assessment No assessment recorded. Plan of Treatment Reminders Order Date Submit Date Provider Last Modified By Organization Details Last Modified Time Details Appointments None recorded. Lab TSH + free T4, serum 2023 024 [facility] (Lab), [address], [place], [address], 16:17:18 CMP, serum or plasma 2023 024 [facility] (Lab), [address], [place], [address], 4 16:17:18 lipid panel, serum 2023 024 [facility] (Lab), [address], [place], [address], 4 16:17:18 CBC w/ auto diff 2023 024 [facility] (Lab), [address], [place], [address], 4 15:27:52 CBC w/ auto diff 2022 023 [facility], [address], [address] [address], [place], [address], 3 01:06:21 CMP, serum or plasma 2022 023 [facility], [address], [place] [address], [place], [address], 3 01:06:22 HbA1c (hemoglobin A1c), blood 2022 023 [facility], [address] [place] [address], [address], 3 13:42:51 urinalysis, dipstick 2022 023 [facility], [address] [place] [address], [address], 3 11:12:55 culture, urine 2022 023 [facility], [address], [place] [address], [place], [address], 3 01:06:23 lipid panel, serum 2022 023 [facility], [address], [place] [address], [place], [address], 3 01:06:23 urinalysis, dipstick 2022 023 [facility], [address] [place] [address], [address], 3 14:49:39 culture, urine 2022 023 [facility], [address], [place] [address], [place], [address], 3 01:06:10 CMP, serum or plasma 2022 023 [facility], [address], [place] [address], [place], [address], 3 10:08:03 CBC w/ auto diff 2022 023 [facility], [address], [place] [address], [place], [address], 3 10:08:02 iron + total iron-bindin g capacity (TIBC), serum 2022 023 [facility], [address], [place] [address], [place], [address], 3 10:08:04 vitamin B12 + folate, serum or blood 2022 023 [facility], [address], [place], [place], [address], 3 10:08:06 PT/PTT, plasma 2022 023 [facility], [address], [place] [address], [place], [address], 3 10:08:05 HbA1c (hemoglobin A1c), blood 2022 023 [facility], [address], [place], [place], [address], 3 10:08:06 lipid panel, serum 2022 023 [facility], [address], [place] [address], [place], [address], 3 10:08:04 Referral urologist referral - blood in urine and flank pain 2022 023 marcos Rodríguez MD (Billy), [address] , [place], [place], [address], 4 11:02:[address] referral 2022 023 bstears Bhavna Kimberly [employer], [address], [place], [address], 3 13:31:44 Procedures None recorded. Surgeries None recorded. Imaging US, thyroid 2023 024 [facility] [address], [place], [address], 4 18:11:25 Medication Orders Lexapro 10 [address] [facility], [address] [place] [address], [address], 4 16:36:29 furosemide 40 mg tablet [address] [facility], [address] [place] [address], [address], 3 11:13:04 atorvastati n 20 mg tablet [address] [facility], [address] [place] [address], [address], 3 11:13:03 amoxicillin 500 mg capsule 2022 023 [facility], [address] [place], [address], 3 10:11:07 ceftriaxone 1 gram solution for injection 2022 023 [facility], [address] [place], [address], 3 10:11:13 ketorolac 30 mg/mL (1 mL) injection solution 2022 023 [facility], [address] [place], [address], 3 10:11:22 [place] 5 mg-325 mg tablet [address] [facility], [address] [place], [address], 3 10:21:32 albuterol sulfate HFA 90 mcg/actuati on aerosol inhaler [facility]22 [facility] [address] [place], [address], 4 16:00:51 Miralax 17 gram/dose oral powder [address] [facility], [address] [place], [address], 09:43:09 Patient TargetsNo targets recorded. Patient InstructionsNo instructions recorded. 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 Referring Physician: Terrence Escamilla [facility], Encounter Date: 02/11/2023 Urologist Referral for Left flank pain blood in urine and flank pain Referring Physician: Terrence Escamilla [facility], Encounter Date: 08/13/2023 Results Created Date Observation Date Name Description Value Unit Range Abnormal Flag Note LastModifiedBy Organization Detail LastModifiedTime 02/12/2002/12/2023 CBC WITH DIFFE RENTI AL/PL ATELE T WBC 8.7 x10e3 /uL 3.4-10 .8 Not Available [facility] ([facility]) [address] [place], [address], 02/12/2023 10:08:02 02/12/20 23 02/12/2023 CBC WITH DIFFE RENTI AL/PL ATELE T RBC 4.47 x10e6 /uL 3.77-5 .28 Not Available [facility] ([facility]) [address] [facility], [place], [address], 02/12/2023 10:08:02 02/12/20 23 02/12/2023 CBC WITH DIFFE RENTI AL/PL ATELE T hemoglobin 14.1 g/dL 11.1-1 5.9 Not Available [facility] ([facility]) [address] [facility], [place], [address], 02/12/2023 10:08:02 02/12/20 23 02/12/2023 CBC WITH DIFFE RENTI AL/PL ATELE T hematocrit 41.3 % 34.0-4 6.6 Not Available [facility] ([facility]) [address] [facility], [place], [address], 02/12/2023 10:08:02 02/12/20 23 02/12/2023 CBC WITH DIFFE RENTI AL/PL ATELE T MCV 92 fL 79-97 Not Available [facility] ([facility]) [address] [facility], [place], [address], 02/12/2023 10:08:02 02/12/20 23 02/12/2023 CBC WITH DIFFE RENTI AL/PL ATELE T MCH 31.5 pg 26.6-3 3.0 Not Available [facility] ([facility]) [address] [facility], [place], [address], 02/12/2023 10:08:02 02/12/20 23 02/12/2023 CBC WITH DIFFE RENTI AL/PL ATELE T MCHC 34.1 g/dL 31.5-3 5.7 Not Available [facility] ([facility]) [address] [place], [address], 02/12/2023 10:08:02 02/12/20 23 02/12/2023 CBC WITH DIFFE RENTI AL/PL ATELE T RDW 12.9 % 11.7-1 5.4 Not Available [facility] ([facility]) [address] [place], [address], 02/12/2023 10:08:02 02/12/20 23 02/12/2023 CBC WITH DIFFE RENTI AL/PL ATELE T platelets 207 x10e3 /uL 150-45 0 Not Available [facility] ([facility]) [address] [facility], [place], [address], 02/12/2023 10:08:02 02/12/20 23 02/12/2023 CBC WITH DIFFE RENTI AL/PL ATELE T neutrophils 58 % not estab. Not Available [facility] ([facility]) [address] [facility], [place], [address], 02/12/2023 10:08:02 02/12/20 23 02/12/2023 CBC WITH DIFFE RENTI AL/PL ATELE T lymphs 34 % not estab. Not Available [facility] ([facility]) [address] [facility], [place], [address], 02/12/2023 10:08:02 02/12/20 23 02/12/2023 CBC WITH DIFFE RENTI AL/PL ATELE T monocytes 6 % not estab. Not Available [facility] ([facility]) [address] [facility], [place], [address], 02/12/2023 10:08:02 02/12/20 23 02/12/2023 CBC WITH DIFFE RENTI AL/PL ATELE T eos 2 % not estab. Not Available [facility] ([facility]) [address] [facility], [place], [address], 02/12/2023 10:08:02 02/12/20 23 02/12/2023 CBC WITH DIFFE RENTI AL/PL ATELE T basos 0 % not estab. 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 0 Not Available [facility] ([facility]) [address] [facility], [place], [address], 02/12/2023 10:08:02 02/12/20 23 02/12/2023 CBC WITH DIFFE RENTI AL/PL ATELE T lymphs (absolute) 2.9 x10e3 /uL 0.7-3. 1 Not Available [facility] ([facility]) [address] [place], [address], 02/12/2023 10:08:02 02/12/20 23 02/12/2023 CBC WITH DIFFE RENTI AL/PL ATELE T monocytes(ab solute) 0.5 x10e3 /uL 0.1-0. 9 Not Available [facility] ([facility]) [address] [facility], [place], [address], 02/12/2023 10:08:02 02/12/20 23 02/12/2023 CBC WITH DIFFE RENTI AL/PL ATELE T eos (absolute) 0.2 x10e3 /uL 0.0-0. 4 Not Available [facility] ([facility]) [address] [place], [address], 02/12/2023 10:08:02 02/12/20 23 02/12/2023 CBC WITH DIFFE RENTI AL/PL ATELE T baso (absolute) 0.0 x10e3 /uL 0.0-0. 2 Not Available [facility] ([facility]) [address] [place], [address], 02/12/2023 10:08:02 02/12/20 23 02/12/2023 CBC WITH DIFFE RENTI AL/PL ATELE T immature granulocytes 0 % not estab. Not Available [facility] ([facility]) [address] [place], [address], 02/12/2023 10:08:02 02/12/20 23 02/12/2023 CBC WITH DIFFE RENTI AL/PL ATELE T immature grans (abs) 0.0 x10e3 /uL 0.0-0. 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 METAB OLIC PANEL (14) glucose 87 mg/dL 70-99 Not Available [facility] ([facility]) [address] [facility], [place], [address], 02/12/2023 10:08:03 02/12/20 23 02/12/2023 COMP. METAB OLIC PANEL (14) BUN 13 mg/dL 6-24 Not Available [facility] ([facility]) [address] [facility], [place], [address], 02/12/2023 10:08:03 02/12/20 23 02/12/2023 COMP. METAB OLIC PANEL (14) creatinine 0.78 mg/dL 0.57-1 .00 Not Available [facility] ([facility]) [address] [facility], [place], [address], 02/12/2023 10:08:03 02/12/20 23 02/12/2023 COMP. METAB OLIC PANEL (14) eGFR 90 mL/mi n/1.7 3 >59 Not Available [facility] ([facility]) [address] [facility], [place], [address], 02/12/2023 10:08:03 02/12/20 23 02/12/2023 COMP. METAB OLIC PANEL (14) BUN/creatini ne ratio 17 9-23 Not Available [facility] ([facility]) [address] [facility], [place], [address], 02/12/2023 10:08:03 02/12/20 23 02/12/2023 COMP. METAB OLIC PANEL (14) sodium 141 mmol/ L 134-14 4 Not Available [facility] ([facility]) [address] [facility], [place], [address], 02/12/2023 10:08:03 02/12/20 23 02/12/2023 COMP. METAB OLIC PANEL (14) potassium 4.1 mmol/ L 3.5-5. 2 Not Available [facility] ([facility]) [address] [facility], [place], [address], 02/12/2023 10:08:03 02/12/20 23 02/12/2023 COMP. METAB OLIC PANEL (14) chloride 102 mmol/ L 96-106 Not Available [facility] ([facility]) [address] [facility], [place], [address], 02/12/2023 10:08:03 02/12/20 23 02/12/2023 COMP. METAB OLIC PANEL (14) carbon dioxide, total 28 mmol/ L 20-29 Not Available [facility] ([facility]) [address] [facility], [place], [address], 02/12/2023 10:08:03 02/12/20 23 02/12/2023 COMP. METAB OLIC PANEL (14) calcium 9.3 mg/dL 8.7-10 .2 Not Available [facility] ([facility]) [address] [facility], [place], [address], 02/12/2023 10:08:03 02/12/20 23 02/12/2023 COMP. METAB OLIC PANEL (14) protein, total 7.0 g/dL 6.0-8. 5 Not Available [facility] ([facility]) [address] [facility], [place], [address], 02/12/2023 10:08:03 02/12/20 23 02/12/2023 COMP. METAB OLIC PANEL (14) albumin 4.6 g/dL 3.8-4. 9 Not Available [facility] ([facility]) [address] [facility], [place], [address], 02/12/2023 10:08:03 02/12/20 23 02/12/2023 COMP. METAB OLIC PANEL (14) globulin, total 2.4 g/dL 1.5-4. 5 Not Available [facility] ([facility]) [address] [facility] [place], [address], 02/12/2023 10:08:03 02/12/20 23 02/12/2023 COMP. METAB OLIC PANEL (14) A/G ratio 1.9 1.2-2. 2 Not Available [facility] ([facility]) [address] [facility] [place], [address], 02/12/2023 10:08:03 02/12/20 23 02/12/2023 COMP. METAB OLIC PANEL (14) bilirubin, total 0.6 mg/dL 0.0-1. 2 Not Available [facility] ([facility]) [address] [facility] [place], [address], 02/12/2023 10:08:03 02/12/20 23 02/12/2023 COMP. METAB OLIC PANEL (14) alkaline phosphatase 78 IU/L 44-121 Not Available [facility] ([facility]) [address] [place], [address], 02/12/2023 10:08:03 02/12/20 23 02/12/2023 COMP. METAB OLIC PANEL (14) AST (SGOT) 23 IU/L 0-40 Not Available [facility] ([facility]) [address] [place], [address], 02/12/2023 10:08:03 02/12/20 23 02/12/2023 COMP. METAB OLIC PANEL (14) ALT (SGPT) 15 IU/L 0-32 Not Available [facility] ([facility]) [address] [place], [address], 02/12/2023 10:08:03 02/12/20 23 02/12/2023 LIPID PANEL cholesterol, total 157 mg/dL 100-19 9 Not Available [facility] ([facility]) [address] [place], [address], 02/12/2023 10:08:04 02/12/20 23 02/12/2023 LIPID PANEL triglyceride s 67 mg/dL 0-149 Not Available [facility] ([facility]) [address] [place], [address], 02/12/2023 10:08:04 02/12/20 23 02/12/2023 LIPID PANEL HDL cholesterol 59 mg/dL >39 Not Available [facility] ([facility]) [address] [place], [address], 02/12/2023 10:08:04 02/12/20 23 02/12/2023 LIPID PANEL VLDL cholesterol heather 13 mg/dL 5-40 Not Available [facility] ([facility]) [address] [place], [address], 02/12/2023 10:08:04 02/12/20 23 02/12/2023 LIPID PANEL LDL chol calc (nih) 85 mg/dL 0-99 Not Available [facility] ([facility]) [address] [facility], [place], [address], 02/12/2023 10:08:04 02/12/20 23 02/12/2023 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 Not Available [facility] ([facility]) [address] [place], [address], 02/12/2023 10:08:04 02/12/20 23 02/12/2023 IRON AND TIBC iron bind.cap.(TI BC) 324 ug/dL 250-45 0 Not Available [facility] ([facility]) [address] [place], [address], 02/12/2023 10:08:04 02/12/20 23 02/12/2023 IRON AND TIBC UIBC 232 ug/dL 131-42 5 Not Available [facility] ([facility]) [address] [facility], [place], [address], 02/12/2023 10:08:04 02/12/20 23 02/12/2023 IRON AND TIBC iron 92 ug/dL 27-159 Not Available [facility] ([facility]) [address] [facility], [place], [address], 02/12/2023 10:08:04 02/12/20 23 02/12/2023 IRON AND TIBC iron saturation 28 % 15-55 Not Available [facility] ([facility]) [address] [place], [address], 02/12/2023 10:08:04 02/12/20 23 02/12/2023 PT AND PTT INR 1.0 0.9-1. 2 Refer ence inter marcelina is for non-a ntico agula felipe patie nts. Sugge sted INR thera peuti c range for Vitam in K antag onist thera py: Stand vinh Dose (mode rate inten sity thera peuti c range ): 2.0 - 3.0 Highe r inten sity thera peuti c range 2.5 - 3.5 Not Available [facility] ([facility]) [address] [facility], [place], [address], 02/12/2023 10:08:05 02/12/20 23 02/12/2023 PT AND PTT prothrombin time 9.9 sec 9.1-12 .0 Not Available [facility] ([facility]) [address] [facility], [place], [address], 02/12/2023 10:08:05 02/12/20 23 02/12/2023 PT AND PTT APTT 30 sec 24-33 This test has not been valid ated for [facility] unfra ction ated hepar in thera py. aPTT- based thera peuti c range s for unfra ction ated hepar in thera py have not been estab cam [employer] guide lines on Hepar in [facility] , refer to the [facility] Direc tory of Dina andres. Not Available [facility] ([facility]) [address] [facility], [place], [address], 02/12/2023 10:08:05 02/12/20 23 02/12/2023 VITAM IN B12 AND FOLAT E vitamin B12 420 pg/mL 232-12 45 Not Available [facility] ([facility]) [address] [facility], [place], [address], 02/12/2023 10:08:05 02/12/2002/12/2023 VITAM IN B12 AND FOLAT E folate (folic acid), serum 8.2 NG/mL >3.0 A serum folat e reese ntrat ion of less than 3.1 ng/mL is consi dered to repre sent clini heather defic iency . Not Available [facility] ([facility]) [address] [facility], [place], [address], 02/12/2023 10:08:05 02/12/2002/12/2023 HEMOG LOBIN A1C hemoglobin A1C 5.6 % 4.8-5. 6 Predi abete s: 5.7 - 6.4 Diabe socrates: >6.4 Glyce deangelo contr ol for adult s with diabe socrates: <7.0 Not Available [facility] ([facility]) [address] [facility], [place], [address], 02/12/2023 10:08:06 06/18/20 23 06/20/2023 URINE CULTU RE, ROUTI NE urine culture, routine Final report Not Available [facility] ([facility]) [address] [facility], [place], [address], 06/20/2023 01:06:10 06/18/20 23 06/20/2023 URINE CULTU RE, ROUTI NE result 1 No growth Not Available [facility] ([facility]) [address] [facility], [place], [address], 06/20/2023 01:06:10 06/18/20 23 06/18/2023 urina lysis , dipst ick Leukocytes Negati ve Not Available [address], [address], 06/18/2023 14:18:36 06/18/20 23 06/18/2023 urina lysis , dipst ick Nitrite negati ve Not Available [address], [address], 06/18/2023 14:18:36 06/18/20 23 06/18/2023 urina lysis , dipst ick Urobilinogen .2 Not Available [facility] [address], [address], 06/18/2023 14:18:36 06/18/20 23 06/18/2023 urina lysis , dipst ick Protein Negati ve Not Available [address], [address], 06/18/2023 14:18:36 06/18/20 23 06/18/2023 urina lysis , dipst ick pH 6.0 Not Available [address], [address], 06/18/2023 14:18:36 06/18/20 23 06/18/2023 urina lysis , dipst ick Blood Non-He molyze d: Trace Not Available [address], [address], 06/18/2023 14:18:36 06/18/20 23 06/18/2023 urina lysis , dipst ick Specific [place] 1.015 Not Available [address], [address], 06/18/2023 14:18:36 06/18/20 23 06/18/2023 urina lysis , dipst ick Ketone Negati ve Not Available [address], [address], 06/18/2023 14:18:36 06/18/20 23 06/18/2023 urina lysis , dipst ick Bilirubin Negati ve Not Available [address], [address], 06/18/2023 14:18:36 06/18/20 23 06/18/2023 urina lysis , dipst ick Glucose Negati ve Not Available [address], [address], 06/18/2023 14:18:36 06/18/20 23 06/18/2023 urina lysis , dipst ick Appearance Clear Not Available [address] [place], [address], 06/18/2023 14:18:36 06/18/2006/18/2023 urina lysis , dipst ick Color Yellow Not Available [address], [address], 06/18/2023 14:18:36 08/13/2008/14/2023 CBC WITH DIFFE RENTI AL/PL ATELE T WBC 9.1 x10e3 /uL 3.4-10 .8 Not Available [facility] ([facility]) [address] [place], [address], 08/15/2023 01:06:21 08/13/2008/14/2023 CBC WITH DIFFE RENTI AL/PL ATELE T RBC 4.18 x10e6 /uL 3.77-5 .28 Not Available [facility] ([facility]) [address] [place], [address], 08/15/2023 01:06:21 08/13/2008/14/2023 CBC WITH DIFFE RENTI AL/PL ATELE T hemoglobin 13.0 g/dL 11.1-1 5.9 Not Available [facility] ([facility]) [address] [place], [address], 08/15/2023 01:06:21 08/13/2008/14/2023 CBC WITH DIFFE RENTI AL/PL ATELE T hematocrit 38.8 % 34.0-4 6.6 Not Available [facility] ([facility]) [address] [place], [address], 08/15/2023 01:06:21 08/13/2008/14/2023 CBC WITH DIFFE RENTI AL/PL ATELE T MCV 93 fL 79-97 Not Available [facility] ([facility]) [address] [place], [address], 08/15/2023 01:06:21 08/13/2008/14/2023 CBC WITH DIFFE RENTI AL/PL ATELE T MCH 31.1 pg 26.6-3 3.0 Not Available [facility] ([facility]) [address] [facility], [place], [address], 08/15/2023 01:06:21 08/13/2008/14/2023 CBC WITH DIFFE RENTI AL/PL ATELE T MCHC 33.5 g/dL 31.5-3 5.7 Not Available [facility] ([facility]) [address] [place], [address], 08/15/2023 01:06:21 08/13/2008/14/2023 CBC WITH DIFFE RENTI AL/PL ATELE T RDW 12.8 % 11.7-1 5.4 Not Available [facility] ([facility]) [address] [facility], [place], [address], 08/15/2023 01:06:21 08/13/2008/14/2023 CBC WITH DIFFE RENTI AL/PL ATELE T platelets 178 x10e3 /uL 150-45 0 Not Available [facility] ([facility]) [address] [place], [address], 08/15/2023 01:06:21 08/13/2008/14/2023 CBC WITH DIFFE RENTI AL/PL ATELE T neutrophils 56 % not estab. Not Available [facility] ([facility]) [address] [place], [address], 08/15/2023 01:06:21 08/13/2008/14/2023 CBC WITH DIFFE RENTI AL/PL ATELE T lymphs 37 % not estab. Not Available [facility] ([facility]) [address] [place], [address], 08/15/2023 01:06:21 08/13/2008/14/2023 CBC WITH DIFFE RENTI AL/PL ATELE T monocytes 5 % not estab. Not Available [facility] ([facility]) 0 [facility], [place], [address], 08/15/2023 01:06:21 08/13/2008/14/2023 CBC WITH DIFFE RENTI AL/PL ATELE T eos 2 % not estab. Not Available [facility] ([facility]) [address] [facility], [place], [address], 08/15/2023 01:06:21 08/13/2008/14/2023 CBC WITH DIFFE RENTI AL/PL ATELE T basos 0 % not estab. 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 0 Not Available [facility] ([facility]) [address] [facility], [place], [address], 08/15/2023 01:06:21 08/13/2008/14/2023 CBC WITH DIFFE RENTI AL/PL ATELE T lymphs (absolute) 3.3 x10e3 /uL 0.7-3. 1 above high normal Not Available [facility] ([facility]) [address] [facility], [place], [address], 08/15/2023 01:06:21 08/13/2008/14/2023 CBC WITH DIFFE RENTI AL/PL ATELE T monocytes(ab solute) 0.5 x10e3 /uL 0.1-0. 9 Not Available [facility] ([facility]) [address] [facility], [place], [address], 08/15/2023 01:06:21 08/13/2008/14/2023 CBC WITH DIFFE RENTI AL/PL ATELE T eos (absolute) 0.2 x10e3 /uL 0.0-0. 4 Not Available [facility] ([facility]) [address] [facility], [place], [address], 08/15/2023 01:06:21 08/13/2008/14/2023 CBC WITH DIFFE RENTI AL/PL ATELE T baso (absolute) 0.0 x10e3 /uL 0.0-0. 2 Not Available [facility] ([facility]) [address] [facility], [place], [address], 08/15/2023 01:06:21 08/13/2008/14/2023 CBC WITH DIFFE RENTI AL/PL ATELE T immature granulocytes 0 % not estab. Not Available [facility] ([facility]) [address] [facility], [place], [address], 08/15/2023 01:06:21 08/13/2008/14/2023 CBC WITH DIFFE RENTI AL/PL ATELE T immature grans (abs) 0.0 x10e3 /uL 0.0-0. 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 METAB OLIC PANEL (14) glucose 86 mg/dL 70-99 Not Available [facility] ([facility]) [address] [facility], [place], [address], 08/15/2023 01:06:22 08/13/20 23 08/14/2023 COMP. METAB OLIC PANEL (14) BUN 12 mg/dL 6-24 Not Available [facility] ([facility]) [address] [facility], [place], [address], 08/15/2023 01:06:22 08/13/20 23 08/14/2023 COMP. METAB OLIC PANEL (14) creatinine 0.77 mg/dL 0.57-1 .00 Not Available [facility] ([facility]) [address] [facility], [place], [address], 08/15/2023 01:06:22 08/13/20 23 08/14/2023 COMP. METAB OLIC PANEL (14) eGFR 92 mL/mi n/1.7 3 >59 Not Available [facility] ([facility]) [address] [facility], [place], [address], 08/15/2023 01:06:22 08/13/20 23 08/14/2023 COMP. METAB OLIC PANEL (14) BUN/creatini ne ratio 16 9-23 Not Available [facility] ([facility]) [address] [facility], [place], [address], 08/15/2023 01:06:22 08/13/20 23 08/14/2023 COMP. METAB OLIC PANEL (14) sodium 142 mmol/ L 134-14 4 Not Available [facility] ([facility]) [address] [place], [address], 08/15/2023 01:06:22 08/13/2008/14/2023 COMP. METAB OLIC PANEL (14) potassium 3.9 mmol/ L 3.5-5. 2 Not Available [facility] ([facility]) [address] [place], [address], 08/15/2023 01:06:22 08/13/2008/14/2023 COMP. METAB OLIC PANEL (14) chloride 103 mmol/ L 96-106 Not Available [facility] ([facility]) [address] [facility] [place], [address], 08/15/2023 01:06:22 08/13/20 23 08/14/2023 COMP. METAB OLIC PANEL (14) carbon dioxide, total 25 mmol/ L 20-29 Not Available [facility] ([facility]) [address] [facility] [place], [address], 08/15/2023 01:06:22 08/13/2008/14/2023 COMP. METAB OLIC PANEL (14) calcium 8.9 mg/dL 8.7-10 .2 Not Available [facility] ([facility]) [address] [facility] [place], [address], 08/15/2023 01:06:22 08/13/2008/14/2023 COMP. METAB OLIC PANEL (14) protein, total 6.3 g/dL 6.0-8. 5 Not Available [facility] ([facility]) [address] [facility] [place], [address], 08/15/2023 01:06:22 08/13/2008/14/2023 COMP. METAB OLIC PANEL (14) albumin 4.2 g/dL 3.8-4. 9 Not Available [facility] ([facility]) [address] [facility] [place], [address], 08/15/2023 01:06:22 08/13/20 23 08/14/2023 COMP. METAB OLIC PANEL (14) globulin, total 2.1 g/dL 1.5-4. 5 Not Available [facility] ([facility]) [address] [facility] [place], [address], 08/15/2023 01:06:22 08/13/20 23 08/14/2023 COMP. METAB OLIC PANEL (14) A/G ratio 2.0 1.2-2. 2 Not Available [facility] ([facility]) [address] [facility] [place], [address], 08/15/2023 01:06:22 08/13/2008/14/2023 COMP. METAB OLIC PANEL (14) bilirubin, total 0.9 mg/dL 0.0-1. 2 Not Available [facility] ([facility]) [address] [facility], [place], [address], 08/15/2023 01:06:22 08/13/2008/14/2023 COMP. METAB OLIC PANEL (14) alkaline phosphatase 72 IU/L 44-121 Not Available [facility] ([facility]) [address] [facility], [place], [address], 08/15/2023 01:06:22 08/13/20 23 08/14/2023 COMP. METAB OLIC PANEL (14) AST (SGOT) 18 IU/L 0-40 Not Available [facility] ([facility]) [address] [facility] [place], [address], 08/15/2023 01:06:22 08/13/2008/14/2023 COMP. METAB OLIC PANEL (14) ALT (SGPT) 11 IU/L 0-32 Not Available [facility] ([facility]) [address] [facility], [place], [address], 08/15/2023 01:06:22 08/13/2008/14/2023 LIPID PANEL cholesterol, total 126 mg/dL 100-19 9 Not Available [facility] ([facility]) [address] [place], [address], 08/15/2023 01:06:22 08/13/2008/14/2023 LIPID PANEL triglyceride s 72 mg/dL 0-149 Not Available [facility] ([facility]) [address] [facility], [place], [address], 08/15/2023 01:06:22 08/13/2008/14/2023 LIPID PANEL HDL cholesterol 58 mg/dL >39 Not Available [facility] ([facility]) [address] [facility], [place], [address], 08/15/2023 01:06:22 08/13/2008/14/2023 LIPID PANEL VLDL cholesterol heather 15 mg/dL 5-40 Not Available [facility] ([facility]) [address] [facility], [place], [address], 08/15/2023 01:06:22 08/13/2008/14/2023 LIPID PANEL LDL chol calc ([facility]) 53 mg/dL 0-99 Not Available [facility] ([facility]) [address] [facility], [place], [address], 08/15/2023 01:06:22 08/13/2008/14/2023 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 This colon y count is not gener ally consi dered to be clini mynor signi kenia t. Not Available [facility] ([facility]) [address] [facility], [place], [address], 08/15/2023 01:06:23 08/13/2008/14/2023 PLEDILLON E NOTE please note Commen t The date and/o r time of colle ction was not indic ated on the requi sitio n as requi red by state and princess al law. The date of recei pt of the speci men was used as the colle ction date if not suppl ied. Not Available [facility] ([facility]) [address] [facility], [place], [address], 08/15/2023 01:06:24 08/13/2008/13/2023 HbA1c (hemo globi n A1c), blood HbA1C % Not Available [address], [address], 08/13/2023 11:13:22 08/13/20 23 08/13/2023 urina lysis , dipst ick Leukocytes Negati ve Not Available [address], [address], 08/13/2023 10:28:22 08/13/20 23 08/13/2023 urina lysis , dipst ick Nitrite negati ve Not Available [address], [address], 08/13/2023 10:28:22 08/13/20 23 08/13/2023 urina lysis , dipst ick Urobilinogen .2 Not Available Maynak oneill [address], [address], 08/13/2023 10:28:22 08/13/2008/13/2023 urina lysis , dipst ick Protein Negati ve Not Available [address], [address], 08/13/2023 10:28:22 08/13/2008/13/2023 urina lysis , dipst ick pH 6.0 Not Available [address], [address], 08/13/2023 10:28:22 08/13/2008/13/2023 urina lysis , dipst ick Blood Non-He molyze d: Trace Not Available [address], [address], 08/13/2023 10:28:22 08/13/2008/13/2023 urina lysis , dipst ick Specific [place] 1.015 Not Available [address], [address], 08/13/2023 10:28:22 08/13/2008/13/2023 urina lysis , dipst ick Ketone Negati ve Not Available [address], [address], 08/13/2023 10:28:22 08/13/2008/13/2023 urina lysis , dipst ick Bilirubin Negati ve Not Available [address], [address], 08/13/2023 10:28:22 08/13/20 23 08/13/2023 urina lysis , dipst ick Glucose Negati ve Not Available [address] [place], [address], 08/13/2023 10:28:22 08/13/20 23 08/13/2023 urina lysis , dipst ick Appearance Clear Not Available [address], [place], [address], 08/13/2023 10:28:22 08/13/20 23 08/13/2023 urina lysis , dipst ick Color Dark Yellow Not Available [address], [place], [address], 08/13/2023 10:28:22 03/26/20 23 03/26/2023 US, abdom en, compl ete No observ ation record ed. [address], [place], [address], 03/26/2023 10:14:13 08/28/20 24 08/27/2024 US, thyro id No observ ation record ed. [place] [address], [place], [address], 08/31/2024 13:53:16 01/10/20 25 01/08/2025 XR, chest , 2 view No observ ation record ed. [place] [id number], [place], [address], 01/11/2025 08:28:44 03/30/20 25 03/30/2025 CT, abdom en + pelvi s, w/ contr ast No observ ation record ed. [place] [id number], [place], [address], 04/05/2025 09:35:04 04/02/20 25 04/02/2025 CT, abdom en + pelvi s, w/ contr ast No observ ation record ed. [place] [id number], [place], [address], 04/05/2025 09:48:03 04/03/20 25 04/02/2025 alex weber am No observ ation record ed. [email or web address] [address], [place], [address], 04/05/2025 09:47:44 Result Notes None recorded. Problems Name Problem SNOMED Code Status Onset Date Resolution Date Notes Provider Name and Address Organization Details Recorded Time Heart disease 05508028 Active 2021 Terrence Escamilla, [employer] [address], [place], [address], [place] - [facility] 16:44:49 Hypertensive disorder 74480847 Active 2021 Terrence Escamilla, [employer] [address], [place], [address], [place] [facility] 16:44:54 Hypercholester olemia 60328884 Active 2021 Terrence Escamilla, [employer] [address], [place], [address], [place] [facility] 16:44:51 Prediabetes 451946407 Active 2022 Terrence Escamilla, [employer] [address], [place], [address], [place] [facility] 3 09:37:27 Asthma 646132624 Active 2022 Terrence Escamilla, [employer] [address], [place], [address], [place] [facility] 3 11:05:49 Problem Notes None recorded. Procedures Surgical History Date Name Laterality Status Provider Name and Address Organization Details Recorded Time excision of squamous cell carcinoma completed Linda Stears [place] - [facility] 08/14/2022 16:11:17 Cholecystectomy, laparoscopic completed Linda Stears [place] - [facility] 08/14/2022 16:11:53 Hysterectomy completed Linda Stears [place] [facility] 08/14/2022 16:12:05 Tubal Ligation completed Linda Stears [place] [facility] 08/14/2022 16:12:16 procedure on skin completed Linda Stears [place] [facility] 08/14/2022 16:13:48 dental surgery completed Linda Stears [place] [facility] 08/14/2022 16:13:53 cardiac catheterization completed Linda Stears [place] [facility] 08/14/2022 17:10:53 Colonoscopy completed Linda Stears [place] [facility] 08/14/2022 17:11:51 Imaging Results None recorded. Procedure Notes None recorded. Medical Equipment None Reported. Allergies Allergen ID Allergen Name Allergen Category Reaction Reaction Severity Criticality Documentation Date Start Date Code Code System Note Provider Name and Address Organization Details Recorded Time 921123 morphine medicatio n Not available Not available Not available 08/14/2022 7052 RxNorm Linda Stears null, [place] - [facility] 16:05:56 Medications Name Sig Start Date Stop Date Status Note LastModified by Organization Details LastModified Time Miralax 17 gram oral powder packet Take 1 packet every day by oral route as directed . 05/10 completed samples given in office today 02/11/23 x 7 packets Not Available Not Available Not Available amoxicill in 500 mg capsule TAKE 1 CAPSULE BY MOUTH TWICE DAILY FOR 10 DAYS 08/13 completed Not Available Not Available Not Available furosemid e 40 mg tablet TAKE 1 TABLET BY MOUTH ONCE DAILY active Not Available Not Available No t Available atorvasta tin 20 mg tablet TAKE 1 TABLET BY MOUTH ONCE DAILY FOR CHOLESTE ROL 2023 active Not Available Not Available Not Avai lable hydrocodo ne 5 mg-acetam inophen 325 mg tablet TAKE 1 TABLET BY MOUTH TWICE DAILY FOR 2 DAYS 08/13 completed Not Available Not Available Not Available minocycli ne 100 mg capsule TAKE 1 CAPSULE BY MOUTH TWICE DAILY FOR 10 DAYS active Not Available Not Available No t Available penicilli n V potassium 500 mg tablet TAKE 1 TABLET BY MOUTH EVERY 12 HOURS 08/14 completed Not Available Not Available Not Available metronida zole 500 mg tablet TAKE 1 TABLET BY MOUTH EVERY 8 HOURS FOR 10 DAYS 08/14 completed Not Available Not Available Not Available omeprazol e 40 mg capsule,d elayed release TAKE 1 CAPSULE BY MOUTH ONCE DAILY active Not Available Not Available No t Available spironola ctone 25 mg tablet Take 1 tablet by mouth once daily 08/20 completed Not Available Not Available Not Available ketorolac 30 mg/mL (1 mL) injection solution Inject 1 mL every 6 hours by intramus cular route. 08/13 completed Not Available Not Available Not Available bisoprolo l fumarate 5 mg tablet TAKE 1 TABLET BY MOUTH ONCE DAILY active Not Available Not Available No t Available ceftriaxo ne 1 gram solution for injection Take 1 g by injectio n route. 08/13 completed Not Available Not Available Not Available famotidin e 20 mg tablet TAKE 2 TABLETS BY MOUTH ONCE DAILY active Not Available Not Available No t Available hyoscyami ne sulfate 0.125 mg tablet Take 1 tablet every 6-8 hours by oral route as needed. 08/20 completed Not Available Not Available Not Available buspirone 10 mg tablet TAKE 1/2 TABLET BY MOUTH EVERY NIGHT AT BEDTIME FOR 5 TO 7 DAYS. AND THEN 1 TABLET BY MOUTH DAILY AT BEDTIME FOR 5 TO 7 DAYS. THEN 1 TABLET TWICE DAILY THEREAFT ER. 08/20 completed Not Available Not Available Not Available monteluka st 10 mg tablet TAKE 1 TABLET BY MOUTH ONCE DAILY FOR ALLERGIE S . APPOINTM ENT REQUIRED FOR FUTURE REFILLS 08/20 completed Not Available Not Available Not Available mupirocin 2 % topical ointment APPLY TOPICALL Y TO ABSCESS TWICE DAILY FOR 10 DAYS active Not Available Not Available No t Available ibuprofen 600 mg tablet TAKE 1 TABLET BY MOUTH EVERY 8 HOURS NEEDED FOR PAIN 08/14 completed Not Available Not Available Not Available polyethyl mile glycol 3350 17 gram/dose oral powder MIX 17 GRAMS OF POWDER IN 8 OUNCES OF LIQUID AND DRINK ONCE DAILY active Not Available Not Available No t Available levofloxa annita 500 mg tablet TAKE 1 TABLET BY MOUTH ONCE DAILY FOR 10 DAYS 08/14 completed Not Available Not Available Not Available albuterol sulfate HFA 90 mcg/actua tion aerosol inhaler INHALE 2 PUFFS BY MOUTH EVERY 4 HOURS NEEDED 08/20 completed Not Available Not Available Not Available Citrucel (sucrose) oral powder Take 1 g by oral route. active Not Available Not Available No t Available fluticaso ne propionat e 50 mcg/actua tion nasal spray,[employer] USE 1 SPRAY(S) IN EACH NOSTRIL ONCE DAILY 08/20 completed Not Available Not Available Not Available Adult Low Dose Aspirin 81 mg tablet,de layed release Take 1 tablet every day by oral route. active Not Available Not Available No t Available escitalop [place] 10 mg tablet TAKE 1 TABLET BY MOUTH ONCE DAILY active Not Available Not Available No t Available GaviLyte- G 236 gram-22.7 4 gram-6.74 gram-5.86 gram oral solution TAKE DIRECTED 02/11 completed Not Available Not Available Not Available Vitals Date Recorded Body height Body mass index (BMI) Body weight Body temperature Heart rate Oxygen saturation Oxygen saturation in Arterial blood by Pulse oximetry Respiratory rate Systolic blood pressure Diastolic blood pressure Provider Name and Address Organization Details Last Updated DateTime 3 167.64 cm 28.7 kg/m2 42346.4 4 g 96.8 [degF] 72 /min 97 % 97 % 20 /min 122 mm[Hg] 68 mm[Hg] Donna Elizabeth [facility] 3 08:55:17 Date Recorded Body height Body mass index (BMI) Body weight Body temperature Heart rate Oxygen saturation Oxygen saturation in Arterial blood by Pulse oximetry Respiratory rate Systolic blood pressure Diastolic blood pressure Provider Name and Address Organization Details Last Updated DateTime 3 167.64 cm 28.8 kg/m2 00427.2 4 g 97.6 [degF] 67 /min 98 % 98 % 18 /min 116 mm[Hg] 70 mm[Hg] Donna Elizabeth [facility] 3 09:58:42 Date Recorded Body height Body mass index (BMI) Body weight Provider Name and Address Organization Details Last Updated DateTime 06/18/2023 167.64 cm 29.6 kg/m2 48634.1 g Donna Elizabeth [facility] 06/18/2023 14:09:31 Date Recorded Body height Body mass index (BMI) Body weight Body temperature Heart rate Oxygen saturation Oxygen saturation in Arterial blood by Pulse oximetry Respiratory rate Systolic blood pressure Diastolic blood pressure Provider Name and Address Organization Details Last Updated DateTime 3 167.64 cm 30.1 kg/m2 07470.9 8 g 98 [degF] 64 /min 97 % 97 % 18 /min 108 mm[Hg] 72 mm[Hg] Donna Glenn [place] - [facility] 3 10:20:18 Date Recorded Body height Body mass index (BMI) Body weight Heart rate Respiratory rate Oxygen saturation Oxygen saturation in Arterial blood by Pulse oximetry Systolic blood pressure Diastolic blood pressure Provider Name and Address Organization Details Last Updated DateTime 4 167.64 cm 34.1 kg/m2 11299.9 9 g 82 /min 18 /min 95 % 95 % 124 mm[Hg] 78 mm[Hg] Linda Hunter [place] - [facility] 4 16:00:06 Social History Question Answer Notes LastModified by Organizat ion Details LastModified Time Tobacco Smoking Status Current Every Day Smoker Linda Bernabeaman [facility] [place] - [facility] 08/14/2022 16:05:44 Do You Have An Advance Directive? No Information not available 08/14/2022 How Many Years Have You Consumed Alcohol? 5 Information not available 08/14/2022 Are You Blind Or Do You Have Difficulty Seeing? No Wears Glasses Information not available 08/14/2022 Is Blood Transfusion Acceptable In An Emergency? Yes Information not available 08/14/2022 What Is Your Level Of Caffeine Consumption? Moderate Information not available 08/14/2022 How Much Tobacco Do You Chew? None Information not available 08/14/2022 In The 14 Days Before Symptom Onset, Have You Had Close Contact With A Laboratory-confir med COVID-19 While That Case Was Ill? No Information not available 08/13/2023 In The 14 Days Before Symptom Onset, Have You Had Close Contact With A Person Who Is Under Investigation For COVID-19 While That Person Was Ill? No Information not available 08/13/2023 Have You Been To An Area Known To Be High Risk For COVID-19? No Information not available 08/13/2023 Are You Deaf Or Do You Have Serious Difficulty Hearing? No Information not available 08/14/2022 What Type Of Diet Are You Following? REGULAR Information not available 08/14/2022 Which Illicit Or Recreational Drugs Have You Used? None Information not available 08/14/2022 Have You Processed Blood Or Body Fluids From An Ebola Virus Disease Patient Without Appropriate PPE? No Information not available 08/13/2023 Do You Reside In Or Have You Traveled To An Area Where Ebola Virus Transmission Is Active? No Information not available 08/13/2023 What Is The Highest Grade Or Level Of School You Have Completed Or The Highest Degree You Have Received? [id number] Information not available 08/14/2022 Have There Been Any Changes To Your Family Or Social Situation? No Information no t available 08/14/2022 What Is The Fluoride Status Of Your Home? Unknown Information not available 08/14/2022 Have You Recently Or Are You Planning To Travel To An Area With Zika Virus? No Information not available 08/13/2023 How Many Years Have You Used Illicit Or Recreational Drugs? 0 Information not available 08/14/2022 Do You Have A Medical Power Of Director Part? No Information not available 08/14/2022 What Was The Date Of Your Most Recent Tobacco Screening? 08/20/2024 Information not available 08/20/2024 How Many Children Do You Have? 2 Information not available 08/14/2022 What Is Your Current Pack Years? 30ormorepack years Information not available 08/20/2024 Do You Use Protection During Sex? No Information not available 08/14/2022 Do You Use Protection Against STDs? No Information not available 08/14/2022 What Is Your Relationship Status? Information not available 08/14/2022 Do You Use Your Seat Belt Or Car Seat Routinely? Yes Information not available 08/14/2022 Are You Sexually Active? Yes Information not available 08/14/2022 Do You Have Smoke And Carbon Monoxide Detectors In Your Home? Yes Information not available 08/14/2022 At What Age Did You Start Smoking Tobacco? 11 Information not available 08/14/2022 Are You Passively Exposed To Smoke? Yes Information no t available 08/14/2022 How Much Tobacco Do You Smoke? 1 PPD Information not available 08/14/2022 Do You Use Sunscreen Routinely? No Information not available 08/14/2022 Has Tobacco Cessation Counseling Been Provided? No Information not available 08/20/2024 How Many Years Have You Smoked Tobacco? 42 Information not available 08/20/2024 Do You Have Difficulty Walking Or Climbing Stairs? No Information not available 08/14/2022 Which Type Of Protection Is Used? None Information not available 08/14/2022 Sex: Female Functional Status Question Answer Note LastModified by Organizat ion Details LastModified Time Do you use any illicit or recreational drugs? No Information not available 08/14/2022 Do you or have you ever used any other forms of tobacco or nicotine? No Information not available 08/20/2024 What is your level of alcohol consumption? Occasional Information not available 08/14/2022 Are you currently employed? No Information not available 08/14/2022 Do you have transportation difficulties? No Information not available 08/14/2022 Are you able to walk? YESWOREST Information not available 08/14/2022 Do you have difficulty doing errands alone? No Information not available 08/14/2022 Are you able to care for yourself? Yes Information n ot available 08/14/2022 Do you have difficulty dressing or bathing? No Information not available 08/14/2022 Do you or have you ever used e-cigarettes or vape? Never used electronic cigarettes Information not available 08/14/2022 What is your exercise level? None Information not available 08/14/2022 Mental Status Question Answer Note LastModified by Organizat ion Details LastModified Time Do you feel stressed (tense, restless, nervous, or anxious, or unable to sleep at night)? [id number] Information not available 08/14/2022 Do you have difficulty concentrating, remembering or making decisions? No Information no t available 08/14/2022 Family History Relationship Description Onset Age of this Age Resolved Age Notes LastModified by Organization Details LastModified Time Mother Dementia bstears Not available 08/14/2022 16:05:43 Medical History Condition Response Allergies/Hayfever Y Kidney Stones Y Vision or Eye Problems Y Arthritis Y Cancer Y Hypercholesterolemia Y Sleep Apnea Y Headaches Y Hypertension Y Gynecological History Statement/Question Response Abnormal Pap N Date of Last Mammogram Date of LMP 04/02/1994 STIs/STDs N HPV Vaccine N Duration of Flow (days) 0 Current Control Method None Age at Menarche 11 Age at First Child 19 Date of Last Colonoscopy Frequency of Cycle (Q days) 0 Most Recent Bone Density Sexually Active? Y Menses Monthly N Date of Last Pap Smear Sexual Problems? N Hormone Replacement Therapy N Obstetrics History GPAL:G 0 P 0 0 0 0 Immunizations Vaccine Type Date Status Note Provider Nam e and Address Organization Details Recorded Time Td (adult), 2 Lf tetanus toxoid, preservative free, adsorbed 7 completed Donna parker, [facility] 08/21/2022 15:30:26 pneumococcal polysaccharide PPV23 8 [facility] 11/13/2022 15:48:48 Influenza, split virus, quadrivalent, PF 9 completed Donna parker, [facility] 11/13/2022 15:48:48 COVID-19 vaccine, vector-nr, rS-Ad26, PF, 0.5 mL 1 [facility] 11/13/2022 15:48:48 Influenza, split virus, trivalent, PF 8 [facility] 11/13/2022 15:48:48 Past Encounters Encounter ID Performer Location Encounter Start Date Encounter Closed Date Diagnosis/Indication Diagnosis SNOMED-CT Code Diagnosis ICD10 Code Diagnosis Note [id number] Terrence Escamilla APRN [address] [address] 08/14/2022 15:40:07 08/14/2022 17:48:34 Heart disease 15861378 I51.9 Hypercholesterolemia 136 98687 E78.00 Hypertensive disorder 38 412325 I10 Fatigue 64359731 R53.83 Right uppe r quadrant pain 931733071 R10.11 Screening for malignant neoplasm of breast 398840956 Z12.39 [id number] Eugonda Fryman[address] [address] 11/13/2022 15:28:56 11/13/2022 16:42:08 Gastroesophageal reflux disease 473509412 K21.9 follow up with cardiology also Menopausal flushing 1983 74844 N95.1 Hypoglycemia 613149402 E 16.2 see log no glucose under 76 [id number] [facility] [address] [address] 02/11/2023 08:46:35 02/11/2023 10:07:12 Heart disease 60436171 I51.9 Hypertensive disorder 38 398703 I10 Hypercholesterolemia 136 47590 E78.00 Prediabetes 406296252 R7 3.03 Easy bruising 733490087 R58 Skin lesion 90713529 L98 .9 Constipation 72702775 K5 9.00 [id number] [facility] [place] [address] 05/10/2023 09:41:48 05/10/2023 10:57:11 Hypertensive disorder 53229962 I10 labs next visit Prediabetes 793381088 R7 3.03 labs next visit Asthma 642959220 J45.90 9 [id number] [facility] [place] [address] 06/18/2023 13:59:46 06/18/2023 15:06:06 Acute urinary tract infection 764053543 N39.0 Dental abscess 242690841 K04.7 Left flank pain 81301321 9 R10.9 Low back pain 280175375 M54.50 [id number] [facility] [address] [address] 08/13/2023 10:06:55 08/13/2023 11:39:41 Hypercholesterolemia 86217155 E78.00 Hypertensive disorder 38 087451 I10 Left flank pain 41685226 9 R10.9 pt freq has blood in urine will refer to urology for more work up Prediabetes 660375949 R7 3.03 Heart disease 49035725 I 51.9 [id number] Terrence Escamilla APRN [facility] [address] [place] [address] 08/20/2024 15:49:15 08/20/2024 16:15:30 Mixed anxiety and depressive disorder 949872582 F41.8 Patient identified triggers for anxiety and impact of anxious thinking on functionin g. Discussed strategies to regulate symptoms and need for compliance with treatment. 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 Heart disease 93835459 I 51.9 Hypercholesterolemia 136 23612 E78.00 Hypertensive disorder 38 170490 I10 Health Concerns Section Related Observation LastModified by Organization Detai ls LastModified Time None Recorded Concern Status LastModified by Organization Details LastModified Time None Recorded Advance Directives Directive N: Payers Insurance Date Sequence Insurance Name Policy Number Policy Bernal Covered Member ID Bernal Member ID Guarantor Name 08/20/2024 1 [employer] (MEDICAID REPLACEMENT - HMO) Maura Thorne [id number] Maura Thorne 10/16/2024 1 [employer] (MEDICAID REPLACEMENT - HMO) Maura Thorne [id number] Maura Thorne 11/13/2022 1 [place] [id number] - INDIVIDUAL MEDICAL PLAN (HMO) Maura Thorne [id number] Maura Thorne 10/16/2024 MEDICAID-ID - FORMERLY [facility], 1928–1983 WRAP BILLING (MEDICAID) Maura Thorne [id number] Maura Thorne 08/20/2024 1 [facility] Maura Thorne [id number] Maura Thorne Notes Date Note Type Note Provider Name and Address Organization Details Recorded Time 02/11/2023 text/html 52 yr old female presents to follow up on chronic conditions.pt states she has been bruising easypt states the mass on left face seems to be getting bigger- hx of skin cancerpt states she has her egd/colonoscopy and was told she had constipation, placed on miralax and benefiber daily. Terrence Escamilla APRN [address], [place], [address], [place] - [facility] 02/11/2023 10:29:46 05/10/2023 text/html 52 yr old female presents to follow up on hypertension and pre diabetes. She would like a rescue inhaler for her copd/asthma pt states she is doing well Terrence Escamilla APRN [address], [place], [address], [place] - [facility] 06/06/2023 14:38:54 06/18/2023 text/html 52 yr old female presents for gum abbess and possible uti.pt states she has pus abscess to gums. pt states she can feel and taste infectionleft flank pain, and freq Terrence Escamilla [employer] [address], [place], [address], [place] - [facility] 06/18/2023 15:45:47 08/13/2023 text/html 52 yr old female presents for lab work and possible uti. pt states she is having flank pain on the left that has been coming and going for awhile.pt states she needs med refills and labs for her chronic conditions.hx predm,heart dz,htn, hyperlipidemia Terrence Escamilla APRN [address], [place], [address], [place] - [facility] 08/13/2023 11:23:39 08/20/2024 text/html Maura is a 53 ye ar old female who presents to the office today with concerns ofanxiety/depression - just passed awaynodule on right neck- trouble swallowingpain in left side of abdomen Terrence EscamillaMARGO [address], [place], [address], [place] - [facility] 08/31/2024 14:36:05 OBGyn Episode No OBEpisode recorded.
== END 2025-04-09 12:15 | disposition home or self-care (01) ==
LOC: INF 11:54
PROVIDERS: PCP Nurse Practitioner Family; Visit Provider Surgery
DX: L02.214 Cutaneous abscess of groin (principal)
CPT/HCPCS: 99211; G0463

== ENCOUNTER 2025-04-10 12:51 | Outpatient (CLI) | payer MEDICAID, SELFPAY ==
--- OUTSIDE RECORDS SUMMARY | 2025-04-10 12:55 | XMS_ITS | Data Portability ---
Author Organization [facility] Address [address] [place] [address] Care Team Providers Care Sales Representative Aircraft Name Role Phone TERRENCE ESCAMILLA Primary Care Provider PAULINA GUZMAN Glassware Verifier DONNA GRIMALDO JR Spring Layer Assessment No assessment recorded. Plan of Treatment Reminders Order Date Submit Date Provider Last Modified By Organization Details Last Modified Time Details Appointments None recorded. Lab TSH + free T4, serum 2023 024 [facility] (Lab), [address], [place], [address], 16:17:18 CMP, serum or plasma 2023 024 [facility] (Lab), [address], [place], [address], 4 16:17:18 lipid panel, serum 2023 024 [facility] (Lab), [address], [place], [address], 4 16:17:18 CBC w/ auto diff 2023 024 [facility] (Lab), [address], [place], [address], 4 15:27:52 CBC w/ auto diff 2022 023 [facility], [address], [address], [place], [address], 3 01:06:21 CMP, serum or plasma 2022 023 [facility], [address], [place] [address], [place], [address], 3 01:06:22 HbA1c (hemoglobin A1c), blood 2022 023 [facility], [address] [place] [address], [address], 3 13:42:51 urinalysis, dipstick 2022 023 [facility], [address] [place] [address], [phone], 3 11:12:55 culture, urine 2022 023 [facility], [address], [place] [address], [place], [address], 3 01:06:23 lipid panel, serum 2022 023 [facility], [address], [place] [address], [place], [address], 3 01:06:23 urinalysis, dipstick 2022 023 [facility], [address] [place] [address], [address], 3 14:49:39 culture, urine 2022 023 [facility], [address], [address] [address], [place], [address], 3 01:06:10 CMP, serum or plasma 2022 023 [facility], [address], [place] [address], [place], [address], 3 10:08:03 CBC w/ auto diff 2022 023 [facility], [address], [place] [address], [place], [address], 3 10:08:02 iron + total iron-bindin g capacity (TIBC), serum 2022 023 [facility], [address], [place] [address], [place], [address], 3 10:08:04 vitamin B12 + folate, serum or blood 2022 023 [facility], [address], [place] [address], [place], [address], 3 10:08:06 PT/PTT, plasma 2022 023 [facility], [address], [place] [address], [place], [address], 3 10:08:05 HbA1c (hemoglobin A1c), blood 2022 023 [facility], [address], [place] [address], [place], [address], 3 10:08:06 lipid panel, serum 2022 023 [facility], [address], [place] [address], [place], [address], 3 10:08:04 Referral urologist referral - blood in urine and flank pain 2022 023 marcos Rodríguez MD (Billy), [address] , [address], [place], [address], 4 11:02:[address] referral 2022 023 bstears Bhavna Kimberly [employer], [address], [place], [address], 3 13:31:44 Procedures None recorded. Surgeries None recorded. Imaging US, thyroid 2023 024 [facility]), [address], [place], [address], 4 18:11:25 Medication Orders Lexapro 10 mg tablet 2023 024 [facility], [address] [place] [address], [address], 4 16:36:29 furosemide 40 mg tablet 2022 023 [facility], [address] [place] [address], [address], 3 11:13:04 atorvastati n 20 mg tablet 2022 023 [facility], [address] [place] [address], [address], 3 11:13:03 amoxicillin 500 mg capsule 2022 023 [facility], [address] [place], [address], 3 10:11:07 ceftriaxone 1 gram solution for injection 2022 023 [facility], [address] [place], [address], 3 10:11:13 ketorolac 30 mg/mL (1 mL) injection solution 2022 023 [facility], [address] [place], [address], 3 10:11:22 [place] 5 mg-325 mg tablet 2022 023 sascha [facility], [address] [place], [address], 3 10:21:32 albuterol sulfate HFA 90 mcg/actuati on aerosol inhaler 2022 [facility]23 [facility] [address] [place], [address], 4 16:00:51 Miralax 17 gram/dose oral powder 2022 023 [facility], [address] [place], [address], 09:43:09 Patient TargetsNo targets recorded. Patient InstructionsNo instructions recorded. Reason for Referral Marketing Manager Referral for S kin lesion Referring Physician: Terrence Escamilla [facility] Medicine, Encounter Date: 02/11/2023 Urologist Referral for Left flank pain blood in urine and flank pain Referring Physician: Terrence Escamilla [facility] Medicine, Encounter Date: 08/13/2023 Results Created Date Observation Date Name Description Value Unit Range Abnormal Flag Note LastModifiedBy Organization Detail LastModifiedTime 02/12/2002/12/2023 CBC WITH DIFFE RENTI AL/PL ATELE T WBC 8.7 x10e3 /uL 3.4-10 .8 Not Available [facility] ([facility]) [address] [place], [address], 02/12/2023 10:08:02 02/12/20 23 02/12/2023 CBC WITH DIFFE RENTI AL/PL ATELE T RBC 4.47 x10e6 /uL 3.77-5 .28 Not Available [facility] ([facility]) [address] [facility], [place], [address], 02/12/2023 10:08:02 02/12/20 23 02/12/2023 CBC WITH DIFFE RENTI AL/PL ATELE T hemoglobin 14.1 g/dL 11.1-1 5.9 Not Available [facility] ([facility]) [address] [facility], [place], [address], 02/12/2023 10:08:02 02/12/20 23 02/12/2023 CBC WITH DIFFE RENTI AL/PL ATELE T hematocrit 41.3 % 34.0-4 6.6 Not Available [facility] ([facility]) [address] [facility], [place], [address], 02/12/2023 10:08:02 02/12/20 23 02/12/2023 CBC WITH DIFFE RENTI AL/PL ATELE T MCV 92 fL 79-97 Not Available [facility] ([facility]) [address] [facility], [place], [address], 02/12/2023 10:08:02 02/12/20 23 02/12/2023 CBC WITH DIFFE RENTI AL/PL ATELE T MCH 31.5 pg 26.6-3 3.0 Not Available [facility] ([facility]) [address] [facility], [place], [address], 02/12/2023 10:08:02 02/12/20 23 02/12/2023 CBC WITH DIFFE RENTI AL/PL ATELE T MCHC 34.1 g/dL 31.5-3 5.7 Not Available [facility] ([facility]) [address] [place], [address], 02/12/2023 10:08:02 02/12/20 23 02/12/2023 CBC WITH DIFFE RENTI AL/PL ATELE T RDW 12.9 % 11.7-1 5.4 Not Available [facility] ([facility]) [address] [place], [address], 02/12/2023 10:08:02 02/12/20 23 02/12/2023 CBC WITH DIFFE RENTI AL/PL ATELE T platelets 207 x10e3 /uL 150-45 0 Not Available [facility] ([facility]) [address] [facility], [place], [address], 02/12/2023 10:08:02 02/12/20 23 02/12/2023 CBC WITH DIFFE RENTI AL/PL ATELE T neutrophils 58 % not estab. Not Available [facility] ([facility]) [address] [facility], [place], [address], 02/12/2023 10:08:02 02/12/20 23 02/12/2023 CBC WITH DIFFE RENTI AL/PL ATELE T lymphs 34 % not estab. Not Available [facility] ([facility]) [address] [facility], [place], [address], 02/12/2023 10:08:02 02/12/20 23 02/12/2023 CBC WITH DIFFE RENTI AL/PL ATELE T monocytes 6 % not estab. Not Available [facility] ([facility]) [address] [facility], [place], [address], 02/12/2023 10:08:02 02/12/20 23 02/12/2023 CBC WITH DIFFE RENTI AL/PL ATELE T eos 2 % not estab. Not Available [facility] ([facility]) [address] [facility], [place], [address], 02/12/2023 10:08:02 02/12/20 23 02/12/2023 CBC WITH DIFFE RENTI AL/PL ATELE T basos 0 % not estab. Not Available [facility] ([facility]) [address] [facility], [place], [address], 02/12/2023 10:08:02 02/12/20 23 02/12/2023 CBC WITH DIFFE RENTI AL/PL ATELE T immature cells TRANSVERSE ABDOMINAL MUSCLE SURGEON Not Available [facility] ([facility]) [address] [facility], [place], [address], 02/12/2023 10:08:02 02/12/20 23 02/12/2023 CBC WITH DIFFE RENTI AL/PL ATELE T neutrophils (absolute) 5.0 x10e3 /uL 1.4-7. 0 Not Available [facility] ([facility]) [address] [facility], [place], [address], 02/12/2023 10:08:02 02/12/20 23 02/12/2023 CBC WITH DIFFE RENTI AL/PL ATELE T lymphs (absolute) 2.9 x10e3 /uL 0.7-3. 1 Not Available [facility] ([facility]) [address] [place], [address], 02/12/2023 10:08:02 02/12/20 23 02/12/2023 CBC WITH DIFFE RENTI AL/PL ATELE T monocytes(ab solute) 0.5 x10e3 /uL 0.1-0. 9 Not Available [facility] ([facility]) [address] [facility], [place], [address], 02/12/2023 10:08:02 02/12/20 23 02/12/2023 CBC WITH DIFFE RENTI AL/PL ATELE T eos (absolute) 0.2 x10e3 /uL 0.0-0. 4 Not Available [facility] ([facility]) [address] [place], [address], 02/12/2023 10:08:02 02/12/20 23 02/12/2023 CBC WITH DIFFE RENTI AL/PL ATELE T baso (absolute) 0.0 x10e3 /uL 0.0-0. 2 Not Available [facility] ([facility]) [address] [place], [address], 02/12/2023 10:08:02 02/12/20 23 02/12/2023 CBC WITH DIFFE RENTI AL/PL ATELE T immature granulocytes 0 % not estab. Not Available [facility] ([facility]) [address] [place], [address], 02/12/2023 10:08:02 02/12/20 23 02/12/2023 CBC WITH DIFFE RENTI AL/PL ATELE T immature grans (abs) 0.0 x10e3 /uL 0.0-0. 1 Not Available [facility] ([facility]) [address] [facility], [place], [address], 02/12/2023 10:08:02 02/12/20 23 02/12/2023 CBC WITH DIFFE RENTI AL/PL ATELE T NRBC TRANSVERSE ABDOMINAL MUSCLE SURGEON Not Available [facility] ([facility]) [address] [facility], [place], [address], 02/12/2023 10:08:02 02/12/20 23 02/12/2023 CBC WITH DIFFE RENTI AL/PL ATELE T hematology comments: TRANSVERSE ABDOMINAL MUSCLE SURGEON Not Available [facility] ([facility]) [address] [facility], [place], [address], 02/12/2023 10:08:02 02/12/20 23 02/12/2023 COMP. METAB OLIC PANEL (14) glucose 87 mg/dL 70-99 Not Available [facility] ([facility]) [address] [facility], [place], [address], 02/12/2023 10:08:03 02/12/20 23 02/12/2023 COMP. METAB OLIC PANEL (14) BUN 13 mg/dL 6-24 Not Available [facility] ([facility]) [address] [facility], [place], [address], 02/12/2023 10:08:03 02/12/20 23 02/12/2023 COMP. METAB OLIC PANEL (14) creatinine 0.78 mg/dL 0.57-1 .00 Not Available [facility] ([facility]) [address] [facility], [place], [address], 02/12/2023 10:08:03 02/12/20 23 02/12/2023 COMP. METAB OLIC PANEL (14) eGFR 90 mL/mi n/1.7 3 >59 Not Available [facility] ([facility]) [address] [facility], [place], [address], 02/12/2023 10:08:03 02/12/20 23 02/12/2023 COMP. METAB OLIC PANEL (14) BUN/creatini ne ratio 17 9-23 Not Available [facility] ([facility]) [address] [facility], [place], [address], 02/12/2023 10:08:03 02/12/20 23 02/12/2023 COMP. METAB OLIC PANEL (14) sodium 141 mmol/ L 134-14 4 Not Available [facility] ([facility]) [address] [facility], [place], [address], 02/12/2023 10:08:03 02/12/20 23 02/12/2023 COMP. METAB OLIC PANEL (14) potassium 4.1 mmol/ L 3.5-5. 2 Not Available [facility] ([facility]) [address] [facility], [place], [address], 02/12/2023 10:08:03 02/12/20 23 02/12/2023 COMP. METAB OLIC PANEL (14) chloride 102 mmol/ L 96-106 Not Available [facility] ([facility]) [address] [facility], [place], [address], 02/12/2023 10:08:03 02/12/20 23 02/12/2023 COMP. METAB OLIC PANEL (14) carbon dioxide, total 28 mmol/ L 20-29 Not Available [facility] ([facility]) [address] [facility], [place], [address], 02/12/2023 10:08:03 02/12/20 23 02/12/2023 COMP. METAB OLIC PANEL (14) calcium 9.3 mg/dL 8.7-10 .2 Not Available [facility] ([facility]) [address] [facility], [place], [address], 02/12/2023 10:08:03 02/12/20 23 02/12/2023 COMP. METAB OLIC PANEL (14) protein, total 7.0 g/dL 6.0-8. 5 Not Available [facility] ([facility]) [address] [facility], [place], [address], 02/12/2023 10:08:03 02/12/20 23 02/12/2023 COMP. METAB OLIC PANEL (14) albumin 4.6 g/dL 3.8-4. 9 Not Available [facility] ([facility]) [address] [facility], [place], [address], 02/12/2023 10:08:03 02/12/20 23 02/12/2023 COMP. METAB OLIC PANEL (14) globulin, total 2.4 g/dL 1.5-4. 5 Not Available [facility] ([facility]) [address] [facility] [place], [address], 02/12/2023 10:08:03 02/12/20 23 02/12/2023 COMP. METAB OLIC PANEL (14) A/G ratio 1.9 1.2-2. 2 Not Available [facility] ([facility]) [address] [facility] [place], [address], 02/12/2023 10:08:03 02/12/20 23 02/12/2023 COMP. METAB OLIC PANEL (14) bilirubin, total 0.6 mg/dL 0.0-1. 2 Not Available [facility] ([facility]) [address] [facility] [place], [address], 02/12/2023 10:08:03 02/12/20 23 02/12/2023 COMP. METAB OLIC PANEL (14) alkaline phosphatase 78 IU/L 44-121 Not Available [facility] ([facility]) [address] [place], [address], 02/12/2023 10:08:03 02/12/20 23 02/12/2023 COMP. METAB OLIC PANEL (14) AST (SGOT) 23 IU/L 0-40 Not Available [facility] ([facility]) [address] [place], [address], 02/12/2023 10:08:03 02/12/20 23 02/12/2023 COMP. METAB OLIC PANEL (14) ALT (SGPT) 15 IU/L 0-32 Not Available [facility] ([facility]) [address] [place], [address], 02/12/2023 10:08:03 02/12/20 23 02/12/2023 LIPID PANEL cholesterol, total 157 mg/dL 100-19 9 Not Available [facility] ([facility]) [address] [place], [address], 02/12/2023 10:08:04 02/12/20 23 02/12/2023 LIPID PANEL triglyceride s 67 mg/dL 0-149 Not Available [facility] ([facility]) [address] [place], [address], 02/12/2023 10:08:04 02/12/20 23 02/12/2023 LIPID PANEL HDL cholesterol 59 mg/dL >39 Not Available [facility] ([facility]) [address] [place], [address], 02/12/2023 10:08:04 02/12/20 23 02/12/2023 LIPID PANEL VLDL cholesterol heather 13 mg/dL 5-40 Not Available [facility] ([facility]) [address] [place], [address], 02/12/2023 10:08:04 02/12/20 23 02/12/2023 LIPID PANEL LDL chol calc (nih) 85 mg/dL 0-99 Not Available [facility] ([facility]) [address] [facility], [place], [address], 02/12/2023 10:08:04 02/12/20 23 02/12/2023 LIPID PANEL comment: TRANSVERSE ABDOMINAL MUSCLE SURGEON Not Available [facility] ([facility]) [address] [place], [address], 02/12/2023 10:08:04 02/12/20 23 02/12/2023 IRON AND TIBC iron bind.cap.(TI BC) 324 ug/dL 250-45 0 Not Available [facility] ([facility]) [address] [place], [address], 02/12/2023 10:08:04 02/12/20 23 02/12/2023 IRON AND TIBC UIBC 232 ug/dL 131-42 5 Not Available [facility] ([facility]) [address] [facility], [place], [address], 02/12/2023 10:08:04 02/12/20 23 02/12/2023 IRON AND TIBC iron 92 ug/dL 27-159 Not Available [facility] ([facility]) [address] [facility], [place], [address], 02/12/2023 10:08:04 02/12/20 23 02/12/2023 IRON AND TIBC iron saturation 28 % 15-55 Not Available [facility] ([facility]) [address] [place], [address], 02/12/2023 10:08:04 02/12/20 23 02/12/2023 PT AND [...] range 2.5 - 3.5 Not Available [facility] ([facility]) [address] [facility], [place], [address], 02/12/2023 10:08:05 02/12/20 23 02/12/2023 PT AND PTT prothrombin time 9.9 sec 9.1-12 .0 Not Available [facility] ([facility]) [address] [facility], [place], [address], 02/12/2023 10:08:05 02/12/20 23 02/12/2023 PT AND PTT APTT 30 sec 24-33 This test has not been valid ated for [facility] unfra ction ated hepar in thera py. aPTT- based thera peuti c range s for unfra ction ated hepar in thera py have not been estab cam [employer] guide lines on Hepar in [facility] , refer to the [facility] D[facility] tory of Dina andres. Not Available [facility] ([facility]) [address] [facility], [place], [address], 02/12/2023 10:08:05 02/12/20 23 02/12/2023 VITAM IN B12 AND FOLAT E vitamin B12 420 pg/mL 232-12 45 Not Available [facility] ([facility]) [address] [facility], [place], [address], 02/12/2023 10:08:05 02/12/2002/12/2023 VITAM IN B12 AND FOLAT E folate (folic acid), serum 8.2 NG/mL >3.0 A serum folat e reese ntrat ion of less than 3.1 ng/mL is consi dered to repre sent clini heather defic iency . Not Available [facility] ([facility]) [address] [facility], [place], [address], 02/12/2023 10:08:05 02/12/2002/12/2023 HEMOG LOBIN A1C hemoglobin A1C 5.6 % 4.8-5. 6 Predi abete s: 5.7 - 6.4 Diabe socrates: >6.4 Glyce deangelo contr ol for adult s with diabe socrates: <7.0 Not Available [facility] ([facility]) [address] [facility], [place], [address], 02/12/2023 10:08:06 06/18/20 23 06/20/2023 URINE CULTU RE, ROUTI NE urine culture, routine Final report Not Available [facility] ([facility]) [address] [facility], [place], [address], 06/20/2023 01:06:10 06/18/20 23 06/20/2023 URINE CULTU RE, ROUTI NE result 1 No growth Not Available [facility] ([facility]) [address] [facility], [place], [address], 06/20/2023 01:06:10 06/18/20 23 06/18/2023 urina lysis , dipst ick Leukocytes Negati ve Not Available [address], [address], 06/18/2023 14:18:36 06/18/20 23 06/18/2023 urina lysis , dipst ick Nitrite negati ve Not Available [address], [address], 06/18/2023 14:18:36 06/18/20 23 06/18/2023 urina lysis , dipst ick Urobilinogen .2 Not Available [facility] [address], [address], 06/18/2023 14:18:36 06/18/20 23 06/18/2023 urina lysis , dipst ick Protein Negati ve Not Available [address], [address], 06/18/2023 14:18:36 06/18/20 23 06/18/2023 urina lysis , dipst ick pH 6.0 Not Available [address], [address], 06/18/2023 14:18:36 06/18/20 23 06/18/2023 urina lysis , dipst ick Blood Non-He molyze d: Trace Not Available [address], [address], 06/18/2023 14:18:36 06/18/20 23 06/18/2023 urina lysis , dipst ick Specific [place] 1.015 Not Available [address], [address], 06/18/2023 14:18:36 06/18/20 23 06/18/2023 urina lysis , dipst ick Ketone Negati ve Not Available [address], [address], 06/18/2023 14:18:36 06/18/20 23 06/18/2023 urina lysis , dipst ick Bilirubin Negati ve Not Available [address], [address], 06/18/2023 14:18:36 06/18/20 23 06/18/2023 urina lysis , dipst ick Glucose Negati ve Not Available [address], [address], 06/18/2023 14:18:36 06/18/20 23 06/18/2023 urina lysis , dipst ick Appearance Clear Not Available [address] [place], [address], 06/18/2023 14:18:36 06/18/2006/18/2023 urina lysis , dipst ick Color Yellow Not Available [address], [address], 06/18/2023 14:18:36 08/13/2008/14/2023 CBC WITH DIFFE RENTI AL/PL ATELE T WBC 9.1 x10e3 /uL 3.4-10 .8 Not Available [facility] ([facility]) [address] [place], [address], 08/15/2023 01:06:21 08/13/2008/14/2023 CBC WITH DIFFE RENTI AL/PL ATELE T RBC 4.18 x10e6 /uL 3.77-5 .28 Not Available [facility] ([facility]) [address] [place], [address], 08/15/2023 01:06:21 08/13/2008/14/2023 CBC WITH DIFFE RENTI AL/PL ATELE T hemoglobin 13.0 g/dL 11.1-1 5.9 Not Available [facility] ([facility]) [address] [place], [address], 08/15/2023 01:06:21 08/13/2008/14/2023 CBC WITH DIFFE RENTI AL/PL ATELE T hematocrit 38.8 % 34.0-4 6.6 Not Available [facility] ([facility]) [address] [place], [address], 08/15/2023 01:06:21 08/13/2008/14/2023 CBC WITH DIFFE RENTI AL/PL ATELE T MCV 93 fL 79-97 Not Available [facility] ([facility]) [address] [place], [address], 08/15/2023 01:06:21 08/13/2008/14/2023 CBC WITH DIFFE RENTI AL/PL ATELE T MCH 31.1 pg 26.6-3 3.0 Not Available [facility] ([facility]) [address] [facility], [place], [address], 08/15/2023 01:06:21 08/13/2008/14/2023 CBC WITH DIFFE RENTI AL/PL ATELE T MCHC 33.5 g/dL 31.5-3 5.7 Not Available [facility] ([facility]) [address] [place], [address], 08/15/2023 01:06:21 08/13/2008/14/2023 CBC WITH DIFFE RENTI AL/PL ATELE T RDW 12.8 % 11.7-1 5.4 Not Available [facility] ([facility]) [address] [facility], [place], [address], 08/15/2023 01:06:21 08/13/2008/14/2023 CBC WITH DIFFE RENTI AL/PL ATELE T platelets 178 x10e3 /uL 150-45 0 Not Available [facility] ([facility]) [address] [place], [address], 08/15/2023 01:06:21 08/13/2008/14/2023 CBC WITH DIFFE RENTI AL/PL ATELE T neutrophils 56 % not estab. Not Available [facility] ([facility]) [address] [place], [address], 08/15/2023 01:06:21 08/13/2008/14/2023 CBC WITH DIFFE RENTI AL/PL ATELE T lymphs 37 % not estab. Not Available [facility] ([facility]) [address] [place], [address], 08/15/2023 01:06:21 08/13/2008/14/2023 CBC WITH DIFFE RENTI AL/PL ATELE T monocytes 5 % not estab. Not Available [facility] ([facility]) [address] [facility], [place], [address], 08/15/2023 01:06:21 08/13/2008/14/2023 CBC WITH DIFFE RENTI AL/PL ATELE T eos 2 % not estab. Not Available [facility] ([facility]) [address] [facility], [place], [address], 08/15/2023 01:06:21 08/13/2008/14/2023 CBC WITH DIFFE RENTI AL/PL ATELE T basos 0 % not estab. Not Available [facility] ([facility]) [address] [facility], [place], [address], 08/15/2023 01:06:21 08/13/2008/14/2023 CBC WITH DIFFE RENTI AL/PL ATELE T immature cells TRANSVERSE ABDOMINAL MUSCLE SURGEON Not Available [facility] ([facility]) [address] [place], [address], 08/15/2023 01:06:21 08/13/2008/14/2023 CBC WITH DIFFE RENTI AL/PL ATELE T neutrophils (absolute) 5.1 x10e3 /uL 1.4-7. 0 Not Available [facility] ([facility]) [address] [facility], [place], [address], 08/15/2023 01:06:21 08/13/2008/14/2023 CBC WITH DIFFE RENTI AL/PL ATELE T lymphs (absolute) 3.3 x10e3 /uL 0.7-3. 1 above high normal Not Available [facility] ([facility]) [address] [facility], [place], [address], 08/15/2023 01:06:21 08/13/2008/14/2023 CBC WITH DIFFE RENTI AL/PL ATELE T monocytes(ab solute) 0.5 x10e3 /uL 0.1-0. 9 Not Available [facility] ([facility]) [address] [facility], [place], [address], 08/15/2023 01:06:21 08/13/2008/14/2023 CBC WITH DIFFE RENTI AL/PL ATELE T eos (absolute) 0.2 x10e3 /uL 0.0-0. 4 Not Available [facility] ([facility]) [address] [facility], [place], [address], 08/15/2023 01:06:21 08/13/2008/14/2023 CBC WITH DIFFE RENTI AL/PL ATELE T baso (absolute) 0.0 x10e3 /uL 0.0-0. 2 Not Available [facility] ([facility]) [address] [facility], [place], [address], 08/15/2023 01:06:21 08/13/2008/14/2023 CBC WITH DIFFE RENTI AL/PL ATELE T immature granulocytes 0 % not estab. Not Available [facility] ([facility]) [address] [facility], [place], [address], 08/15/2023 01:06:21 08/13/2008/14/2023 CBC WITH DIFFE RENTI AL/PL ATELE T immature grans (abs) 0.0 x10e3 /uL 0.0-0. 1 Not Available [facility] ([facility]) [address] [facility], [place], [address], 08/15/2023 01:06:21 08/13/2008/14/2023 CBC WITH DIFFE RENTI AL/PL ATELE T NRBC TRANSVERSE ABDOMINAL MUSCLE SURGEON Not Available [facility] ([facility]) [address] [facility], [place], [address], 08/15/2023 01:06:21 08/13/20 23 08/14/2023 CBC WITH DIFFE RENTI AL/PL ATELE T hematology comments: TRANSVERSE ABDOMINAL MUSCLE SURGEON Not Available [facility] ([facility]) [address] [facility], [place], [address], 08/15/2023 01:06:21 08/13/20 23 08/14/2023 COMP. METAB OLIC PANEL (14) glucose 86 mg/dL 70-99 Not Available [facility] ([facility]) [address] [facility], [place], [address], 08/15/2023 01:06:22 08/13/20 23 08/14/2023 COMP. METAB OLIC PANEL (14) BUN 12 mg/dL 6-24 Not Available [facility] ([facility]) [address] [facility], [place], [address], 08/15/2023 01:06:22 08/13/20 23 08/14/2023 COMP. METAB OLIC PANEL (14) creatinine 0.77 mg/dL 0.57-1 .00 Not Available [facility] ([facility]) [address] [facility], [place], [address], 08/15/2023 01:06:22 08/13/20 23 08/14/2023 COMP. METAB OLIC PANEL (14) eGFR 92 mL/mi n/1.7 3 >59 Not Available [facility] ([facility]) [address] [facility], [place], [address], 08/15/2023 01:06:22 08/13/20 23 08/14/2023 COMP. METAB OLIC PANEL (14) BUN/creatini ne ratio 16 9-23 Not Available [facility] ([facility]) [address] [facility], [place], [address], 08/15/2023 01:06:22 08/13/20 23 08/14/2023 COMP. METAB OLIC PANEL (14) sodium 142 mmol/ L 134-14 4 Not Available [facility] ([facility]) [address] [place], [address], 08/15/2023 01:06:22 08/13/2008/14/2023 COMP. METAB OLIC PANEL (14) potassium 3.9 mmol/ L 3.5-5. 2 Not Available [facility] ([facility]) [address] [place], [address], 08/15/2023 01:06:22 08/13/2008/14/2023 COMP. METAB OLIC PANEL (14) chloride 103 mmol/ L 96-106 Not Available [facility] ([facility]) [address] [facility] [place], [address], 08/15/2023 01:06:22 08/13/20 23 08/14/2023 COMP. METAB OLIC PANEL (14) carbon dioxide, total 25 mmol/ L 20-29 Not Available [facility] ([facility]) [address] [facility] [place], [address], 08/15/2023 01:06:22 08/13/2008/14/2023 COMP. METAB OLIC PANEL (14) calcium 8.9 mg/dL 8.7-10 .2 Not Available [facility] ([facility]) [address] [facility] [place], [address], 08/15/2023 01:06:22 08/13/2008/14/2023 COMP. METAB OLIC PANEL (14) protein, total 6.3 g/dL 6.0-8. 5 Not Available [facility] ([facility]) [address] [facility] [place], [address], 08/15/2023 01:06:22 08/13/2008/14/2023 COMP. METAB OLIC PANEL (14) albumin 4.2 g/dL 3.8-4. 9 Not Available [facility] ([facility]) [address] [facility] [place], [address], 08/15/2023 01:06:22 08/13/20 23 08/14/2023 COMP. METAB OLIC PANEL (14) globulin, total 2.1 g/dL 1.5-4. 5 Not Available [facility] ([facility]) [address] [facility] [place], [address], 08/15/2023 01:06:22 08/13/20 23 08/14/2023 COMP. METAB OLIC PANEL (14) A/G ratio 2.0 1.2-2. 2 Not Available [facility] ([facility]) [address] [facility] [place], [address], 08/15/2023 01:06:22 08/13/2008/14/2023 COMP. METAB OLIC PANEL (14) bilirubin, total 0.9 mg/dL 0.0-1. 2 Not Available [facility] ([facility]) [address] [facility], [place], [address], 08/15/2023 01:06:22 08/13/2008/14/2023 COMP. METAB OLIC PANEL (14) alkaline phosphatase 72 IU/L 44-121 Not Available [facility] ([facility]) [address] [facility], [place], [address], 08/15/2023 01:06:22 08/13/20 23 08/14/2023 COMP. METAB OLIC PANEL (14) AST (SGOT) 18 IU/L 0-40 Not Available [facility] ([facility]) [address] [facility] [place], [address], 08/15/2023 01:06:22 08/13/2008/14/2023 COMP. METAB OLIC PANEL (14) ALT (SGPT) 11 IU/L 0-32 Not Available [facility] ([facility]) [address] [facility], [place], [address], 08/15/2023 01:06:22 08/13/2008/14/2023 LIPID PANEL cholesterol, total 126 mg/dL 100-19 9 Not Available [facility] ([facility]) [address] [place], [address], 08/15/2023 01:06:22 08/13/2008/14/2023 LIPID PANEL triglyceride s 72 mg/dL 0-149 Not Available [facility] ([facility]) [address] [facility], [place], [address], 08/15/2023 01:06:22 08/13/2008/14/2023 LIPID PANEL HDL cholesterol 58 mg/dL >39 Not Available [facility] ([facility]) [address] [facility], [place], [address], 08/15/2023 01:06:22 08/13/2008/14/2023 LIPID PANEL VLDL cholesterol heather 15 mg/dL 5-40 Not Available [facility] ([facility]) [address] [facility], [place], [address], 08/15/2023 01:06:22 08/13/2008/14/2023 LIPID PANEL LDL chol calc ([facility]) 53 mg/dL 0-99 Not Available [facility] ([facility]) [address] [facility], [place], [address], 08/15/2023 01:06:22 08/13/2008/14/2023 LIPID PANEL comment: 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 This colon y count is not gener ally consi dered to be clini mynor signi kenia t. Not Available [facility] ([facility]) [address] [facility], [place], [address], 08/15/2023 01:06:23 08/13/2008/14/2023 PLEDILLON E NOTE please note Commen t The date and/o r time of colle ction was not indic ated on the requi sitio n as requi red by state and princess [place] law. The date of recei pt of the speci men was used as the colle ction date if not suppl ied. Not Available [facility] ([facility]) [address] [facility], [place], [address], 08/15/2023 01:06:24 08/13/2008/13/2023 HbA1c (hemo globi n A1c), blood HbA1C % Not Available [address], [address], 08/13/2023 11:13:22 08/13/20 23 08/13/2023 urina lysis , dipst ick Leukocytes Negati ve Not Available [address], [address], 08/13/2023 10:28:22 08/13/20 23 08/13/2023 urina lysis , dipst ick Nitrite negati ve Not Available [address], [address], 08/13/2023 10:28:22 08/13/20 23 08/13/2023 urina lysis , dipst ick Urobilinogen .2 Not Available Mayank oneill [address], [address], 08/13/2023 10:28:22 08/13/2008/13/2023 urina lysis , dipst ick Protein Negati ve Not Available [address], [address], 08/13/2023 10:28:22 08/13/2008/13/2023 urina lysis , dipst ick pH 6.0 Not Available [address], [address], 08/13/2023 10:28:22 08/13/2008/13/2023 urina lysis , dipst ick Blood Non-He molyze d: Trace Not Available [address], [address], 08/13/2023 10:28:22 08/13/2008/13/2023 urina lysis , dipst ick Specific [place] 1.015 Not Available [address], [address], 08/13/2023 10:28:22 08/13/2008/13/2023 urina lysis , dipst ick Ketone Negati ve Not Available [address], [address], 08/13/2023 10:28:22 08/13/2008/13/2023 urina lysis , dipst ick Bilirubin Negati ve Not Available [address], [address], 08/13/2023 10:28:22 08/13/20 23 08/13/2023 urina lysis , dipst ick Glucose Negati ve Not Available [address] [place], [address], 08/13/2023 10:28:22 08/13/20 23 08/13/2023 urina lysis , dipst ick Appearance Clear Not Available [address], [place], [address], 08/13/2023 10:28:22 08/13/20 23 08/13/2023 urina lysis , dipst ick Color Dark Yellow Not Available [address], [place], [address], 08/13/2023 10:28:22 03/26/20 23 03/26/2023 US, abdom en, compl ete No observ ation record ed. [address], [place], [address], 03/26/2023 10:14:13 08/28/20 24 08/27/2024 US, thyro id No observ ation record ed. [place] [id number], [place], [address], 08/31/2024 13:53:16 01/10/20 25 01/08/2025 XR, chest , 2 view No observ ation record ed. [place] [id number], [place], [address], 01/11/2025 08:28:44 03/30/20 25 03/30/2025 CT, abdom en + pelvi s, w/ contr ast No observ ation record ed. [place] [id number], [place], [address], 04/05/2025 09:35:04 04/02/20 25 04/02/2025 CT, abdom en + pelvi s, w/ contr ast No observ ation record ed. [place] [id number], [place], [address], 04/05/2025 09:48:03 04/03/20 25 04/02/2025 alex weber am No observ ation [facility] ed. [facility] [address], [place], [address], 04/05/2025 09:47:44 Result Notes None recorded. Problems Name Problem SNOMED Code Status Onset Date Resolution Date Notes Provider Name and Address Organization Details Recorded Time Heart disease 73502054 Active 2021 Terrence Escamilla, [employer] [address], [place], [address], [place] - [facility] 2 16:44:49 Hypertensive disorder 50772662 Active 2021 Terrence Escamilla, [employer] [address], [place], [address], [place] [facility] 2 16:44:54 Hypercholester olemia 40060502 Active 2021 Terrence Escamilla, [employer] [address], [place], [address], [place] [facility] 2 16:44:51 Prediabetes 301481663 Active 2022 Terrence Escamilla, [employer] [address], [place], [address], [place] [facility] 3 09:37:27 Asthma 801305904 Active 2022 Terrence Escamilla, [employer] [address], [place], [address], [place] [facility] 3 11:05:49 [...] Name and Address Organization Details Recorded Time 655488 morphine medicatio n Not available Not available [...] Updated DateTime 3 167.64 cm 28.7 kg/m2 70695.4 4 g 96.8 [degF] 72 /min 97 % 97 % 20 /min 122 mm[Hg] 68 mm[Hg] Donna Elizabeth [facility] 3 08:55:17 Date Recorded Body height Body mass index (BMI) Body weight Body temperature Heart rate Oxygen saturation Oxygen saturation in Arterial blood by Pulse oximetry Respiratory rate Systolic blood pressure Diastolic blood pressure Provider Name and Address Organization Details Last Updated DateTime 3 167.64 cm 28.8 kg/m2 02161.2 4 g 97.6 [degF] 67 /min 98 % 98 % 18 /min 116 mm[Hg] 70 mm[Hg] Donna Elizabeth [facility] 3 09:58:42 Date Recorded Body height Body mass index (BMI) Body weight Provider Name and Address Organization Details Last Updated DateTime 06/18/2023 167.64 cm 29.6 kg/m2 34429.1 g Donna Elizabeth [facility] 06/18/2023 14:09:31 Date Recorded Body height Body mass index (BMI) Body weight Body temperature Heart rate Oxygen saturation Oxygen saturation in Arterial blood by Pulse oximetry Respiratory rate Systolic blood pressure Diastolic blood pressure Provider Name and Address Organization Details Last Updated DateTime 3 167.64 cm 30.1 kg/m2 04507.9 8 g 98 [degF] 64 /min 97 [...] Updated DateTime 4 167.64 cm 34.1 kg/m2 64150.9 9 g 82 /min 18 /min 95 % 95 % 124 mm[Hg] 78 mm[Hg] Linda Hunter [place] - [facility] 4 16:00:06 Social History Question Answer Notes LastModified by Organizat ion Details LastModified Time Tobacco Smoking Status Current Every Day Smoker Linda Bernabeaman [facility] [place] - [facility] 08/14/2022 16:05:44 Do [...] Or The Highest Degree You Have Received? [id number] Information not available 08/14/2022 Have There Been [...] Do You Have A Medical Power Of Obstetrics/Gynecology Nurse? No Information not available 08/14/2022 What Was [...] anxious, or unable to sleep at night)? [id number] Information not available 08/14/2022 Do you have difficulty concentrating, remembering or making decisions? No Information no t available 08/14/2022 Family History Relationship Description Onset Age of this Age Resolved Age Notes LastModified by Organization Details LastModified Time Mother Dementia bstears Not available 08/14/2022 16:05:43 Medical History Condition Response Allergies/Hayfever Y Vision or Eye Problems Y Arthritis Y Kidney Stones Y Sleep Apnea Y Hypercholesterolemia Y Cancer Y Headaches Y Hypertension Y Gynecological History [...] preservative free, adsorbed 7 completed Donna parker, [facility] 08/21/2022 15:30:26 pneumococcal polysaccharide PPV23 8 [facility] 11/13/2022 15:48:48 Influenza, split virus, quadrivalent, PF 9 completed Donna parker, [facility] 11/13/2022 15:48:48 COVID-19 vaccine, vector-nr, rS-Ad26, PF, 0.5 mL 1 [facility] 11/13/2022 15:48:48 Influenza, split virus, trivalent, PF 8 completed [facility] 11/13/2022 15:48:48 Past Encounters Encounter ID Performer Location Encounter Start Date Encounter Closed Date Diagnosis/Indication Diagnosis SNOMED-CT Code Diagnosis ICD10 Code Diagnosis Note [id number] Terrence Escamilla APRN [address] [address] 08/14/2022 15:40:07 08/14/2022 17:48:34 Heart disease 80760902 I51.9 Hypercholesterolemia 136 16314 E78.00 Hypertensive disorder 38 770465 I10 Fatigue 94337156 R53.83 Right uppe r quadrant pain 487322831 R10.11 Screening for malignant neoplasm of breast 238097752 Z12.39 [id number] [address] 11/13/2022 15:28:56 11/13/2022 16:42:08 Gastroesophageal reflux disease 416994665 K21.9 follow up with cardiology also Menopausal flushing 1983 15719 N95.1 Hypoglycemia 641375121 E 16.2 see log no glucose under 76 [id number] [facility] Luisashish[address] [address] 02/11/2023 08:46:35 02/11/2023 10:07:12 Heart disease 93523751 I51.9 Hypertensive disorder 38 140700 I10 Hypercholesterolemia 136 67597 E78.00 Prediabetes 693880736 R7 3.03 Easy bruising 873437103 R58 Skin lesion 06287227 L98 .9 Constipation 42317796 K5 9.00 [id number] [facility] [place] [address] 05/10/2023 09:41:48 05/10/2023 10:57:11 Hypertensive disorder 26570239 I10 labs next visit Prediabetes 404442249 R7 3.03 labs next visit Asthma 732106420 J45.90 9 [id number] [facility] [place] [address] 06/18/2023 13:59:46 06/18/2023 15:06:06 Acute urinary tract infection 110341696 N39.0 Dental abscess 883245094 K04.7 Left flank pain 95198735 9 R10.9 Low back pain 562162994 M54.50 [id number] [facility] [address] [address] 08/13/2023 10:06:55 08/13/2023 11:39:41 Hypercholesterolemia 93502434 E78.00 Hypertensive disorder 38 999134 I10 Left flank pain 85090381 9 R10.9 pt freq has blood in urine will refer to urology for more work up Prediabetes 279223695 R7 3.03 Heart disease 40904704 I 51.9 [id number] Terrence Escamilla APRN [facility] [address] [place] [address] 08/20/2024 15:49:15 08/20/2024 16:15:30 Mixed anxiety and depressive disorder 840609493 F41.8 Patient identified triggers for anxiety and impact of anxious thinking on functionin g. Discussed strategies to regulate symptoms and need for compliance with treatment. 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 Heart disease 36549612 I 51.9 Hypercholesterolemia 136 65745 E78.00 Hypertensive disorder 38 138935 I10 Health Concerns Section Related Observation LastModified by Organization Detai ls LastModified Time None Recorded Concern Status LastModified by Organization Details LastModified Time None Recorded Advance Directives Directive N: Payers Insurance Date Sequence Insurance Name Policy Number Policy Bernal Covered Member ID Bernal Member ID Guarantor Name 08/20/2024 1 [facility] (MEDICAID REPLACEMENT - HMO) Maura Thorne [id number] Maura Thorne 10/16/2024 1 [facility] (MEDICAID REPLACEMENT - HMO) Maura Thorne [id number] Maura Thorne 11/13/2022 1 [place] [id number] - INDIVIDUAL MEDICAL PLAN (HMO) Maura Thorne [id number] Maura Thorne 10/16/2024 [place] [facility] [facility]ILL[facility] (MEDICAID) Maura Thorne [id number] Maura Thorne 08/20/2024 1 [facility] [facility] Maura Thorne [id number] Maura Thorne Notes Date Note Type Note [...] daily. Terrence Escamilla APRN [address], [place], [address], [place] - [facility] 02/11/2023 10:29:46 05/10/2023 text/html 52 yr old female presents to follow up on hypertension and pre diabetes. She would like a rescue inhaler for her copd/asthma pt states she is doing well Terrence Escamilla APRN [address], [place], [address], [place] - [facility] 06/06/2023 14:38:54 06/18/2023 text/html 52 yr old female presents for gum abbess and possible uti.pt states she has pus abscess to gums. pt states she can feel and taste infectionleft flank pain, and freq Terrence Escamilla [employer] [address], [place], [address], [place] - [facility] 06/18/2023 15:45:47 08/13/2023 text/html 52 yr old female presents for lab work and possible uti. pt states she is having flank pain on the left that has been coming and going for awhile.pt states she needs med refills and labs for her chronic conditions.hx predm,heart dz,htn, hyperlipidemia Terrence Escamilla APRN [address], [place], [address], [place] - [facility] 08/13/2023 11:23:39 08/20/2024 text/html Maura is a 53 ye ar old female who presents to the office today with concerns ofanxiety/depression - just passed awaynodule on right neck- trouble swallowingpain in left side of abdomen Terrence EscamillaMARGO [address], [place], [address], [place] - [facility] 08/31/2024 14:36:05 OBGyn Episode No OBEpisode recorded.
== END 2025-04-10 13:30 | disposition home or self-care (01) ==
LOC: INF 12:53
PROVIDERS: PCP Nurse Practitioner Family; Visit Provider Student in an Organized Health Care Education/Training Program
DX: L02.214 Cutaneous abscess of groin (principal)
CPT/HCPCS: 99211; G0463

== ENCOUNTER 2025-04-11 14:21 | Outpatient (CLI) | payer MEDICAID, SELFPAY ==
--- OUTSIDE RECORDS SUMMARY | 2025-04-11 14:24 | XMS_ITS | Data Portability ---
Author Organization [facility] Address [address] [place] [address] Care Team Providers Care Insurance Adjuster Name Role Phone TERRENCE ESCAMILLA Primary Care Provider PAULINA GUZMAN City Assessor DONNA GRIMALDO JR Staff Rn Assessment No assessment recorded. Plan of Treatment Reminders Order Date Submit Date Provider Last Modified By Organization Details Last Modified Time Details Appointments None recorded. Lab TSH + free T4, serum 2023 024 [facility] (Lab), [address], [place], [address], 16:17:18 CMP, serum or plasma 2023 024 [facility] (Lab), [address], [place], [address], 4 16:17:18 lipid panel, serum 2023 024 [facility] (Lab), [address], [place], [address], 4 16:17:18 CBC w/ auto diff 2023 024 [facility] (Lab), [address], [place], [address], 4 15:27:52 CBC w/ auto diff 2022 023 [facility], [address], [address] [address], [place], [address], 3 01:06:21 CMP, serum or plasma 2022 023 [facility], [address], [place], [place], [address], 3 01:06:22 HbA1c (hemoglobin A1c), blood 2022 023 [facility], [address] [place] [address], [address], 3 13:42:51 urinalysis, dipstick 2022 023 [facility], [address] [place] [address], [address], 3 11:12:55 culture, urine 2022 023 [facility], [address], [place] [address], [place], [address], 3 01:06:23 lipid panel, serum 2022 023 [facility], [address], [place] [address], [place], [address], 3 01:06:23 urinalysis, dipstick 2022 023 [facility], [address] [place] [address], [address], 3 14:49:39 culture, urine 2022 023 [facility], [address], [place] [address], [place], [address], 3 01:06:10 CMP, serum or plasma 2022 023 [facility], [address], [place] [address], [place], [address], 3 10:08:03 CBC w/ auto diff 2022 023 [facility], [address], [place] [address], [place], [address], 3 10:08:02 iron + total iron-bindin g capacity (TIBC), serum 2022 023 [facility], [address], [place] [address], [place], [address], 3 10:08:04 vitamin B12 + folate, serum or blood 2022 023 [facility], [address], [place], [place], [address], 3 10:08:06 PT/PTT, plasma 2022 023 [facility], [address], [place] [address], [place], [address], 3 10:08:05 HbA1c (hemoglobin A1c), blood 2022 023 [facility], [address], [place] [address], [place], [address], 3 10:08:06 lipid panel, serum 2022 023 [facility], [address], [place] [address], [place], [address], 3 10:08:04 Referral urologist referral - blood in urine and flank pain 2022 023 marcos Rodríguez MD (Billy), [address] , [place] [address], [place], [address], 4 11:02:[address] referral 2022 023 bstears Bhavna Kimberly [employer], [address], [place], [address], 3 13:31:44 Procedures None recorded. Surgeries None recorded. Imaging US, thyroid 2023 024 [facility] ([facility]), [address], [place], [address], 4 18:11:25 Medication Orders Lexapro 10 mg tablet 2023 024 [facility], [address] [place] [address], [address], 4 16:36:29 furosemide 40 mg tablet 2022 023 [facility], [address] [place] [address], [address], 3 11:13:04 atorvastati n 20 mg tablet 2022 023 [facility], [address] [place] [address], [address], 3 11:13:03 amoxicillin 500 mg capsule 2022 023 [facility], [address] [place], [address], 3 10:11:07 ceftriaxone 1 gram solution for injection 2022 023 [facility], [address] [place], [address], 3 10:11:13 ketorolac 30 mg/mL (1 mL) injection solution 2022 023 [facility], [address] [place], [address], 3 10:11:22 [place] 5 mg-325 mg tablet 2022 023 [facility], [address] [place], [address], 3 10:21:32 albuterol sulfate HFA 90 mcg/actuati on aerosol inhaler 2022 023 [facility], [address] [place], [address], 4 16:00:51 Miralax 17 gram/dose oral powder 2022 023 [facility], [address] [place], [address], 09:43:09 Patient TargetsNo targets recorded. Patient InstructionsNo instructions recorded. Reason for Referral Process Eng Referral for S kin lesion Referring Physician: Terrence Escamilla [facility], Encounter Date: 02/11/2023 Urologist Referral for Left flank pain blood in urine and flank pain Referring Physician: Terrence Escamilla [facility], Encounter Date: 08/13/2023 Results Created Date Observation Date Name Description Value Unit Range Abnormal Flag Note LastModifiedBy Organization Detail LastModifiedTime 02/12/2002/12/2023 CBC WITH DIFFE RENTI AL/PL ATELE T WBC 8.7 x10e3 /uL 3.4-10 .8 Not Available [facility] ([facility]) [address] [place], [address], 02/12/2023 10:08:02 02/12/20 23 02/12/2023 CBC WITH DIFFE RENTI AL/PL ATELE T RBC 4.47 x10e6 /uL 3.77-5 .28 Not Available [facility] ([facility]) [address] [facility], [place], [address], 02/12/2023 10:08:02 02/12/20 23 02/12/2023 CBC WITH DIFFE RENTI AL/PL ATELE T hemoglobin 14.1 g/dL 11.1-1 5.9 Not Available [facility] ([facility]) [address] [facility], [place], [address], 02/12/2023 10:08:02 02/12/20 23 02/12/2023 CBC WITH DIFFE RENTI AL/PL ATELE T hematocrit 41.3 % 34.0-4 6.6 Not Available [facility] ([facility]) [address] [facility], [place], [address], 02/12/2023 10:08:02 02/12/20 23 02/12/2023 CBC WITH DIFFE RENTI AL/PL ATELE T MCV 92 fL 79-97 Not Available [facility] ([facility]) [address] [facility], [place], [address], 02/12/2023 10:08:02 02/12/20 23 02/12/2023 CBC WITH DIFFE RENTI AL/PL ATELE T MCH 31.5 pg 26.6-3 3.0 Not Available [facility] ([facility]) [address] [facility], [place], [address], 02/12/2023 10:08:02 02/12/20 23 02/12/2023 CBC WITH DIFFE RENTI AL/PL ATELE T MCHC 34.1 g/dL 31.5-3 5.7 Not Available [facility] ([facility]) [address] [place], [address], 02/12/2023 10:08:02 02/12/20 23 02/12/2023 CBC WITH DIFFE RENTI AL/PL ATELE T RDW 12.9 % 11.7-1 5.4 Not Available [facility] ([facility]) [address] [place], [address], 02/12/2023 10:08:02 02/12/20 23 02/12/2023 CBC WITH DIFFE RENTI AL/PL ATELE T platelets 207 x10e3 /uL 150-45 0 Not Available [facility] ([facility]) [address] [facility], [place], [address], 02/12/2023 10:08:02 02/12/20 23 02/12/2023 CBC WITH DIFFE RENTI AL/PL ATELE T neutrophils 58 % not estab. Not Available [facility] ([facility]) [address] [facility], [place], [address], 02/12/2023 10:08:02 02/12/20 23 02/12/2023 CBC WITH DIFFE RENTI AL/PL ATELE T lymphs 34 % not estab. Not Available [facility] ([facility]) [address] [facility], [place], [address], 02/12/2023 10:08:02 02/12/20 23 02/12/2023 CBC WITH DIFFE RENTI AL/PL ATELE T monocytes 6 % not estab. Not Available [facility] ([facility]) [address] [facility], [place], [address], 02/12/2023 10:08:02 02/12/20 23 02/12/2023 CBC WITH DIFFE RENTI AL/PL ATELE T eos 2 % not estab. Not Available [facility] ([facility]) [address] [facility], [place], [address], 02/12/2023 10:08:02 02/12/20 23 02/12/2023 CBC WITH DIFFE RENTI AL/PL ATELE T basos 0 % not estab. Not Available [facility] ([facility]) [address] [facility], [place], [address], 02/12/2023 10:08:02 02/12/20 23 02/12/2023 CBC WITH DIFFE RENTI AL/PL ATELE T immature cells HEAD NURSE Not Available [facility] ([facility]) [address] [facility], [place], [address], 02/12/2023 10:08:02 02/12/20 23 02/12/2023 CBC WITH DIFFE RENTI AL/PL ATELE T neutrophils (absolute) 5.0 x10e3 /uL 1.4-7. 0 Not Available [facility] ([facility]) [address] [facility], [place], [address], 02/12/2023 10:08:02 02/12/20 23 02/12/2023 CBC WITH DIFFE RENTI AL/PL ATELE T lymphs (absolute) 2.9 x10e3 /uL 0.7-3. 1 Not Available [facility] ([facility]) [address] [place], [address], 02/12/2023 10:08:02 02/12/20 23 02/12/2023 CBC WITH DIFFE RENTI AL/PL ATELE T monocytes(ab solute) 0.5 x10e3 /uL 0.1-0. 9 Not Available [facility] ([facility]) [address] [facility], [place], [address], 02/12/2023 10:08:02 02/12/20 23 02/12/2023 CBC WITH DIFFE RENTI AL/PL ATELE T eos (absolute) 0.2 x10e3 /uL 0.0-0. 4 Not Available [facility] ([facility]) [address] [place], [address], 02/12/2023 10:08:02 02/12/20 23 02/12/2023 CBC WITH DIFFE RENTI AL/PL ATELE T baso (absolute) 0.0 x10e3 /uL 0.0-0. 2 Not Available [facility] ([facility]) [address] [place], [address], 02/12/2023 10:08:02 02/12/20 23 02/12/2023 CBC WITH DIFFE RENTI AL/PL ATELE T immature granulocytes 0 % not estab. Not Available [facility] ([facility]) [address] [facility] [place], [address], 02/12/2023 10:08:02 02/12/20 23 02/12/2023 CBC WITH DIFFE RENTI AL/PL ATELE T immature grans (abs) 0.0 x10e3 /uL 0.0-0. 1 Not Available [facility] ([facility]) [address] [facility], [place], [address], 02/12/2023 10:08:02 02/12/20 23 02/12/2023 CBC WITH DIFFE RENTI AL/PL ATELE T NRBC HEAD NURSE Not Available [facility] ([facility]) [address] [facility], [place], [address], 02/12/2023 10:08:02 02/12/20 23 02/12/2023 CBC WITH DIFFE RENTI AL/PL ATELE T hematology comments: HEAD NURSE Not Available [facility] ([facility]) [address] [facility], [place], [address], 02/12/2023 10:08:02 02/12/20 23 02/12/2023 COMP. METAB OLIC PANEL (14) glucose 87 mg/dL 70-99 Not Available [facility] ([facility]) [address] [facility], [place], [address], 02/12/2023 10:08:03 02/12/20 23 02/12/2023 COMP. METAB OLIC PANEL (14) BUN 13 mg/dL 6-24 Not Available [facility] ([facility]) [address] [facility], [place], [address], 02/12/2023 10:08:03 02/12/20 23 02/12/2023 COMP. METAB OLIC PANEL (14) creatinine 0.78 mg/dL 0.57-1 .00 Not Available [facility] ([facility]) [address] [facility], [place], [address], 02/12/2023 10:08:03 02/12/20 23 02/12/2023 COMP. METAB OLIC PANEL (14) eGFR 90 mL/mi n/1.7 3 >59 Not Available [facility] ([facility]) [address] [facility], [place], [address], 02/12/2023 10:08:03 02/12/20 23 02/12/2023 COMP. METAB OLIC PANEL (14) BUN/creatini ne ratio 17 9-23 Not Available [facility] ([facility]) [address] [facility], [place], [address], 02/12/2023 10:08:03 02/12/20 23 02/12/2023 COMP. METAB OLIC PANEL (14) sodium 141 mmol/ L 134-14 4 Not Available [facility] ([facility]) [address] [facility], [place], [address], 02/12/2023 10:08:03 02/12/20 23 02/12/2023 COMP. METAB OLIC PANEL (14) potassium 4.1 mmol/ L 3.5-5. 2 Not Available [facility] ([facility]) [address] [facility], [place], [address], 02/12/2023 10:08:03 02/12/20 23 02/12/2023 COMP. METAB OLIC PANEL (14) chloride 102 mmol/ L 96-106 Not Available [facility] ([facility]) [address] [facility], [place], [address], 02/12/2023 10:08:03 02/12/20 23 02/12/2023 COMP. METAB OLIC PANEL (14) carbon dioxide, total 28 mmol/ L 20-29 Not Available [facility] ([facility]) [address] [facility], [place], [address], 02/12/2023 10:08:03 02/12/20 23 02/12/2023 COMP. METAB OLIC PANEL (14) calcium 9.3 mg/dL 8.7-10 .2 Not Available [facility] ([facility]) [address] [facility], [place], [address], 02/12/2023 10:08:03 02/12/20 23 02/12/2023 COMP. METAB OLIC PANEL (14) protein, total 7.0 g/dL 6.0-8. 5 Not Available [facility] ([facility]) [address] [facility], [place], [address], 02/12/2023 10:08:03 02/12/20 23 02/12/2023 COMP. METAB OLIC PANEL (14) albumin 4.6 g/dL 3.8-4. 9 Not Available [facility] ([facility]) [address] [facility], [place], [address], 02/12/2023 10:08:03 02/12/20 23 02/12/2023 COMP. METAB OLIC PANEL (14) globulin, total 2.4 g/dL 1.5-4. 5 Not Available [facility] ([facility]) [address] [facility] [place], [address], 02/12/2023 10:08:03 02/12/20 23 02/12/2023 COMP. METAB OLIC PANEL (14) A/G ratio 1.9 1.2-2. 2 Not Available [facility] ([facility]) [address] [facility] [place], [address], 02/12/2023 10:08:03 02/12/20 23 02/12/2023 COMP. METAB OLIC PANEL (14) bilirubin, total 0.6 mg/dL 0.0-1. 2 Not Available [facility] ([facility]) [address] [facility] [place], [address], 02/12/2023 10:08:03 02/12/20 23 02/12/2023 COMP. METAB OLIC PANEL (14) alkaline phosphatase 78 IU/L 44-121 Not Available [facility] ([facility]) [address] [place], [address], 02/12/2023 10:08:03 02/12/20 23 02/12/2023 COMP. METAB OLIC PANEL (14) AST (SGOT) 23 IU/L 0-40 Not Available [facility] ([facility]) [address] [place], [address], 02/12/2023 10:08:03 02/12/20 23 02/12/2023 COMP. METAB OLIC PANEL (14) ALT (SGPT) 15 IU/L 0-32 Not Available [facility] ([facility]) [address] [place], [address], 02/12/2023 10:08:03 02/12/20 23 02/12/2023 LIPID PANEL cholesterol, total 157 mg/dL 100-19 9 Not Available [facility] ([facility]) [address] [place], [address], 02/12/2023 10:08:04 02/12/20 23 02/12/2023 LIPID PANEL triglyceride s 67 mg/dL 0-149 Not Available [facility] ([facility]) [address] [place], [address], 02/12/2023 10:08:04 02/12/20 23 02/12/2023 LIPID PANEL HDL cholesterol 59 mg/dL >39 Not Available [facility] ([facility]) [address] [place], [address], 02/12/2023 10:08:04 02/12/20 23 02/12/2023 LIPID PANEL VLDL cholesterol heather 13 mg/dL 5-40 Not Available [facility] ([facility]) [address] [place], [address], 02/12/2023 10:08:04 02/12/20 23 02/12/2023 LIPID PANEL LDL chol calc (nih) 85 mg/dL 0-99 Not Available [facility] ([facility]) [address] [facility], [place], [address], 02/12/2023 10:08:04 02/12/20 23 02/12/2023 LIPID PANEL comment: HEAD NURSE Not Available [facility] ([facility]) [address] [place], [address], 02/12/2023 10:08:04 02/12/20 23 02/12/2023 IRON AND TIBC iron bind.cap.(TI BC) 324 ug/dL 250-45 0 Not Available [facility] ([facility]) [address] [place], [address], 02/12/2023 10:08:04 02/12/20 23 02/12/2023 IRON AND TIBC UIBC 232 ug/dL 131-42 5 Not Available [facility] ([facility]) [address] [facility], [place], [address], 02/12/2023 10:08:04 02/12/20 23 02/12/2023 IRON AND TIBC iron 92 ug/dL 27-159 Not Available [facility] ([facility]) [address] [facility], [place], [address], 02/12/2023 10:08:04 02/12/20 23 02/12/2023 IRON AND TIBC iron saturation 28 % 15-55 Not Available [facility] ([facility]) [address] [place], [address], 02/12/2023 10:08:04 02/12/20 23 02/12/2023 PT AND [...] range 2.5 - 3.5 Not Available [facility] ([facility]) [address] [facility], [place], [address], 02/12/2023 10:08:05 02/12/20 23 02/12/2023 PT AND PTT prothrombin time 9.9 sec 9.1-12 .0 Not Available [facility] ([facility]) [address] [facility], [place], [address], 02/12/2023 10:08:05 02/12/20 23 02/12/2023 PT AND PTT APTT 30 sec 24-33 This test has not been valid ated for [facility] unfra ction ated hepar in thera py. aPTT- based thera peuti c range s for unfra ction ated hepar in thera py have not been estab cam [employer] al guide lines on Hepar in [facility] , refer to the [facility] Direc tory of Dina andres. Not Available [facility] ([facility]) [address] [facility], [place], [address], 02/12/2023 10:08:05 02/12/20 23 02/12/2023 VITAM IN B12 AND FOLAT E vitamin B12 420 pg/mL 232-12 45 Not Available [facility] ([facility]) [address] [facility], [place], [address], 02/12/2023 10:08:05 02/12/2002/12/2023 VITAM IN B12 AND FOLAT E folate (folic acid), serum 8.2 NG/mL >3.0 A serum folat e reese ntrat ion of less than 3.1 ng/mL is consi dered to repre sent clini heather defic iency . Not Available [facility] ([facility]) [address] [facility], [place], [address], 02/12/2023 10:08:05 02/12/2002/12/2023 HEMOG LOBIN A1C hemoglobin A1C 5.6 % 4.8-5. 6 Predi abete s: 5.7 - 6.4 Diabe socrates: >6.4 Glyce deangelo contr ol for adult s with diabe socrates: <7.0 Not Available [facility] ([facility]) [address] [facility], [place], [address], 02/12/2023 10:08:06 06/18/20 23 06/20/2023 URINE CULTU RE, ROUTI NE urine culture, routine Final report Not Available [facility] ([facility]) [address] [facility], [place], [address], 06/20/2023 01:06:10 06/18/20 23 06/20/2023 URINE CULTU RE, ROUTI NE result 1 No growth Not Available [facility] ([facility]) [address] [facility], [place], [address], 06/20/2023 01:06:10 06/18/20 23 06/18/2023 urina lysis , dipst ick Leukocytes Negati ve Not Available [address], [address], 06/18/2023 14:18:36 06/18/20 23 06/18/2023 urina lysis , dipst ick Nitrite negati ve Not Available [address], [address], 06/18/2023 14:18:36 06/18/20 23 06/18/2023 urina lysis , dipst ick Urobilinogen .2 Not Available [facility] [address], [address], 06/18/2023 14:18:36 06/18/20 23 06/18/2023 urina lysis , dipst ick Protein Negati ve Not Available [address], [address], 06/18/2023 14:18:36 06/18/20 23 06/18/2023 urina lysis , dipst ick pH 6.0 Not Available [address], [address], 06/18/2023 14:18:36 06/18/20 23 06/18/2023 urina lysis , dipst ick Blood Non-He molyze d: Trace Not Available [address], [address], 06/18/2023 14:18:36 06/18/20 23 06/18/2023 urina lysis , dipst ick Specific Barnard 1.015 Not Available [address], [address], 06/18/2023 14:18:36 06/18/20 23 06/18/2023 urina lysis , dipst ick Ketone Negati ve Not Available [address], [address], 06/18/2023 14:18:36 06/18/20 23 06/18/2023 urina lysis , dipst ick Bilirubin Negati ve Not Available [address], [address], 06/18/2023 14:18:36 06/18/20 23 06/18/2023 urina lysis , dipst ick Glucose Negati ve Not Available [address], [address], 06/18/2023 14:18:36 06/18/20 23 06/18/2023 urina lysis , dipst ick Appearance Clear Not Available [address] [place], [address], 06/18/2023 14:18:36 06/18/2006/18/2023 urina lysis , dipst ick Color Yellow Not Available [address], [address], 06/18/2023 14:18:36 08/13/2008/14/2023 CBC WITH DIFFE RENTI AL/PL ATELE T WBC 9.1 x10e3 /uL 3.4-10 .8 Not Available [facility] ([facility]) [address] [place], [address], 08/15/2023 01:06:21 08/13/2008/14/2023 CBC WITH DIFFE RENTI AL/PL ATELE T RBC 4.18 x10e6 /uL 3.77-5 .28 Not Available [facility] ([facility]) [address] [place], [address], 08/15/2023 01:06:21 08/13/2008/14/2023 CBC WITH DIFFE RENTI AL/PL ATELE T hemoglobin 13.0 g/dL 11.1-1 5.9 Not Available [facility] ([facility]) [address] [place], [address], 08/15/2023 01:06:21 08/13/2008/14/2023 CBC WITH DIFFE RENTI AL/PL ATELE T hematocrit 38.8 % 34.0-4 6.6 Not Available [facility] ([facility]) [address] [place], [address], 08/15/2023 01:06:21 08/13/2008/14/2023 CBC WITH DIFFE RENTI AL/PL ATELE T MCV 93 fL 79-97 Not Available [facility] ([facility]) [address] [place], [address], 08/15/2023 01:06:21 08/13/2008/14/2023 CBC WITH DIFFE RENTI AL/PL ATELE T MCH 31.1 pg 26.6-3 3.0 Not Available [facility] ([facility]) [address] [facility], [place], [address], 08/15/2023 01:06:21 08/13/2008/14/2023 CBC WITH DIFFE RENTI AL/PL ATELE T MCHC 33.5 g/dL 31.5-3 5.7 Not Available [facility] ([facility]) [address] [place], [address], 08/15/2023 01:06:21 08/13/2008/14/2023 CBC WITH DIFFE RENTI AL/PL ATELE T RDW 12.8 % 11.7-1 5.4 Not Available [facility] ([facility]) [address] [facility], [place], [address], 08/15/2023 01:06:21 08/13/2008/14/2023 CBC WITH DIFFE RENTI AL/PL ATELE T platelets 178 x10e3 /uL 150-45 0 Not Available [facility] ([facility]) [address] [place], [address], 08/15/2023 01:06:21 08/13/2008/14/2023 CBC WITH DIFFE RENTI AL/PL ATELE T neutrophils 56 % not estab. Not Available [facility] ([facility]) [address] [place], [address], 08/15/2023 01:06:21 08/13/2008/14/2023 CBC WITH DIFFE RENTI AL/PL ATELE T lymphs 37 % not estab. Not Available [facility] ([facility]) [address] [place], [address], 08/15/2023 01:06:21 08/13/2008/14/2023 CBC WITH DIFFE RENTI AL/PL ATELE T monocytes 5 % not estab. Not Available [facility] ([facility]) [address] [facility], [place], [address], 08/15/2023 01:06:21 08/13/2008/14/2023 CBC WITH DIFFE RENTI AL/PL ATELE T eos 2 % not estab. Not Available [facility] ([facility]) [address] [facility], [place], [address], 08/15/2023 01:06:21 08/13/2008/14/2023 CBC WITH DIFFE RENTI AL/PL ATELE T basos 0 % not estab. Not Available [facility] ([facility]) [address] [facility], [place], [address], 08/15/2023 01:06:21 08/13/2008/14/2023 CBC WITH DIFFE RENTI AL/PL ATELE T immature cells HEAD NURSE Not Available [facility] ([facility]) [address] [place], [address], 08/15/2023 01:06:21 08/13/2008/14/2023 CBC WITH DIFFE RENTI AL/PL ATELE T neutrophils (absolute) 5.1 x10e3 /uL 1.4-7. 0 Not Available [facility] ([facility]) [address], [place], [address], 08/15/2023 01:06:21 08/13/2008/14/2023 CBC WITH DIFFE RENTI AL/PL ATELE T lymphs (absolute) 3.3 x10e3 /uL 0.7-3. 1 above high normal Not Available [facility] ([facility]) [address], [place], [address], 08/15/2023 01:06:21 08/13/2008/14/2023 CBC WITH DIFFE RENTI AL/PL ATELE T monocytes(ab solute) 0.5 x10e3 /uL 0.1-0. 9 Not Available [facility] ([facility]) [address], [place], [address], 08/15/2023 01:06:21 08/13/2008/14/2023 CBC WITH DIFFE RENTI AL/PL ATELE T eos (absolute) 0.2 x10e3 /uL 0.0-0. 4 Not Available [facility] ([facility]) [address], [place], [address], 08/15/2023 01:06:21 08/13/2008/14/2023 CBC WITH DIFFE RENTI AL/PL ATELE T baso (absolute) 0.0 x10e3 /uL 0.0-0. 2 Not Available [facility] ([facility]) [address], [place], [address], 08/15/2023 01:06:21 08/13/2008/14/2023 CBC WITH DIFFE RENTI AL/PL ATELE T immature granulocytes 0 % not estab. Not Available [facility] ([facility]) [address], [place], [address], 08/15/2023 01:06:21 08/13/2008/14/2023 CBC WITH DIFFE RENTI AL/PL ATELE T immature grans (abs) 0.0 x10e3 /uL 0.0-0. 1 Not Available [facility] ([facility]) [address], [place], [address], 08/15/2023 01:06:21 08/13/2008/14/2023 CBC WITH DIFFE RENTI AL/PL ATELE T NRBC HEAD NURSE Not Available [facility] ([facility]) [address], [place], [address], 08/15/2023 01:06:21 08/13/20 23 08/14/2023 CBC WITH DIFFE RENTI AL/PL ATELE T hematology comments: HEAD NURSE Not Available [facility] ([facility] [facility]) [address], [place], [address], 08/15/2023 01:06:21 08/13/20 23 08/14/2023 COMP. METAB OLIC PANEL (14) glucose 86 mg/dL 70-99 Not Available [facility] ([facility]) [address], [place], [address], 08/15/2023 01:06:22 08/13/20 23 08/14/2023 COMP. METAB OLIC PANEL (14) BUN 12 mg/dL 6-24 Not Available [facility] ([facility]) [address], [place], [address], 08/15/2023 01:06:22 08/13/20 23 08/14/2023 COMP. METAB OLIC PANEL (14) creatinine 0.77 mg/dL 0.57-1 .00 Not Available [facility] ([facility]) [address], [place], [address], 08/15/2023 01:06:22 08/13/20 23 08/14/2023 COMP. METAB OLIC PANEL (14) eGFR 92 mL/mi n/1.7 3 >59 Not Available [facility] ([facility]) [address], [place], [address], 08/15/2023 01:06:22 08/13/20 23 08/14/2023 COMP. METAB OLIC PANEL (14) BUN/creatini ne ratio 16 9-23 Not Available [facility] ([facility]) [address], [place], [address], 08/15/2023 01:06:22 08/13/20 23 08/14/2023 COMP. METAB OLIC PANEL (14) sodium 142 mmol/ L 134-14 4 Not Available [facility] ([facility]) [address] [place], [address], 08/15/2023 01:06:22 08/13/2008/14/2023 COMP. METAB OLIC PANEL (14) potassium 3.9 mmol/ L 3.5-5. 2 Not Available [facility] ([facility]) [address] [place], [address], 08/15/2023 01:06:22 08/13/2008/14/2023 COMP. METAB OLIC PANEL (14) chloride 103 mmol/ L 96-106 Not Available [facility] ([facility]) [address] [place], [address], 08/15/2023 01:06:22 08/13/20 23 08/14/2023 COMP. METAB OLIC PANEL (14) carbon dioxide, total 25 mmol/ L 20-29 Not Available [facility] ([facility]) [address] [place], [address], 08/15/2023 01:06:22 08/13/2008/14/2023 COMP. METAB OLIC PANEL (14) calcium 8.9 mg/dL 8.7-10 .2 Not Available [facility] ([facility]) [address] [place], [address], 08/15/2023 01:06:22 08/13/2008/14/2023 COMP. METAB OLIC PANEL (14) protein, total 6.3 g/dL 6.0-8. 5 Not Available [facility] ([facility]) [address] [place], [address], 08/15/2023 01:06:22 08/13/2008/14/2023 COMP. METAB OLIC PANEL (14) albumin 4.2 g/dL 3.8-4. 9 Not Available [facility] ([facility]) [address] [facility] [place], [address], 08/15/2023 01:06:22 08/13/20 23 08/14/2023 COMP. METAB OLIC PANEL (14) globulin, total 2.1 g/dL 1.5-4. 5 Not Available [facility] ([facility]) [address] [place], [address], 08/15/2023 01:06:22 08/13/20 23 08/14/2023 COMP. METAB OLIC PANEL (14) A/G ratio 2.0 1.2-2. 2 Not Available [facility] ([facility]) [address] [place], [address], 08/15/2023 01:06:22 08/13/2008/14/2023 COMP. METAB OLIC PANEL (14) bilirubin, total 0.9 mg/dL 0.0-1. 2 Not Available [facility] ([facility]) [address], [place], [address], 08/15/2023 01:06:22 08/13/2008/14/2023 COMP. METAB OLIC PANEL (14) alkaline phosphatase 72 IU/L 44-121 Not Available [facility] ([facility]) [address], [place], [address], 08/15/2023 01:06:22 08/13/20 23 08/14/2023 COMP. METAB OLIC PANEL (14) AST (SGOT) 18 IU/L 0-40 Not Available [facility] ([facility]) [address] [place], [address], 08/15/2023 01:06:22 08/13/2008/14/2023 COMP. METAB OLIC PANEL (14) ALT (SGPT) 11 IU/L 0-32 Not Available [facility] ([facility]) [address], [place], [address], 08/15/2023 01:06:22 08/13/2008/14/2023 LIPID PANEL cholesterol, total 126 mg/dL 100-19 9 Not Available [facility] ([facility]) [address] [place], [address], 08/15/2023 01:06:22 08/13/2008/14/2023 LIPID PANEL triglyceride s 72 mg/dL 0-149 Not Available [facility] ([facility]) [address], [place], [address], 08/15/2023 01:06:22 08/13/2008/14/2023 LIPID PANEL HDL cholesterol 58 mg/dL >39 Not Available [facility] ([facility]) [address], [place], [address], 08/15/2023 01:06:22 08/13/2008/14/2023 LIPID PANEL VLDL cholesterol heather 15 mg/dL 5-40 Not Available [facility] ([facility]) [address], [place], [address], 08/15/2023 01:06:22 08/13/2008/14/2023 LIPID PANEL LDL chol calc ([facility]) 53 mg/dL 0-99 Not Available [facility] ([facility]) [address], [place], [address], 08/15/2023 01:06:22 08/13/2008/14/2023 LIPID PANEL 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 This colon y count is not gener ally consi dered to be clini mynor signi kenia t. Not Available [facility] ([facility]) [address], [place], [address], 08/15/2023 01:06:23 08/13/2008/14/2023 PLEDILLON E NOTE please note Commen t The date and/o r time of colle ction was not indic ated on the requi sitio n as requi red by state and princess [place] law. The date of recei pt of the speci men was used as the colle ction date if not suppl ied. Not Available [facility] ([facility]) [address], [place], [address], 08/15/2023 01:06:24 08/13/2008/13/2023 HbA1c (hemo globi n A1c), blood HbA1C % Not Available [address], [address], 08/13/2023 11:13:22 08/13/20 23 08/13/2023 urina lysis , dipst ick Leukocytes Negati ve Not Available [address], [address], 08/13/2023 10:28:22 08/13/20 23 08/13/2023 urina lysis , dipst ick Nitrite negati ve Not Available [address], [address], 08/13/2023 10:28:22 08/13/20 23 08/13/2023 urina lysis , dipst ick Urobilinogen .2 Not Available Mayank oneill [address], [address], 08/13/2023 10:28:22 08/13/2008/13/2023 urina lysis , dipst ick Protein Negati ve Not Available [address], [address], 08/13/2023 10:28:22 08/13/2008/13/2023 urina lysis , dipst ick pH 6.0 Not Available [address], [address], 08/13/2023 10:28:22 08/13/2008/13/2023 urina lysis , dipst ick Blood Non-He molyze d: Trace Not Available [address], [address], 08/13/2023 10:28:22 08/13/2008/13/2023 urina lysis , dipst ick Specific Barnard 1.015 Not Available [address], [address], 08/13/2023 10:28:22 08/13/2008/13/2023 urina lysis , dipst ick Ketone Negati ve Not Available [address], [address], 08/13/2023 10:28:22 08/13/2008/13/2023 urina lysis , dipst ick Bilirubin Negati ve Not Available [address], [address], 08/13/2023 10:28:22 08/13/20 23 08/13/2023 urina lysis , dipst ick Glucose Negati ve Not Available [address] [place], [address], 08/13/2023 10:28:22 08/13/20 23 08/13/2023 urina lysis , dipst ick Appearance Clear Not Available [address], [place], [address], 08/13/2023 10:28:22 08/13/20 23 08/13/2023 urina lysis , dipst ick Color Dark Yellow Not Available [address], [place], [address], 08/13/2023 10:28:22 03/26/20 23 03/26/2023 US, abdom en, compl ete No observ ation record ed. [address], [place], [address], 03/26/2023 10:14:13 08/28/20 24 08/27/2024 US, thyro id No observ ation record ed. [place] [id number], [place], [address], 08/31/2024 13:53:16 01/10/20 25 01/08/2025 XR, chest , 2 view No observ ation record ed. [place] [id number], [place], [address], 01/11/2025 08:28:44 03/30/20 25 03/30/2025 CT, abdom en + pelvi s, w/ contr ast No observ ation record ed. [place] [id number], [place], [address], 04/05/2025 09:35:04 04/02/20 25 04/02/2025 CT, abdom en + pelvi s, w/ contr ast No observ ation record ed. [place] [id number], [place], [address], 04/05/2025 09:48:03 04/03/20 25 04/02/2025 alex weber am No observ ation record ed. [facility] [address], [place], [address], 04/05/2025 09:47:44 Result Notes None recorded. Problems Name Problem SNOMED Code Status Onset Date Resolution Date Notes Provider Name and Address Organization Details Recorded Time Heart disease 88820832 Active 2021 Terrence Escamilla, [employer] [address], [place], [address], [place] - [facility] 2 16:44:49 Hypertensive disorder 12812777 Active 2021 Terrence Escamilla, [employer] [address], [place], [address], [place] [facility] 2 16:44:54 Hypercholester olemia 59423597 Active 2021 Terrence Escamilla, [employer] [address], [place], [address], [place] [facility] 2 16:44:51 Prediabetes 623018968 Active 2022 Terrence Escamilla, [employer] [address], [place], [address], [place] [facility] 3 09:37:27 Asthma 894622886 Active 2022 Terrence Escamilla, [employer] [address], [place], [address], [place] [facility] 3 11:05:49 [...] Name and Address Organization Details Recorded Time 303669 morphine medicatio n Not available Not available [...] Updated DateTime 3 167.64 cm 28.7 kg/m2 56642.4 4 g 96.8 [degF] 72 /min 97 % 97 % 20 /min 122 mm[Hg] 68 mm[Hg] Donna [facility] 3 08:55:17 Date Recorded Body height Body mass index (BMI) Body weight Body temperature Heart rate Oxygen saturation Oxygen saturation in Arterial blood by Pulse oximetry Respiratory rate Systolic blood pressure Diastolic blood pressure Provider Name and Address Organization Details Last Updated DateTime 3 167.64 cm 28.8 kg/m2 36229.2 4 g 97.6 [degF] 67 /min 98 % 98 % 18 /min 116 mm[Hg] 70 mm[Hg] Donna [facility] 3 09:58:42 Date Recorded Body height Body mass index (BMI) Body weight Provider Name and Address Organization Details Last Updated DateTime 06/18/2023 167.64 cm 29.6 kg/m2 34519.1 g Donna [facility] 06/18/2023 14:09:31 Date Recorded Body height Body mass index (BMI) Body weight Body temperature Heart rate Oxygen saturation Oxygen saturation in Arterial blood by Pulse oximetry Respiratory rate Systolic blood pressure Diastolic blood pressure Provider Name and Address Organization Details Last Updated DateTime 3 167.64 cm 30.1 kg/m2 43939.9 8 g 98 [degF] 64 /min 97 [...] Updated DateTime 4 167.64 cm 34.1 kg/m2 90109.9 9 g 82 /min 18 /min 95 % 95 % 124 mm[Hg] 78 mm[Hg] Linda Hunter [place] - [facility] 4 16:00:06 Social History Question Answer Notes LastModified by Organizat ion Details LastModified Time Tobacco Smoking Status Current Every Day Smoker Linda Bernabeaman [facility] [place] - [facility] 08/14/2022 16:05:44 Do You [...] Or The Highest Degree You Have Received? GL84266-6 Information not available 08/14/2022 Have There Been [...] Do You Have A Medical Power Of Forensic Structural Engineer? No Information not available 08/14/2022 What Was [...] anxious, or unable to sleep at night)? [id number] Information not available 08/14/2022 Do you have difficulty concentrating, remembering or making decisions? No Information no t available 08/14/2022 Family History Relationship Description Onset Age of this Age Resolved Age Notes LastModified by Organization Details LastModified Time Mother Dementia bstears Not available 08/14/2022 16:05:43 Medical History Condition Response Kidney Stones Y Vision or Eye Problems Y Arthritis Y Cancer Y Hypercholesterolemia Y Headaches Y Allergies/Hayfever Y Sleep Apnea Y Hypertension Y Gynecological History Statement/Question Response [...] preservative free, adsorbed 7 completed Donna parker, [facility] 08/21/2022 15:30:26 pneumococcal polysaccharide PPV23 8 [facility] 11/13/2022 15:48:48 Influenza, split virus, quadrivalent, PF 9 completed Donna parker, [facility] 11/13/2022 15:48:48 COVID-19 vaccine, vector-nr, rS-Ad26, PF, 0.5 mL 1 [facility] 11/13/2022 15:48:48 Influenza, split virus, trivalent, PF 8 completed [facility] 11/13/2022 15:48:48 Past Encounters Encounter ID Performer Location Encounter Start Date Encounter Closed Date Diagnosis/Indication Diagnosis SNOMED-CT Code Diagnosis ICD10 Code Diagnosis Note [id number] Terrence Escamilla APRN [address] [address] 08/14/2022 15:40:07 08/14/2022 17:48:34 Heart disease 68247378 I51.9 Hypercholesterolemia 136 48668 E78.00 Hypertensive disorder 38 119391 I10 Fatigue 14539587 R53.83 Right uppe r quadrant pain 806649655 R10.11 Screening for malignant neoplasm of breast 826225450 Z12.[id number] [address] 11/13/2022 15:28:56 11/13/2022 16:42:08 Gastroesophageal reflux disease 101251354 K21.9 follow up with cardiology also Menopausal flushing 1983 68528 N95.1 Hypoglycemia 900935882 E 16.2 see log no glucose under 76 [id number] [facility] [address] [address] 02/11/2023 08:46:35 02/11/2023 10:07:12 Heart disease 77726815 I51.9 Hypertensive disorder 38 482440 I10 Hypercholesterolemia 136 93072 E78.00 Prediabetes 190304450 R7 3.03 Easy bruising 023628034 R58 Skin lesion 56440968 L98 .9 Constipation 63098466 K5 9.00 [id number] [facility] [place] [address] 05/10/2023 09:41:48 05/10/2023 10:57:11 Hypertensive disorder 50163539 I10 labs next visit Prediabetes 881274518 R7 3.03 labs next visit Asthma 189198390 J45.90 9 [id number] [facility] [place] [id number] 06/18/2023 13:59:46 06/18/2023 15:06:06 Acute urinary tract infection 895344038 N39.0 Dental abscess 227891678 K04.7 Left flank pain 24706301 9 R10.9 Low back pain 206178512 M54.50 [id number] [facility] [address] [address] 08/13/2023 10:06:55 08/13/2023 11:39:41 Hypercholesterolemia 63093490 E78.00 Hypertensive disorder 38 878179 I10 Left flank pain 46015970 9 R10.9 pt freq has blood in urine will refer to urology for more work up Prediabetes 767142507 R7 3.03 Heart disease 12547518 I 51.9 [id number] Terrence Escamilla APRN [facility] [address] [place] [address] 08/20/2024 15:49:15 08/20/2024 16:15:30 Mixed anxiety and depressive disorder 004135381 F41.8 Patient identified triggers for anxiety and impact of anxious thinking on functionin g. Discussed strategies to regulate symptoms and need for compliance with treatment. 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 Heart disease 20940460 I 51.9 Hypercholesterolemia 136 85789 E78.00 Hypertensive disorder 38 550568 I10 Health Concerns Section Related Observation LastModified by Organization Detai ls LastModified Time None Recorded Concern Status LastModified by Organization Details LastModified Time None Recorded Advance Directives Directive N: Payers Insurance Date Sequence Insurance Name Policy Number Policy Bernal Covered Member ID Bernal Member ID Guarantor Name 08/20/2024 1 [facility] (MEDICAID REPLACEMENT - HMO) Maura Thorne [id number] Maura Thorne 10/16/2024 1 [facility] (MEDICAID REPLACEMENT - HMO) Maura Thorne [id number] Maura Thorne 11/13/2022 1 [place] [id number] - INDIVIDUAL MEDICAL PLAN (HMO) Maura Thorne [id number] Maura Thorne 10/16/2024 [place] [facility] WRAP BILLING (MEDICAID) Maura Thorne [id number] Maura Thorne 08/20/2024 1 [facility] Maura Thorne [id number] Maura Thorne Notes Date Note Type Note [...] daily. Terrence Escamilla APRN [address], [place], [address], [place] - [facility] 02/11/2023 10:29:46 05/10/2023 text/html 52 yr old female presents to follow up on hypertension and pre diabetes. She would like a rescue inhaler for her copd/asthma pt states she is doing well Terrence Escamilla APRN [address], [place], [address], [place] - [facility] 06/06/2023 14:38:54 06/18/2023 text/html 52 yr old female presents for gum abbess and possible uti.pt states she has pus abscess to gums. pt states she can feel and taste infectionleft flank pain, and freq Terrence Escamilla [employer] [address], [place], [address], [place] - [facility] 06/18/2023 15:45:47 08/13/2023 text/html 52 yr old female presents for lab work and possible uti. pt states she is having flank pain on the left that has been coming and going for awhile.pt states she needs med refills and labs for her chronic conditions.hx predm,heart dz,htn, hyperlipidemia Terrence Escamilla APRN [address], [place], [address], [place] - [facility] 08/13/2023 11:23:39 08/20/2024 text/html Maura is a 53 ye ar old female who presents to the office today with concerns ofanxiety/depression - just passed awaynodule on right neck- trouble swallowingpain in left side of abdomen Terrence EscamillaMARGO [address], [place], [address], [place] - [facility] 08/31/2024 14:36:05 OBGyn Episode No OBEpisode recorded.
== END 2025-04-11 16:24 | disposition home or self-care (01) ==
LOC: OUTP 14:23
PROVIDERS: PCP Nurse Practitioner Family; Visit Provider Student in an Organized Health Care Education/Training Program
DX: S31.502A Unspecified open wound of unspecified external genital organs, female, initial encounter (principal)
CPT/HCPCS: 99211; G0463

== ENCOUNTER 2025-04-12 12:16 | Outpatient (CLI) | payer MEDICAID, SELFPAY ==
--- NOTE | 2025-04-12 14:20 | PC.NURSE ---
pt stated her sister was going to do dressing changes as often as possible due to transportation issues. pt given some supplies and was shown how dressing change is done and verbalized understanding. pt due to see MD on 04/15/25 and will reevaluate.
== END 2025-04-12 12:40 | disposition home or self-care (01) ==
LOC: INF 12:19
PROVIDERS: PCP Nurse Practitioner Family; Visit Provider Surgery
DX: L02.214 Cutaneous abscess of groin (principal)
CPT/HCPCS: 99211; G0463

== ENCOUNTER 2025-08-19 11:21 | Outpatient (CLI) | payer MEDICAID, SELFPAY ==
[2025-08-19 17:17] LABS: Hematocrit 43.7 % (37.0-47.0); Hemoglobin 14.5 g/dL (12.2-16.2); Immature Granulocytes % 0.2 %; Mean Corpuscular HGB Conc 33.2 g/dL (31.8-35.4); Mean Corpuscular Hemoglobin 29.9 pg (27.0-31.2); Mean Corpuscular Volume 90.1 fl (81-99); Nucleated Red Blood Cells % 0 %; Platelet Count 216 K/mm3 (142-424); Red Blood Count 4.85 M/mm3 (4.20-5.40); Red Cell Distribution Width-SD 48.8 fL; White Blood Count 8.5 K/mm3 (4.8-10.8)
[2025-08-19 17:51] LABS: Alanine Aminotransferase 16 U/L (12-78); Albumin Level 4.2 g/dl (3.5-5.0); Albumin/Globulin Ratio 1.6 (1.1-1.8); Alkaline Phosphatase 93 U/L (38-126); Anion Gap 12.0 mEq/L (5-15); Aspartate Amino Transferase 28 U/L (14-36); Bilirubin,Total 1.0 mg/dl (0.2-1.3); Blood Urea Nitrogen 12 mg/dl (7-17); Calcium 9.2 mg/dl (8.4-10.2); Carbon Dioxide 29 mmol/L (22.0-30.0); Chloride 103 mmol/L (98-107); Cholesterol 244 mg/dl (140-200); Creatinine,Serum 0.70 mg/dl (0.52-1.04); Estimated Glomerular Filt Rate 87 ml/min (>60); GFR (African American) 105 ML/MIN (>60); Globulin 2.6 g/dL (1.3-3.2); Glucose 87 mg/dl (74-100); HDL Cholesterol 61 mg/dl (40-60); Potassium 4.0 mmoL/L (3.5-5.1); Sodium 140 mmol/L (136-145); Total Protein,Serum 6.8 g/dl (6.3-8.2); Triglycerides 88 mg/dl (30-150)
[2025-08-19 18:38] LABS: Hepatitis C Ab Qual. W/ RFX NEGATIVE (Negative)
[2025-08-21 07:10] LABS: Hepatitis B Surface Antigen Negative (Negative)
== END 2025-08-19 23:59 ==
LOC: LAB.DROPOF 08-23 13:27
PROVIDERS: PCP Student in an Organized Health Care Education/Training Program; Visit Provider Student in an Organized Health Care Education/Training Program
DX: Z11.59 Encounter for screening for other viral diseases (principal); I10 Essential (primary) hypertension; E66.811 Obesity, class 1; E78.2 Mixed hyperlipidemia; D64.9 Anemia, unspecified
CPT/HCPCS: 80053; 80061; 82043; 82570; 85025; 86803; 87340; 87389

== ENCOUNTER 2025-09-01 10:34 | Outpatient (CLI) | payer MEDICAID, SELFPAY ==
--- NOTE | 2025-09-01 11:00 | CT_ITS ---
FINAL REPORT TECHNIQUE: Axial images were obtained from the lung apex to the mid abdomen by computed tomography. This study was performed with techniques to keep radiation doses as low as reasonably achievable (ALARA). Individualized dose reduction techniques using automated exposure control or adjustment of mA and/or kV according to the patient's size were employed. CLINICAL HISTORY: lung cancer screening CURRENT SMOKER 1/2PPD X41 YEARS FINDINGS: CHEST CT LOW DOSE CTDI vol (mGy): 2.90 DLP (mGy-cm): 86.47 There is no axillary adenopathy. There is no hilar or mediastinal adenopathy. The heart is normal in size. There is no pericardial or pleural effusion. There is a 2 mm nodule in the periphery of the right upper lobe. Finding is best seen on image 35 of series 3. There are mild changes of centrilobular emphysema. Limited images of the upper abdomen are unremarkable. IMPRESSION: Right upper lobe nodule. Lung RADS category 2. Recommend 12 month follow-up low-dose chest CT. Reviewed, Interpreted and Dictated by Jaden Patel MD Transcribed by Peggy Murrell Authenticated and [facility]
== END 2025-09-01 23:59 | disposition home or self-care (01) ==
LOC: RAD 10:34
PROVIDERS: PCP Student in an Organized Health Care Education/Training Program; Visit Provider Student in an Organized Health Care Education/Training Program
DX: R91.1 Solitary pulmonary nodule (principal); Z12.2 Encounter for screening for malignant neoplasm of respiratory organs; F17.210 Nicotine dependence, cigarettes, uncomplicated
CPT/HCPCS: 71271

== ENCOUNTER → 2025-09-10 20:09 | Outpatient (CLI) | payer MEDICAID, SELFPAY ==
--- OUTSIDE RECORDS SUMMARY | 2025-09-10 20:13 | XMS_ITS | Data Portability ---
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 Plan of Treatment Reminders Order Date Submit Date Provider Last Modified By Organization Details Last Modified Time Details Appointments None recorded. Lab TSH + free T4, serum 2023 [facility] (Lab), [address], [place], [place], [address], 16:17:18 CMP, serum or plasma 2023 [facility] (Lab), [address], [place], [place], [address], 16:17:18 lipid panel, serum 2023 [facility] (Lab), [address], [place], [address], 16:17:18 CBC w/ auto diff 2023 [facility] (Lab), [address], [place], [address], 15:27:52 CBC w/ auto diff 2022 023 [facility], [address], [address], [place], [address], 3 01:06:21 CMP, serum or plasma 2022 023 [facility], [address], [place], [place], [address], 3 01:06:22 HbA1c (hemoglobin A1c), blood 2022 023 [facility], [address] [place] [address], [address], 3 13:42:51 urinalysis, dipstick 2022 023 [facility], [address] [place] [address], [address], 3 11:12:55 culture, urine 2022 023 [facility], [address], [place] [address], [place], [address], 3 01:06:23 lipid panel, serum 2022 023 [facility], [address], [place] [address], [place], [address], 3 01:06:23 urinalysis, dipstick 2022 023 [facility], [address] [place] [address], [address], 3 14:49:39 culture, urine 2022 023 [facility], [address], [place] [address], [place], [address], 3 01:06:10 CMP, serum or plasma 2022 023 [facility], [address], [place] [address], [place], [address], 3 10:08:03 CBC w/ auto diff 2022 023 [facility], [address], [place] [address], [place], [address], 3 10:08:02 iron + total iron-bindin g capacity (TIBC), serum 2022 023 [facility], [address], [place] [address], [place], [address], 3 10:08:04 vitamin B12 + folate, serum or blood 2022 023 [facility], [address], [place], [place], [address], 3 10:08:06 PT/PTT, plasma 2022 023 [facility], [address], [place] [address], [place], [address], 3 10:08:05 HbA1c (hemoglobin A1c), blood 2022 023 [facility], [address], [place], [place], [address], 3 10:08:06 lipid panel, serum 2022 023 [facility], [address], [place], [place], [address], 3 10:08:04 Referral urologist referral - blood in urine and flank pain 2022 023 [facility] Ej Rodríguez MD (Billy), [address] , [address], [place], [address], 4 11:02:[address] referral 2022 023 [facility] Bhavna Harris MACHINE FANCY STITCHER, [address], [place], [address], 3 13:31:44 Procedures None recorded. Surgeries None recorded. Imaging US, thyroid 2023 024 [facility] ([facility]), [address], [place], [address], 4 18:11:25 Medication Orders Lexapro 10 mg tablet 2023 024 [facility], [address] [place], [address], 4 16:36:29 furosemide 40 mg tablet 2022 023 [facility], [address] [place], [address], 3 11:13:04 atorvastati n 20 mg tablet 2022 023 [facility] [address], [address] [place], [address], 3 11:13:03 amoxicillin 500 mg capsule 2022 023 [facility] [address], [address] [place], [address], 3 10:11:07 ceftriaxone 1 gram solution for injection 2022 023 [facility] [address], [address] [place], [address], 3 10:11:13 ketorolac 30 mg/mL (1 mL) injection solution 2022 023 [facility] [address], [address] [place], [address], 3 10:11:22 [place] 5 mg-325 mg tablet 2022 023 sas[facility] [address], [address] [employer] [place], [address], 3 10:21:32 albuterol sulfate HFA 90 mcg/actuati on aerosol inhaler [facility] [address] [employer] [place], [address], 4 16:00:51 Miralax 17 gram/dose oral powder 2022 023 [facility], [address] [employer] [place], [address], 3 09:43:09 Patient TargetsNo targets recorded. Patient InstructionsNo instructions recorded. Reason for Referral Rrts Referral for S kin lesion Referring Physician: Terrence Johnson [facility], Encounter Date: 02/11/2023 Urologist Referral for Left flank pain blood in urine and flank pain Referring Physician: Terrence Johnson [facility], Encounter Date: 08/13/2023 Results Created Date Observation Date Name Description Value Unit Range Abnormal Flag Note LastModifiedBy Organization Detail LastModifiedTime 02/12/2002/12/2023 CBC WITH DIFFE RENTI AL/PL ATELE T WBC 8.7 x10e3 /uL 3.4-10 .8 Not Available [facility] ([facility]) [address] [place], [address], 02/12/2023 10:08:02 02/12/20 23 02/12/2023 CBC WITH DIFFE RENTI AL/PL ATELE T RBC 4.47 x10e6 /uL 3.77-5 .28 Not Available [facility] ([facility]) [address] [place], [address], 02/12/2023 10:08:02 02/12/20 23 02/12/2023 CBC WITH DIFFE RENTI AL/PL ATELE T hemoglobin 14.1 g/dL 11.1-1 5.9 Not Available [facility] ([facility]) [address], [place], [address], 02/12/2023 10:08:02 02/12/20 23 02/12/2023 CBC WITH DIFFE RENTI AL/PL ATELE T hematocrit 41.3 % 34.0-4 6.6 Not Available [facility] ([facility]) [address], [place], [address], 02/12/2023 10:08:02 02/12/20 23 02/12/2023 CBC WITH DIFFE RENTI AL/PL ATELE T MCV 92 fL 79-97 Not Available [facility] ([facility]) [address], [place], [address], 02/12/2023 10:08:02 02/12/20 23 02/12/2023 CBC WITH DIFFE RENTI AL/PL ATELE T MCH 31.5 pg 26.6-3 3.0 Not Available [facility] ([facility]) [address] [place], [address], 02/12/2023 10:08:02 02/12/20 23 02/12/2023 CBC WITH DIFFE RENTI AL/PL ATELE T MCHC 34.1 g/dL 31.5-3 5.7 Not Available [facility] ([facility]) [address] [place], [address], 02/12/2023 10:08:02 02/12/20 23 02/12/2023 CBC WITH DIFFE RENTI AL/PL ATELE T RDW 12.9 % 11.7-1 5.4 Not Available [facility] ([facility]) [address] [place], [address], 02/12/2023 10:08:02 02/12/20 23 02/12/2023 CBC WITH DIFFE RENTI AL/PL ATELE T platelets 207 x10e3 /uL 150-45 0 Not Available [facility] ([facility]) [address], [place], [address], 02/12/2023 10:08:02 02/12/20 23 02/12/2023 CBC WITH DIFFE RENTI AL/PL ATELE T neutrophils 58 % not estab. Not Available [facility] ([facility]) [address], [place], [address], 02/12/2023 10:08:02 02/12/20 23 02/12/2023 CBC WITH DIFFE RENTI AL/PL ATELE T lymphs 34 % not estab. Not Available [facility] ([facility]) [address], [place], [address], 02/12/2023 10:08:02 02/12/20 23 02/12/2023 CBC WITH DIFFE RENTI AL/PL ATELE T monocytes 6 % not estab. Not Available [facility] ([facility]) [address], [place], [address], 02/12/2023 10:08:02 02/12/20 23 02/12/2023 CBC WITH DIFFE RENTI AL/PL ATELE T eos 2 % not estab. Not Available [facility] ([facility]) [address], [place], [address], 02/12/2023 10:08:02 02/12/20 23 02/12/2023 CBC WITH DIFFE RENTI AL/PL ATELE T basos 0 % not estab. Not Available [facility] ([facility]) [address], [place], [address], 02/12/2023 10:08:02 02/12/20 23 02/12/2023 CBC WITH DIFFE RENTI AL/PL ATELE T immature cells CARTOGRAPHY TEACHER Not Available [facility] ([facility]) [address], [place], [address], 02/12/2023 10:08:02 02/12/20 23 02/12/2023 CBC WITH DIFFE RENTI AL/PL ATELE T neutrophils (absolute) 5.0 x10e3 /uL 1.4-7. 0 Not Available [facility] ([facility]) [address], [place], [address], 02/12/2023 10:08:02 02/12/20 23 02/12/2023 CBC WITH DIFFE RENTI AL/PL ATELE T lymphs (absolute) 2.9 x10e3 /uL 0.7-3. 1 Not Available [facility] ([facility]) [address], [place], [address], 02/12/2023 10:08:02 02/12/20 23 02/12/2023 CBC WITH DIFFE RENTI AL/PL ATELE T monocytes(ab solute) 0.5 x10e3 /uL 0.1-0. 9 Not Available [facility] ([facility]) [address], [place], [address], 02/12/2023 10:08:02 02/12/20 23 02/12/2023 CBC WITH DIFFE RENTI AL/PL ATELE T eos (absolute) 0.2 x10e3 /uL 0.0-0. 4 Not Available [facility] ([facility]) [address] [place], [address], 02/12/2023 10:08:02 02/12/20 23 02/12/2023 CBC WITH DIFFE RENTI AL/PL ATELE T baso (absolute) 0.0 x10e3 /uL 0.0-0. 2 Not Available [facility] ([facility]) [address] [place], [address], 02/12/2023 10:08:02 02/12/20 23 02/12/2023 CBC WITH DIFFE RENTI AL/PL ATELE T immature granulocytes 0 % not estab. Not Available [facility] ([facility]) [address], [place], [address], 02/12/2023 10:08:02 02/12/20 23 02/12/2023 CBC WITH DIFFE RENTI AL/PL ATELE T immature grans (abs) 0.0 x10e3 /uL 0.0-0. 1 Not Available [facility] ([facility]) [address], [place], [address], 02/12/2023 10:08:02 02/12/20 23 02/12/2023 CBC WITH DIFFE RENTI AL/PL ATELE T NRBC CARTOGRAPHY TEACHER Not Available [facility] ([facility]) [address], [place], [address], 02/12/2023 10:08:02 02/12/20 23 02/12/2023 CBC WITH DIFFE RENTI AL/PL ATELE T hematology comments: CARTOGRAPHY TEACHER Not Available [facility] ([facility]) [address], [place], [address], 02/12/2023 10:08:02 02/12/20 23 02/12/2023 COMP. METAB OLIC PANEL (14) glucose 87 mg/dL 70-99 Not Available [facility] ([facility]) [address], [place], [address], 02/12/2023 10:08:03 02/12/20 23 02/12/2023 COMP. METAB OLIC PANEL (14) BUN 13 mg/dL 6-24 Not Available [facility] ([facility]) [address], [place], [address], 02/12/2023 10:08:03 02/12/20 23 02/12/2023 COMP. METAB OLIC PANEL (14) creatinine 0.78 mg/dL 0.57-1 .00 Not Available [facility] ([facility]) [address], [place], [address], 02/12/2023 10:08:03 02/12/20 23 02/12/2023 COMP. METAB OLIC PANEL (14) eGFR 90 mL/mi n/1.7 3 >59 Not Available [facility] ([facility]) [address], [place], [address], 02/12/2023 10:08:03 02/12/20 23 02/12/2023 COMP. METAB OLIC PANEL (14) BUN/creatini ne ratio 17 9-23 Not Available [facility] ([facility]) [address], [place], [address], 02/12/2023 10:08:03 02/12/20 23 02/12/2023 COMP. METAB OLIC PANEL (14) sodium 141 mmol/ L 134-14 4 Not Available [facility] ([facility]) [address], [place], [address], 02/12/2023 10:08:03 02/12/20 23 02/12/2023 COMP. METAB OLIC PANEL (14) potassium 4.1 mmol/ L 3.5-5. 2 Not Available [facility] ([facility]) [address] [place], [address], 02/12/2023 10:08:03 02/12/20 23 02/12/2023 COMP. METAB OLIC PANEL (14) chloride 102 mmol/ L 96-106 Not Available [facility] ([facility]) [address] [place], [address], 02/12/2023 10:08:03 02/12/20 23 02/12/2023 COMP. METAB OLIC PANEL (14) carbon dioxide, total 28 mmol/ L 20-29 Not Available [facility] ([facility]) [address] [place], [address], 02/12/2023 10:08:03 02/12/20 23 02/12/2023 COMP. METAB OLIC PANEL (14) calcium 9.3 mg/dL 8.7-10 .2 Not Available [facility] ([facility]) [address], [place], [address], 02/12/2023 10:08:03 02/12/20 23 02/12/2023 COMP. METAB OLIC PANEL (14) protein, total 7.0 g/dL 6.0-8. 5 Not Available [facility] ([facility]) [address], [place], [address], 02/12/2023 10:08:03 02/12/20 23 02/12/2023 COMP. METAB OLIC PANEL (14) albumin 4.6 g/dL 3.8-4. 9 Not Available [facility] ([facility]) [address], [place], [address], 02/12/2023 10:08:03 02/12/20 23 02/12/2023 COMP. METAB OLIC PANEL (14) globulin, total 2.4 g/dL 1.5-4. 5 Not Available [facility] ([facility]) [address], [place], [address], 02/12/2023 10:08:03 02/12/20 23 02/12/2023 COMP. METAB OLIC PANEL (14) A/G ratio 1.9 1.2-2. 2 Not Available [facility] ([facility]) [address], [place], [address], 02/12/2023 10:08:03 02/12/20 23 02/12/2023 COMP. METAB OLIC PANEL (14) bilirubin, total 0.6 mg/dL 0.0-1. 2 Not Available [facility] ([facility]) [address], [place], [address], 02/12/2023 10:08:03 02/12/20 23 02/12/2023 COMP. METAB OLIC PANEL (14) alkaline phosphatase 78 IU/L 44-121 Not Available [facility] ([facility]) [address] [place], [address], 02/12/2023 10:08:03 02/12/20 23 02/12/2023 COMP. METAB OLIC PANEL (14) AST (SGOT) 23 IU/L 0-40 Not Available [facility] ([facility]) [address] [place], [address], 02/12/2023 10:08:03 02/12/20 23 02/12/2023 COMP. METAB OLIC PANEL (14) ALT (SGPT) 15 IU/L 0-32 Not Available [facility] ([facility]) [address] [place], [address], 02/12/2023 10:08:03 02/12/20 23 02/12/2023 LIPID PANEL cholesterol, total 157 mg/dL 100-19 9 Not Available [facility] ([facility]) [address] [place], [address], 02/12/2023 10:08:04 02/12/20 23 02/12/2023 LIPID PANEL triglyceride s 67 mg/dL 0-149 Not Available [facility] ([facility]) [address] [place], [address], 02/12/2023 10:08:04 02/12/20 23 02/12/2023 LIPID PANEL HDL cholesterol 59 mg/dL >39 Not Available [facility] ([facility]) [address] [place], [address], 02/12/2023 10:08:04 02/12/20 23 02/12/2023 LIPID PANEL VLDL cholesterol heather 13 mg/dL 5-40 Not Available [facility] ([facility]) [address] [place], [address], 02/12/2023 10:08:04 02/12/20 23 02/12/2023 LIPID PANEL LDL chol calc (nih) 85 mg/dL 0-99 Not Available [facility] ([facility]) [address], [place], [address], 02/12/2023 10:08:04 02/12/20 23 02/12/2023 LIPID PANEL comment: CARTOGRAPHY TEACHER Not Available [facility] ([facility]) [address], [place], [address], 02/12/2023 10:08:04 02/12/20 23 02/12/2023 IRON AND TIBC iron bind.cap.(TI BC) 324 ug/dL 250-45 0 Not Available [facility] ([facility]) [address], [place], [address], 02/12/2023 10:08:04 02/12/20 23 02/12/2023 IRON AND TIBC UIBC 232 ug/dL 131-42 5 Not Available [facility] ([facility]) [address] [place], [address], 02/12/2023 10:08:04 02/12/2002/12/2023 IRON AND TIBC iron 92 ug/dL 27-159 Not Available [facility] ([facility]) [address], [place], [address], 02/12/2023 10:08:04 02/12/2002/12/2023 IRON AND TIBC iron saturation 28 % 15-55 Not Available [facility] ([facility]) [address] [place], [address], 02/12/2023 10:08:04 02/12/2002/12/2023 PT AND PTT INR 1.0 0.9-1. 2 Refer ence inter marcelina is for non-a ntico agula felipe patie nts. Sugge sted INR thera peuti c range for Vitam in K antag onist thera py: Stand vinh Dose (mode rate inten sity thera peuti c range ): 2.0 - 3.0 Marcos ribeiro thera peuti c range 2.5 - 3.5 Not Available [facility] ([facility]) [address], [place], [address], 02/12/2023 10:08:05 02/12/20 23 02/12/2023 PT AND PTT prothrombin time 9.9 sec 9.1-12 .0 Not Available [facility] ([facility]) [address], [place], [address], 02/12/2023 10:08:05 02/12/20 23 02/12/2023 PT AND PTT APTT 30 sec 24-33 This test has not been valid ated for [facility] ori unfra ction ated hepar in thera py. aPTT- based thera peuti c range s for unfra ction ated hepar in thera py have not been estab cam kincaid For gener al guide lines on Hepar in monit oring , refer to the [facility] Dire[facility] tory of Dina andres. Not Available [facility] ([facility]) [address], [place], [address], 02/12/2023 10:08:05 02/12/20 23 02/12/2023 VITAM IN B12 AND FOLAT E vitamin B12 420 pg/mL 232-12 45 Not Available [facility] ([facility]) [address], [place], [address], 02/12/2023 10:08:05 02/12/20 23 02/12/2023 VITAM IN B12 AND FOLAT E folate (folic acid), serum 8.2 NG/mL >3.0 A serum folat e reese ntrat ion of less than 3.1 ng/mL is consi dered to repre sent clini heather defic iency . Not Available [facility] ([facility]) [address], [place], [address], 02/12/2023 10:08:05 02/12/2002/12/2023 HEMOG LOBIN A1C hemoglobin A1C 5.6 % 4.8-5. 6 Predi abete s: 5.7 - 6.4 Diabe socrates: >6.4 Glyce deangelo contr ol for adult s with diabe socrates: <7.0 Not Available [facility] ([facility]) [address], [place], [address], 02/12/2023 10:08:06 06/18/20 23 06/20/2023 URINE CULTU RE, ROUTI NE urine culture, routine Final report Not Available [facility] ([facility]) [address], [place], [address], 06/20/2023 01:06:10 06/18/20 23 06/20/2023 URINE CULTU RE, ROUTI NE result 1 No growth Not Available [facility] ([facility]) [address], [place], [address], 06/20/2023 01:06:10 06/18/20 23 06/18/2023 urina lysis , dipst ick Leukocytes Negati ve Not Available [address], [address], 06/18/2023 14:18:36 06/18/20 23 06/18/2023 urina lysis , dipst ick Nitrite negati ve Not Available [address], [address], 06/18/2023 14:18:36 06/18/20 23 06/18/2023 urina lysis , dipst ick Urobilinogen .2 Not Available [facility] [address], [address], 06/18/2023 14:18:36 06/18/20 23 06/18/2023 urina lysis , dipst ick Protein Negati ve Not Available [address], [address], 06/18/2023 14:18:36 06/18/20 23 06/18/2023 urina lysis , dipst ick pH 6.0 Not Available [address], [address], 06/18/2023 14:18:36 06/18/20 23 06/18/2023 urina lysis , dipst ick Blood Non-He molyze d: Trace Not Available [address], [address], 06/18/2023 14:18:36 06/18/20 23 06/18/2023 urina lysis , dipst ick Specific [place] 1.015 Not Available [address], [address], 06/18/2023 14:18:36 06/18/20 23 06/18/2023 urina lysis , dipst ick Ketone Negati ve Not Available [address], [address], 06/18/2023 14:18:36 06/18/20 23 06/18/2023 urina lysis , dipst ick Bilirubin Negati ve Not Available [address], [address], 06/18/2023 14:18:36 06/18/20 23 06/18/2023 urina lysis , dipst ick Glucose Negati ve Not Available [address], [address], 06/18/2023 14:18:36 06/18/20 23 06/18/2023 urina lysis , dipst ick Appearance Clear Not Available [address], [address], 06/18/2023 14:18:36 06/18/2006/18/2023 urina lysis , dipst ick Color Yellow Not Available [address], [address], 06/18/2023 14:18:36 08/13/2008/14/2023 CBC WITH DIFFE RENTI AL/PL ATELE T WBC 9.1 x10e3 /uL 3.4-10 .8 Not Available [facility] ([facility]) [address], [place], [address], 08/15/2023 01:06:21 08/13/2008/14/2023 CBC WITH DIFFE RENTI AL/PL ATELE T RBC 4.18 x10e6 /uL 3.77-5 .28 Not Available [facility] ([facility]) [address] [place], [address], 08/15/2023 01:06:21 08/13/2008/14/2023 CBC WITH DIFFE RENTI AL/PL ATELE T hemoglobin 13.0 g/dL 11.1-1 5.9 Not Available [facility] ([facility]) [address] [place], [address], 08/15/2023 01:06:21 08/13/2008/14/2023 CBC WITH DIFFE RENTI AL/PL ATELE T hematocrit 38.8 % 34.0-4 6.6 Not Available [facility] ([facility]) [address] [place], [address], 08/15/2023 01:06:21 08/13/2008/14/2023 CBC WITH DIFFE RENTI AL/PL ATELE T MCV 93 fL 79-97 Not Available [facility] ([facility]) [address] [place], [address], 08/15/2023 01:06:21 08/13/2008/14/2023 CBC WITH DIFFE RENTI AL/PL ATELE T MCH 31.1 pg 26.6-3 3.0 Not Available [facility] ([facility]) [address], [place], [address], 08/15/2023 01:06:21 08/13/2008/14/2023 CBC WITH DIFFE RENTI AL/PL ATELE T MCHC 33.5 g/dL 31.5-3 5.7 Not Available [facility] ([facility]) [address], [place], [address], 08/15/2023 01:06:21 08/13/2008/14/2023 CBC WITH DIFFE RENTI AL/PL ATELE T RDW 12.8 % 11.7-1 5.4 Not Available [facility] ([facility]) [address], [place], [address], 08/15/2023 01:06:21 08/13/2008/14/2023 CBC WITH DIFFE RENTI AL/PL ATELE T platelets 178 x10e3 /uL 150-45 0 Not Available [facility] ([facility]) [address] [place], [address], 08/15/2023 01:06:21 08/13/2008/14/2023 CBC WITH DIFFE RENTI AL/PL ATELE T neutrophils 56 % not estab. Not Available [facility] ([facility]) [address] [place], [address], 08/15/2023 01:06:21 08/13/2008/14/2023 CBC WITH DIFFE RENTI AL/PL ATELE T lymphs 37 % not estab. Not Available [facility] ([facility]) [address] [place], [address], 08/15/2023 01:06:21 08/13/2008/14/2023 CBC WITH DIFFE RENTI AL/PL ATELE T monocytes 5 % not estab. Not Available [facility] ([facility]) [address] [place], [address], 08/15/2023 01:06:21 08/13/2008/14/2023 CBC WITH DIFFE RENTI AL/PL ATELE T eos 2 % not estab. Not Available [facility] ([facility]) [address], [place], [address], 08/15/2023 01:06:21 08/13/2008/14/2023 CBC WITH DIFFE RENTI AL/PL ATELE T basos 0 % not estab. Not Available [facility] ([facility]) [address] [place], [address], 08/15/2023 01:06:21 08/13/2008/14/2023 CBC WITH DIFFE RENTI AL/PL ATELE T immature cells CARTOGRAPHY TEACHER Not Available [facility] ([facility]) [address] [place], [address], 08/15/2023 01:06:21 08/13/2008/14/2023 CBC WITH DIFFE RENTI AL/PL ATELE T neutrophils (absolute) 5.1 x10e3 /uL 1.4-7. 0 Not Available [facility] ([facility]) [address] [place], [address], 08/15/2023 01:06:21 08/13/2008/14/2023 CBC WITH DIFFE RENTI AL/PL ATELE T lymphs (absolute) 3.3 x10e3 /uL 0.7-3. 1 above high normal Not Available [facility] ([facility]) [address] [place], [address], 08/15/2023 01:06:21 08/13/2008/14/2023 CBC WITH DIFFE RENTI AL/PL ATELE T monocytes(ab solute) 0.5 x10e3 /uL 0.1-0. 9 Not Available [facility] ([facility]) [address], [place], [address], 08/15/2023 01:06:21 08/13/2008/14/2023 CBC WITH DIFFE RENTI AL/PL ATELE T eos (absolute) 0.2 x10e3 /uL 0.0-0. 4 Not Available [facility] ([facility]) [address], [place], [address], 08/15/2023 01:06:21 08/13/2008/14/2023 CBC WITH DIFFE RENTI AL/PL ATELE T baso (absolute) 0.0 x10e3 /uL 0.0-0. 2 Not Available [facility] ([facility]) [address], [place], [address], 08/15/2023 01:06:21 08/13/2008/14/2023 CBC WITH DIFFE RENTI AL/PL ATELE T immature granulocytes 0 % not estab. Not Available [facility] ([facility]) [address], [place], [address], 08/15/2023 01:06:21 08/13/2008/14/2023 CBC WITH DIFFE RENTI AL/PL ATELE T immature grans (abs) 0.0 x10e3 /uL 0.0-0. 1 Not Available [facility] ([facility]) [address], [place], [address], 08/15/2023 01:06:21 08/13/2008/14/2023 CBC WITH DIFFE RENTI AL/PL ATELE T NRBC CARTOGRAPHY TEACHER Not Available [facility] ([facility]) [address], [place], [address], 08/15/2023 01:06:21 08/13/20 23 08/14/2023 CBC WITH DIFFE RENTI AL/PL ATELE T hematology comments: CARTOGRAPHY TEACHER Not Available [facility] ([facility]) [address], [place], [address], 08/15/2023 01:06:21 08/13/20 23 08/14/2023 COMP. METAB OLIC PANEL (14) glucose 86 mg/dL 70-99 Not Available [facility] ([facility]) [address], [place], [address], 08/15/2023 01:06:22 08/13/20 23 08/14/2023 COMP. METAB OLIC PANEL (14) BUN 12 mg/dL 6-24 Not Available [facility] ([facility]) [address], [place], [address], 08/15/2023 01:06:22 08/13/20 23 08/14/2023 COMP. METAB OLIC PANEL (14) creatinine 0.77 mg/dL 0.57-1 .00 Not Available [facility] ([facility]) [address], [place], [address], 08/15/2023 01:06:22 08/13/20 23 08/14/2023 COMP. METAB OLIC PANEL (14) eGFR 92 mL/mi n/1.7 3 >59 Not Available [facility] ([facility]) [address] [place], [address], 08/15/2023 01:06:22 08/13/20 23 08/14/2023 COMP. METAB OLIC PANEL (14) BUN/creatini ne ratio 16 9-23 Not Available [facility] ([facility]) [address] [place], [address], 08/15/2023 01:06:22 08/13/20 23 08/14/2023 COMP. METAB OLIC PANEL (14) sodium 142 mmol/ L 134-14 4 Not Available [facility] ([facility]) [address], [address], 08/15/2023 01:06:22 08/13/20 23 08/14/2023 COMP. METAB OLIC PANEL (14) potassium 3.9 mmol/ L 3.5-5. 2 Not Available [facility] ([facility]) [address], [address], 08/15/2023 01:06:22 08/13/2008/14/2023 COMP. METAB OLIC PANEL (14) chloride 103 mmol/ L 96-106 Not Available [facility] ([facility]) [address] [place], [address], 08/15/2023 01:06:22 08/13/20 23 08/14/2023 COMP. METAB OLIC PANEL (14) carbon dioxide, total 25 mmol/ L 20-29 Not Available [facility] ([facility]) [address] [place], [address], 08/15/2023 01:06:22 08/13/2008/14/2023 COMP. METAB OLIC PANEL (14) calcium 8.9 mg/dL 8.7-10 .2 Not Available [facility] ([facility]) [address] [place], [address], 08/15/2023 01:06:22 08/13/2008/14/2023 COMP. METAB OLIC PANEL (14) protein, total 6.3 g/dL 6.0-8. 5 Not Available [facility] ([facility]) [address] [place], [address], 08/15/2023 01:06:22 08/13/2008/14/2023 COMP. METAB OLIC PANEL (14) albumin 4.2 g/dL 3.8-4. 9 Not Available [facility] ([facility]) [address], [place], [address], 08/15/2023 01:06:22 08/13/20 23 08/14/2023 COMP. METAB OLIC PANEL (14) globulin, total 2.1 g/dL 1.5-4. 5 Not Available [facility] ([facility]) [address] [place], [address], 08/15/2023 01:06:22 08/13/20 23 08/14/2023 COMP. METAB OLIC PANEL (14) A/G ratio 2.0 1.2-2. 2 Not Available [facility] ([facility]) [address] [place], [address], 08/15/2023 01:06:22 08/13/2008/14/2023 COMP. METAB OLIC PANEL (14) bilirubin, total 0.9 mg/dL 0.0-1. 2 Not Available [facility] ([facility]) [address], [place], [address], 08/15/2023 01:06:22 08/13/2008/14/2023 COMP. METAB OLIC PANEL (14) alkaline phosphatase 72 IU/L 44-121 Not Available [facility] ([facility]) [address], [place], [address], 08/15/2023 01:06:22 08/13/2008/14/2023 COMP. METAB OLIC PANEL (14) AST (SGOT) 18 IU/L 0-40 Not Available [facility] ([facility]) [address] [place], [address], 08/15/2023 01:06:22 08/13/20 23 08/14/2023 COMP. METAB OLIC PANEL (14) ALT (SGPT) 11 IU/L 0-32 Not Available [facility] ([facility]) [address] [place], [address], 08/15/2023 01:06:22 08/13/2008/14/2023 LIPID PANEL cholesterol, total 126 mg/dL 100-19 9 Not Available [facility] ([facility]) [address], [place], [address], 08/15/2023 01:06:22 08/13/2008/14/2023 LIPID PANEL triglyceride s 72 mg/dL 0-149 Not Available [facility] ([facility]) [address], [place], [address], 08/15/2023 01:06:22 08/13/2008/14/2023 LIPID PANEL HDL cholesterol 58 mg/dL >39 Not Available [facility] ([facility]) [address], [place], [address], 08/15/2023 01:06:22 08/13/2008/14/2023 LIPID PANEL VLDL cholesterol heather 15 mg/dL 5-40 Not Available [facility] ([facility]) [address], [place], [address], 08/15/2023 01:06:22 08/13/2008/14/2023 LIPID PANEL LDL chol calc ([facility]) 53 mg/dL 0-99 Not Available [facility] (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) [address], [place], [address], 08/15/2023 01:06:22 08/13/2008/15/2023 URINE CULTU RE, ROUTI NE urine culture, routine Final report Not Available [facility] ([facility]) [address], [place], [address], 08/15/2023 01:06:23 08/13/20 08/15/2023 URINE CULTU RE, ROUTI NE result 1 COMMEN T Cultu re shows less than 10,00 0 colon y formi ng units of bacte katy per thomas liter of urine . This colon y count is not gener ally consi dered to be clini mynor stephyi kenia t. Not Available [facility] ([facility]) [address], [place], [address], 08/15/2023 01:06:23 08/13/20 23 08/14/2023 PLEDILLON E NOTE please note Commen t The date and/o r time of colle ction was not indic ated on the requi sitio n as requi red by [place] law. The date of recei pt of the speci men was used as the colle ction date if not suppl ied. Not Available [facility] ([facility]) [address], [place], [address], 08/15/2023 01:06:24 08/13/2008/13/2023 HbA1c (hemo globi n A1c), blood HbA1C % Not Available [address], [address], 08/13/2023 11:13:22 08/13/20 23 08/13/2023 urina lysis , dipst ick Leukocytes Negati ve Not Available [address], [address], 08/13/2023 10:28:22 08/13/20 23 08/13/2023 urina lysis , dipst ick Nitrite negati ve Not Available [address], [address], 08/13/2023 10:28:22 08/13/20 23 08/13/2023 urina lysis , dipst ick Urobilinogen .2 Not Available Mayank oneill [address], [address], 08/13/2023 10:28:22 08/13/2008/13/2023 urina lysis , dipst ick Protein Negati ve Not Available [address], [address], 08/13/2023 10:28:22 08/13/2008/13/2023 urina lysis , dipst ick pH 6.0 Not Available [address], [address], 08/13/2023 10:28:22 08/13/2008/13/2023 urina lysis , dipst ick Blood Non-He molyze d: Trace Not Available [address], [address], 08/13/2023 10:28:22 08/13/2008/13/2023 urina lysis , dipst ick Specific [place] 1.015 Not Available [address], [address], 08/13/2023 10:28:22 08/13/2008/13/2023 urina lysis , dipst ick Ketone Negati ve Not Available [address], [address], 08/13/2023 10:28:22 08/13/2008/13/2023 urina lysis , dipst ick Bilirubin Negati ve Not Available [address], [address], 08/13/2023 10:28:22 08/13/20 23 08/13/2023 urina lysis , dipst ick Glucose Negati ve Not Available [address], [place], [address], 08/13/2023 10:28:22 08/13/2008/13/2023 urina lysis , dipst ick Appearance Clear Not Available [address], [place], [address], 08/13/2023 10:28:22 08/13/20 23 08/13/2023 urina lysis , dipst ick Color Dark Yellow Not Available [address], [place], [address], 08/13/2023 10:28:22 03/26/20 23 03/26/2023 US, abdom en, compl ete No observ ation record ed. [address], [place], [address], 03/26/2023 10:14:13 08/28/20 24 08/27/2024 US, thyro id No observ ation record ed. [place] [id number], [place], [address], 08/31/2024 13:53:16 01/10/20 25 01/08/2025 XR, chest , 2 view No observ ation record ed. [place] [id number], [place], [address], 01/11/2025 08:28:44 03/30/20 25 03/30/2025 CT, abdom en + pelvi s, w/ contr ast No observ ation record ed. [place] [id number], [place], [address], 04/05/2025 09:35:04 04/02/20 25 04/02/2025 CT, abdom en + pelvi s, w/ contr ast No observ ation record ed. [place] [id number], [place], [address], 04/05/2025 09:48:03 04/03/20 25 04/02/2025 alex weber am No observ ation record ed. [facility] [address], [place], [address], 04/05/2025 09:47:44 Result Notes None recorded. Problems Name Problem SNOMED Code Status Onset Date Resolution Date Notes Provider Name and Address Organization Details Recorded Time Heart disease 65950735 Active 2021 Terrence Johnson, [employer]ACHINE [employer]ANC[employer]ITCHER [address], [place], [address], [place] - [facility] 16:44:49 Hypertensive disorder 31950542 Active 2021 Terrence Johnson, MACHINE [employer]ANC[employer] STITCHER [address], [place], [address], [place] [facility] 16:44:54 Hypercholester olemia 09529293 Active 2021 Terrence Johnson, [employer]ACH[employer]ER [address], [place], [address], [place] [facility] 16:44:51 Prediabetes 263803842 Active 2022 Terrence Johnson, [employer]ACHINE [employer] STITCHER [address], [place], [address], [place] [facility] 09:37:27 Asthma 160777454 Active 2022 Terrence Johnson, MACHINE [employer] STITCHER [address], [place], [address], [place] [facility] 11:05:49 [...] Name and Address Organization Details Recorded Time 862778 morphine medicatio n Not available Not available [...] Arterial blood by Pulse oximetry Respiratory rate Pain severity - 0-10 verbal numeric rating [Score] - Reported Systolic And Diastolic Provider Name and Address Organization Details Last Updated DateTime 3 167.64 cm 28.7 kg/m2 60857.4 4 g 96.8 [degF] 72 /min 97 % 97 % 20 /min 0 122/68 mm[Hg] Donna Elizabeth [facility] 08:55:17 Date Recorded Body height Body mass index (BMI) Body weight Body temperature Heart rate Oxygen saturation Oxygen saturation in Arterial blood by Pulse oximetry Respiratory rate Pain severity - 0-10 verbal numeric rating [Score] - Reported Systolic And Diastolic Provider Name and Address Organization Details Last Updated DateTime 3 167.64 cm 28.8 kg/m2 25688.2 4 g 97.6 [degF] 67 /min 98 % 98 % 18 /min 0 116/70 mm[Hg] Donna Elizabeth [facility] 09:58:42 Date Recorded Body height Body mass index (BMI) Body weight Provider Name and Address Organization Details Last Updated DateTime 06/18/2023 167.64 cm 29.6 kg/m2 87945.1 g Donna Elizabeth [facility] 06/18/2023 14:09:31 Date Recorded Body height Body mass index (BMI) Body weight Body temperature Heart rate Oxygen saturation Oxygen saturation in Arterial blood by Pulse oximetry Respiratory rate Pain severity - 0-10 verbal numeric rating [Score] - Reported Systolic And Diastolic Provider Name and Address Organization Details Last Updated DateTime 3 167.64 cm 30.1 kg/m2 74466.9 8 g 98 [degF] 64 /min 97 % 97 % 18 /min 4 108/72 mm[Hg] Donna Glenn [place] - [facility] 10:20:18 Date Recorded Body height Body mass index (BMI) Body weight Heart rate Respiratory rate Oxygen saturation Oxygen saturation in Arterial blood by Pulse oximetry Systolic And Diastolic Provider Name and Address Organization Details Last Updated DateTime 4 167.64 cm 34.1 kg/m2 71477.9 9 g 82 /min 18 /min 95 % 95 % 124/78 mm[Hg] Linda Dale [place] - [facility] 16:00:06 Social History Question Answer Notes LastModified by Organizat ion Details LastModified Time Tobacco Smoking Status Current Every Day Smoker Linda Dale [facility] 08/14/2022 16:05:44 Do You Have An Advance [...] Or The Highest Degree You Have Received? [id number] Information not available 08/14/2022 Have There Been [...] Do You Have A Medical Power Of Keypuncher? No Information not available 08/14/2022 What Was [...] not available 08/14/2022 Are you able to walk independently without assistance or assistive devices? YESWOREST Information not available 08/14/2022 Do you have difficulty doing errands alone? No Information not available 08/14/2022 Are you able to care for yourself independently? Yes Information not available 08/14/2022 Do you have difficulty dressing, bathing, grooming, or toileting? No Information not available 08/14/2022 Do you or have you ever used e-cigarettes or vape? Never used electronic cigarettes Information not available 08/14/2022 What is your exercise level? None Information not available 08/14/2022 Mental Status Question Answer Note LastModified by Organizat ion Details LastModified Time Do you feel stressed (tense, restless, nervous, or anxious, or unable to sleep at night)? [id number] Information not available 08/14/2022 Do you have [...] preservative free, adsorbed 7 completed Donna parker, [facility] 08/21/2022 15:30:26 pneumococcal polysaccharide PPV23 8 completed Donna Elizabeth [facility], [facility] 11/13/2022 15:48:48 Influenza, split virus, quadrivalent, PF 9 [facility] 11/13/2022 15:48:48 COVID-19 vaccine, vector-nr, rS-Ad26, PF, 0.5 mL 1 completed Donna parker, [facility] 11/13/2022 15:48:48 Influenza, split virus, trivalent, PF 8 [facility] 11/13/2022 15:48:48 Past Encounters Encounter ID Performer Location Encounter Start Date Encounter Closed Date Diagnosis/Indication Diagnosis SNOMED-CT Code Diagnosis ICD10 Code Diagnosis IMO Codes Diagnosis Note [id number] Terrence Johnson APRN [address] [address] 08/14/2022 15:40:07 08/14/2022 17:48:34 Heart disease 09915904 I51.9 Hypercholesterolemia 136 15657 E78.00 Hypertensive disorder 38 769983 I10 Fatigue 29669717 R53.83 Right uppe r quadrant pain 435274071 R10.11 Screening for malignant neoplasm of breast 397253069 Z12.39 [id number] Ter[address] Johnson[address] [address] 11/13/2022 15:28:56 11/13/2022 16:42:08 Gastroesophageal reflux disease 541114287 K21.9 follow up with cardiology also Menopausal flushing 1984 00819 N95.1 Hypoglycemia 070537405 E 16.2 see log no glucose under [id number] [facility] [place] [address] 02/11/2023 08:46:35 02/11/2023 10:07:12 Heart disease 62260482 I51.9 Hypertensive disorder 38 343190 I10 Hypercholesterolemia 136 82646 E78.00 Prediabetes 932432984 R7 3.03 Easy bruising 248163391 R58 Skin lesion 59309600 L98 .9 Constipation 23835587 K5 9.[id number] [facility] [address] [address] 05/10/2023 09:41:48 05/10/2023 10:57:11 Hypertensive disorder 65457519 I10 labs next visit Prediabetes 229551238 R7 3.03 labs next visit Asthma 123861824 J45.90 9 [id number] Ter[address] [address] 06/18/2023 13:59:46 06/18/2023 15:06:06 Acute urinary tract infection 917720864 N39.0 Dental abscess 838758487 K04.7 Left flank pain 78749689 9 R10.9 Low back pain 212633807 M54.50 [id number] Ter[address] [address] 08/13/2023 10:06:55 08/13/2023 11:39:41 Hypercholesterolemia 25260435 E78.00 Hypertensive disorder 38 941961 I10 Left flank pain 55106729 9 R10.9 pt freq has blood in urine will refer to urology for more work up Prediabetes 136254273 R7 3.03 Heart disease 37987320 I 51.9 [id number] Terrence Johnson APRN [address] [address] 08/20/2024 15:49:15 08/20/2024 16:15:30 Mixed anxiety and depressive disorder 216254002 F41.8 Patient identified triggers for anxiety and impact of anxious thinking on functionin g. Discussed strategies to regulate symptoms and need for compliance with treatment. 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 Heart disease 89759526 I 51.9 Hypercholesterolemia 136 95280 E78.00 Hypertensive disorder 38 562631 I10 Health Concerns Section Related Observation LastModified by Organization Detai ls LastModified Time None Recorded Concern Status LastModified by Organization Details LastModified Time None Recorded Advance Directives Directive N: Payers Insurance Date Sequence Insurance Name Policy Number Policy Bernal Covered Member ID Bernal Member ID Guarantor Name 08/20/2024 1 [facility] (MEDICAID REPLACEMENT - HMO) Maura Thorne [id number] Maura Thorne 10/16/2024 1 [facility] (MEDICAID REPLACEMENT - HMO) Maura Thorne [id number] Maura Thorne 11/13/2022 1 [facility] 2 - INDIVIDUAL MEDICAL PLAN (HMO) Maura Thorne [id number] Maura Thorne 10/16/2024 [place] Maura Thorne [id number] Maura Thorne 08/20/2024 1 [facility] Maura Thorne [id number] Maura Thorne Notes Date Note Type Note [...] placed on miralax and benefiber daily. Terrence Johnson APRN [address], [place], [address], [place] - [facility] 02/11/2023 10:29:46 05/10/2023 text/html 52 yr old female presents to follow up on hypertension and pre diabetes. She would like a rescue inhaler for her copd/asthma pt states she is doing well Terrence Johnson APRN [address], [place], [address], [place] - [facility] 06/06/2023 14:38:54 06/18/2023 text/html 52 yr old female presents for gum abbess and possible uti.pt states she has pus abscess to gums. pt states she can feel and taste infectionleft flank pain, and freq Terrence Jonhson APRN [address], [place], [address], [place] - [facility] 06/18/2023 15:45:47 08/13/2023 text/html 52 yr old female presents for lab work and possible uti. pt states she is having flank pain on the left that has been coming and going for awhile.pt states she needs med refills and labs for her chronic conditions.hx predm,heart dz,htn, hyperlipidemia Terrence Johnson APRN [address], [place], [address], [place] - [facility] 08/13/2023 11:23:39 08/20/2024 text/html ROS as noted in the HPI Maura is a 53 year old female who presents to the office today with concerns ofanxiety/depression - just passed awaynodule on right neck- trouble swallowingpain in left side of abdomen Terrence Johnson APRN [address], [place], [address], [place] - [facility] 08/31/2024 14:36:05 OBGyn Episode No OBEpisode recorded.
== END ==
LOC: SL 20:11
PROVIDERS: PCP Student in an Organized Health Care Education/Training Program; Visit Provider Student in an Organized Health Care Education/Training Program
DX: G47.33 Obstructive sleep apnea (adult) (pediatric) (principal)
CPT/HCPCS: 95810

== ENCOUNTER 2025-09-14 11:03 | Outpatient (CLI) | payer MEDICAID, SELFPAY ==
--- NOTE | 2025-09-14 11:30 | NM_ITS ---
APPROVED REPORT Exam: Nuclear Stress Test Indication: Chest pain, SOB, HTN, High cholesterol, Tobacco use, Family history Patient Location: Outpatient Stress Tech: Vaishali Brandon NM Tech:Arleen Salazar, ARRT, RT (R)(N) Ht: 5 ft 6 in Wt: 201 lbs Bra Size: 36C HR: 68 bpm BP: 134/65 mmHg BSA: 2.00 m2 TID: 1.15 BMI: 32.4 History: Chest pain, SOB, HTN, High cholesterol, Tobacco use, Family history Procedure: Patient received 0.4 mg of intravenous Lexiscan, resting heart rate 68 bpm, resting blood pressure 134/65 mmHg, with Lexiscan maximum heart rate achieved was 86 bpm which is % of the maximum predicted heart rate and blood pressure was 116/67 mmHg. With Lexiscan, patient denied any complaint of chest pain. Cardiac Stress and Resting SPECT Images: Cardiac Stress and Resting SPECT images were obtained using technetium 99m Myoview 32.0 mCi stress and 10.54 mCi at rest. Resting and stress imaging in supine and prone positions demonstrate a medium sized, mild, predominantly fixed perfusion defect in the anterior and anteroseptal LV wall. There is a small region of reversibility towards the septal LV wall. Gated imaging demonstrates normal global LV systolic function. LVEF is calculated at 53%. Conclusion: Medium sized, mild, predominantly fixed perfusion defect in the anterior and anteroseptal LV wall. There is a small region of reversibility towards the septal LV wall. Gated imaging demonstrates normal global LV systolic function. LVEF is calculated at 53%. Electronically signed by : Sonya Cueto MD 09/18/2025 01:57:38
[2025-09-14 12:35] VITALS: BP 146/68; PULSE 92; RESP 16
[2025-09-14] MEDS: ISOTOPE MYOVIEW (PER STUDY) 1 DOSE IV (13:11)
[2025-09-14] MEDS: SODIUM CHLORIDE 0.9% 10ML SYR (RAD ONLY) 10 ML IV (13:11)
--- NOTE | 2025-09-14 13:45 | CA_ITS ---
APPROVED REPORT EXAM: Comprehensive 2D, Doppler, and color-flow Echocardiogram Web Content Developer: Lucia De La Cruz RDCS Ht: 5 ft 6 in Wt: 198lbs BSA: 1.99 BP: 129/80 mmHg Indications: CP SOA M-Mode Dimensions RVDd 1.98 cm (0.9-2.6) LA Diam 3.61 cm (1.9-4.0) LVDd 5.09 cm (3.5-5.7) LVDs 3.55 cm (3.5-5.7) IVSd 0.82 cm (0.6-1.1) PWd 0.66 cm (0.6-1.1) EF (Teich) 57.30% FS 30.30% EDV (Teich) 123.20 mL TAPSE 2.46 (<1.7) ESV (Teich) 52.60 mL LV Diastology E Decel Time 160 (160-240 msec) E/A Ratio 1.3 Mitral Valve MV E Max James. 71.0 (40-130 cm/s) MV A Velocity 54.0 (40-130 cm/s) E/A Ratio 1.33 MV PHT 47.0 ms Left Ventricle The left ventricle is normal size. Left ventricular systolic function is normal. The left ventricular ejection fraction is within the normal range. There is normal left ventricular wall thickness. There is normal LV segmental wall motion. The left ventricular diastolic function is normal. LVEF is 55% Right Ventricle The right ventricle is mildly dilated. The right ventricular systolic function is normal. Atria Left atrium is mildly dilated. Right atrium is mildly dilated. Aortic Valve The aortic valve opens well. There is no hemodynamically significant aortic valvular stenosis. No aortic regurgitation is present. Mitral Valve The mitral valve is normal in structure. No evidence of mitral valve stenosis. Trace mitral regurgitation is present. Tricuspid Valve The tricuspid valve leaflets are thin and pliable. Mild tricuspid regurgitation. RVSP estimated at 20-25 mmHg. Pulmonic Valve The pulmonary valve is grossly normal in structure. Trace pulmonic valve regurgitation is present. Great Vessels The aortic root is normal in size. IVC is normal in size and collapses >50% with inspiration. Pericardium There is no pericardial effusion. Other Information Study Quality: Fair Conclusion Normal biventricular systolic function. Mild RV dilation. Mild biatrial dilation. Mild TR. Electronically signed by : Sonya Cueto MD 09/22/2025 13:27:00
== END 2025-09-14 23:59 | disposition home or self-care (01) ==
LOC: RAD 11:04
PROVIDERS: PCP Student in an Organized Health Care Education/Training Program; Visit Provider Nurse Practitioner
DX: I07.1 Rheumatic tricuspid insufficiency (principal); I11.9 Hypertensive heart disease without heart failure; E78.00 Pure hypercholesterolemia, unspecified; Z72.0 Tobacco use; R94.39 Abnormal result of other cardiovascular function study
CPT/HCPCS: 78452; 93017; 93018; 93306; A9502

== ENCOUNTER 2025-09-15 08:03 | Outpatient (CLI) | payer MEDICAID, SELFPAY ==
--- NOTE | 2025-09-15 | CA_ITS ---
APPROVED REPORT Exam: Pharmacologic Technologist: Vaishali Brandon Ht: 5 ft 6 in Wt: 198 lbs BSA: 1.99 m2 HR: 67 bpm BP: 134/65 mmHg Rhythm: NSR Indications: HTN, Dyslipidemia Medical History Medical History: Hyperlipidemia, HTN Allergies: morphine Stress Test Details Test: Pharmacologic stress testing performed using 0.4 mg of regadenoson per 5 mL given IV over 10 seconds., Pharmacologic stress testing performed using 0.4 mg of regadenoson per 5 mL given IV over 10 seconds. HR Resting HR: 67 bpm Max Heart Rate (APMHR): 164.857260 bpm Max HR Achieved: 84 bpm Target HR (85% APMHR): 139.925895 bpm % of APMHR: 51.22 Recovery HR: 75 bpm BP Resting BP: 134.0/65.0 mmHg Max BP: 95.0/68.0 mmHg Recovery BP: 124.0/83.0 mmHg ECG Clinical Reason for Termination: Completed protocol Stress Symptoms: dizziness Stress ECG Conclusion Symptoms:dizziness no arrhythmias Less than 0.5mm upsloping ST segment Nondiagnostic ECG/Lexiscan stress images only Electronically signed by : Sonya Cueto MD 09/18/2025 02:15:26
--- OUTSIDE RECORDS SUMMARY | 2025-09-15 08:05 | XMS_ITS | Data Portability ---
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 Plan of Treatment Reminders Order Date Submit Date Provider Last Modified By Organization Details Last Modified Time Details Appointments None recorded. Lab TSH + free T4, serum 2023 [facility] (Lab), [address], [place], [place], [address], 16:17:18 CMP, serum or plasma 2023 [facility] (Lab), [address], [place], [place], [address], 16:17:18 lipid panel, serum 2023 [facility] (Lab), [address], [place], [address], 16:17:18 CBC w/ auto diff 2023 [facility] (Lab), [address], [place], [address], 15:27:52 CBC w/ auto diff 2022 023 [facility], [address], [address], [place], [address], 3 01:06:21 CMP, serum or plasma 2022 023 [facility], [address], [place], [place], [address], 3 01:06:22 HbA1c (hemoglobin A1c), blood 2022 023 [facility], [address] [place] [address], [address], 3 13:42:51 urinalysis, dipstick 2022 023 [facility], [address] [place] [address], [address], 3 11:12:55 culture, urine 2022 023 [facility], [address], [address] [address], [place], [address], 3 01:06:23 lipid panel, serum 2022 023 [facility], [address], [place] [address], [place], [address], 3 01:06:23 urinalysis, dipstick 2022 023 [facility], [address] [place] [address], [address], 3 14:49:39 culture, urine 2022 023 [facility], [address], [place] [address], [place], [address], 3 01:06:10 CMP, serum or plasma 2022 023 [facility], [address], [place] [address], [place], [address], 3 10:08:03 CBC w/ auto diff 2022 023 [facility], [address], [address] [address], [place], [address], 3 10:08:02 iron + total iron-bindin g capacity (TIBC), serum 2022 023 [facility], [address], [place] [address], [place], [address], 3 10:08:04 vitamin B12 + folate, serum or blood 2022 023 [facility], [address], [place] [address], [place], [address], 3 10:08:06 PT/PTT, plasma 2022 023 [facility], [address], [place] [address], [place], [address], 3 10:08:05 HbA1c (hemoglobin A1c), blood 2022 023 [facility], [address], [place] [address], [place], [address], 3 10:08:06 lipid panel, serum 2022 023 [facility], [address], [address] [address], [place], [address], 3 10:08:04 Referral urologist referral - blood in urine and flank pain 2022 023 bstears Ej Rodríguez MD (Billy), [address] , [address], [place], [address], 4 11:02:[address] referral 2022 023 bstears Bhavna Harris MANUFACTURING COORDINATOR, [address], [place], [address], 3 13:31:44 Procedures None recorded. Surgeries None recorded. Imaging US, thyroid 2023 024 [facility] [address], [place], [address], 4 18:11:25 Medication Orders Lexapro 10 mg tablet 2023 024 [facility] [place], [address], 4 16:36:29 furosemide 40 mg tablet 2022 023 [facility], [address] [place], [address], 3 11:13:04 atorvastati n 20 mg tablet 2022 023 [facility], [address] [place], [address], 3 11:13:03 amoxicillin 500 mg capsule 2022 023 [facility], [address] [place], [address], 3 10:11:07 ceftriaxone 1 gram solution for injection 2022 023 [facility] [address], [address] [place], [address], 3 10:11:13 ketorolac 30 mg/mL (1 mL) injection solution 2022 023 [facility] [address], [address] [place], [address], 3 10:11:22 [place] 5 mg-325 mg tablet 2022 023 sascha [facility], [address] [facility] [place], [address], 3 10:21:32 albuterol sulfate HFA 90 mcg/actuati on aerosol inhaler 2022 [facility] [address] [place], [address], 4 16:00:51 Miralax 17 gram/dose oral powder 2022 023 [facility], [address] [place], [address], 3 09:43:09 Patient TargetsNo targets recorded. Patient InstructionsNo instructions recorded. 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 Referring Physician: Terrence Johnson [facility], Encounter Date: 02/11/2023 Urologist Referral for Left flank pain blood in urine and flank pain Referring Physician: Terrence Johnson [facility], Encounter Date: 08/13/2023 Results Created Date Observation Date Name Description Value Unit Range Abnormal Flag Note LastModifiedBy Organization Detail LastModifiedTime 02/12/2002/12/2023 CBC WITH DIFFE RENTI AL/PL ATELE T WBC 8.7 x10e3 /uL 3.4-10 .8 Not Available [facility] ([facility]) [address] [place], [address], 02/12/2023 10:08:02 02/12/20 23 02/12/2023 CBC WITH DIFFE RENTI AL/PL ATELE T RBC 4.47 x10e6 /uL 3.77-5 .28 Not Available [facility] ([facility]) [address] [place], [address], 02/12/2023 10:08:02 02/12/20 23 02/12/2023 CBC WITH DIFFE RENTI AL/PL ATELE T hemoglobin 14.1 g/dL 11.1-1 5.9 Not Available [facility] ([facility]) [address] [facility], [place], [address], 02/12/2023 10:08:02 02/12/20 23 02/12/2023 CBC WITH DIFFE RENTI AL/PL ATELE T hematocrit 41.3 % 34.0-4 6.6 Not Available [facility] ([facility]) [address] [facility], [place], [address], 02/12/2023 10:08:02 02/12/20 23 02/12/2023 CBC WITH DIFFE RENTI AL/PL ATELE T MCV 92 fL 79-97 Not Available [facility] ([facility]) [address] [facility], [place], [address], 02/12/2023 10:08:02 02/12/20 23 02/12/2023 CBC WITH DIFFE RENTI AL/PL ATELE T MCH 31.5 pg 26.6-3 3.0 Not Available [facility] ([facility]) [address] [place], [address], 02/12/2023 10:08:02 02/12/20 23 02/12/2023 CBC WITH DIFFE RENTI AL/PL ATELE T MCHC 34.1 g/dL 31.5-3 5.7 Not Available [facility] ([facility]) [address] [place], [address], 02/12/2023 10:08:02 02/12/20 23 02/12/2023 CBC WITH DIFFE RENTI AL/PL ATELE T RDW 12.9 % 11.7-1 5.4 Not Available [facility] ([facility]) [address] [place], [address], 02/12/2023 10:08:02 02/12/20 23 02/12/2023 CBC WITH DIFFE RENTI AL/PL ATELE T platelets 207 x10e3 /uL 150-45 0 Not Available [facility] ([facility]) [address] [facility], [place], [address], 02/12/2023 10:08:02 02/12/20 23 02/12/2023 CBC WITH DIFFE RENTI AL/PL ATELE T neutrophils 58 % not estab. Not Available [facility] ([facility]) [address] [facility], [place], [address], 02/12/2023 10:08:02 02/12/20 23 02/12/2023 CBC WITH DIFFE RENTI AL/PL ATELE T lymphs 34 % not estab. Not Available [facility] ([facility]) [address] [facility], [place], [address], 02/12/2023 10:08:02 02/12/20 23 02/12/2023 CBC WITH DIFFE RENTI AL/PL ATELE T monocytes 6 % not estab. Not Available [facility] ([facility]) [address] [facility], [place], [address], 02/12/2023 10:08:02 02/12/20 23 02/12/2023 CBC WITH DIFFE RENTI AL/PL ATELE T eos 2 % not estab. Not Available [facility] ([facility]) [address] [facility], [place], [address], 02/12/2023 10:08:02 02/12/20 23 02/12/2023 CBC WITH DIFFE RENTI AL/PL ATELE T basos 0 % not estab. 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 0 Not Available [facility] ([facility]) [address] [facility], [place], [address], 02/12/2023 10:08:02 02/12/20 23 02/12/2023 CBC WITH DIFFE RENTI AL/PL ATELE T lymphs (absolute) 2.9 x10e3 /uL 0.7-3. 1 Not Available [facility] ([facility]) [address] [facility], [place], [address], 02/12/2023 10:08:02 02/12/20 23 02/12/2023 CBC WITH DIFFE RENTI AL/PL ATELE T monocytes(ab solute) 0.5 x10e3 /uL 0.1-0. 9 Not Available [facility] ([facility]) [address] [facility], [place], [address], 02/12/2023 10:08:02 02/12/20 23 02/12/2023 CBC WITH DIFFE RENTI AL/PL ATELE T eos (absolute) 0.2 x10e3 /uL 0.0-0. 4 Not Available [facility] ([facility]) [address] [place], [address], 02/12/2023 10:08:02 02/12/20 23 02/12/2023 CBC WITH DIFFE RENTI AL/PL ATELE T baso (absolute) 0.0 x10e3 /uL 0.0-0. 2 Not Available [facility] ([facility]) [address] [place], [address], 02/12/2023 10:08:02 02/12/20 23 02/12/2023 CBC WITH DIFFE RENTI AL/PL ATELE T immature granulocytes 0 % not estab. Not Available [facility] ([facility]) [address] [facility], [place], [address], 02/12/2023 10:08:02 02/12/20 23 02/12/2023 CBC WITH DIFFE RENTI AL/PL ATELE T immature grans (abs) 0.0 x10e3 /uL 0.0-0. 1 Not Available [facility] ([facility]) [address] [facility], [place], [address], 02/12/2023 10:08:02 02/12/20 23 02/12/2023 CBC WITH DIFFE RENTI AL/PL ATELE T NRBC AUTO TRAVEL COUNSELOR Not Available [facility] ([facility]) [address] [facility], [place], [address], 02/12/2023 10:08:02 02/12/20 23 02/12/2023 CBC WITH DIFFE RENTI AL/PL ATELE T hematology comments: AUTO TRAVEL COUNSELOR Not Available [facility] ([facility]) [address] [facility], [place], [address], 02/12/2023 10:08:02 02/12/20 23 02/12/2023 COMP. METAB OLIC PANEL (14) glucose 87 mg/dL 70-99 Not Available [facility] ([facility]) [address] [facility], [place], [address], 02/12/2023 10:08:03 02/12/20 23 02/12/2023 COMP. METAB OLIC PANEL (14) BUN 13 mg/dL 6-24 Not Available [facility] ([facility]) [address] [facility], [place], [address], 02/12/2023 10:08:03 02/12/20 23 02/12/2023 COMP. METAB OLIC PANEL (14) creatinine 0.78 mg/dL 0.57-1 .00 Not Available [facility] ([facility]) [address] [facility], [place], [address], 02/12/2023 10:08:03 02/12/20 23 02/12/2023 COMP. METAB OLIC PANEL (14) eGFR 90 mL/mi n/1.7 3 >59 Not Available [facility] ([facility]) [address] [facility], [place], [address], 02/12/2023 10:08:03 02/12/20 23 02/12/2023 COMP. METAB OLIC PANEL (14) BUN/creatini ne ratio 17 9-23 Not Available [facility] ([facility]) [address] [facility], [place], [address], 02/12/2023 10:08:03 02/12/20 23 02/12/2023 COMP. METAB OLIC PANEL (14) sodium 141 mmol/ L 134-14 4 Not Available [facility] ([facility]) [address] [facility], [place], [address], 02/12/2023 10:08:03 02/12/20 23 02/12/2023 COMP. METAB OLIC PANEL (14) potassium 4.1 mmol/ L 3.5-5. 2 Not Available [facility] ([facility]) [address] [place], [address], 02/12/2023 10:08:03 02/12/20 23 02/12/2023 COMP. METAB OLIC PANEL (14) chloride 102 mmol/ L 96-106 Not Available [facility] ([facility]) [address] [place], [address], 02/12/2023 10:08:03 02/12/20 23 02/12/2023 COMP. METAB OLIC PANEL (14) carbon dioxide, total 28 mmol/ L 20-29 Not Available [facility] ([facility]) [address] [place], [address], 02/12/2023 10:08:03 02/12/20 23 02/12/2023 COMP. METAB OLIC PANEL (14) calcium 9.3 mg/dL 8.7-10 .2 Not Available [facility] ([facility]) [address] [facility], [place], [address], 02/12/2023 10:08:03 02/12/20 23 02/12/2023 COMP. METAB OLIC PANEL (14) protein, total 7.0 g/dL 6.0-8. 5 Not Available [facility] ([facility]) [address] [facility], [place], [address], 02/12/2023 10:08:03 02/12/20 23 02/12/2023 COMP. METAB OLIC PANEL (14) albumin 4.6 g/dL 3.8-4. 9 Not Available [facility] ([facility]) [address] [facility], [place], [address], 02/12/2023 10:08:03 02/12/20 23 02/12/2023 COMP. METAB OLIC PANEL (14) globulin, total 2.4 g/dL 1.5-4. 5 Not Available [facility] ([facility]) [address] [facility], [place], [address], 02/12/2023 10:08:03 02/12/20 23 02/12/2023 COMP. METAB OLIC PANEL (14) A/G ratio 1.9 1.2-2. 2 Not Available [facility] ([facility]) [address] [facility], [place], [address], 02/12/2023 10:08:03 02/12/20 23 02/12/2023 COMP. METAB OLIC PANEL (14) bilirubin, total 0.6 mg/dL 0.0-1. 2 Not Available [facility] ([facility]) [address] [facility], [place], [address], 02/12/2023 10:08:03 02/12/20 23 02/12/2023 COMP. METAB OLIC PANEL (14) alkaline phosphatase 78 IU/L 44-121 Not Available [facility]) [address] [facility] [place] [place], [address], 02/12/2023 10:08:03 02/12/20 23 02/12/2023 COMP. METAB OLIC PANEL (14) AST (SGOT) 23 IU/L 0-40 Not Available [facility] ([facility]) [address] [facility] [place] [place], [address], 02/12/2023 10:08:03 02/12/20 23 02/12/2023 COMP. METAB OLIC PANEL (14) ALT (SGPT) 15 IU/L 0-32 Not Available [facility] ([facility]) [address] [place], [address], 02/12/2023 10:08:03 02/12/20 23 02/12/2023 LIPID PANEL cholesterol, total 157 mg/dL 100-19 9 Not Available [facility] ([facility]) [address] [place], [address], 02/12/2023 10:08:04 02/12/20 23 02/12/2023 LIPID PANEL triglyceride s 67 mg/dL 0-149 Not Available [facility] ([facility]) [address] [place], [address], 02/12/2023 10:08:04 02/12/20 23 02/12/2023 LIPID PANEL HDL cholesterol 59 mg/dL >39 Not Available [facility]) [address] [place], [address], 02/12/2023 10:08:04 02/12/20 23 02/12/2023 LIPID PANEL VLDL cholesterol heather 13 mg/dL 5-40 Not Available [facility] ([facility]) [address] [place], [address], 02/12/2023 10:08:04 02/12/20 23 02/12/2023 LIPID PANEL LDL chol calc (nih) 85 mg/dL 0-99 Not Available [facility]) [address] [facility], [place], [address], 02/12/2023 10:08:04 02/12/20 23 02/12/2023 LIPID PANEL comment: 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 TRAVEL COUNSELOR Not Available [facility] ([facility]) [address] [facility], [place], [address], 02/12/2023 10:08:04 02/12/20 23 02/12/2023 IRON AND TIBC iron bind.cap.(TI BC) 324 ug/dL 250-45 0 Not Available [facility] ([facility]) [address] [facility], [place], [address], 02/12/2023 10:08:04 02/12/20 23 02/12/2023 IRON AND TIBC UIBC 232 ug/dL 131-42 5 Not Available [facility] ([facility]) [address] [place], [address], 02/12/2023 10:08:04 02/12/2002/12/2023 IRON AND TIBC iron 92 ug/dL 27-159 Not Available [facility] ([facility]) [address] [facility], [place], [address], 02/12/2023 10:08:04 02/12/2002/12/2023 IRON AND TIBC iron saturation 28 % 15-55 Not Available [facility] ([facility]) [address] [place], [address], 02/12/2023 10:08:04 02/12/2002/12/2023 PT AND PTT INR [...] range 2.5 - 3.5 Not Available [facility] ([facility]) [address] [facility], [place], [address], 02/12/2023 10:08:05 02/12/20 23 02/12/2023 PT AND PTT prothrombin time 9.9 sec 9.1-12 .0 Not Available [facility] ([facility]) [address] [facility], [place], [address], 02/12/2023 10:08:05 02/12/20 23 02/12/2023 PT AND PTT APTT 30 sec 24-33 This test has not been valid ated for [facility] ori unfra ction ated hepar in thera py. aPTT- based thera peuti c range s for unfra ction ated hepar in thera py have not been estab cam kincaid For gener al guide lines on Hepar in monit oring , refer to the [facility] Dire[facility] tory [facility] Dina andres. Not Available [facility] ([facility]) [address] [facility], [place], [address], 02/12/2023 10:08:05 02/12/20 23 02/12/2023 VITAM IN B12 AND FOLAT E vitamin B12 420 pg/mL 232-12 45 Not Available [facility] ([facility]) [address] [facility], [place], [address], 02/12/2023 10:08:05 02/12/20 23 02/12/2023 VITAM IN B12 AND FOLAT E folate (folic acid), serum 8.2 NG/mL >3.0 A serum folat e reese ntrat ion of less than 3.1 ng/mL is consi dered to repre sent clini heather defic iency . Not Available [facility] ([facility]) [address] [facility], [place], [address], 02/12/2023 10:08:05 02/12/2002/12/2023 HEMOG LOBIN A1C hemoglobin A1C 5.6 % 4.8-5. 6 Predi abete s: 5.7 - 6.4 Diabe socrates: >6.4 Glyce deangelo contr ol for adult s with diabe socrates: <7.0 Not Available [facility] ([facility]) [address] [facility], [place], [address], 02/12/2023 10:08:06 06/18/20 23 06/20/2023 URINE CULTU RE, ROUTI NE urine culture, routine Final report Not Available [facility] ([facility]) [address] [facility], [place], [address], 06/20/2023 01:06:10 06/18/20 23 06/20/2023 URINE CULTU RE, ROUTI NE result 1 No growth Not Available [facility] ([facility]) [address] [facility], [place], [address], 06/20/2023 01:06:10 06/18/20 23 06/18/2023 urina lysis , dipst ick Leukocytes Negati ve Not Available [address], [address], 06/18/2023 14:18:36 06/18/20 23 06/18/2023 urina lysis , dipst ick Nitrite negati ve Not Available [address], [address], 06/18/2023 14:18:36 06/18/20 23 06/18/2023 urina lysis , dipst ick Urobilinogen .2 Not Available [facility] [address], [address], 06/18/2023 14:18:36 06/18/20 23 06/18/2023 urina lysis , dipst ick Protein Negati ve Not Available [facility], [address], 06/18/2023 14:18:36 06/18/20 23 06/18/2023 urina lysis , dipst ick pH 6.0 Not Available [address], [address], 06/18/2023 14:18:36 06/18/20 23 06/18/2023 urina lysis , dipst ick Blood Non-He molyze d: Trace Not Available [address], [address], 06/18/2023 14:18:36 06/18/20 23 06/18/2023 urina lysis , dipst ick Specific [place] 1.015 Not Available [address], [address], 06/18/2023 14:18:36 06/18/20 23 06/18/2023 urina lysis , dipst ick Ketone Negati ve Not Available [address], [address], 06/18/2023 14:18:36 06/18/20 23 06/18/2023 urina lysis , dipst ick Bilirubin Negati ve Not Available [address], [address], 06/18/2023 14:18:36 06/18/20 23 06/18/2023 urina lysis , dipst ick Glucose Negati ve Not Available [address], [address], 06/18/2023 14:18:36 06/18/20 23 06/18/2023 urina lysis , dipst ick Appearance Clear Not Available [address], [address], 06/18/2023 14:18:36 06/18/2006/18/2023 urina lysis , dipst ick Color Yellow Not Available [address], [address], 06/18/2023 14:18:36 08/13/2008/14/2023 CBC WITH DIFFE RENTI AL/PL ATELE T WBC 9.1 x10e3 /uL 3.4-10 .8 Not Available [facility] ([facility]) [address] [facility], [place], [address], 08/15/2023 01:06:21 08/13/2008/14/2023 CBC WITH DIFFE RENTI AL/PL ATELE T RBC 4.18 x10e6 /uL 3.77-5 .28 Not Available [facility] ([facility]) [address] [place], [address], 08/15/2023 01:06:21 08/13/2008/14/2023 CBC WITH DIFFE RENTI AL/PL ATELE T hemoglobin 13.0 g/dL 11.1-1 5.9 Not Available [facility] ([facility]) [address] [place], [address], 08/15/2023 01:06:21 08/13/2008/14/2023 CBC WITH DIFFE RENTI AL/PL ATELE T hematocrit 38.8 % 34.0-4 6.6 Not Available [facility] ([facility]) [address] [place], [address], 08/15/2023 01:06:21 08/13/2008/14/2023 CBC WITH DIFFE RENTI AL/PL ATELE T MCV 93 fL 79-97 Not Available [facility] ([facility]) [address] [place], [address], 08/15/2023 01:06:21 08/13/2008/14/2023 CBC WITH DIFFE RENTI AL/PL ATELE T MCH 31.1 pg 26.6-3 3.0 Not Available [facility] ([facility]) [address] [facility], [place], [address], 08/15/2023 01:06:21 08/13/2008/14/2023 CBC WITH DIFFE RENTI AL/PL ATELE T MCHC 33.5 g/dL 31.5-3 5.7 Not Available [facility] ([facility]) [address] [facility], [place], [address], 08/15/2023 01:06:21 08/13/2008/14/2023 CBC WITH DIFFE RENTI AL/PL ATELE T RDW 12.8 % 11.7-1 5.4 Not Available [facility] ([facility]) [address] [facility], [place], [address], 08/15/2023 01:06:21 08/13/2008/14/2023 CBC WITH DIFFE RENTI AL/PL ATELE T platelets 178 x10e3 /uL 150-45 0 Not Available [facility] ([facility]) [address] [place], [address], 08/15/2023 01:06:21 08/13/2008/14/2023 CBC WITH DIFFE RENTI AL/PL ATELE T neutrophils 56 % not estab. Not Available [facility] ([facility]) [address] [place], [address], 08/15/2023 01:06:21 08/13/2008/14/2023 CBC WITH DIFFE RENTI AL/PL ATELE T lymphs 37 % not estab. Not Available [facility] ([facility]) [address] [place], [address], 08/15/2023 01:06:21 08/13/2008/14/2023 CBC WITH DIFFE RENTI AL/PL ATELE T monocytes 5 % not estab. Not Available [facility] ([facility]) [address] [place], [address], 08/15/2023 01:06:21 08/13/2008/14/2023 CBC WITH DIFFE RENTI AL/PL ATELE T eos 2 % not estab. Not Available [facility] ([facility]) [address] [facility], [place], [address], 08/15/2023 01:06:21 08/13/2008/14/2023 CBC WITH DIFFE RENTI AL/PL ATELE T basos 0 % not estab. 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 0 Not Available [facility] ([facility]) [address] [place], [address], 08/15/2023 01:06:21 08/13/2008/14/2023 CBC WITH DIFFE RENTI AL/PL ATELE T lymphs (absolute) 3.3 x10e3 /uL 0.7-3. 1 above high normal Not Available [facility] ([facility]) [address] [place], [address], 08/15/2023 01:06:21 08/13/2008/14/2023 CBC WITH DIFFE RENTI AL/PL ATELE T monocytes(ab solute) 0.5 x10e3 /uL 0.1-0. 9 Not Available [facility] ([facility]) [address] [facility], [place], [address], 08/15/2023 01:06:21 08/13/2008/14/2023 CBC WITH DIFFE RENTI AL/PL ATELE T eos (absolute) 0.2 x10e3 /uL 0.0-0. 4 Not Available [facility] ([facility]) [address] [facility], [place], [address], 08/15/2023 01:06:21 08/13/2008/14/2023 CBC WITH DIFFE RENTI AL/PL ATELE T baso (absolute) 0.0 x10e3 /uL 0.0-0. 2 Not Available [facility] ([facility]) [address] [facility], [place], [address], 08/15/2023 01:06:21 08/13/2008/14/2023 CBC WITH DIFFE RENTI AL/PL ATELE T immature granulocytes 0 % not estab. Not Available [facility] ([facility]) [address] [facility], [place], [address], 08/15/2023 01:06:21 08/13/2008/14/2023 CBC WITH DIFFE RENTI AL/PL ATELE T immature grans (abs) 0.0 x10e3 /uL 0.0-0. 1 Not Available [facility] ([facility]) [address] [facility], [place], [address], 08/15/2023 01:06:21 08/13/2008/14/2023 CBC WITH DIFFE RENTI AL/PL ATELE T NRBC [employer] Not Available [facility] ([facility]) [address] [facility], [place], [address], 08/15/2023 01:06:21 08/13/20 23 08/14/2023 CBC WITH DIFFE RENTI AL/PL ATELE T hematology comments: [employer] Not Available [facility] ([facility]) [address] [facility], [place], [address], 08/15/2023 01:06:21 08/13/20 23 08/14/2023 COMP. METAB OLIC PANEL (14) glucose 86 mg/dL 70-99 Not Available [facility] ([facility]) [address] [facility], [place], [address], 08/15/2023 01:06:22 08/13/20 23 08/14/2023 COMP. METAB OLIC PANEL (14) BUN 12 mg/dL 6-24 Not Available [facility] ([facility]) [address] [facility], [place], [address], 08/15/2023 01:06:22 08/13/20 23 08/14/2023 COMP. METAB OLIC PANEL (14) creatinine 0.77 mg/dL 0.57-1 .00 Not Available [facility] ([facility]) [address] [facility], [place], [address], 08/15/2023 01:06:22 08/13/20 23 08/14/2023 COMP. METAB OLIC PANEL (14) eGFR 92 mL/mi n/1.7 3 >59 Not Available [facility] ([facility]) [address] [place], [address], 08/15/2023 01:06:22 08/13/20 23 08/14/2023 COMP. METAB OLIC PANEL (14) BUN/creatini ne ratio 16 9-23 Not Available [facility] ([facility]) [address] [place], [address], 08/15/2023 01:06:22 08/13/20 23 08/14/2023 COMP. METAB OLIC PANEL (14) sodium 142 mmol/ L 134-14 4 Not Available [facility] ([facility]) [address] [facility] [place], [address], 08/15/2023 01:06:22 08/13/20 23 08/14/2023 COMP. METAB OLIC PANEL (14) potassium 3.9 mmol/ L 3.5-5. 2 Not Available [facility] ([facility]) [address] [facility] [place], [address], 08/15/2023 01:06:22 08/13/2008/14/2023 COMP. METAB OLIC PANEL (14) chloride 103 mmol/ L 96-106 Not Available [facility] ([facility]) [address] [facility] [place] [place], [address], 08/15/2023 01:06:22 08/13/20 23 08/14/2023 COMP. METAB OLIC PANEL (14) carbon dioxide, total 25 mmol/ L 20-29 Not Available [facility] ([facility]) [address] [facility] [place] [place], [address], 08/15/2023 01:06:22 08/13/2008/14/2023 COMP. METAB OLIC PANEL (14) calcium 8.9 mg/dL 8.7-10 .2 Not Available [facility] ([facility]) [address] [facility] [place] [place], [address], 08/15/2023 01:06:22 08/13/2008/14/2023 COMP. METAB OLIC PANEL (14) protein, total 6.3 g/dL 6.0-8. 5 Not Available [facility] ([facility]) [address] [facility] [place] [place], [address], 08/15/2023 01:06:22 08/13/2008/14/2023 COMP. METAB OLIC PANEL (14) albumin 4.2 g/dL 3.8-4. 9 Not Available [facility] ([facility]) [address] [facility], [place], [address], 08/15/2023 01:06:22 08/13/20 23 08/14/2023 COMP. METAB OLIC PANEL (14) globulin, total 2.1 g/dL 1.5-4. 5 Not Available [facility] ([facility]) [address] [facility] [place] [place], [address], 08/15/2023 01:06:22 08/13/20 23 08/14/2023 COMP. METAB OLIC PANEL (14) A/G ratio 2.0 1.2-2. 2 Not Available [facility] ([facility]) [address] [facility] [place] [place], [address], 08/15/2023 01:06:22 08/13/2008/14/2023 COMP. METAB OLIC PANEL (14) bilirubin, total 0.9 mg/dL 0.0-1. 2 Not Available [facility] ([facility]) [address] [facility], [place], [address], 08/15/2023 01:06:22 08/13/2008/14/2023 COMP. METAB OLIC PANEL (14) alkaline phosphatase 72 IU/L 44-121 Not Available [facility]) [address] [facility], [place], [address], 08/15/2023 01:06:22 08/13/2008/14/2023 COMP. METAB OLIC PANEL (14) AST (SGOT) 18 IU/L 0-40 Not Available [facility] ([facility]) [address] [facility] [place] [place], [address], 08/15/2023 01:06:22 08/13/20 23 08/14/2023 COMP. METAB OLIC PANEL (14) ALT (SGPT) 11 IU/L 0-32 Not Available [facility] ([facility]) [address] [facility] [place] [place], [address], 08/15/2023 01:06:22 08/13/2008/14/2023 LIPID PANEL cholesterol, total 126 mg/dL 100-19 9 Not Available [facility] ([facility]) [address] [facility], [place], [address], 08/15/2023 01:06:22 08/13/2008/14/2023 LIPID PANEL triglyceride s 72 mg/dL 0-149 Not Available [facility]) [address] [facility], [place], [address], 08/15/2023 01:06:22 08/13/2008/14/2023 LIPID PANEL HDL cholesterol 58 mg/dL >39 Not Available [facility]) [address] [facility], [place], [address], 08/15/2023 01:06:22 08/13/2008/14/2023 LIPID PANEL VLDL cholesterol heather 15 mg/dL 5-40 Not Available [facility]) [address] [facility], [place], [address], 08/15/2023 01:06:22 08/13/2008/14/2023 LIPID PANEL LDL chol calc ([facility]) 53 mg/dL 0-99 Not Available [facility] [address] [facility], [place], [address], 08/15/2023 01:06:22 08/13/2008/14/2023 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 This colon y count is not gener ally consi dered to be clini mynor stephyi kenia t. Not Available [facility] ([facility]) [address] [facility], [place], [address], 08/15/2023 01:06:23 08/13/20 23 08/14/2023 PLEDILLON E NOTE please note Commen t The date and/o r time of colle ction was not indic ated on the requi sitio n as requi red by state and princess [place] law. The date of recei pt of the speci men was used as the colle ction date if not suppl ied. Not Available [facility] ([facility]) [address] [facility], [place], [address], 08/15/2023 01:06:24 08/13/2008/13/2023 HbA1c (hemo globi n A1c), blood HbA1C % Not Available [address], [address], 08/13/2023 11:13:22 08/13/20 23 08/13/2023 urina lysis , dipst ick Leukocytes Negati ve Not Available [address], [address], 08/13/2023 10:28:22 08/13/20 23 08/13/2023 urina lysis , dipst ick Nitrite negati ve Not Available [address], [address], 08/13/2023 10:28:22 08/13/20 23 08/13/2023 urina lysis , dipst ick Urobilinogen .2 Not Available Mayank oneill [address], [address], 08/13/2023 10:28:22 08/13/2008/13/2023 urina lysis , dipst ick Protein Negati ve Not Available [address], [address], 08/13/2023 10:28:22 08/13/2008/13/2023 urina lysis , dipst ick pH 6.0 Not Available [address], [address], 08/13/2023 10:28:22 08/13/2008/13/2023 urina lysis , dipst ick Blood Non-He molyze d: Trace Not Available [address], [address], 08/13/2023 10:28:22 08/13/2008/13/2023 urina lysis , dipst ick Specific [place] 1.015 Not Available [address], [address], 08/13/2023 10:28:22 08/13/2008/13/2023 urina lysis , dipst ick Ketone Negati ve Not Available [address], [address], 08/13/2023 10:28:22 08/13/2008/13/2023 urina lysis , dipst ick Bilirubin Negati ve Not Available [address], [address], 08/13/2023 10:28:22 08/13/20 23 08/13/2023 urina lysis , dipst ick Glucose Negati ve Not Available [address], [place], [address], 08/13/2023 10:28:22 08/13/2008/13/2023 urina lysis , dipst ick Appearance Clear Not Available [address], [place], [address], 08/13/2023 10:28:22 08/13/20 23 08/13/2023 urina lysis , dipst ick Color Dark Yellow Not Available [address], [place], [address], 08/13/2023 10:28:22 03/26/20 23 03/26/2023 US, abdom en, compl ete No observ ation record ed. [address], [place], [address], 03/26/2023 10:14:13 08/28/20 24 08/27/2024 US, thyro id No observ ation record ed. [place] [address], [place], [address], 08/31/2024 13:53:16 01/10/20 25 01/08/2025 XR, chest , 2 view No observ ation record ed. [place] [address], [place], [address], 01/11/2025 08:28:44 03/30/20 25 03/30/2025 CT, abdom en + pelvi s, w/ contr ast No observ ation record ed. [place] [address], [place], [address], 04/05/2025 09:35:04 04/02/20 25 04/02/2025 CT, abdom en + pelvi s, w/ contr ast No observ ation record ed. [place] [address], [place], [address], 04/05/2025 09:48:03 04/03/20 25 04/02/2025 alex weber am No observ ation record ed. [facility] [address], [place], [address], 04/05/2025 09:47:44 Result Notes None recorded. Problems Name Problem SNOMED Code Status Onset Date Resolution Date Notes Provider Name and Address Organization Details Recorded Time Heart disease 36166608 Active 2021 Terrence Johnson, MANUFACTURING COORDINATOR [address], [place], [address], [place] - [facility] 16:44:49 Hypertensive disorder 89402853 Active 2021 Terrence Johnson, MANUFACTURING COORDINATOR [address], [place], [address], [place] [facility] 16:44:54 Hypercholester olemia 21845541 Active 2021 Terrence Johnson, MANUFACTURING COORDINATOR [address], [place], [address], [place] [facility] 16:44:51 Prediabetes 030085228 Active 2022 Terrence Johnson, MANUFACTURING COORDINATOR [address], [place], [address], [place] [facility] 09:37:27 Asthma 542210363 Active 2022 Terrence Johnson, MANUFACTURING COORDINATOR [address], [place], [address], [place] [facility] 11:05:49 [...] Name and Address Organization Details Recorded Time 718276 morphine medicatio n Not available Not available [...] Updated DateTime 3 167.64 cm 28.7 kg/m2 26871.4 4 g 96.8 [degF] 72 /min 97 % 97 % 20 /min 0 122/68 mm[Hg] Donna Elizabeth [facility] 3 08:55:17 Date Recorded Body height Body mass index (BMI) Body weight Body temperature Heart rate Oxygen saturation Oxygen saturation in Arterial blood by Pulse oximetry Respiratory rate Pain severity - 0-10 verbal numeric rating [Score] - Reported Systolic And Diastolic Provider Name and Address Organization Details Last Updated DateTime 3 167.64 cm 28.8 kg/m2 12677.2 4 g 97.6 [degF] 67 /min 98 % 98 % 18 /min 0 116/70 mm[Hg] Donna Elizabeth [facility] 09:58:42 Date Recorded Body height Body mass index (BMI) Body weight Provider Name and Address Organization Details Last Updated DateTime 06/18/2023 167.64 cm 29.6 kg/m2 61785.1 g Donna Elizabeth [facility] 06/18/2023 14:09:31 Date Recorded Body height Body mass index (BMI) Body weight Body temperature Heart rate Oxygen saturation Oxygen saturation in Arterial blood by Pulse oximetry Respiratory rate Pain severity - 0-10 verbal numeric rating [Score] - Reported Systolic And Diastolic Provider Name and Address Organization Details Last Updated DateTime 3 167.64 cm 30.1 kg/m2 84502.9 8 g 98 [degF] 64 /min 97 % 97 % 18 /min 4 108/72 mm[Hg] Donna Glenn [place] - [facility] 3 10:20:18 Date Recorded Body height Body mass index (BMI) Body weight Heart rate Respiratory rate Oxygen saturation Oxygen saturation in Arterial blood by Pulse oximetry Systolic And Diastolic Provider Name and Address Organization Details Last Updated DateTime 4 167.64 cm 34.1 kg/m2 50969.9 9 g 82 /min 18 /min 95 % 95 % 124/78 mm[Hg] Linda Dale [place] - [facility] 16:00:06 Social History Question Answer Notes LastModified by Organizat ion Details LastModified Time Tobacco Smoking Status Current Every Day Smoker Linda Dale [facility] 08/14/2022 16:05:44 Do You Have An Advance [...] Or The Highest Degree You Have Received? [id number] Information not available 08/14/2022 Have There Been [...] Do You Have A Medical Power Of Telecommunications Project Manager? No Information not available 08/14/2022 What Was [...] anxious, or unable to sleep at night)? [id number] Information not available 08/14/2022 Do you have [...] preservative free, adsorbed 7 completed Donna parker, [facility] 08/21/2022 15:30:26 pneumococcal polysaccharide PPV23 8 completed Donna Elizabeth [facility], [facility] 11/13/2022 15:48:48 Influenza, split virus, quadrivalent, PF 9 [facility] 11/13/2022 15:48:48 COVID-19 vaccine, vector-nr, rS-Ad26, PF, 0.5 mL 1 completed Donna parker, [facility] 11/13/2022 15:48:48 Influenza, split virus, trivalent, PF 8 [facility] 11/13/2022 15:48:48 Past Encounters Encounter ID Performer Location Encounter Start Date Encounter Closed Date Diagnosis/Indication Diagnosis SNOMED-CT Code Diagnosis ICD10 Code Diagnosis IMO Codes Diagnosis Note [id number] Terrence Johnson APRN [address] [address] 08/14/2022 15:40:07 08/14/2022 17:48:34 Heart disease 39531696 I51.9 Hypercholesterolemia 136 54456 E78.00 Hypertensive disorder 38 046865 I10 Fatigue 76131020 R53.83 Right uppe r quadrant pain 996968444 R10.11 Screening for malignant neoplasm of breast 198117367 Z12.39 [id number] Terrence Johnson[address] [address] 11/13/2022 15:28:56 11/13/2022 16:42:08 Gastroesophageal reflux disease 483130545 K21.9 follow up with cardiology also Menopausal flushing 1984 78297 N95.1 Hypoglycemia 946359729 E 16.2 see log no glucose under 76 [id number] [facility] [place] [address] 02/11/2023 08:46:35 02/11/2023 10:07:12 Heart disease 61384102 I51.9 Hypertensive disorder 38 153348 I10 Hypercholesterolemia 136 92067 E78.00 Prediabetes 540813452 R7 3.03 Easy bruising 019504964 R58 Skin lesion 66370408 L98 .9 Constipation 32056250 K5 9.00 [id number] [facility] Johnson[address] [address] 05/10/2023 09:41:48 05/10/2023 10:57:11 Hypertensive disorder 77156190 I10 labs next visit Prediabetes 097948738 R7 3.03 labs next visit Asthma 770621073 J45.90 9 [id number] Terrence Luisashish[address] [address] 06/18/2023 13:59:46 06/18/2023 15:06:06 Acute urinary tract infection 187649601 N39.0 Dental abscess 314780587 K04.7 Left flank pain 73333235 9 R10.9 Low back pain 812205769 M54.50 [id number] Terrence Luisashish[address] [address] 08/13/2023 10:06:55 08/13/2023 11:39:41 Hypercholesterolemia 86304675 E78.00 Hypertensive disorder 38 101343 I10 Left flank pain 22316685 9 R10.9 pt freq has blood in urine will refer to urology for more work up Prediabetes 979588325 R7 3.03 Heart disease 81311425 I 51.9 [id number] Terrence Johnson APRN [address] [address] 08/20/2024 15:49:15 08/20/2024 16:15:30 Mixed anxiety and depressive disorder 922614443 F41.8 Patient identified triggers for anxiety and impact of anxious thinking on functionin g. Discussed strategies to regulate symptoms and need for compliance with treatment. 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 Heart disease 09231058 I 51.9 Hypercholesterolemia 136 59710 E78.00 Hypertensive disorder 38 915533 I10 Health Concerns Section Related Observation LastModified by Organization Detai ls LastModified Time None Recorded Concern Status LastModified by Organization Details LastModified Time None Recorded Advance Directives Directive N: Payers Insurance Date Sequence Insurance Name Policy Number Policy Bernal Covered Member ID Bernal Member ID Guarantor Name 08/20/2024 1 [facility] (MEDICAID REPLACEMENT - HMO) Maura Thorne [id number] Maura Thorne 10/16/2024 1 [facility] (MEDICAID REPLACEMENT - HMO) Maura Thorne [id number] Maura Thorne 11/13/2022 1 [facility] - INDIVIDUAL MEDICAL PLAN (HMO) Maura Thorne [id number] Maura Thorne 10/16/2024 [place] Maura Thorne [id number] Maura Thorne 08/20/2024 1 [facility] Maura Thorne [id number] Maura Thorne Notes Date Note Type Note [...] Terrence Johnson APRN [address], [place], [address], [place] - [facility] 02/11/2023 10:29:46 05/10/2023 text/html 52 yr old female presents to follow up on hypertension and pre diabetes. She would like a rescue inhaler for her copd/asthma pt states she is doing well Terrence Johnson APRN [address], [place], [address], [place] - [facility] 06/06/2023 14:38:54 06/18/2023 text/html 52 yr old female presents for gum abbess and possible uti.pt states she has pus abscess to gums. pt states she can feel and taste infectionleft flank pain, and freq Terrence Johnson APRN [address], [place], [address], [place] - [facility] 06/18/2023 15:45:47 08/13/2023 text/html 52 yr old female presents for lab work and possible uti. pt states she is having flank pain on the left that has been coming and going for awhile.pt states she needs med refills and labs for her chronic conditions.hx predm,heart dz,htn, hyperlipidemia Terrence Johnson APRN [address], [place], [address], [place] - [facility] 08/13/2023 11:23:39 08/20/2024 text/html ROS as noted in the HPI Maura is a 53 year old female who presents to the office today with concerns ofanxiety/depression - just passed awaynodule on right neck- trouble swallowingpain in left side of abdomen Terrence Johnson APRN [address], [place], [address], [place] - [facility] 08/31/2024 14:36:05 OBGyn Episode No OBEpisode recorded.
[2025-09-15 08:20] VITALS: BP 134/65; PULSE 67; RESP 14
[2025-09-15] MEDS: SODIUM CHLORIDE 0.9% 10ML SYR (RAD ONLY) 10 ML IV (08:39)
== END 2025-09-15 23:59 | disposition home or self-care (01) ==
LOC: RAD 08:03
PROVIDERS: PCP Student in an Organized Health Care Education/Training Program; Visit Provider Nurse Practitioner
DX: E78.5 Hyperlipidemia, unspecified (principal); I10 Essential (primary) hypertension; R07.9 Chest pain, unspecified; R06.00 Dyspnea, unspecified; R00.2 Palpitations
CPT/HCPCS: 93017; 93018; J2785

== ENCOUNTER 2025-10-19 13:11 | Outpatient (CLI) | payer MEDICAID, SELFPAY ==
--- NOTE | 2025-10-19 13:30 | MM_ITS ---
PROCEDURE INFORMATION: Exam: MG Bilateral Screening 3D Mammography Exam date and time: 10/19/2025 1:14 PM Age: 55 years old Clinical indication: Screening examination TECHNIQUE: Imaging protocol: Bilateral Screening tomosynthesis and 2D mammography including computer-aided detection (CAD) when performed. COMPARISON: No relevant prior studies available. FINDINGS: MAMMOGRAPHY: Breast composition: There are scattered areas of fibroglandular density. Mass: No suspicious masses. Architectural distortion: None. Calcifications: No suspicious calcifications. Asymmetric density: None. Skin thickening: None. Axillary adenopathy: None. IMPRESSION: No mammographic evidence of malignancy. Annual screening is recommended unless otherwise clinically indicated. ASSESSMENT: BI-RADS Category 1: Negative.
== END 2025-10-19 23:59 | disposition home or self-care (01) ==
LOC: RAD 13:12
PROVIDERS: PCP Student in an Organized Health Care Education/Training Program; Visit Provider Family Medicine
DX: Z12.31 Encounter for screening mammogram for malignant neoplasm of breast (principal); R92.323 Mammographic fibroglandular density, bilateral breasts
CPT/HCPCS: 77063; 77067

== ENCOUNTER 2025-10-21 07:58 | Day surgery (SDC) | payer MEDICAID, SELFPAY ==
[2025-10-21] VITALS (12 sets, daily range): BP systolic 96–119; BP diastolic 59–72; PULSE 50–68; RESP 15–20; O2SAT 91–97; BMI 32.0
--- NOTE | 2025-10-21 07:21 | IR_ITS ---
APPROVED REPORT Patient Location: Outpatient Litigation Docket Manager: Won Ambrose, RT (R) PROCEDURES Left heart catheterization Left ventriculogram Selective coronary angiogram INDICATION Abnormal Myoview, Angina pectoris Informed consent was obtained prior to the procedure. COMPLICATIONS None Estimated Blood Loss: Less than 10 mls TECHNIQUE One percent lidocaine used to anesthetize the right anterior aspect of the wrist. The right radial artery was accessed via the Seldinger technique. A 6 Micronesian sheath was placed in the right radial artery. 2.5 mg of Verapamil, 800 mcg of nitroglycerin, 1mg Lidocaine and 5000 U Heparin were given through the arterial sheath. The JL3 catheter was also used to perform left heart catheterization, left ventriculogram and selective coronary angiogram. At the end of the procedure the sheath was removed good hemostasis was achieved using Traclet band, patient was transferred to the postop holding area in stable condition. ANGIOGRAPHIC RESULTS The left main artery Normal The left anterior descending artery Normal The circumflex artery Normal The right coronary artery Dominant normal The LOVETT ventriculogram reveals Not performed The left ventricular end-diastolic pressure Not measured IMPRESSION Normal coronary arteries PLAN 1. Evaluation of noncardiac symptoms Electronically signed by : Leonardo Cat MD 10/21/2025 10:03:29
[2025-10-21 08:34] LABS: Hematocrit 43.0 % (37.0-47.0); Hemoglobin 14.1 g/dL (12.2-16.2); Immature Granulocytes % 0.4 %; Mean Corpuscular HGB Conc 32.8 g/dL (31.8-35.4); Mean Corpuscular Hemoglobin 30.3 pg (27.0-31.2); Mean Corpuscular Volume 92.5 fl (81-99); Nucleated Red Blood Cells % 0 %; Platelet Count 234 K/mm3 (142-424); Red Blood Count 4.65 M/mm3 (4.20-5.40); Red Cell Distribution Width-SD 50.3 fL; White Blood Count 14.1 K/mm3 (4.8-10.8)
[2025-10-21 08:35] LABS: Chloride 105 mmol/L (98-107); Potassium 3.8 mmoL/L (3.5-5.1); Sodium 137 mmol/L (136-145)
[2025-10-21 08:38] LABS: Anion Gap 7.8 mEq/L (5-15); Blood Urea Nitrogen 14 mg/dl (7-17); Calcium 8.9 mg/dl (8.4-10.2); Carbon Dioxide 28 mmol/L (22.0-30.0); Creatinine Clearance Estimated 110 mL/min (50-200); Creatinine,Serum 0.80 mg/dl (0.52-1.04); Estimated Glomerular Filt Rate 74 ml/min (>60); GFR (African American) 89 ML/MIN (>60); Glucose 85 mg/dl (74-100)
[2025-10-21] MEDS: VERAPAMIL 2.5MG/ML 2ML VIAL 2.5 MG IV (09:38)
[2025-10-21] MEDS: HEPARIN 1,000 UNITS/500ML NS (CATH LAB) 3000 UNIT IV (09:38)
[2025-10-21] MEDS: HEPARIN 1,000 UNITS/ML 10ML VIAL (CATH LAB) 5000 UNIT IV (09:39)
[2025-10-21] MEDS: LIDOCAINE 1% 10ML MDV 10 ML IJ (09:39)
[2025-10-21] MEDS: 0.9 % SODIUM CHLORIDE 500 ML 25 ML IV (09:40)
[2025-10-21] MEDS: NITROGLYCERIN 800MCG/8ML SYR (CATH LAB) 800 MCG IA (09:40)
[2025-10-21] MEDS: MIDAZOLAM HCL 1MG/ML 5ML VIAL 1 MG IV (09:40)
[2025-10-21] MEDS: FENTANYL 100MCG/2ML VIAL 50 MCG IV (09:40)
--- NOTE | 2025-10-21 13:35 | SUR.PHASEII ---
noted in vascular assessment post angio charting done under option for left lower extremity. heart cath done in RIGHT UPPER extremity. assessment done as indicated and charting based off the right upper
== END 2025-10-21 13:10 | disposition home or self-care (01) ==
PROVIDERS: PCP Student in an Organized Health Care Education/Training Program; Visit Provider Internal Medicine
PROC: 4A023N7 Measurement of Cardiac Sampling and Pressure, Left Heart, Percutaneous Approach (ICD-10-PCS; CPT 93452; principal; 2025-10-21 07:30)
DX: I20.89 Other forms of angina pectoris (principal); R94.39 Abnormal result of other cardiovascular function study; R07.89 Other chest pain; R00.2 Palpitations; I10 Essential (primary) hypertension; F17.210 Nicotine dependence, cigarettes, uncomplicated; Z79.82 Long term (current) use of aspirin; Z79.899 Other long term (current) drug therapy; Z88.5 Allergy status to narcotic agent; E78.2 Mixed hyperlipidemia; G47.33 Obstructive sleep apnea (adult) (pediatric)
CPT/HCPCS: 80048; 85025; 93458; 99152; C1769; C1887; J1200; J1644; J3010; J7040; Q9967